=== PATIENT | male | born 1945 | race Caucasian/White ===

== ENCOUNTER 2016-10-05 23:26 | Inpatient (IN) | payer MEDICARE ==
[2016-10-05] MEDS ORDERED: Sodium Chloride 0.9% 1,000 ML IV STA (23:54)
[2016-10-06] MEDS ORDERED: Diatriz Meglumine/Diatriz Sod 30 ML BOTTLE PO ONE (00:03)
[2016-10-06 00:17] LABS: VENOUS BLOOD GAS BASE EXCESS -3.8 mmol/L (0.0-2.0); VENOUS BLOOD GAS PCO2 25 mmHg (40-60); VENOUS BLOOD PH 7.47 (7.32-7.43)
[2016-10-06] MEDS ORDERED: Vancomycin 1 g Inj ONE (00:22)
[2016-10-06 00:28] LABS: BASO % 0.2 % (0.0-2.0); EOS % 0.1 % (0.0-4.0); HEMATOCRIT 47.7 % (35.0-51.0); LYMPH # 0.4 K/uL (1.0-4.3); LYMPH % 3.5 % (20.0-40.0); MEAN CELL VOLUME 85.2 fl (80.0-94.0); MEAN CORPUSCULAR HEMOGLOBIN 27.7 pg (27.0-31.0); MEAN CORPUSCULAR HGB CONC 32.5 g/dL (33.0-37.0); MEAN PLATELET VOLUME 7.2 fl (7.2-11.7); MONO # 0.5 K/uL (0.0-0.8); MONO % 4.1 % (0.0-10.0); NEUT # 10.5 K/uL (1.8-7.0); NEUT % 92.1 % (50.0-75.0); PLATELET COUNT 488 K/uL (130-400); RED CELL DISTRIBUTION WIDTH 14.5 % (11.5-14.5); WHITE BLOOD COUNT 11.3 K/uL (4.8-10.8)
[2016-10-06 00:35] LABS: ALB/GLOB RATIO 1.1 (1.0-2.1); ALKALINE PHOSPHATASE 295 U/L (38-126); ALT/SGPT 88 U/L (21-72); AST/SGOT 60 U/L (17-59); BLOOD UREA NITROGEN 14 mg/dl (9-20); CALCIUM 8.9 mg/dL (8.4-10.2); CARBON DIOXIDE 18 mmol/L (22-30); CHLORIDE 95 mmol/L (98-107); GFR AFRICAN-AMERICAN > 60; GLUCOSE,RANDOM 213 mg/dL (75-110); POTASSIUM 4.1 MMOL/L (3.6-5.0); SODIUM 133 mmol/l (132-148)
--- NOTE | 2016-10-06 00:50 | ED PDOC ---
HPI: General Adult Time Seen by Provider: 10/05/16 23:51 Chief Complaint (Nursing): Abdominal Pain Chief Complaint (Provider): abdominal pain, nausea History Per: Patient History/Exam Limitations: no limitations Onset/Duration Of Symptoms: Sudden Onset Have you had recent travel within the past 21 days to any of the following countries: [place], [place], [place] or [place]?: No Current Symptoms Are (Timing): Still Present Additional Complaint(s): 71yo male with PMHx including HTN, b/l inguinal hernia repair presents to the ED with c/o acute onset right sided upper abdominal pain radiating to shoulder with associated nausea. Patient states pain awoke him from sleep and felt like belching. Patient reports he has had gastrointestinal issues for past 2 weeks with irregular bowel habits. Saw Dr. Calloway today who referred patient for outpatient CT. This evening, developed very acute pain prompting ED visit. No vomiting or diarrhea. Unaware of fever, but has fever here. Patient also appears tachypnic, however states he is nervous. PCP: Dr. Leggett Past Medical History Reviewed: Historical Data, Nursing Documentation, Vital Signs Vital Signs: Last Vital Signs Temp 98.6 F 10/06/16 01:08 Pulse 126 H 10/06/16 01:03 Resp 20 10/06/16 01:03 BP 116/64 10/06/16 01:03 Pulse Ox 98 10/06/16 02:00 - Medical History PMH: HTN - Surgical History Surgical History: Hernia Repair (b/l inguinal ) - Family History Family History: States: No Known Family Hx - Social History Current smoker - smoking cessation education provided: No Alcohol: None Drugs: Denies - Home Medications Home Medications: Ambulatory Orders Medication Instructions Recorded Enalapril Maleate [Vasotec] 5 mg PO DAILY 10/06/16 - Allergies Allergies/Adverse Reactions: Allergies Allergy/AdvReac Type Severity Reaction Status Date / Time No Known Allergies Allergy Verified 10/05/16 23:30 Review of Systems ROS Statement: Except As Marked, All Systems Reviewed And Found Negative Gastrointestinal: Positive for: Nausea, Abdominal Pain. Negative for: Vomiting , Diarrhea Physical Exam - Reviewed Nursing Documentation Reviewed: Yes Vital Signs Reviewed: Yes - Physical Exam Appears: Positive for: Well, No Acute Distress Head Exam: Positive for: ATRAUMATIC, NORMAL INSPECTION, NORMOCEPHALIC Skin: Positive for: Normal Color, Warm, Dry Eye Exam: Positive for: Normal appearance, EOMI, PERRL ENT: Positive for: Normal ENT Inspection Neck: Positive for: Normal, Painless ROM, Supple Cardiovascular/Chest: Positive for: Tachycardia. Negative for: Murmur Respiratory: Positive for: Normal Breath Sounds. Negative for: Wheezing, Respiratory Distress Gastrointestinal/Abdominal: Positive for: Bowel Sounds (hypoactive ), Soft, Tenderness (diffuse ), Distended Back: Positive for: Normal Inspection. Negative for: L CVA Tenderness, R CVA Tenderness Extremity: Positive for: Normal ROM. Negative for: Deformity, Swelling Neurologic/Psych: Positive for: Alert, Oriented. Negative for: Motor/Sensory Deficits - Laboratory Results Result Diagrams: 10/05/16 00:24 10/05/16 00:24 - ECG O2 Sat by Pulse Oximetry: 98 Pulse Ox Interpretation: Normal (RA) - Critical Care Total Time (In Min): 60 Medical Decision Making Medical Decision Makin: Impression: 71yo male w/ acute abdominal pain Plan: Based on patient's tachycardia, tachypnia, and venous lactate, code sepsis initiated. VBG, CT A/P, EKG, labs, CXR ordered. Portable CXR viewed by provider shows high suspicion for free air. Stat non- contrast CT ordered. CT did not show free air. 0106: CT A/P impression: Bilateral pulmonary nodules suggestive of metastatic disease. Recommend correlation with history of primary malignancy. Severe constipation of the right and transverse colon. Cluster of dilated distal ileal loops in the right lower quadrant with severe concentric wall thickening, appearance concerning for bowel ischemia possibly secondary to internal hernia. The lack of intravenous and oral contrast is limiting. Labs reviewed, significant for elevated troponin level indicative of NSTEMI. Low dose nitropaste and IV lopressor ordered. Sepsis bolus of IV ordered. 0109: CT findings discussed with Dr. Hoover and residential supervisor. As per surgical attending, (Dr. Hoover) only IVF resuscitation at this time with antibiotics. Dr. Hoover will further evaluate patient in the morning. Case also discussed with Dr. Chambers for hospitalist admission and ICU placement. Dx: ischemic bowel, sepsis, NSTEMI guarded Scribe Attestation: Documented by Madie Greene acting as a scribe for Lenny Ricks MD. Provider Scribe Attestation: All medical record entries made by the Scribe were at my direction and personally dictated by me. I have reviewed the chart and agree that the record accurately reflects my personal performance of the history, physical exam, medical decision making, and the department course for this patient. I have also personally directed, reviewed, and agree with the discharge instructions and disposition. Disposition - Clinical Impression Clinical Impression: Sepsis, NSTEMI (non-ST elevated myocardial infarction), Ischemic bowel disease - Patient ED Disposition Is Patient to be Admitted: Yes Discussed With DrManuel: Robbin Hoover - Disposition Disposition Time: 01:09 Condition: GUARDED
--- NOTE | 2016-10-06 01:06 | CT ---
EXAM: CT Abdomen and Pelvis Without Intravenous Contrast. CLINICAL HISTORY: 71 years old, male; Pain; Abdominal pain; Generalized; Prior surgery; Surgery date: 6+ months; Surgery type: Inguinal hernia; Additional info: R/O free air TECHNIQUE: Axial computed tomography images of the abdomen and pelvis without intravenous contrast. This CT exam was performed using one or more of the following dose reduction techniques: automated exposure control, adjustment of the mA and/or kV according to patient size, and/or use of iterative reconstruction technique. Coronal and sagittal reformatted images were created and reviewed. EXAM DATE/TIME: 10/06/2016 12:10 AM COMPARISON: No relevant prior studies available. FINDINGS: Numerous pulmonary nodules are present bilaterally likely representing metastatic disease. Recommend correlation with history of primary malignancy. Please note that no prior studies were provided. Bibasilar atelectasis greater on the right. Trace amount of right pleural fluid. There is a small amount of perihepatic fluid. The liver, spleen, and pancreas appear grossly normal on this non-contrast study. Bilateral perinephric stranding. No hydronephrosis. No obstructing calculi. The right and transverse colon are distended with large amount of stool consistent with constipation. Diverticulosis descending and sigmoid colon. There are dilated, markedly thickened loops of small bowel (distal ileum including the terminal ileum) in the right pelvis extending into the right inguinal region. There is haziness in the surrounding fat. The severe concentric wall thickening has appearance concerning for bowel ischemia. Lack of intravenous contrast is limiting and underlying lesion in the thickened ileal loops cannot be excluded. There does not appear to be a significant caliber change in the loop herniating into the right inguinal region to suggest obstruction. The dilation of the thickened loops is likely at least partially due to the large amount of stool within the right colon. The clustering of loops raises the possibility of internal hernia. Numerous mesenteric lymph nodes. Small amount of free fluid in the deep right pelvis. No free air. Degenerative changes in the osseous structures. IMPRESSION: Bilateral pulmonary nodules suggestive of metastatic disease. Recommend correlation with history of primary malignancy. Severe constipation of the right and transverse colon. Cluster of dilated distal ileal loops in the right lower quadrant with severe concentric wall thickening, appearance concerning for bowel ischemia possibly secondary to internal hernia. The lack of intravenous and oral contrast is limiting. Please note no prior studies were sent.
[2016-10-06 01:17] LABS: LARGE PLATELETS PRESENT; NEUTROPHIL 77 % (42-75); REACTIVE LYMPHOCYTES 2 % (0-0); TOTAL CELLS COUNTED 100
[2016-10-06] MEDS ORDERED: SODIUM CHLORIDE 0.9% IV STA (01:25)
[2016-10-06] MEDS ORDERED: Metoprolol 1 mg/ml Inj IVP ONE ×2 (01:27→01:30)
[2016-10-06] MEDS ORDERED: Nitroglycerin 2% 1GM UD TOP STA (01:27)
[2016-10-06] MEDS ORDERED: Nitroglycerin 2% 1GM UD ONE (01:30)
--- NOTE | 2016-10-06 01:38 | CP.PCM.HP ---
History of Present Illness - History of Present Illness History of Present Illness: PCP: Davi Leggett MD Chief Complaint: Abdominal discomfort/weakness HPI: 71 years old male with hx of HTN, Bilateral Inguinal hernia repair one in 1979 and other 7 years ago, comes with worsening abdominal discomfort which began 2 weeks ago with nausea, generalized abdominal discomfort with pain across the upper abdomen, intermittent. Sensation of the gas moving about in [place] abdomen, frequent loose stool and generalized weakness. He referred vomiting , relieved with Famotidine but he began having Eructus and Hiccups. He was having rigors , SOB and mouth dryness on the day of admission He was seen by Dr Leggett who sent him to a Gastroenteralogist whose appointment was on the day of admission.Because of the severity of the abdominal discomfort the patient came to the ED. In the ED he was found to have a temperature of 101.7F and HR of 155/min and RR of 32/min. PMH: HTN PSH: Bilateral Inguinal hernia 1979 and 2009 SH: Quit smoking 40years ; occasional Alcohol use; No illegal drug use; live with the family; Retired FH: No Hereditary diseases Allergies> NKDA Present on Admission - Present on Admission Any Indicators Present on Admission: No History of DVT/PE: No History of Uncontrolled Diabetes: No Urinary Catheter: No Decubitus Ulcer Present: No Review of Systems - Review of Systems Systems not reviewed;Unavailable: Respiratory Distress - Constitutional Constitutional: Chills, Fatigue, Weakness. absent: Headache - EENT Eyes: Requires Corrective Lenses. absent: Decreased Night Vision, Diplopia, Photophobia, Sees Flashes Ears: absent: Decreased Hearing, Ear Discharge, Ear Pain, Tinnitus Nose/Mouth/Throat: Dry Mouth. absent: Epistaxis, Nasal Congestion, Nasal Discharge, Sinus Pain, Sinus Pressure, Sore Throat - Cardiovascular Cardiovascular: absent: Chest Pain, Dyspnea, Edema, Orthopnea, Pedal Edema - Respiratory Respiratory: Dyspnea. absent: Cough, Stridor - Gastrointestinal Gastrointestinal: Abdominal Pain, Diarrhea, Loose Stools, Nausea. absent: Vomiting - Genitourinary Genitourinary: absent: Dysuria, Flank Pain, Hematuria, Urinary Frequency, Freq UTI - Musculoskeletal Musculoskeletal: Muscle Weakness. absent: Back Pain, Joint Swelling, Limited Range of Motion, Neck Pain, Stiffness - Integumentary Integumentary: Hirsutism. absent: Pruritus, Rash, Skin Ulcer, Sores, Striae, Swelling - Neurological Neurological: Frequent Falls, Weakness. absent: Focal Weakness, Headaches, Paresthesias - Psychiatric Psychiatric: Abnormal Sleep Pattern, Anxiety. absent: Confusion, Depression, Hallucinations, Hopelessness, Panic Attacks - Endocrine Endocrine: absent: Fatigue, Palpitations, Polydipsia, Polyphagia, Polyuria - Hematologic/Lymphatic Hematologic: absent: As Per HPI, Easy Bleeding Past Patient History - Past Medical History & Family History Past Medical History?: Yes - Past Social History Smoking Status: Former Smoker Chewing Tobacco Use: No Cigar Use: No Alcohol: Occasional Drugs: Denies Home Situation {Lives}: With Family - CARDIAC Hx Hypertension: Yes - PULMONARY Hx Respiratory Disorders: No - NEUROLOGICAL Hx Neurological Disorder: No - HEENT Hx HEENT Problems: No - RENAL Hx Chronic Kidney Disease: No - ENDOCRINE/METABOLIC Hx Endocrine Disorders: No - HEMATOLOGICAL/ONCOLOGICAL Hx Blood Disorders: No - MUSCULOSKELETAL/RHEUMATOLOGICAL Hx Musculoskeletal Disorders: No - GASTROINTESTINAL Hx Gastrointestinal Disorders: No - GENITOURINARY/GYNECOLOGICAL Hx Genitourinary Disorders: No - PSYCHIATRIC Hx Psychophysiologic Disorder: No - SURGICAL HISTORY Hx Herniorrhaphy: Yes (Bilateral inguinal) - ANESTHESIA Hx Anesthesia: Yes Hx Anesthesia Reactions: No Meds Allergies/Adverse Reactions: Allergies Allergy/AdvReac Type Severity Reaction Status Date / Time No Known Allergies Allergy Verified 10/05/16 23:30 Physical Exam - Constitutional Appears: No Acute Distress, Cachectic - Head Exam Head Exam: ATRAUMATIC, NORMAL INSPECTION, NORMOCEPHALIC - Eye Exam Eye Exam: EOMI, Normal appearance Pupil Exam: NORMAL ACCOMODATION, PERRL - ENT Exam ENT Exam: Mucous Membranes Dry, Normal Exam, Normal External Ear Exam, Normal Oropharynx - Neck Exam Neck exam: Positive for: Full Rom, Normal Inspection. Negative for: Lymphadenopathy, Tenderness - Respiratory Exam Respiratory Exam: Clear to Auscultation Bilateral. absent: Rales, Rhonchi, Wheezes - Cardiovascular Exam Cardiovascular Exam: REGULAR RHYTHM, RRR, +S1, +S2. absent: Gallop, JVD - GI/Abdominal Exam GI & Abdominal Exam: Normal Bowel Sounds Additional comments: distended abdomen, firm, tympanic on percussion, mild tenderness at the upper abdomen. No rebound nor guarding. - Rectal Exam Rectal Exam: Deferred - Extremities Exam Extremities exam: Positive for: calf tenderness, full ROM, normal inspection. Negative for: joint swelling, tenderness - Back Exam Back exam: NORMAL INSPECTION. absent: CVA tenderness (L), CVA tenderness (R) - Neurological Exam Neurological exam: Alert, CN II-XII Intact, Oriented x3, Reflexes Normal - Psychiatric Exam Psychiatric exam: Normal Affect, Normal Mood - Skin Skin Exam: Dry, Intact, Normal Color, Warm Results - Vital Signs Recent Vital Signs: Last Vital Signs Temp 98.6 F 10/06/16 01:08 Pulse 126 H 10/06/16 01:03 Resp 20 10/06/16 01:03 BP 116/64 10/06/16 01:03 Pulse Ox 96 10/06/16 01:03 - Labs Result Diagrams: 10/05/16 00:24 10/05/16 00:24 - Imaging and Cardiology CT scan - abdomen Status: Report reviewed by me Additional comment: FINDINGS: Numerous pulmonary nodules are present bilaterally likely representing metastatic disease. Recommend correlation with history of primary malignancy. Please note that no prior studies were provided. Bibasilar atelectasis greater on the right. Trace amount of right pleural fluid. There is a small amount of perihepatic fluid. The liver, spleen, and pancreas appear grossly normal on this non-contrast study. Bilateral perinephric stranding. No hydronephrosis. No obstructing calculi. The right and transverse colon are distended with large amount of stool consistent with constipation. Diverticulosis descending and sigmoid colon. There are dilated, markedly thickened loops of small bowel (distal ileum including the terminal ileum) in the right pelvis extending into the right inguinal region. There is haziness in the surrounding fat. The severe concentric wall thickening has appearance concerning for bowel ischemia. Lack of intravenous contrast is limiting and underlying lesion in the thickened ileal loops cannot be excluded. There does not appear to be a significant caliber change in the loop herniating into the right inguinal region to suggest obstruction. The dilation of the thickened loops is likely at least partially due to the large amount of stool within the right colon. The clustering of loops raises the possibility of internal hernia. Numerous mesenteric lymph nodes. Small amount of free fluid in the deep right pelvis. No free air. Degenerative changes in the osseous structures. IMPRESSION: Bilateral pulmonary nodules suggestive of metastatic disease. Recommend correlation with history of primary malignancy. Severe constipation of the right and transverse colon. Cluster of dilated distal ileal loops in the right lower quadrant with severe concentric wall thickening, appearance concerning for bowel ischemia possibly secondary to internal hernia. The lack of intravenous and oral contrast is limiting. Chest x-ray Status: Image reviewed by me Additional comment: No infiltrates Assessment & Plan - Assessment and Plan (Free Text) Assessment: #. Ischemic Bowel #. Sepsis #. NSTENI #. HTN Plan: 71 years old male with hx of HTN, Bilateral Inguinal hernia repair one in 1979 and other 7 years ago, comes with worsening abdominal discomfort which began 2 weeks ago with nausea, generalized abdominal discomfort with pain across the upper abdomen, intermittent. Sensation of the gas moving about in the. abdomen, frequent loose stool and generalized weakness. He referred vomiting. In the ED he was found to have a temperature of 101.7F and HR of 155/min and RR of 32/min. #. Ischemic Bowel possible due to Internal Hernia as per CT abdomen Pelvis - Consult Surgery Dr Hoover - consult Dr Yanes GI - NPO - NG tube at low intermittent suctioning - Pepcid IV BID #. Severe Sepsis with temperature of 101.7F; RR of 32/min; HR of 155/min and Lactate of 4.7 - patient received 3liters of NS in ED continue with Normal saline 150mls/hr - Consult Dr Jackson GI - Follow Blood Culture - follow Lactic Acid/CBC #. Elevated troponin probably secondary to the Sepsis r/o NSTEMI - consult Dr Leggett cardiology - follow serial troponin - Serial EKG #. HTN - Metropolol 2.5mg IV Q6hrs - follow Blood pressures #. Bilateral Pulmonary nodules suggestive of Metastatic disease - Consult Dr Mcgowan #. DVT prophylaxis with SCD #. Stress Ulcer prophylaxis with Pepcid IV BID #. Code Status: Full - Date & Time Date: 10/06/16 Time: 01:38
[2016-10-06] MEDS ORDERED: Sodium Chloride 0.9% 1,000 ML IV SCH ×2 (03:00→22:45)
[2016-10-06 03:46] VITALS: BMI 22.8
[2016-10-06] MEDS: Piperacillin/Tazobact 3.375 GM in Sodium Chloride 0.9% 100 ML IVPB STA (04:00)
[2016-10-06] MEDS: metroNIDAZOLE 500mg/100ml NS 100 ML IVPB SCH ×3 (05:00→16:50)
[2016-10-06 05:44] LABS: BASO % 0.1 % (0.0-2.0); HEMATOCRIT 38.7 % (35.0-51.0); LYMPH # 0.4 K/uL (1.0-4.3); LYMPH % 3.8 % (20.0-40.0); MEAN CELL VOLUME 84.4 fl (80.0-94.0); MEAN CORPUSCULAR HEMOGLOBIN 27.2 pg (27.0-31.0); MEAN CORPUSCULAR HGB CONC 32.2 g/dL (33.0-37.0); MEAN PLATELET VOLUME 7.3 fl (7.2-11.7); MONO # 0.6 K/uL (0.0-0.8); MONO % 5.3 % (0.0-10.0); NEUT # 10.6 K/uL (1.8-7.0); NEUT % 90.8 % (50.0-75.0); PLATELET COUNT 330 K/uL (130-400); RED CELL DISTRIBUTION WIDTH 14.4 % (11.5-14.5); WHITE BLOOD COUNT 11.6 K/uL (4.8-10.8)
[2016-10-06 05:54] LABS: ALB/GLOB RATIO 0.9 (1.0-2.1); ALKALINE PHOSPHATASE 163 U/L (38-126); ALT/SGPT 62 U/L (21-72); AST/SGOT 32 U/L (17-59); BILIRUBIN,TOTAL 0.7 mg/dl (0.2-1.3); BLOOD UREA NITROGEN 14 mg/dl (9-20); CALCIUM 7.1 mg/dL (8.4-10.2); CARBON DIOXIDE 17 mmol/L (22-30); CHLORIDE 106 mmol/L (98-107); GFR AFRICAN-AMERICAN > 60; GLUCOSE,RANDOM 119 mg/dL (75-110); POTASSIUM 3.3 MMOL/L (3.6-5.0); SODIUM 134 mmol/l (132-148); TOTAL PROTEIN 4.8 G/DL (6.3-8.2)
--- NOTE | 2016-10-06 06:07 | CP.PCM.CON ---
History of Present Illness - History of Present Illness History of Present Illness: Gen Surg: Dr Hoover CC: abdominal pain x 2 weeks Pt is a 71M with PMH of HTN and PSH of b/l inguinal hernia repair. Pt presents with abdominal pain which has been worsening over the past 2 weeks. Initially it started just as epigastric discomfort. Now he describes it as a diffuse pain throughout his entire upper abdomen that comes and goes. It has been associated with intermittent vomiting, nausea, and a generalized fatigue over the past 2 weeks. He also reports significant diarrhea during this time. Today he was supposed to be seen by GI but his pain got worse and he became SOB and felt extremily dehydrated so he came to ED. In ED pt found to be septic w/ positive Troponin, CT concerning for bowel ischemia. PMH: HTN PSH: b/l inguinal hernia Review of Systems - Review of Systems All systems: reviewed and no additional remarkable complaints except (as per hpi ) Past Patient History - Past Medical History & Family History Past Medical History?: Yes - Past Social History Smoking Status: Former Smoker Chewing Tobacco Use: No Cigar Use: No Alcohol: Occasional Drugs: Denies Home Situation {Lives}: With Family - CARDIAC Hx Hypertension: Yes - PULMONARY Hx Respiratory Disorders: No - NEUROLOGICAL Hx Neurological Disorder: No - HEENT Hx HEENT Problems: No - RENAL Hx Chronic Kidney Disease: No - ENDOCRINE/METABOLIC Hx Endocrine Disorders: No - HEMATOLOGICAL/ONCOLOGICAL Hx Blood Disorders: No - INTEGUMENTARY Hx Dermatological Problems: No - MUSCULOSKELETAL/RHEUMATOLOGICAL Hx Musculoskeletal Disorders: No - GASTROINTESTINAL Hx Gastrointestinal Disorders: No - GENITOURINARY/GYNECOLOGICAL Hx Genitourinary Disorders: No - PSYCHIATRIC Hx Psychophysiologic Disorder: No - SURGICAL HISTORY Hx Herniorrhaphy: Yes (Bilateral inguinal) - ANESTHESIA Hx Anesthesia: Yes Hx Anesthesia Reactions: No Meds Allergies/Adverse Reactions: Allergies Allergy/AdvReac Type Severity Reaction Status Date / Time No Known Allergies Allergy Verified 10/05/16 23:30 - Medications Medications: Current Medications Famotidine (Pepcid) 20 mg IVP Q12 LOREN Piperacillin Sod/Tazobactam (Sod 3.375 gm/ Sodium Chloride) 100 mls @ 100 mls/ hr IVPB Q6 LOREN Metronidazole (Flagyl 500mg/100ml Ns) 100 mls @ 100 mls/hr IVPB Q8 LOREN Last Admin: 10/06/16 05:00 Dose: 100 mls/hr Sodium Chloride (Sodium Chloride 0.9%) 1,000 mls @ 150 mls/hr IV .Q6H40M [facility] Stop: 10/07/16 03:01 Metoprolol Tartrate (Lopressor) 2.5 mg IVP Q6H LOREN Physical Exam - Constitutional Appears: Non-toxic, No Acute Distress - Head Exam Head Exam: NORMOCEPHALIC - Eye Exam Eye Exam: EOMI - ENT Exam ENT Exam: Mucous Membranes Dry - Respiratory Exam Respiratory Exam: absent: Accessory Muscle Use, Respiratory Distress - Cardiovascular Exam Cardiovascular Exam: REGULAR RHYTHM - GI/Abdominal Exam GI & Abdominal Exam: Diminished Bowel Sounds, Distended, Firm, Tenderness ( diffuse but worse in RUQ/LUQ). absent: Guarding, Hernia, Soft - Rectal Exam Rectal Exam: Deferred - Extremities Exam Extremities exam: Negative for: pedal edema - Neurological Exam Neurological exam: Alert, Oriented x3 - Psychiatric Exam Psychiatric exam: Normal Affect, Normal Mood Results - Vital Signs Recent Vital Signs: Last Vital Signs Temp 98.9 F 10/06/16 04:00 Pulse 105 H 10/06/16 04:00 Resp 22 10/06/16 04:00 BP 94/59 L 10/06/16 04:00 Pulse Ox 96 10/06/16 04:00 - Labs Result Diagrams: 10/06/16 04:50 10/06/16 04:50 Labs: Laboratory Results - last 24 hr 10/06/16 10/06/16 03:30 04:50 WBC 11.6 H RBC 4.58 Hgb 12.5 D Hct 38.7 MCV 84.4 MCH 27.2 MCHC 32.2 L RDW 14.4 Plt Count 330 D MPV 7.3 Neut % (Auto) 90.8 H Lymph % (Auto) 3.8 L [place] % (Auto) 5.3 Eos % (Auto) 0.0 Baso % (Auto) 0.1 Neut # 10.6 H Lymph # 0.4 L [place] # 0.6 Eos # 0.0 Baso # 0.0 Lactic Acid 2.3 H Assessment & Plan - Assessment and Plan (Free Text) Assessment: 71M admitted for 2 weeks of abdominal pain; also NSTEMI Plan: NPO IV Fluids NGT Serial lactate repeat troponins rec cardiology consult re: NSTEMI further rec per Dr Kiko torres d/w Dr Kiko Vizcarra, PGY2 - Date & Time Date: 10/06/16 Time: 06:15
[2016-10-06 07:20] LABS: PARTIAL THROMBOPLASTIN TIME 32.7 SECONDS (23.3-32.5)
--- NOTE | 2016-10-06 07:55 | CARD ---
APPROVED REPORT EKG Measurement Heart [id number] <Conclusion> Sinus tachycardia Low voltage QRS Right bundle branch block Inferior infarct, age undetermined Abnormal ECG
[2016-10-06] MEDS: Potassium CL 10mEq/100ml 100 ML IVPB SCH ×2 (09:02→10:07)
[2016-10-06] MEDS: Metoprolol 1 mg/ml Inj IVP SCH ×3 (09:08→20:45)
--- NOTE | 2016-10-06 09:45 | CARD ---
APPROVED REPORT EKG Measurement Heart [id number] <Conclusion> Normal sinus rhythm Right bundle branch block Inferior infarct, age undetermined Abnormal ECG
--- NOTE | 2016-10-06 09:55 | CP.PCM.CON ---
History of Present Illness - History of Present Illness History of Present Illness: THE PATIENT IS A 71 YEAR OLD MALE WITH AHISTORY OF HYPERTENSION FOR ABOUT 7 YEARS ON ENALAPRIL 5 MGS DAILY. HE IS ALSO AN EX SMOKER. HE HAD BILATERAL INGUINAL HERNIA SURGICAL REPAIRS SEVERAL YEARS AGO AND SURGERY FOR LEFT SCAPULA TRAUMA YEARS AGO. HE NOW COMPLAINS OF ABDOMINAL PROBLEMS SINCE JULY OF THIS YEAR WITH ABDOMINAL PAIN, VOMITING, DIARRHEA, BLOATING, AND PERIODS WITH LACK OF APPETITE WITH LITTLE TO EAT OR DRINK. THESE SYMPTOMS WERE WORSE OVER THE PAST 2 WEEKS AND HE SAW ME EARLIER THIS WEEK AND WAS REFERRED TO A GI PHYSICIAN WHO SAW HIM YESTERDAY AND BLOOD TESTS, STOOL TESTS AND A CAT SCAN WERE TO BE DONE AND A PROBABLE ENDOSCOPY NEXT WEEK. BUT, LAST NIGHT HE HAD SHARP ABDOMINAL PAIN, WEAKNESS AND DIZZYNESS AND CAME TO THE ER. HE WAS FOUND TO HAVE SEPSIS WITH A FEVER AND ELEVATED WBC SO HE WAS GIVEN IV ANTIBIOTICS AND IV FLUIDS. A CAT SCAN WAS ORDERED SHOWING DILATED LOOPS AND POSSIBLE ISCHEMIC BOWEL SO SURGERY WAS CALLED TO SEE HIM. THE PATIENT HAS A RBBB ON THE EKG AND THE EKG MACHINE READ THE EKG POSSIBLE OLD IWMI. BUT THE EKG IS UNCHANGED FROM A PREVIOUS EKG AND THE PATIENT DOES NOT HAVE A HISTORY OF CHEST PAIN OR IN. Past Patient History - Past Medical History & Family History Past Medical History?: Yes - Past Social History Smoking Status: Former Smoker Chewing Tobacco Use: No Cigar Use: No Alcohol: Occasional Drugs: Denies Home Situation {Lives}: With Family - CARDIAC Hx Hypertension: Yes - PULMONARY Hx Respiratory Disorders: No - NEUROLOGICAL Hx Neurological Disorder: No - HEENT Hx HEENT Problems: No - RENAL Hx Chronic Kidney Disease: No - ENDOCRINE/METABOLIC Hx Endocrine Disorders: No - HEMATOLOGICAL/ONCOLOGICAL Hx Blood Disorders: No - INTEGUMENTARY Hx Dermatological Problems: No - MUSCULOSKELETAL/RHEUMATOLOGICAL Hx Musculoskeletal Disorders: No - GASTROINTESTINAL Hx Gastrointestinal Disorders: No - GENITOURINARY/GYNECOLOGICAL Hx Genitourinary Disorders: No - PSYCHIATRIC Hx Psychophysiologic Disorder: No - SURGICAL HISTORY Hx Herniorrhaphy: Yes (Bilateral inguinal) - ANESTHESIA Hx Anesthesia: Yes Hx Anesthesia Reactions: No Meds Allergies/Adverse Reactions: Allergies Allergy/AdvReac Type Severity Reaction Status Date / Time No Known Allergies Allergy Verified 10/05/16 23:30 - Medications Medications: Current Medications Famotidine (Pepcid) 20 mg IVP Q12 [facility] Last Admin: 10/06/16 09:03 Dose: 20 mg Piperacillin Sod/Tazobactam (Sod 3.375 gm/ Sodium Chloride) 100 mls @ 100 mls/ hr IVPB Q6 [facility] Metronidazole (Flagyl 500mg/100ml Ns) 100 mls @ 100 mls/hr IVPB Q8 [facility] Last Admin: 10/06/16 05:00 Dose: 100 mls/hr Sodium Chloride (Sodium Chloride 0.9%) 1,000 mls @ 150 mls/hr IV .Q6H40M [facility] Stop: 10/07/16 03:01 Last Admin: 10/06/16 05:00 Dose: 150 mls/hr Potassium Chloride (Potassium Chloride 10 Meq/100 Ml) 100 mls @ 100 mls/hr IVPB Q1 [facility] Stop: 10/06/16 09:59 Last Admin: 10/06/16 09:02 Dose: 100 mls/hr Metoprolol Tartrate (Lopressor) 2.5 mg IVP Q6H [facility] Last Admin: 10/06/16 09:08 Dose: Not Given Physical Exam - Respiratory Exam Respiratory Exam: Clear to Auscultation Bilateral - Cardiovascular Exam Cardiovascular Exam: REGULAR RHYTHM, +S1, +S2 - GI/Abdominal Exam GI & Abdominal Exam: Diminished Bowel Sounds, Distended, Guarding - Extremities Exam Extremities exam: Positive for: normal inspection - Additional Findings Additional findings: EKG NSR, RBBB, POSSIBLE OLD IWMI(SAME PREVIOUS EKG) TROPONIM # 1 O.14((BEFORE HYDRATION) TROPONIN # 2 0.09(AFTER HYDRATION) CY REPORT NOTED. ALSO PULMONARY NODULES SEEN LA 2.3, DECREASED TO 1.0 Results - Vital Signs Recent Vital Signs: Last Vital Signs Temp 98.9 F 10/06/16 04:00 Pulse 98 H 10/06/16 09:08 Resp 22 10/06/16 06:00 BP 102/64 10/06/16 09:08 Pulse Ox 98 10/06/16 06:00 - Labs Result Diagrams: 10/06/16 04:50 10/06/16 04:50 Labs: Laboratory Results - last 24 hr 10/06/16 10/06/16 03:30 04:50 WBC 11.6 H RBC 4.58 Hgb 12.5 D Hct 38.7 MCV 84.4 MCH 27.2 MCHC 32.2 L RDW 14.4 Plt Count 330 D MPV 7.3 Neut % (Auto) 90.8 H Lymph % (Auto) 3.8 L [place] % (Auto) 5.3 Eos % (Auto) 0.0 Baso % (Auto) 0.1 Neut # 10.6 H Lymph # 0.4 L [place] # 0.6 Eos # 0.0 Baso # 0.0 PT 14.8 H INR 1.42 H APTT 32.7 H Sodium 134 Potassium 3.3 L Chloride 106 Carbon Dioxide 17 L Anion Gap 14 BUN 14 Creatinine 0.9 Est GFR ( Amer) > 60 Est GFR (Non-Af Amer) > 60 Random Glucose 119 H Lactic Acid 2.3 H 1.0 Calcium 7.1 L Total Bilirubin 0.7 AST 32 ALT 62 Alkaline Phosphatase 163 H D Troponin I 0.0990 Total Protein 4.8 L Albumin 2.2 L D Globulin 2.5 Albumin/Globulin Ratio 0.9 L Assessment & Plan - Assessment and Plan (Free Text) Assessment: ABDOMINAL SYMPTOMS WITH PAIN AND GUARDING ON EXAMINATION AND ABNORMAL CT SCAN SEPSIS AND DEHYDRATION HYPERTENSION Plan: THE PATIENT WAS TREATED WITH IV FLUIDS AND ANTIBIOTICS THE PATIENT WAS DISCUSSED WITH SURGERY WHO WANT TO PERFORM AN LAPAROSCOPY AND THE PATIENT IS AGREEABLE THE PATIENT IS CLEARED FOR SURGERY FROM THE CARDIAC VIEWPOINT THE PATIENT WAS DISCUSSED WITH SURGERY, HIS , HOSTLER HELPER AND NURSING STAFF
--- NOTE | 2016-10-06 09:56 | RAD ---
HISTORY: chest pain COMPARISON: . Comparison chest dated the 2008 FINDINGS: LUNGS: Mild left basilar atelectasis and or scarring. Questionable small left effusion. PLEURA: No apparent pneumothorax CARDIOVASCULAR: Normal. OSSEOUS STRUCTURES: No significant abnormalities. VISUALIZED UPPER ABDOMEN: Normal. OTHER FINDINGS: None. IMPRESSION: Mild left basilar atelectasis and or scarring. Questionable small left effusion.
[2016-10-06 10:15] LABS: NEUTROPHIL 80 % (42-75); TOTAL CELLS COUNTED 100
[2016-10-06 10:16] LABS: LARGE PLATELETS PRESENT
--- NOTE | 2016-10-06 11:52 | CP.PCM.PN ---
Subjective - Date & Time of Evaluation Date of Evaluation: 10/06/16 Time of Evaluation: 09:30 - Subjective Subjective: Patient was seen and evaluated in AM as well as after surgery today. He is a chronically ill looking male with PMH Ht admitted for abdominal pain and sepsis. Underwent right hemicolectomy today for perforated cecal mass and with pus formation. Patient at present on MV post op, not on pressors, tachycardic Tmax 101.7 tachycardic HR 150-130 sedated Objective - Vital Signs/Intake and Output Vital Signs (last 24 hours): Temp Pulse Resp BP Pulse Ox 97.7 F 98 H 24 102/64 99 10/06/16 08:00 10/06/16 09:08 10/06/16 08:00 10/06/16 09:08 10/06/16 08:00 Intake and Output: 10/06/16 10/06/16 06:59 18:59 Intake Total 350 Balance 350 - Medications Medications: Current Medications Famotidine (Pepcid) 20 mg IVP Q12 [facility] Last Admin: 10/06/16 09:03 Dose: 20 mg Piperacillin Sod/Tazobactam (Sod 3.375 gm/ Sodium Chloride) 100 mls @ 100 mls/ hr IVPB Q6 [facility] Metronidazole (Flagyl 500mg/100ml Ns) 100 mls @ 100 mls/hr IVPB Q8 [facility] Last Admin: 10/06/16 11:09 Dose: 100 mls/hr Sodium Chloride (Sodium Chloride 0.9%) 1,000 mls @ 150 mls/hr IV .Q6H40M [facility] Stop: 10/07/16 03:01 Last Admin: 10/06/16 05:00 Dose: 150 mls/hr Metoprolol Tartrate (Lopressor) 2.5 mg IVP Q6H [facility] Last Admin: 10/06/16 09:08 Dose: Not Given - Labs Labs: 10/06/16 04:50 10/06/16 04:50 PT 14.8 SECONDS (9.6-11.2) H 10/06/16 04:50 INR 1.42 (0.92-1.08) H 10/06/16 04:50 APTT 32.7 SECONDS (23.3-32.5) H 10/06/16 04:50 - Constitutional Appears: Other (intubated , on MV , sedated post op ) - Head Exam Head Exam: ATRAUMATIC, NORMAL INSPECTION, NORMOCEPHALIC - Eye Exam Eye Exam: Normal appearance, PERRL Pupil Exam: NORMAL ACCOMODATION - ENT Exam ENT Exam: Mucous Membranes Dry, Normal Exam - Neck Exam Neck Exam: Full ROM, Normal Inspection - Respiratory Exam Respiratory Exam: Clear to Ausculation Bilateral, NORMAL BREATHING PATTERN. absent: Rhonchi, Wheezes, Respiratory Distress - Cardiovascular Exam Cardiovascular Exam: Tachycardia, +S1, +S2. absent: JVD - GI/Abdominal Exam GI & Abdominal Exam: Distended, Tenderness Additional comments: midline surgical incision with dressing - Rectal Exam Rectal Exam: Deferred - Extremities Exam Extremities Exam: Full ROM, Normal Inspection. absent: Pedal Edema - Neurological Exam Additional comments: sedated - Skin Skin Exam: Dry, Pallor, Warm Assessment and Plan - Assessment and Plan (Free Text) Assessment: 71 years old male with hx of HTN, Bilateral Inguinal hernia repair one in 1979 and other 7 years ago, came with worsening abdominal discomfort which began 2 weeks ago with nausea, generalized abdominal discomfort with pain across the upper abdomen, intermittent. Sensation of the gas moving about in the. abdomen, frequent loose stool and generalized weakness. He referred vomiting. In the ED he was found to have a temperature of 101.7F and HR of 155/min and RR of 32/ min.Patient admitted to ICU with diagnosis of ischemic bowel and severe sepsis. He wsa taken to OR and underwent right hemicolectomy for perforated cecal mass and pus in abdomen. 1. Severe Sepsis Secondary to perforated viscus S/p right hemicolectomy for perforated cecal mass Patient still on MV post surgery. Continue weaning trials in AM On Flagyl, Zosyn and vanco Id on consult F/u cultures 2.Metastatic Disease Most likely colon CA ( cecal mass found during surgery as well as diffuse lymphadenopathy Ct abdomen showed pulmonary nodules F/u pathology report Oncology eval 3. Perforated Viscus - s/p hemicoloctomy Surgery following patient NPO for now Pain management\IVF and IV antibiotics 4.Elevated troponin probably secondary to the Sepsis cardiology cosnult appreciated patient cleared for surgery 5. HTN Metropolol 2.5mg IV Q6hrs 6. Bilateral Pulmonary nodules suggestive of Metastatic disease Consult Dr Mcgowan 7.DVT prophylaxis with SCD 8. Stress Ulcer prophylaxis with Pepcid IV BID
[2016-10-06] MEDS: Piperacillin/Tazobact 3.375 GM in Sodium Chloride 0.9% 100 ML IVPB SCH ×3 (12:08→21:41)
[2016-10-06] MEDS ORDERED: Rocuronium 10 mg/ml (5 ml) ONE ×2 (12:12→12:55)
[2016-10-06] MEDS ORDERED: Etomidate 20 mg/10ml Inj IV ONE (12:13)
[2016-10-06] MEDS ORDERED: Succinylcholine 200 mg/10 ml Inj IV ONE (12:13)
[2016-10-06] MEDS ORDERED: Lidocaine Hydrochloride 5 ML INJ ONE (12:14)
[2016-10-06] MEDS ORDERED: Sodium Chloride 0.9% 1,000 ML IV ONE (12:20)
[2016-10-06 12:38] LABS: BLOOD UREA NITROGEN 15 mg/dl (9-20); CALCIUM 7.6 mg/dL (8.4-10.2); CARBON DIOXIDE 19 mmol/L (22-30); CHLORIDE 106 mmol/L (98-107); GFR AFRICAN-AMERICAN > 60; GLUCOSE,RANDOM 109 mg/dL (75-110); POTASSIUM 3.8 MMOL/L (3.6-5.0); SODIUM 136 mmol/l (132-148)
[2016-10-06] MEDS ORDERED: Lactated Ringer's 1,000 ML IV ONE ×3 (12:55→15:15)
[2016-10-06] MEDS ORDERED: Sevoflurane - Inhalation Anesthetic Liq (250 ml) ONE (12:58)
[2016-10-06 13:11] LABS: CARCINOEMBRYONIC ANTIGEN 36.3 ng/mL (0-3.0)
[2016-10-06] MEDS ORDERED: Vecuronium 10 mg Inj ONE (14:49)
--- NOTE | 2016-10-06 16:05 | PCM.SURG1 ---
Surgeon's Initial Post Op Note - Surgeon's Notes Surgeon: Dr. Vazquez Statistics Manager: Dr. Hoover, Dr. Montana PGY-2, Dr. Amaya PGY-1 Type of Anesthesia: General Endo Pre-Operative Diagnosis: Possible ischemic bowel Operative Findings: Perforated cecal mass, copious amount of purulent fluid, 700cc urine output Post-Operative Diagnosis: Perforated Cecal mass Operation Performed: 1) Diagnostic laparoscopy 2) Exploratory laparotomy 3) Right hemicolectomy 4) Drainage of intraabdominal abscesses 5) Abdominal washout 6) Ileocolonic anastomosis Specimen/Specimens Removed: Right colon, purulent drainage Estimated Blood Loss: EBL {In ML}: 100 Blood Products Given: N/A Drains Used: No Drains Post-Op Condition: Poor Date of Surgery/Procedure: 10/06/16 Time of Surgery/Procedure: 12:09
--- NOTE | 2016-10-06 16:15 | CP.CCUPN ---
CCU Subjective - Physician Review Subjective (Free Text): CARVER HAND PROGRESS NOTE Patient examined, interim events reviewed, given report by covering Anesthesiologist: 71M returning back from Exlap and R hemicolectomy for perforated viscus and pus formation. approx. 4 hour procedure, to remain intubated overnight as per Anesthesiologist: was tachycardic throughout procedure and after 4 liters crystalloid input, output was 200 ml only. EBL approx. 200ml. No vasopressors required. No invasive or monitoring lines placed in OR. Vitals on return to ICU from OR: afebrile, BP 150/88, HR 117, RR 16 on AC 16, TV 450ml, 100% fiO2 and PEEP 5. ROS: as above, no other obtainable pertinent negs or positives on 10 system review. PMFSH: all nursing and historical notes reviewed, no new pertinent data relevant to current problems. No other distress noted: EXAM- HEENT: no icterus, pupils equal and reactive NECK: no visible JVD, supple, carotids equal upstroke bilat/no bruits CHEST: decreased BS bases, no wheezes audible HEART: regular, distant, tachy S1S2, no murmur audible, no rubs. ABD: soft, no increased distention, no HSM. BS not heard EXT: no leg edema, SCDs on bilat, no peripheral/ digital cyanosis, no calf tenderness or palpable cords, distal pulses intact and symmetrical NEURO: sedated on MV; no gross focal motor deficits to pain stimuli SKIN: no rashes LABS: AM pre-op results- PT/INR/PTT: 14.8/1.42/32.7 WBC= 11.6 with 8% bands HGB= 12.5 PLTs= 330K AM pre-op lytes , repeated at 12 Noon- Na= 134 to 136 K= 3.3 to 3.8 HCO3= 17 to 19 BUN/Cr= 14/0.9 to 15/0.8 BS= 119 to 109 Lactate 1.0 pre-op Trop #1 mild elevation, Trop #2 and #3 negative CEA= 36.3 CTAP film and results reviewed. ASSESSMENT: 1. S/p ExLap; R hemicolectomy; Perf Viscus 2 CA 2. Acute Resp insuff in post-operative state 3. Sepsis / Shock 2 peritonitis 4. Dehydration/ Hypovolemia 5. Colon Ca with Lung Mets 6. r/o Acute / Subacute MSTEMI PLAN: 1. MV support overnight, check CXR, assess for readiness for extubation in AM if no other adverse clinical events arise. Try decreasing fio2 to 50%, ABG pending. 2. IVF hydration. Watch for transabdominal fluid shifts. 3. Serial lactates. 4. Empiric abx coverage ongoing. 5. Post-op orders as per Surgical team. 6. Check repeat bloodwork now.
--- NOTE | 2016-10-06 16:48 | CON ---
DATE: 10/06/2016 The patient is status post exploratory laparotomy. PHYSICAL EXAMINATION: VITAL SIGNS: Stable. Blood pressure 151/88, saturation 100% and heart rate 108. GENERAL: The patient is intubated. ABDOMEN: Again, mildly distended. No bowel sounds. LUNGS: Breath sounds bilaterally. EXTREMITIES: Responding to pain, no edema, cyanosis or clubbing. FINDINGS: I discussed with litigation legal assistant suspected peritoneal carcinomatosis, metastatic to the lungs a nd sepsis. Continue present management, IV antibiotic and IV fluid. Will discuss with the family an d the PMD further management. Will follow with you as needed. Anthony Yanes MD cc: [id number] TT: 10/06/2016 16:47:56 Confirmation # [id number] Dictation # [id number]
[2016-10-06 18:06] LABS: ABG ALLEN TEST YES; ABG MECHANICAL RATE 16; ARTERIAL BLOOD GAS HCO3 15.2 mmol/L (21-28); ARTERIAL BLOOD GAS MODE A/C; ARTERIAL BLOOD GAS PO2 93 mm/Hg (80-100); ATERIAL BLOOD GAS PEEP 5
[2016-10-06 18:09] LABS: ARTERIAL BLOOD GAS PH 7.17 (7.35-7.45)
--- NOTE | 2016-10-06 18:26 | OP ---
PROCEDURE DATE: 10/06/2016 PREOPERATIVE DIAGNOSIS: Rule out ischemic bowel. POSTOPERATIVE DIAGNOSIS: Perforated right colon mass and purulent peritonitis. PROCEDURE: Diagnostic Laparoscopy, Exploratory Laparotomy, Right Hemicolectomy, Drainage of intra-abdominal abscesses, Abdominal washout, Creation of ileo- colonic anastomosis SURGEON: George PRINCIPAL SECRETARY: Rubén Hoover Gomez ANESTHESIA: General FLUIDS: Crystaloids EBL: 100 ml SPECIMEN: Right Colon BRIEF HISTORY: The patient is a very pleasant 71-year-old gentleman who presented to the hospital with what appears to be several months of nonspecific abdominal pain; however over the course of the past several weeks, his abdominal pain has increased and that is what eventually brought him to the hospital. All the risks and benefits of the procedure were explained to the patient and with the patient having a full understanding of all the risks and benefits involved, informed consent was obtained and the patient was taken to the operating room for above stated procedure. Prior to the procedure, patient underwent a CAT scan that showed thickened loops of bowel with some intra- abdominal free fluid. PROCEDURE: The patient was brought into the operating room and placed supine on the operating table. Bilateral Flowtron boots were applied to patient's lower extremities. After successful induction of anesthesia and successful endotracheal intubation by the anesthesia team, Tom catheter was inserted into the patient's bladder and the patient's abdomen was shaved, prepped with ChloraPrep stick and draped in the standard surgical fashion. Prior to the beginning of the procedure, timeout was called in the room and everyone in the room were in agreement. Using Veress needle, patient's abdomen was entered at the umbilicus and pneumoperitoneum was achieved with good opening pressures. Once this was accomplished, using an 11 blade scalpel knife, 5 mm incision was made in the umbilicus in a longitudinal fashion. Subsequent to that, a 5 mm trocar was introduced into the patient's abdomen. At that point in time, 5 mm 0 -degree scope was introduced into the patient's abdomen and abdomen was inspected. I immediately was able to visualize purulent peritonitis. There appeared to be pus in the pelvis on the right side of the patient's lower abdomen as well as on the left side. Then, attention was turned to the left lower abdomen. Using 11 blade scalpel knife, 5 mm incision was made in transverse fashion. Subsequent to that, another 5 mm trocar was introduced into the patient's abdomen. At that point in time, attention was turned to the mid lower abdomen. Using 11 blade scalpel knife, approximately 5 mm incision was made in the suprapubic area in a transverse fashion. Subsequent to that, another 5 mm trocar was introduced into the patient's abdomen. At that point in time, using atraumatic bowel graspers and the suction irrigation device, the pus was suctioned out and the abdomen was inspected. I examined the liver, that appeared to be normal. I examined the peritoneal surfaces; they did not appear to have any tumor deposits. At that point in time, I was able to peel off the small bowel from the anterior abdominal wall in the right lower quadrant. Subsequent to that I got to the right colon. Now at that point in time, it appeared that there was a rather large mass in right colon. So at that point in time, decision was made to convert procedure to open. Using 10 blade scalpel knife, approximately 20 cm incision was made in mid abdomen in a longitudinal fashion extending around the umbilicus on the right side and subsequent to that, dissection was carried down with electrical cautery until the fascial layer was visualized. Fascia was transected with electrical cautery and 2 Milagros clamps were placed on both ends of the fascia. At that point in time, the fascial layer was opened a little bit more and using 2 Milagros clamps placed on the peritoneum Metzenbaum scissors were used to transect the peritoneum. At that point in time, the patient's abdominal cavity was entered. We immediately were able to visualize purulent material draining from the incision. The incision was fully opened up with electrical cautery and at that point in time, using a Yankauer suction device the pus was drained from the right lower quadrant, left lower quadrant as well as pelvis. At this point in time, the omentum was mobilized from the anterior abdominal wall. It appeared to be stuck to the colon as well to the left colon, so omental adhesions were taken down with electrical cautery and Harmonic scalpel. Once this was accomplished, we ran the entire small bowel all the way from the ligament of Treitz and all the way up to the ileocecal valve. There appeared to be a mass in the cecum and upon further investigation, the mass appeared to have perforated through the cecum. I have examined the entire right colon, transverse colon, both hepatic and splenic flexures as well as descending colon , sigmoid colon and upper portion of rectum, that appeared to be normal. Then, attention was turned to the stomach. Stomach appeared to be normal and the first portion of the duodenum appeared to be normal. At this point in time, a decision was made to perform a right hemicolectomy. The Buchwald retractor was set up and proper traction was achieved. Using electrical cautery the peritoneal reflection was incised and right colon was mobilized along the right white line of Toldt. Hepatic flexure was taken with Harmonic scalpel taking down the colo-hepatic ligament. At this point in time, the gastrohepatic ligament was entered at the mid transverse colon and was taken down with Harmonic scalpel all the way up to the hepatic flexure. Once this was accomplished and the colon was completely mobilized, we used 75 mm blue load on terminal ileum. A small shayy was made in the mesentery and subsequent to that a Milagros clamp was placed through the mesentery to create mesenteric defect and subsequent to that 75 mm blue load stapler was fired across the terminal ileum. At that point in time, attention was turned to the transverse colon. A small shayy was made in the mesentery of the proximal transverse colon. Subsequent to that, the Milagros clamp was placed through the mesentery, created mesenteric defect and subsequent to that, a 75 mm green load KANDICE stapler was fired across the transverse colon. At that point in time, the mesentery of the right colon was taken with the Harmonic scalpel and once the colon was completely mobilized off, care was taken not to damage the duodenum or the ureter. It was passed off to the Morgan stand as specimen. At that point in time, hemostasis was achieved with a silk tie and electrical cautery. At that point in time, we made a decision to perform primary entero colic anastomosis but prior to that abdominal cavity was thoroughly washed out and fluid was suctioned out. The patient's abdomen was irrigated and the left lower quadrant and right lower quadrant and right upper quadrant and left upper quadrant and the pelvis. At that point in time, a transverse colon and terminal ileum were approximated together with several interrupted 3-0 silk sutures on an SH needle and once this was accomplished, 2 enterotomies were made; one in the transverse colon and one in the terminal ileum. Subsequent to that Allis clamps were placed inside of the lumen of the bowel and at that point in time, using a 75 mm green load KANDICE stapler, anastomosis was created. At that point in time anastomosis was checked for hemostasis and patency and it appeared to be satisfactory. The defect of the bowel was closed with green load 60 TA stapler and redundant piece of colon was transected off with curved Pierre scissor. Once this was accomplished, the staple line was reinforced with running 3-0 chromic suture. At that point in time, a anastomoses was inspected, appeared to be satisfactory and appeared to have no tension whatsoever. Once this was accomplished, the bowel was reduced back into the abdominal cavity, 2 Vannessa clamps were placed on the fascial layer and fascia was closed with #1 loop PDS; one from above, one from below and tied in the middle. At that point in time, the patient's wound was washed and dried and skin was closed with elaine as well as 5 mm incisions from laparoscopy. Once this was accomplished, the patient's abdomen was washed and dried. A clean dressing was applied to the incision site. The patient was kept intubated postoperatively, was transferred to the stretcher and taken back to the intensive care unit in critical condition. At the end of the procedure, all instrument counts, needles and sponges were correct. Armando Vazquez MD cc: [id number] TT: 10/06/2016 18:25:25 jn [id number]
--- NOTE | 2016-10-06 18:27 | RAD ---
HISTORY: post-op COMPARISON: Chest x-ray performed earlier the same day TECHNIQUE: Chest, one view. FINDINGS: Endotracheal tube terminates approximately 5.9 cm above the level the bruno. LUNGS: Small layering right greater than left pleural effusions and associated atelectasis or infiltrates. No definite pneumothorax. Please note that chest x-ray has limited sensitivity for the detection of pulmonary masses. CARDIOVASCULAR: Borderline cardiomegaly. OSSEOUS STRUCTURES: Degenerative changes. VISUALIZED UPPER ABDOMEN: Unremarkable. OTHER FINDINGS: None. IMPRESSION: Small layering right greater than left pleural effusions and associated atelectasis or infiltrates. Endotracheal tube tip terminates approximately 5.9 cm above the level of the bruno.
--- NOTE | 2016-10-06 19:27 | CON ---
DATE: 10/06/2016 The patient is a 71-year-old male with history of hypertension, bilateral inguinal hernia repair, and came in to the Emergency Room with worsening abdominal pain which apparently began 2 weeks ago when he had nausea and generalized abdominal pain and discomfort. He has had frequent loose bowel movemen ts and general weakness. He also gives a history of chills, sweats, shortness of breath, and dryness on the day of admission. In the ER he was found to have a temperature of 101.7, and heart rate of g reater than 160, and a respiratory rate of 30-32. The patient, when seen, was just of the operating room and is presently intubated. He was found to h ave what appeared to be a perforated malignancy with a purulent peritonitis. The surgery was done by Dr. Jesus and Dr. Hoover. Operative findings were as stated: Perforated cecal mass, copious amoun t of purulent fluid, with 700 mL of urine output. Postoperative Diagnosis: Perforated cecal mass. Right colon removed with purulent drainage. 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 There is no microbiology or cultures available yet. Creatinine is 0.8, GFR is greater than 60, lactic acid 2.3. WBC is 11.6, likely to be elevated on ne xt bout of testing. IMPRESSION: Rule carcinoma, a perforated cecal mass with probable metastases, sepsis secondary to th e perforation, bilateral pulmonary nodules that were suggestive of metastatic disease. At this point in time, I agree with treatment with Zosyn and Flagyl, and have added vancomycin, at th e moment, once a day, as I wish to monitor the renal function over the next 24 hours. Nino Jackson MD cc: 61 TT: 10/06/2016 19:26:26 Confirmation # [id number] Dictation # [id number]
[2016-10-06] MEDS: Lactated Ringer's 1,000 ML IV SCH (20:15)
[2016-10-06] MEDS ORDERED: Sodium Bicarbonate 7.5% (0.9 MEQ/ML) 50ML INJ IV ONE (21:36)
--- NOTE | 2016-10-06 21:40 | CP.PCM.PCO ---
Physician Communication Note - Physician Communication Note Physician Communication Note: Patient with much exertion on breathing on the mechanicl ventilator.
[2016-10-06 23:35] LABS: ABG ALLEN TEST YES; ABG MECHANICAL RATE 16; ARTERIAL BLOOD GAS HCO3 17.6 mmol/L (21-28); ARTERIAL BLOOD GAS MODE A/C; ARTERIAL BLOOD GAS O2 CAPACITY 19.2 mL/dL (16-24); ARTERIAL BLOOD GAS O2 CONTENT 19.2 ML/dL (15-23); ARTERIAL BLOOD GAS PH 7.31 (7.35-7.45); ARTERIAL BLOOD GAS PO2 155 mm/Hg (80-100); ARTERIAL BLOOD HGB O2 SAT 96.9 % (95.0-98.0); ATERIAL BLOOD GAS PEEP 5; CARBOXYHEMOGLOBIN 1.6 % (0.5-1.5); HHB 0.1 % (0.0-5.0); METHEMOGLOBIN 1.3 % (0.0-3.0)
[2016-10-07] MEDS: metroNIDAZOLE 500mg/100ml NS 100 ML IVPB SCH ×3 (01:00→17:08)
[2016-10-07] MEDS: Lactated Ringer's 1,000 ML IV SCH ×2 (02:00→21:25)
[2016-10-07] MEDS: Metoprolol 1 mg/ml Inj IVP SCH ×4 (02:45→21:26)
[2016-10-07] MEDS: Piperacillin/Tazobact 3.375 GM in Sodium Chloride 0.9% 100 ML IVPB SCH ×4 (04:00→22:00)
[2016-10-07] MEDS ORDERED: Sodium Chloride 0.9% 500 ML IV ONE ×2 (04:23→07:36)
--- NOTE | 2016-10-07 06:29 | CP.PCM.PCO ---
Physician Communication Note - Physician Communication Note Physician Communication Note: Patient pulled out ET Tube. Now placed on NRBM
[2016-10-07 06:42] LABS: BASO % 0.1 % (0.0-2.0); EOS # 0.1 K/uL (0.0-0.7); EOS % 0.8 % (0.0-4.0); HEMATOCRIT 38.6 % (35.0-51.0); LYMPH # 0.4 K/uL (1.0-4.3); LYMPH % 3.2 % (20.0-40.0); MEAN CORPUSCULAR HEMOGLOBIN 27.8 pg (27.0-31.0); MEAN CORPUSCULAR HGB CONC 33.1 g/dL (33.0-37.0); MEAN PLATELET VOLUME 7.7 fl (7.2-11.7); MONO # 0.7 K/uL (0.0-0.8); MONO % 5.4 % (0.0-10.0); NEUT # 11.6 K/uL (1.8-7.0); NEUT % 90.5 % (50.0-75.0); PLATELET COUNT 372 K/uL (130-400); RED CELL DISTRIBUTION WIDTH 14.9 % (11.5-14.5); WHITE BLOOD COUNT 12.8 K/uL (4.8-10.8)
[2016-10-07 06:51] LABS: ALB/GLOB RATIO 0.8 (1.0-2.1); ALKALINE PHOSPHATASE 106 U/L (38-126); ALT/SGPT 49 U/L (21-72); AST/SGOT 32 U/L (17-59); BILIRUBIN,TOTAL 0.3 mg/dl (0.2-1.3); BLOOD UREA NITROGEN 22 mg/dl (9-20); CALCIUM 7.3 mg/dL (8.4-10.2); CARBON DIOXIDE 16 mmol/L (22-30); CHLORIDE 110 mmol/L (98-107); GFR AFRICAN-AMERICAN > 60; GLUCOSE,RANDOM 183 mg/dL (75-110); POTASSIUM 3.8 MMOL/L (3.6-5.0); SODIUM 142 mmol/l (132-148); TOTAL PROTEIN 4.3 G/DL (6.3-8.2)
[2016-10-07 06:58] LABS: VANCOMYCIN RANDOM < 5.0 ug/mL
[2016-10-07 07:01] LABS: PARTIAL THROMBOPLASTIN TIME 40.2 SECONDS (23.3-32.5)
--- NOTE | 2016-10-07 07:36 | CP.PCM.PN ---
<Jhoan Amaya - Last Filed: 10/07/16 07:41> Subjective - Date & Time of Evaluation Date of Evaluation: 10/07/16 Time of Evaluation: 07:00 - Subjective Subjective: Gen Surg: Dr. Vazquez Patient seen and examined. As per nursing, patient self-extubated at night, currently on non-rebreather mask satting at 98%. Patient is AAOx3. Reports mild pain along surgical incision wound. Denies chest pain/SOB, n/v/d, no flatus. As per nursing urine output was 450ccs/12 hours. Objective - Vital Signs/Intake and Output Vital Signs (last 24 hours): Temp Pulse Resp BP Pulse Ox 97.7 F 119 H 14 100/65 100 10/07/16 00:00 10/07/16 06:00 10/07/16 06:00 10/07/16 06:00 10/07/16 06:00 Intake and Output: 10/07/16 10/07/16 06:59 18:59 Intake Total 1700 Output Total 350 Balance 1350 - Medications Medications: Current Medications Famotidine (Pepcid) 20 mg IVP Q12 [facility] Last Admin: 10/06/16 21:40 Dose: 20 mg Hydromorphone HCl (Dilaudid) 1 mg IVP Q3 PRN PRN Reason: Pain, moderate (4-7) Last Admin: 10/06/16 20:05 Dose: 1 mg Piperacillin Sod/Tazobactam (Sod 3.375 gm/ Sodium Chloride) 100 mls @ 100 mls/ hr IVPB Q6 [facility] Last Admin: 10/07/16 04:00 Dose: 100 mls/hr Metronidazole (Flagyl 500mg/100ml Ns) 100 mls @ 100 mls/hr IVPB Q8 [facility] Last Admin: 10/07/16 01:00 Dose: 100 mls/hr Propofol (Diprivan) 100 mls @ 2.041 mls/hr IV .Q24H [facility]; 5 MCG/KG/MIN PRN Reason: Protocol Stop: 10/07/16 17:16 Last Admin: 10/06/16 20:16 Dose: 2.041 mls/hr Lactated Ringer's (Lactated Ringer's) 1,000 mls @ 175 mls/hr IV .Q5H43M [facility] Last Admin: 10/07/16 02:00 Dose: 175 mls/hr Vancomycin HCl 1 gm/ Sodium (Chloride) 250 mls @ 166.667 mls/hr IVPB DAILY [facility] Sodium Chloride (Sodium Chloride 0.9%) 1,000 mls @ 1,000 mls/hr IV .Q1H [facility] Stop: 10/07/16 22:46 Last Admin: 10/06/16 22:53 Dose: 1,000 mls/hr Metoprolol Tartrate (Lopressor) 2.5 mg IVP Q6H [facility] Last Admin: 10/07/16 02:45 Dose: Not Given Ondansetron HCl (Zofran Inj) 4 mg IVP Q4 PRN PRN Reason: Nausea/Vomiting - Labs Labs: 10/07/16 05:30 10/07/16 05:30 PT 15.8 SECONDS (9.6-11.2) H 10/07/16 05:30 INR 1.52 (0.92-1.08) H 10/07/16 05:30 APTT 40.2 SECONDS (23.3-32.5) H 10/07/16 05:30 - Constitutional Appears: No Acute Distress - Head Exam Head Exam: NORMOCEPHALIC - Eye Exam Eye Exam: Normal appearance - ENT Exam ENT Exam: Mucous Membranes Moist - Respiratory Exam Respiratory Exam: NORMAL BREATHING PATTERN - Cardiovascular Exam Cardiovascular Exam: +S1, +S2 - GI/Abdominal Exam GI & Abdominal Exam: Soft, Tenderness. absent: Distended, Guarding, Rigid - Neurological Exam Neurological Exam: Alert, Awake, Oriented x3 - Psychiatric Exam Psychiatric exam: Normal Mood - Skin Skin Exam: Dry, Normal Color, Warm Assessment and Plan - Assessment and Plan (Free Text) Assessment: 71M w/ perforated cecal mass, s/p R hemicolectomy POD#1 -NPO -IVF -Abx per ID -C/w Analgesics/Anti-emetics -Monitor I&O -DVT/GI ppx -F/u pathology report -Will d/w attending -Further recs per Dr. Vazquez <Armando Vazquez - Last Filed: 10/07/16 15:19> Subjective - Date & Time of Evaluation Date of Evaluation: 10/07/16 Time of Evaluation: 13:30 - Subjective Subjective: Patient was seen and examined at the bedside. Agree with resident's note above Objective - Vital Signs/Intake and Output Vital Signs (last 24 hours): Temp Pulse Resp BP Pulse Ox 98 F 115 H 24 106/63 100 10/07/16 12:00 10/07/16 13:00 10/07/16 13:00 10/07/16 13:00 10/07/16 13:00 Intake and Output: 10/07/16 10/07/16 06:59 18:59 Intake Total 1700 1950 Output Total 350 Balance 1350 1950 - Medications Medications: Current Medications Famotidine (Pepcid) 20 mg IVP Q12 [facility] Last Admin: 10/07/16 08:37 Dose: 20 mg Hydromorphone HCl (Dilaudid) 1 mg IVP Q3 PRN PRN Reason: Pain, moderate (4-7) Last Admin: 10/06/16 20:05 Dose: 1 mg Piperacillin Sod/Tazobactam (Sod 3.375 gm/ Sodium Chloride) 100 mls @ 100 mls/ hr IVPB Q6 [facility] Last Admin: 10/07/16 09:47 Dose: 100 mls/hr Metronidazole (Flagyl 500mg/100ml Ns) 100 mls @ 100 mls/hr IVPB Q8 [facility] Last Admin: 10/07/16 08:34 Dose: 100 mls/hr Propofol (Diprivan) 100 mls @ 2.041 mls/hr IV .Q24H [facility]; 5 MCG/KG/MIN PRN Reason: Protocol Stop: 10/07/16 17:16 Last Admin: 10/06/16 20:16 Dose: 2.041 mls/hr Lactated Ringer's (Lactated Ringer's) 1,000 mls @ 175 mls/hr IV .Q5H43M [facility] Last Admin: 10/07/16 02:00 Dose: 175 mls/hr Vancomycin HCl 1 gm/ Sodium (Chloride) 250 mls @ 166.667 mls/hr IVPB DAILY [facility] Last Admin: 10/07/16 08:39 Dose: 166.667 mls/hr Sodium Chloride (Sodium Chloride 0.9%) 1,000 mls @ 1,000 mls/hr IV .Q1H [facility] Stop: 10/07/16 22:46 Last Admin: 10/06/16 22:53 Dose: 1,000 mls/hr Metoprolol Tartrate (Lopressor) 2.5 mg IVP Q6H [facility] Last Admin: 10/07/16 08:35 Dose: Not Given Ondansetron HCl (Zofran Inj) 4 mg IVP Q4 PRN PRN Reason: Nausea/Vomiting - Labs Labs: 10/07/16 05:30 10/07/16 05:30 PT 15.8 SECONDS (9.6-11.2) H 10/07/16 05:30 INR 1.52 (0.92-1.08) H 10/07/16 05:30 APTT 40.2 SECONDS (23.3-32.5) H 10/07/16 05:30
--- NOTE | 2016-10-07 09:05 | RAD ---
HISTORY: intubated COMPARISON: No prior. FINDINGS: LUNGS: No active pulmonary disease. PLEURA: No significant pleural effusion identified, no pneumothorax apparent. CARDIOVASCULAR: Normal. OSSEOUS STRUCTURES: No significant abnormalities. VISUALIZED UPPER ABDOMEN: Normal. OTHER FINDINGS: None. IMPRESSION: No active disease.
--- NOTE | 2016-10-07 09:14 | CP.PCM.PN ---
Subjective - Date & Time of Evaluation Date of Evaluation: 10/07/16 Time of Evaluation: 09:00 - Subjective Subjective: Patient seen and examined bedside. Self extubated this morning and doing well. Pain is very well controlled .Bp 101/65 HR 114 Saturating 100 % on Non re breather mask FIo2 50 %, afebrile Denies any CP or SOB. Thirsty , not passing any flatus but feels the urge to pass flatus or have a bowel movement Dressing to mid abdomen is clean and intact WBC 12.8 K Hgb 12 Plt 372 K BUN/Cr 22/1.2 Albumin 1.9 lactic acid 1.6 Trop 0.9 CEA [address] with concentrated urine output ,I/O 4900/550 Objective - Vital Signs/Intake and Output Vital Signs (last 24 hours): Temp Pulse Resp BP Pulse Ox 98.4 F 114 H 38 H 101/65 97 10/07/16 08:00 10/07/16 08:35 10/07/16 08:00 10/07/16 08:35 10/07/16 08:00 Intake and Output: 10/07/16 10/07/16 06:59 18:59 Intake Total 1700 Output Total 350 Balance 1350 - Medications Medications: Current Medications Famotidine (Pepcid) 20 mg IVP Q12 [facility] Last Admin: 10/07/16 08:37 Dose: 20 mg Hydromorphone HCl (Dilaudid) 1 mg IVP Q3 PRN PRN Reason: Pain, moderate (4-7) Last Admin: 10/06/16 20:05 Dose: 1 mg Piperacillin Sod/Tazobactam (Sod 3.375 gm/ Sodium Chloride) 100 mls @ 100 mls/ hr IVPB Q6 [facility] Last Admin: 10/07/16 04:00 Dose: 100 mls/hr Metronidazole (Flagyl 500mg/100ml Ns) 100 mls @ 100 mls/hr IVPB Q8 [facility] Last Admin: 10/07/16 08:34 Dose: 100 mls/hr Propofol (Diprivan) 100 mls @ 2.041 mls/hr IV .Q24H [facility]; 5 MCG/KG/MIN PRN Reason: Protocol Stop: 10/07/16 17:16 Last Admin: 10/06/16 20:16 Dose: 2.041 mls/hr Lactated Ringer's (Lactated Ringer's) 1,000 mls @ 175 mls/hr IV .Q5H43M [facility] Last Admin: 10/07/16 02:00 Dose: 175 mls/hr Vancomycin HCl 1 gm/ Sodium (Chloride) 250 mls @ 166.667 mls/hr IVPB DAILY [facility] Last Admin: 10/07/16 08:39 Dose: 166.667 mls/hr Sodium Chloride (Sodium Chloride 0.9%) 1,000 mls @ 1,000 mls/hr IV .Q1H [facility] Stop: 10/07/16 22:46 Last Admin: 10/06/16 22:53 Dose: 1,000 mls/hr Metoprolol Tartrate (Lopressor) 2.5 mg IVP Q6H [facility] Last Admin: 10/07/16 08:35 Dose: Not Given Ondansetron HCl (Zofran Inj) 4 mg IVP Q4 PRN PRN Reason: Nausea/Vomiting - Labs Labs: 10/07/16 05:30 10/07/16 05:30 PT 15.8 SECONDS (9.6-11.2) H 10/07/16 05:30 INR 1.52 (0.92-1.08) H 10/07/16 05:30 APTT 40.2 SECONDS (23.3-32.5) H 10/07/16 05:30 - Constitutional Appears: Non-toxic, No Acute Distress - Head Exam Head Exam: ATRAUMATIC, NORMAL INSPECTION, NORMOCEPHALIC - Eye Exam Eye Exam: EOMI, Normal appearance, PERRL Pupil Exam: NORMAL ACCOMODATION - ENT Exam ENT Exam: Mucous Membranes Dry, Normal Exam - Neck Exam Neck Exam: Full ROM, Normal Inspection - Respiratory Exam Respiratory Exam: Clear to Ausculation Bilateral, NORMAL BREATHING PATTERN. absent: Rhonchi, Wheezes - Cardiovascular Exam Cardiovascular Exam: Tachycardia, +S1, +S2. absent: JVD - GI/Abdominal Exam GI & Abdominal Exam: Soft, Hypoactive Bowel Sounds. absent: Guarding, Rebound Additional comments: midline surgical incision with dressing in place , clean and intact - Rectal Exam Rectal Exam: Deferred - Extremities Exam Extremities Exam: Full ROM, Normal Capillary Refill, Normal Inspection. absent : Calf Tenderness, Pedal Edema - Back Exam Back Exam: NORMAL INSPECTION - Neurological Exam Neurological Exam: Alert, Awake, Oriented x3 - Psychiatric Exam Psychiatric exam: Normal Affect, Normal Mood - Skin Skin Exam: Dry, Pallor, Warm Assessment and Plan - Assessment and Plan (Free Text) Assessment: 71 years old male with hx of HTN, Bilateral Inguinal hernia repair one in 1979 and other 7 years ago, came with worsening abdominal discomfort which began 2 weeks ago with nausea, generalized abdominal discomfort with pain across the upper abdomen, intermittent. Sensation of the gas moving about in the. abdomen, frequent loose stool and generalized weakness. He referred to vomiting. In the ED he was found to have a temperature of 101.7F and HR of 155/min and RR of 32/ min.Patient admitted to ICU with diagnosis of ischemic bowel and severe sepsis. He was taken to OR and underwent right hemicolectomy for perforated cecal mass and pus in abdomen. 1. Severe Sepsis --improving Secondary to perforated viscus S/p right hemicolectomy for perforated cecal mass Self extubated this AM and doing well place on 3 L O2 via NC On Flagyl, Zosyn and vanco ID on consult F/u cultures 2.Metastatic Disease Most likely colon CA ( cecal mass found during surgery as well as diffuse lymphadenopathy) Ct abdomen showed pulmonary nodules F/u pathology report Oncology eval once pathology report available 3. Perforated Viscus - s/p hemicoloctomy Post op day #1, doing well Pain is well controlled Not passing flatus Keep NPO and continue IVF D/c lamb and start ambultaion PT/Ot consult Surgery following patient continue pain management PRN and IV antibiotics 4.Elevated troponin probably secondary to the Sepsis cardiology consult appreciated Trop 0.9 today but patient is chest mims free 5. HTN controlled Metropolol 2.5mg IV Q6hrs 6. Bilateral Pulmonary nodules suggestive of Metastatic disease Consult Dr Mcgowan 7.DVT prophylaxis SCD and Lovenox 8. Stress Ulcer prophylaxis with Pepcid IV BID
[2016-10-07 10:20] LABS: NEUTROPHIL 88 % (42-75); TOTAL CELLS COUNTED 100
[2016-10-07 10:25] LABS: LARGE PLATELETS PRESENT
--- NOTE | 2016-10-07 10:32 | CON ---
DATE: 10/07/2016 HISTORY OF PRESENT ILLNESS: The patient is a 71-year-old male who was referred for pulmonary consultation because of multiple pulmonary nodules noted on scan of the lungs. He underwent surgical intervention 24 hours ago for a ruptured disk and has what appeared to be a sacral mass with perforation. CAT scan of the abdomen and pelvis was compatible with what appeared to be multiple pulmonary nodules that could be compatible with metastasis. He also had adenopathy. He was intubated and self-extubated this morning. He is awake, alert, oriented, appears to be in no apparent respiratory distress. He is unable to give much history. Medical records indicate hypertension. PHYSICAL EXAMINATION: GENERAL: The patient is awake and alert, appears comfortable on facemask oxygen. VITAL SIGNS: Blood pressure 101/65, pulse 114, respiratory rate 20 per minute. He is afebrile, O2 sat 97% on facemask oxygen. SKIN: Shows fair turgor. HEENT: Pupils equal, react to light and accommodation. Mouth shows fair hygiene. NECK: JVP flat. LUNGS: Fair aeration bilaterally, no rales or wheezing. HEART: S1, S2. ABDOMEN: Scar of surgery noted. EXTREMITIES: No edema or cyanosis. CENTRAL NERVOUS SYSTEM: Grossly intact. LABORATORY DATA: Remarkable for a CT scan of abdomen and pelvis compatible with multiple pulmonary nodules which could be due to metastasis. IMPRESSION: Cecal mass which probably represents malignancy with metastasis to the lungs. PLAN: To await the pathology report. Continue therapy as ordered. Change patient to nasal cannula oxygen as tolerated, maintaining a saturation above 90% . We will continue to follow with you. Baudilio Mcgowan MD cc: 62 TT: 10/07/2016 10:32:15 Confirmation # [id number] Dictation # [id number] ARNETT
--- NOTE | 2016-10-07 10:44 | CARD ---
APPROVED REPORT EKG Measurement Heart [id number] ME [id number] <Conclusion> Sinus tachycardia Low voltage QRS Cannot rule out Inferior infarct, age undetermined Abnormal ECG
--- NOTE | 2016-10-07 10:51 | CARD ---
APPROVED REPORT EKG Measurement Heart [id number] DC [id number] <Conclusion> Sinus tachycardia Left axis deviation Right bundle branch block Inferior infarct, age undetermined Abnormal ECG
--- NOTE | 2016-10-07 12:29 | CP.CCUPN ---
CCU Subjective - Physician Review Subjective (Free Text): [employer] PROGRESS NOTE Patient examined, interim events reviewed: Self extubated this AM, satisfactory SPO2 on nasal cannula, non-distressed, feels urge to have a BM and urge to pass flatus. Afebrile, no fever spikes, BP borderline at 100/65, HR 110 sinus, RR 20, 98% on NC. 24H I/O's= +4.3 L. ROS: as above, no other pertinent negs or positives on 10 system review. PMFSH: all nursing and historical notes reviewed, no new pertinent data relevant to current problems. No other distress noted: EXAM- HEENT: no icterus, pupils equal and reactive NECK: no visible JVD, supple, carotids equal upstroke bilat/no bruits CHEST: decreased BS bases, no wheezes audible HEART: regular, distant, tachy S1 S2, no murmur audible, no rubs. ABD: soft, no increased distention, no HSM. BS not heard EXT: no leg edema, SCDs on bilat, no peripheral/ digital cyanosis, no calf tenderness or palpable cords, distal pulses intact and symmetrical NEURO: sedated on MV; no gross focal motor deficits to pain stimuli SKIN: no rashes LABS: PT/INR/PTT: 15.8/1.52/40.2 WBC= 12.8 HGB= 12.8 PLTs= 372K Na= 142 K= 3.8 HCO3= 20 BUN/Cr= 22/1.2 BS= 183 Lactate 1.6 Trop #1 mild elevation, Trop #2 and #3 negative, Trop #4= 0.9110 CXR: improved RLL haziness. ASSESSMENT: 1. S/p ExLap; R hemicolectomy; Perf Viscus 2 CA 2. Acute Resp insuff in post-operative state- resolved 3. Sepsis / Shock 2 peritonitis- improved 4. Dehydration/ Hypovolemia 5. Colon Ca with Lung Mets 6. r/o Acute / Subacute MSTEMI PLAN: 1. Continue Lopressor. 2. Zosyn / Vanco as per ID, follow Vanco levels. Procalcitonin levels pending. 3. Check EKG, follow serial Trops x 2 more sets. 4. Follow intravascular volume status closely, Lactate normal, in positive fluid balance. As hemodynamics are not worse, would keep IV fluids at maintenance hydration rate. 5. Mobilize OOB, Incentive spirometry as tolerated.
[2016-10-08] MEDS: metroNIDAZOLE 500mg/100ml NS 100 ML IVPB SCH ×3 (00:04→16:14)
[2016-10-08] MEDS: Metoprolol 1 mg/ml Inj IVP SCH ×4 (03:00→21:23)
[2016-10-08] MEDS: Piperacillin/Tazobact 3.375 GM in Sodium Chloride 0.9% 100 ML IVPB SCH ×4 (04:34→21:23)
[2016-10-08] MEDS: Lactated Ringer's 1,000 ML IV SCH (07:00)
[2016-10-08 07:15] LABS: HEMATOCRIT 38.7 % (35.0-51.0); MEAN CELL VOLUME 83.7 fl (80.0-94.0); MEAN CORPUSCULAR HEMOGLOBIN 27.4 pg (27.0-31.0); MEAN CORPUSCULAR HGB CONC 32.7 g/dL (33.0-37.0); RED CELL DISTRIBUTION WIDTH 14.9 % (11.5-14.5)
[2016-10-08 07:16] LABS: RBC URINE 1 /hpf (0-3); URINE BILIRUBIN NEGATIVE (NEGATIVE); URINE BLOOD SMALL (NEGATIVE); URINE COLOR YELLOW (YELLOW); URINE GLUCOSE (UA) NEG (Normal); URINE KETONE TRACE mg/dL (NEGATIVE); URINE LEUKOCYTE ESTERASE TRACE Leu/uL (Negative); URINE PROTEIN 30 mg/dL (NEGATIVE); URINE URIC ACID CRYSTALS RARE /hpf (<OCC); URINE UROBILINOGEN 0.2-1.0 mg/dL (0.2-1.0); WBC URINE 3 /hpf (0-5)
[2016-10-08 07:18] LABS: BLOOD UREA NITROGEN 20 mg/dl (9-20); CALCIUM 7.7 mg/dL (8.4-10.2); CARBON DIOXIDE 19 mmol/L (22-30); CHLORIDE 112 mmol/L (98-107); GFR AFRICAN-AMERICAN > 60; GLUCOSE,RANDOM 101 mg/dL (75-110); POTASSIUM 3.2 MMOL/L (3.6-5.0); SODIUM 143 mmol/l (132-148)
--- NOTE | 2016-10-08 07:43 | CP.PCM.PN ---
Subjective - Date & Time of Evaluation Date of Evaluation: 10/08/16 Time of Evaluation: 10:30 - Subjective Subjective: Patient seen and examined.With minimal pain to upper portion of surgical incision. No acute issues overnight. Tachycardic HR 114 afebrile BP 126/63 Abdomen appears a little more distended ,with present bowel sounds .Surgical incision intact with elaine in place , healing well. States that is passing flatus Denies any CP, SOB, cough Thirsty and asking to eat WBC trending up to 16 K Hgb 12.7 Plt 359 K 3.2 Procalcitonin 86.17 Objective - Vital Signs/Intake and Output Vital Signs (last 24 hours): Temp Pulse Resp BP Pulse Ox 97.7 F 112 H 17 131/83 100 10/08/16 04:00 10/08/16 07:41 10/08/16 04:00 10/08/16 04:00 10/08/16 04:00 Intake and Output: 10/08/16 10/08/16 06:59 18:59 Intake Total 1700 350 Output Total 400 0 Balance 1300 350 - Medications Medications: Current Medications Enoxaparin Sodium (Lovenox) 40 mg SC DAILY [facility] PRN Reason: Protocol Famotidine (Pepcid) 20 mg IVP Q12 [facility] Last Admin: 10/07/16 21:00 Dose: 20 mg Hydromorphone HCl (Dilaudid) 1 mg IVP Q3 PRN PRN Reason: Pain, moderate (4-7) Last Admin: 10/07/16 23:26 Dose: 1 mg Piperacillin Sod/Tazobactam (Sod 3.375 gm/ Sodium Chloride) 100 mls @ 100 mls/ hr IVPB Q6 [facility] Last Admin: 10/08/16 04:34 Dose: 100 mls/hr Metronidazole (Flagyl 500mg/100ml Ns) 100 mls @ 100 mls/hr IVPB Q8 [facility] Last Admin: 10/08/16 00:04 Dose: 100 mls/hr Lactated Ringer's (Lactated Ringer's) 1,000 mls @ 175 mls/hr IV .Q5H43M [facility] Last Admin: 10/08/16 07:00 Dose: 175 mls/hr Vancomycin HCl 1 gm/ Sodium (Chloride) 250 mls @ 166.667 mls/hr IVPB DAILY [facility] Last Admin: 10/07/16 08:39 Dose: 166.667 mls/hr Potassium Chloride (Potassium Cl 10meq/50ml Sterile Water) 50 mls @ 50 mls/hr IVPB Q1 [facility] Stop: 10/08/16 09:59 Metoprolol Tartrate (Lopressor) 2.5 mg IVP Q6H [facility] Last Admin: 10/08/16 03:00 Dose: 2.5 mg Ondansetron HCl (Zofran Inj) 4 mg IVP Q4 PRN PRN Reason: Nausea/Vomiting - Labs Labs: 10/08/16 06:00 10/08/16 06:00 PT 15.8 SECONDS (9.6-11.2) H 10/07/16 05:30 INR 1.52 (0.92-1.08) H 10/07/16 05:30 APTT 40.2 SECONDS (23.3-32.5) H 10/07/16 05:30 - Constitutional Appears: Non-toxic, No Acute Distress - Head Exam Head Exam: ATRAUMATIC, NORMAL INSPECTION, NORMOCEPHALIC - Eye Exam Eye Exam: EOMI, Normal appearance, PERRL Pupil Exam: NORMAL ACCOMODATION - ENT Exam ENT Exam: Mucous Membranes Dry, Normal Exam - Neck Exam Neck Exam: Full ROM, Normal Inspection - Respiratory Exam Respiratory Exam: Clear to Ausculation Bilateral, NORMAL BREATHING PATTERN. absent: Rales, Rhonchi, Wheezes - Cardiovascular Exam Cardiovascular Exam: Tachycardia, +S1, +S2. absent: JVD - GI/Abdominal Exam GI & Abdominal Exam: Distended, Tenderness (upper portion of surgical incision) , Hyperactive Bowel Sounds. absent: Guarding, Rebound Additional comments: midline surgical incision intact with elaine in place - Rectal Exam Rectal Exam: Deferred - Extremities Exam Extremities Exam: Full ROM, Normal Capillary Refill, Normal Inspection. absent : Calf Tenderness, Pedal Edema - Back Exam Back Exam: NORMAL INSPECTION - Neurological Exam Neurological Exam: Alert, Awake, CN II-XII Intact, Oriented x3 - Psychiatric Exam Psychiatric exam: Normal Affect, Normal Mood - Skin Skin Exam: Dry, Pallor, Warm Assessment and Plan - Assessment and Plan (Free Text) Assessment: 71 years old male with PMH of HTN, Bilateral Inguinal hernia repair one in 1979 and the other 7 years ago, came with worsening abdominal discomfort which began 2 weeks ago with nausea, generalized abdominal discomfort with pain across the upper abdomen, intermittent. Sensation of the gas moving about in the. abdomen, frequent loose stool and generalized weakness. He referred to vomiting. In the ED he was found to have a temperature of 101.7F and HR of 155/ min and RR of 32/min.Patient admitted to ICU with diagnosis of ischemic bowel and severe sepsis. He was taken to OR and underwent right hemicolectomy for perforated cecal mass and pus in abdomen 3. At present being monitored in ICU, stable, hemodynamically stable, pain controlled, passing flatus but abdomen more distended than yesterday. 1. Severe Sepsis --improving Secondary to perforated viscus S/p right hemicolectomy for perforated cecal mass 10/06/16 Self extubated ost op #1 ( 10/07/16 ) and doing well Continue 3 L O2 via NC Midline surgical incision intact , healing well Procalcitonin elevated 86 Continue Flagyl, Zosyn and vanco ID on consult cultures with no growth so far 2.Metastatic Disease Most likely colon CA ( cecal mass found during surgery as well as diffuse lymphadenopathy) Ct abdomen showed pulmonary nodules F/u pathology report Oncology eval once pathology report available Family aware of diagnosis. Waiting on pathology report before informing patient 3. Perforated Viscus - s/p hemicoloctomy Post op day #2, doing well Pain is well controlled Abdomen more distended today with pain over upper portion of surgical incision Passing flatus and with hyperactive bowel sounds on exam Strat liquid diet and continue IVF Start ambulation and OOB to cahir PT/OT consulted Surgery following patient continue pain management PRN and IV antibiotics 4.Elevated troponin probably secondary to the Sepsis cardiology consult appreciated Patient is chest pain free 5. HTN controlled Metropolol 2.5mg IV Q6hrs 6. Bilateral Pulmonary nodules suggestive of Metastatic disease Consult Dr Mcgowan 7.DVT prophylaxis SCD and Lovenox 8. Stress Ulcer prophylaxis with Pepcid IV BID
[2016-10-08] MEDS: Enoxaparin 40 mg Syringe SC SCH (08:32)
[2016-10-08] MEDS: Potassium CL 10 MEQ/50 ML 50 ML IVPB SCH ×2 (08:36→10:17)
--- NOTE | 2016-10-08 10:01 | CP.PCM.PN ---
Subjective - Date & Time of Evaluation Date of Evaluation: 10/08/16 Time of Evaluation: 10:01 - Subjective Subjective: AWAKE,ALERT AND ORIENTED X 3 NO SOB OR CHEST PAINS NO COUGH Objective - Vital Signs/Intake and Output Vital Signs (last 24 hours): Temp Pulse Resp BP Pulse Ox 98.4 F 114 H 12 126/63 95 10/08/16 08:00 10/08/16 09:00 10/08/16 08:00 10/08/16 09:00 10/08/16 08:00 Intake and Output: 10/08/16 10/08/16 06:59 18:59 Intake Total 1700 350 Output Total 400 0 Balance 1300 350 - Medications Medications: Current Medications Enoxaparin Sodium (Lovenox) 40 mg SC DAILY [facility] PRN Reason: Protocol Last Admin: 10/08/16 08:32 Dose: 40 mg Famotidine (Pepcid) 20 mg IVP Q12 [facility] Last Admin: 10/08/16 08:35 Dose: 20 mg Hydromorphone HCl (Dilaudid) 1 mg IVP Q3 PRN PRN Reason: Pain, moderate (4-7) Last Admin: 10/07/16 23:26 Dose: 1 mg Piperacillin Sod/Tazobactam (Sod 3.375 gm/ Sodium Chloride) 100 mls @ 100 mls/ hr IVPB Q6 [facility] Last Admin: 10/08/16 04:34 Dose: 100 mls/hr Metronidazole (Flagyl 500mg/100ml Ns) 100 mls @ 100 mls/hr IVPB Q8 [facility] Last Admin: 10/08/16 08:31 Dose: 100 mls/hr Lactated Ringer's (Lactated Ringer's) 1,000 mls @ 175 mls/hr IV .Q5H43M [facility] Last Admin: 10/08/16 07:00 Dose: 175 mls/hr Vancomycin HCl 1 gm/ Sodium (Chloride) 250 mls @ 166.667 mls/hr IVPB DAILY [facility] Last Admin: 10/08/16 08:36 Dose: 166.667 mls/hr Metoprolol Tartrate (Lopressor) 2.5 mg IVP Q6H [facility] Last Admin: 10/08/16 08:32 Dose: Not Given Ondansetron HCl (Zofran Inj) 4 mg IVP Q4 PRN PRN Reason: Nausea/Vomiting - Labs Labs: 10/08/16 06:00 10/08/16 06:00 PT 15.8 SECONDS (9.6-11.2) H 10/07/16 05:30 INR 1.52 (0.92-1.08) H 10/07/16 05:30 APTT 40.2 SECONDS (23.3-32.5) H 10/07/16 05:30 - Constitutional Appears: No Acute Distress - Head Exam Head Exam: ATRAUMATIC, NORMAL INSPECTION, NORMOCEPHALIC - Eye Exam Eye Exam: EOMI, Normal appearance, PERRL Pupil Exam: NORMAL ACCOMODATION, PERRL - ENT Exam ENT Exam: Mucous Membranes Moist, Normal Exam - Neck Exam Neck Exam: Full ROM, Normal Inspection. absent: Lymphadenopathy - Respiratory Exam Respiratory Exam: Clear to Ausculation Bilateral, NORMAL BREATHING PATTERN - Cardiovascular Exam Cardiovascular Exam: REGULAR RHYTHM, +S1, +S2. absent: Murmur - GI/Abdominal Exam GI & Abdominal Exam: Tenderness - Rectal Exam Rectal Exam: NORMAL INSPECTION - Extremities Exam Extremities Exam: Full ROM, Normal Capillary Refill, Normal Inspection. absent : Joint Swelling, Pedal Edema - Back Exam Back Exam: NORMAL INSPECTION - Neurological Exam Neurological Exam: Alert, Awake, CN II-XII Intact, Normal Gait, Oriented x3 - Psychiatric Exam Psychiatric exam: Normal Affect, Normal Mood - Skin Skin Exam: Dry, Intact, Normal Color, Warm Assessment and Plan - Assessment and Plan (Free Text) Assessment: PULMONARY NODULES--PROBABLY DUE VTO INTRABDOMINAL PATHOLOGY Plan: WILL CONTINUE TO FOLLOW WITH YOU AWAIT PATH REPORT FROM SURGERY
--- NOTE | 2016-10-08 10:04 | CP.PCM.PN ---
<Emely Grant - Last Filed: 10/08/16 10:02> Subjective - Date & Time of Evaluation Date of Evaluation: 10/08/16 Time of Evaluation: 10:02 - Subjective Subjective: General Surgery - Dr. Vazquez Pt S&E. Pt had large episode of flatus last night per nursing. Pt states he wishes to drink liquids. He has not been OOB yet but is working with incentive spirometer. No N/V, F/C, SOB/CP. Objective - Vital Signs/Intake and Output Vital Signs (last 24 hours): Temp Pulse Resp BP Pulse Ox 98.4 F 114 H 12 126/63 95 10/08/16 08:00 10/08/16 09:00 10/08/16 08:00 10/08/16 09:00 10/08/16 08:00 Intake and Output: 10/08/16 10/08/16 06:59 18:59 Intake Total 1700 350 Output Total 400 0 Balance 1300 350 - Medications Medications: Current Medications Enoxaparin Sodium (Lovenox) 40 mg SC DAILY [facility] PRN Reason: Protocol Last Admin: 10/08/16 08:32 Dose: 40 mg Famotidine (Pepcid) 20 mg IVP Q12 [facility] Last Admin: 10/08/16 08:35 Dose: 20 mg Hydromorphone HCl (Dilaudid) 1 mg IVP Q3 PRN PRN Reason: Pain, moderate (4-7) Last Admin: 10/07/16 23:26 Dose: 1 mg Piperacillin Sod/Tazobactam (Sod 3.375 gm/ Sodium Chloride) 100 mls @ 100 mls/ hr IVPB Q6 [facility] Last Admin: 10/08/16 04:34 Dose: 100 mls/hr Metronidazole (Flagyl 500mg/100ml Ns) 100 mls @ 100 mls/hr IVPB Q8 [facility] Last Admin: 10/08/16 08:31 Dose: 100 mls/hr Lactated Ringer's (Lactated Ringer's) 1,000 mls @ 175 mls/hr IV .Q5H43M [facility] Last Admin: 10/08/16 07:00 Dose: 175 mls/hr Vancomycin HCl 1 gm/ Sodium (Chloride) 250 mls @ 166.667 mls/hr IVPB DAILY [facility] Last Admin: 10/08/16 08:36 Dose: 166.667 mls/hr Metoprolol Tartrate (Lopressor) 2.5 mg IVP Q6H [facility] Last Admin: 10/08/16 08:32 Dose: Not Given Ondansetron HCl (Zofran Inj) 4 mg IVP Q4 PRN PRN Reason: Nausea/Vomiting - Labs Labs: 10/08/16 06:00 10/08/16 06:00 PT 15.8 SECONDS (9.6-11.2) H 10/07/16 05:30 INR 1.52 (0.92-1.08) H 10/07/16 05:30 APTT 40.2 SECONDS (23.3-32.5) H 10/07/16 05:30 - Constitutional Appears: No Acute Distress - Head Exam Head Exam: ATRAUMATIC, NORMOCEPHALIC - Respiratory Exam Respiratory Exam: NORMAL BREATHING PATTERN. absent: Respiratory Distress - GI/Abdominal Exam GI & Abdominal Exam: Soft. absent: Distended, Guarding, Tenderness, Rebound Additional comments: midline incision c/d/i with elaine, dressing in place - Neurological Exam Neurological Exam: Alert, Awake - Psychiatric Exam Psychiatric exam: Normal Affect, Normal Mood - Skin Skin Exam: Dry, Intact Assessment and Plan - Assessment and Plan (Free Text) Assessment: 71M w/ perforated cecal mass, s/p R hemicolectomy POD#2 -Start Clear liquid diet, monitor -Continue IVF, IV Abx -Monitor for further bowel fxn -OOB to chair and Incentive Spirometer -F/U Trops. -F/U path -DVT px Dw Dr George Grant PGY2 <Armando Vazquez - Last Filed: 10/08/16 15:39> Subjective - Date & Time of Evaluation Date of Evaluation: 10/08/16 Time of Evaluation: 15:10 - Subjective Subjective: Patient was seen and examined at the bedside. Agree with resident's note above. Objective - Vital Signs/Intake and Output Vital Signs (last 24 hours): Temp Pulse Resp BP Pulse Ox 98.4 F 118 H 16 134/74 99 10/08/16 08:00 10/08/16 14:19 10/08/16 13:00 10/08/16 14:19 10/08/16 13:00 Intake and Output: 10/08/16 10/08/16 06:59 18:59 Intake Total 1700 1375 Output Total 400 500 Balance 1300 875 - Medications Medications: Current Medications Enoxaparin Sodium (Lovenox) 40 mg SC DAILY [facility] PRN Reason: Protocol Last Admin: 10/08/16 08:32 Dose: 40 mg Famotidine (Pepcid) 20 mg IVP Q12 [facility] Last Admin: 10/08/16 08:35 Dose: 20 mg Hydromorphone HCl (Dilaudid) 1 mg IVP Q3 PRN PRN Reason: Pain, moderate (4-7) Last Admin: 10/08/16 10:20 Dose: 1 mg Piperacillin Sod/Tazobactam (Sod 3.375 gm/ Sodium Chloride) 100 mls @ 100 mls/ hr IVPB Q6 [facility] Last Admin: 10/08/16 10:16 Dose: 100 mls/hr Metronidazole (Flagyl 500mg/100ml Ns) 100 mls @ 100 mls/hr IVPB Q8 [facility] Last Admin: 10/08/16 08:31 Dose: 100 mls/hr Vancomycin HCl 1 gm/ Sodium (Chloride) 250 mls @ 166.667 mls/hr IVPB DAILY [facility] Last Admin: 10/08/16 08:36 Dose: 166.667 mls/hr Potassium Chloride/Dextrose/Sod Cl (Potassium Chl 20 Meq In D5-1/2ns) 1,000 mls @ 100 mls/hr IV .Q10H [facility] Stop: 10/09/16 12:01 Last Admin: 10/08/16 14:19 Dose: 100 mls/hr Metoprolol Tartrate (Lopressor) 2.5 mg IVP Q6H [facility] Last Admin: 10/08/16 14:19 Dose: 2.5 mg Ondansetron HCl (Zofran Inj) 4 mg IVP Q4 PRN PRN Reason: Nausea/Vomiting - Labs Labs: 10/08/16 06:00 10/08/16 06:00 PT 15.8 SECONDS (9.6-11.2) H 10/07/16 05:30 INR 1.52 (0.92-1.08) H 10/07/16 05:30 APTT 40.2 SECONDS (23.3-32.5) H 10/07/16 05:30 Assessment and Plan - Assessment and Plan (Free Text) Plan: - Patient may have ice chips - IV fluids - pain control - Continue antibiotics - DVT ppx - Repeat labs in am - Out of bed to a chair - Will follow
--- NOTE | 2016-10-08 11:36 | CP.CCUPN ---
CCU Subjective - Physician Review Subjective (Free Text): SLASHER TENDER PROGRESS NOTE Patient examined, interim events reviewed: Awake and alert, no new discomfort, appears non-distressed, Afebrile, no fever spikes, BP improved at 126/65, HR 110 sinus, RR 16, 98% on NC. 24H I/O's= +2.8 L. ROS: as above, no other pertinent negs or positives on 10 system review. PMFSH: all nursing and historical notes reviewed, no new pertinent data relevant to current problems. No other distress noted: EXAM- HEENT: no icterus, pupils equal and reactive NECK: no visible JVD, supple, carotids equal upstroke bilat/no bruits CHEST: decreased BS bases, no wheezes audible HEART: regular, distant, tachy S1 S2, no murmur audible, no rubs. ABD: soft, +increased distention, no HSM. BS not heard EXT: no leg edema, SCDs on bilat, no peripheral/ digital cyanosis, no calf tenderness or palpable cords, distal pulses intact and symmetrical NEURO: no gross focal motor deficits to pain stimuli SKIN: no rashes LABS: WBC= 16.0 HGB= 12.7 PLTs= 359K Na= 143 K= 3.2 HCO3= 19 BUN/Cr= 20/1.0 BS= 101 ASSESSMENT: 1. S/p ExLap; R hemicolectomy; Perf Viscus 2 CA 2. Acute Resp insuff in post-operative state- resolved 3. Sepsis / Shock 2 peritonitis- improved 4. Dehydration/ Hypovolemia 5. Colon Ca with Lung Mets 6. r/o Acute / Subacute MSTEMI PLAN: 1. Could decrease IVFs to maintenance hydration. 2. Zosyn / Vanco as per ID, Procalcitonin level 86.1. 3. Continue Beta blockers. 4. Needs to get OOB. Otherwise, stable for step down bed for further observation and mgmt.
--- NOTE | 2016-10-08 13:58 | CP.PCM.PN ---
Subjective - Date & Time of Evaluation Date of Evaluation: 10/08/16 Time of Evaluation: 12:00 - Subjective Subjective: OR FINDINGS REVIEWED HAS SOME ABDOMINAL PAIN AT SURGICAL SITE NO CHEST PAIN OR SOB Objective - Vital Signs/Intake and Output Vital Signs (last 24 hours): Temp Pulse Resp BP Pulse Ox 98.4 F 114 H 12 126/63 95 10/08/16 08:00 10/08/16 09:00 10/08/16 08:00 10/08/16 09:00 10/08/16 08:00 Intake and Output: 10/08/16 10/08/16 06:59 18:59 Intake Total 1700 1175 Output Total 400 0 Balance 1300 1175 - Medications Medications: Current Medications Enoxaparin Sodium (Lovenox) 40 mg SC DAILY [facility] PRN Reason: Protocol Last Admin: 10/08/16 08:32 Dose: 40 mg Famotidine (Pepcid) 20 mg IVP Q12 [facility] Last Admin: 10/08/16 08:35 Dose: 20 mg Hydromorphone HCl (Dilaudid) 1 mg IVP Q3 PRN PRN Reason: Pain, moderate (4-7) Last Admin: 10/08/16 10:20 Dose: 1 mg Piperacillin Sod/Tazobactam (Sod 3.375 gm/ Sodium Chloride) 100 mls @ 100 mls/ hr IVPB Q6 [facility] Last Admin: 10/08/16 10:16 Dose: 100 mls/hr Metronidazole (Flagyl 500mg/100ml Ns) 100 mls @ 100 mls/hr IVPB Q8 [facility] Last Admin: 10/08/16 08:31 Dose: 100 mls/hr Vancomycin HCl 1 gm/ Sodium (Chloride) 250 mls @ 166.667 mls/hr IVPB DAILY [facility] Last Admin: 10/08/16 08:36 Dose: 166.667 mls/hr Potassium Chloride/Dextrose/Sod Cl (Potassium Chl 20 Meq In D5-1/2ns) 1,000 mls @ 100 mls/hr IV .Q10H [facility] Stop: 10/09/16 12:01 Metoprolol Tartrate (Lopressor) 2.5 mg IVP Q6H [facility] Last Admin: 10/08/16 08:32 Dose: Not Given Ondansetron HCl (Zofran Inj) 4 mg IVP Q4 PRN PRN Reason: Nausea/Vomiting - Labs Labs: 10/08/16 06:00 10/08/16 06:00 PT 15.8 SECONDS (9.6-11.2) H 10/07/16 05:30 INR 1.52 (0.92-1.08) H 10/07/16 05:30 APTT 40.2 SECONDS (23.3-32.5) H 10/07/16 05:30 - Respiratory Exam Respiratory Exam: Clear to Ausculation Bilateral - Cardiovascular Exam Cardiovascular Exam: Tachycardia, REGULAR RHYTHM, +S1, +S2 - Extremities Exam Extremities Exam: Normal Inspection - Additional Findings Additional findings: EKG SINUS TACHYCARDIA, R 110 OR FINDINGS REVIEWED WITH CECAL MASS WITH PERFORATION AND PURULENT FLUID AND PERITONITIS RIGHT HEMICOLECTOMY WITH ILIOCOLONIC ANASTAMOSIS PERFORMED WITH ABDOMINAL DRAINAGE AND WASHOUT AND SPECIMENS SENT TO PATHOLOGY EKG UNCHANGED FROM BASELINE LABS NOTED CONSULTS REVIEWED Assessment and Plan - Assessment and Plan (Free Text) Assessment: PERFORATED CECAL MASS WITH PERITONITIS PULMONARY NODULES NO ACUTE CA IN MY OPINION PATIENT IS CHEST PAIN FREE, EKG IS UNCHANGED AND TROPONON WAS MILDLY ELEVATED FROM DEHYDRATION AND SEPSIS CAN CAUSE ELEVATED TROPONINS Plan: CONTINUE IV ANTIBIOTICS, METOPROLOL AND LOVENOX AWAITING PATHOLOGY REPORT
[2016-10-08] MEDS: Potassium Ch 20mEq in D5-1/2NS 1,000 ML IV SCH ×2 (14:19→23:00)
--- NOTE | 2016-10-08 18:26 | CP.PCM.PN ---
Subjective - Date & Time of Evaluation Date of Evaluation: 10/08/16 Time of Evaluation: 18:25 - Subjective Subjective: I D NOTE POST 1 DAY SELF EXTUBATION AFEBRILE CULTURES PENDING CONTINUE ZOSYN/FLAGYL /VANCOMYCIN Objective - Vital Signs/Intake and Output Vital Signs (last 24 hours): Temp Pulse Resp BP Pulse Ox 98.5 F 98 H 17 134/94 H 94 L 10/08/16 16:00 10/08/16 16:13 10/08/16 16:00 10/08/16 16:13 10/08/16 16:00 Intake and Output: 10/08/16 10/08/16 06:59 18:59 Intake Total 1700 1975 Output Total 400 700 Balance 1300 1275 - Medications Medications: Current Medications Enoxaparin Sodium (Lovenox) 40 mg SC DAILY [facility] PRN Reason: Protocol Last Admin: 10/08/16 08:32 Dose: 40 mg Famotidine (Pepcid) 20 mg IVP Q12 [facility] Last Admin: 10/08/16 08:35 Dose: 20 mg Hydromorphone HCl (Dilaudid) 1 mg IVP Q3 PRN PRN Reason: Pain, moderate (4-7) Last Admin: 10/08/16 10:20 Dose: 1 mg Piperacillin Sod/Tazobactam (Sod 3.375 gm/ Sodium Chloride) 100 mls @ 100 mls/ hr IVPB Q6 [facility] Last Admin: 10/08/16 16:15 Dose: 100 mls/hr Metronidazole (Flagyl 500mg/100ml Ns) 100 mls @ 100 mls/hr IVPB Q8 [facility] Last Admin: 10/08/16 16:14 Dose: 100 mls/hr Vancomycin HCl 1 gm/ Sodium (Chloride) 250 mls @ 166.667 mls/hr IVPB DAILY [facility] Last Admin: 10/08/16 08:36 Dose: 166.667 mls/hr Potassium Chloride/Dextrose/Sod Cl (Potassium Chl 20 Meq In D5-1/2ns) 1,000 mls @ 100 mls/hr IV .Q10H [facility] Stop: 10/09/16 12:01 Last Admin: 10/08/16 14:19 Dose: 100 mls/hr Metoprolol Tartrate (Lopressor) 2.5 mg IVP Q6H [facility] Last Admin: 10/08/16 14:19 Dose: 2.5 mg Ondansetron HCl (Zofran Inj) 4 mg IVP Q4 PRN PRN Reason: Nausea/Vomiting - Labs Labs: 10/08/16 06:00 10/08/16 06:00 PT 15.8 SECONDS (9.6-11.2) H 10/07/16 05:30 INR 1.52 (0.92-1.08) H 10/07/16 05:30 APTT 40.2 SECONDS (23.3-32.5) H 10/07/16 05:30
[2016-10-09] MEDS: metroNIDAZOLE 500mg/100ml NS 100 ML IVPB SCH ×3 (00:03→16:38)
[2016-10-09] MEDS: Metoprolol 1 mg/ml Inj IVP SCH ×4 (03:36→20:55)
[2016-10-09] MEDS: Piperacillin/Tazobact 3.375 GM in Sodium Chloride 0.9% 100 ML IVPB SCH ×4 (03:38→21:00)
[2016-10-09 05:48] LABS: HEMATOCRIT 38.2 % (35.0-51.0); MEAN CELL VOLUME 84.2 fl (80.0-94.0); MEAN CORPUSCULAR HEMOGLOBIN 27.3 pg (27.0-31.0); MEAN CORPUSCULAR HGB CONC 32.4 g/dL (33.0-37.0); WHITE BLOOD COUNT 12.9 K/uL (4.8-10.8)
[2016-10-09 06:00] LABS: BLOOD UREA NITROGEN 17 mg/dl (9-20); CALCIUM 7.4 mg/dL (8.4-10.2); CARBON DIOXIDE 19 mmol/L (22-30); CHLORIDE 112 mmol/L (98-107); GFR AFRICAN-AMERICAN > 60; GLUCOSE,RANDOM 149 mg/dL (75-110); POTASSIUM 3.4 MMOL/L (3.6-5.0); SODIUM 139 mmol/l (132-148)
--- NOTE | 2016-10-09 07:56 | CON ---
DATE: 10/06/2016 HISTORY OF PRESENT ILLNESS: The patient is a 71-year-old male who was admitted with a 2-week history of vague abdominal pain, referred in the epigastric area region associated with nausea. The patient also reported 1 or 2 episodes of bilious vomiting. Symptoms have become more severe on the day of a dmission where the patient decided to seek Emergency Room evaluation. The patient became diaphoretic at home with a fever and chills and worsening abdominal distention and abdominal pain. The patient admitted to loose stool over the last few weeks. A CAT scan of the abdomen done in the [facility] showed metastatic lesions to the lung with possible obstruction of the distal small bowel with agai n thickened bowel loops, also some suggestion of possible ischemic changes was noted and the patient was admitted to the ICU. PAST MEDICAL HISTORY: Is unremarkable. SOCIAL HISTORY: Does not smoke and does not drink. FAMILY HISTORY: Noncontributory. LABORATORY DATA: Labs are reviewed. White count was elevated on admission to 11,000. PHYSICAL EXAMINATION: On admission, the patient with tachycardia, fever with temperature of 101.2. Heart rate elevated in the 140-150 range. HEENT: Normocephalic and atraumatic. Extraocular muscles are intact. Pupils equal and react to lig ht and accommodation. NECK: No JVD. No neck masses. HEART: S1 and S2. No murmur or gallop. LUNGS: Clear. ABDOMEN: Distended and tympanitic. EXTREMITIES: No edema, cyanosis or clubbing. NEUROLOGIC: There were no focal or sensory deficit. IMPRESSION: Rule out metastatic disease with acute abdomen. Rule out peritoneal carcinomatosis and rule out intraperitoneal abscess. The patient on intravenous fluid, intravenous antibiotic and refer red to operating room for emergency exploratory laparotomy. Thanks for allowing me to participate in the care of your patient. Will follow with you as needed. Anthony Yanes MD cc:eFr Chambers M.D. 97 TT: 10/06/2016 16:44:41 Confirmation # [id number] Dictation # [id number]
--- NOTE | 2016-10-09 08:57 | CP.PCM.PN ---
<Khushi Montana - Last Filed: 10/09/16 11:00> Subjective - Date & Time of Evaluation Date of Evaluation: 10/09/16 Time of Evaluation: 06:30 - Subjective Subjective: GENERAL SURGERY PROGRESS NOTE FOR DR. VAZQUEZ Patient seen and examined at bedside in the ICU. He states that he passed flatus yesterday and is passing a lot of flatus this morning. He is urinating in the urinal and has not ambulated yet. He is on ice chips and denies nausea or vomiting. He states that he is still having a lot of abdominal pain requiring Dilaudid. He states that he is unable to sleep laying flat and is having difficulty sleeping in general. Objective - Vital Signs/Intake and Output Vital Signs (last 24 hours): Temp Pulse Resp BP Pulse Ox 96.7 F L 110 H 20 152/104 H 97 10/09/16 08:00 10/09/16 08:00 10/09/16 08:00 10/09/16 08:00 10/09/16 06:00 Intake and Output: 10/09/16 10/09/16 06:59 18:59 Intake Total 1100 Output Total 900 Balance 200 - Medications Medications: Current Medications Enoxaparin Sodium (Lovenox) 40 mg SC DAILY [facility] PRN Reason: Protocol Last Admin: 10/08/16 08:32 Dose: 40 mg Famotidine (Pepcid) 20 mg IVP Q12 [facility] Last Admin: 10/08/16 21:23 Dose: 20 mg Hydromorphone HCl (Dilaudid) 1 mg IVP Q3 PRN PRN Reason: Pain, moderate (4-7) Last Admin: 10/09/16 03:35 Dose: 1 mg Piperacillin Sod/Tazobactam (Sod 3.375 gm/ Sodium Chloride) 100 mls @ 100 mls/ hr IVPB Q6 [facility] Last Admin: 10/09/16 03:38 Dose: 100 mls/hr Metronidazole (Flagyl 500mg/100ml Ns) 100 mls @ 100 mls/hr IVPB Q8 [facility] Last Admin: 10/09/16 00:03 Dose: 100 mls/hr Vancomycin HCl 1 gm/ Sodium (Chloride) 250 mls @ 166.667 mls/hr IVPB DAILY [facility] Last Admin: 10/08/16 08:36 Dose: 166.667 mls/hr Potassium Chloride/Dextrose/Sod Cl (Potassium Chl 20 Meq In D5-1/2ns) 1,000 mls @ 100 mls/hr IV .Q10H [facility] Stop: 10/09/16 12:01 Last Admin: 10/08/16 23:00 Dose: 100 mls/hr Metoprolol Tartrate (Lopressor) 2.5 mg IVP Q6H [facility] Last Admin: 10/09/16 03:36 Dose: 2.5 mg Ondansetron HCl (Zofran Inj) 4 mg IVP Q4 PRN PRN Reason: Nausea/Vomiting - Labs Labs: 10/09/16 04:45 10/09/16 04:45 PT 15.8 SECONDS (9.6-11.2) H 10/07/16 05:30 INR 1.52 (0.92-1.08) H 10/07/16 05:30 APTT 40.2 SECONDS (23.3-32.5) H 10/07/16 05:30 - Constitutional Appears: Non-toxic, No Acute Distress - Head Exam Head Exam: ATRAUMATIC, NORMAL INSPECTION - Eye Exam Eye Exam: EOMI, Normal appearance - Respiratory Exam Respiratory Exam: NORMAL BREATHING PATTERN. absent: Respiratory Distress - Cardiovascular Exam Cardiovascular Exam: Tachycardia - GI/Abdominal Exam GI & Abdominal Exam: Distended, Firm, Soft, Tenderness (mild tenderness near incision). absent: Guarding, Rigid, Rebound Additional comments: elaine in place - Extremities Exam Extremities Exam: absent: Calf Tenderness, Joint Swelling - Neurological Exam Neurological Exam: Alert, Awake, Oriented x3 - Psychiatric Exam Psychiatric exam: Normal Affect, Normal Mood - Skin Skin Exam: Intact, Normal Color, Warm Assessment and Plan - Assessment and Plan (Free Text) Assessment: 71yo M with PMHx of HTN with perforated cecal mass and peritonitis s/p Exploratory laparotomy with Right hemicolectomy, Drainage of intra-abdominal abscesses, Abdominal washout POD #2 - Afebrile, continues to be tachycardic and hypertensive - Leukocytosis WBC 12.9 - H&H stable - Procal elevated - Intra op abdomen cx with negative gram stain, wound cx to follow - Blood cx neg @ 3 days - Clear for transfer out of ICU from surgical standpoint - Will Follow up with pathology results - Strongly encouraged OOB, ambulation and IS use - Ordered PT to encourage ambulation - Advanced to clear liquid diet - Discussed plan with Dr. George [place] PGY-2 <Armando Vazquez - Last Filed: 10/09/16 11:08> Subjective - Date & Time of Evaluation Date of Evaluation: 10/09/16 Time of Evaluation: 10:30 - Subjective Subjective: Patient was seen and examined at the bedside. Agree with resident's note above. Objective - Vital Signs/Intake and Output Vital Signs (last 24 hours): Temp Pulse Resp BP Pulse Ox 96.7 F L 110 H 20 152/104 H 97 10/09/16 08:00 10/09/16 09:06 10/09/16 08:00 10/09/16 09:06 10/09/16 06:00 Intake and Output: 10/09/16 10/09/16 06:59 18:59 Intake Total 1100 Output Total 900 Balance 200 - Medications Medications: Current Medications Enoxaparin Sodium (Lovenox) 40 mg SC DAILY [facility] PRN Reason: Protocol Last Admin: 10/09/16 09:06 Dose: 40 mg Famotidine (Pepcid) 20 mg IVP Q12 [facility] Last Admin: 10/08/16 21:23 Dose: 20 mg Hydromorphone HCl (Dilaudid) 1 mg IVP Q3 PRN PRN Reason: Pain, moderate (4-7) Last Admin: 10/09/16 03:35 Dose: 1 mg Piperacillin Sod/Tazobactam (Sod 3.375 gm/ Sodium Chloride) 100 mls @ 100 mls/ hr IVPB Q6 [facility] Last Admin: 10/09/16 09:04 Dose: 100 mls/hr Metronidazole (Flagyl 500mg/100ml Ns) 100 mls @ 100 mls/hr IVPB Q8 [facility] Last Admin: 10/09/16 09:05 Dose: 100 mls/hr Vancomycin HCl 1 gm/ Sodium (Chloride) 250 mls @ 166.667 mls/hr IVPB DAILY [facility] Last Admin: 10/09/16 09:04 Dose: 166.667 mls/hr Potassium Chloride/Dextrose/Sod Cl (Potassium Chl 20 Meq In D5-1/2ns) 1,000 mls @ 100 mls/hr IV .Q10H [facility] Stop: 10/09/16 12:01 Last Admin: 10/09/16 09:07 Dose: 100 mls/hr Metoprolol Tartrate (Lopressor) 2.5 mg IVP Q6H [facility] Last Admin: 10/09/16 09:06 Dose: 2.5 mg Ondansetron HCl (Zofran Inj) 4 mg IVP Q4 PRN PRN Reason: Nausea/Vomiting - Labs Labs: 10/09/16 04:45 10/09/16 04:45 PT 15.8 SECONDS (9.6-11.2) H 10/07/16 05:30 INR 1.52 (0.92-1.08) H 10/07/16 05:30 APTT 40.2 SECONDS (23.3-32.5) H 10/07/16 05:30 Assessment and Plan - Assessment and Plan (Free Text) Plan: - Start clear liquid diet - pain control - Continue antibiotics - Insentive spirometry - DVT ppx - Out of bed - Repeat labs in am - Will follow
[2016-10-09] MEDS: Enoxaparin 40 mg Syringe SC SCH (09:06)
[2016-10-09] MEDS: Potassium Ch 20mEq in D5-1/2NS 1,000 ML IV SCH ×2 (09:07→18:28)
--- NOTE | 2016-10-09 13:26 | CP.PCM.PN ---
Subjective - Date & Time of Evaluation Date of Evaluation: 10/09/16 Time of Evaluation: 13:10 - Subjective Subjective: Hospitalist Progress Note (Patient seen and examined at 1:10 PM 10/09/16 426-1 with and Daughter present and this was ok with patient) 71 years old male with PMH of HTN, Bilateral Inguinal hernia repair (one in 1979 and the other 7 years ago), came in on 10/06/16 with worsening intermittent abdominal discomfort involving the upper abdomen which began 2 weeks prior to his presentation associated with nausea/vomiting. Sensation of the gas moving about in the abdomen, frequent loose stools, and generalized weakness. In the ED he was found to have a temperature of 101.7F and HR of 155/min and RR of 32/ min. Patient was admitted to ICU with diagnosis of ischemic bowel and severe sepsis. He was taken to OR 10/06/16 and underwent right hemicolectomy for perforated cecal mass and pus in abdomen. Curretly upon FULL ROS: NOT moved bowels Continues to have flatus Minimal abdominal discomfort Dry cough with some blood tinged sputum earlier today (Hx self extubation) Tolerated clear liquids NO chest pain, NO palpitations, NO SOB/Wheezing, NO burning/pain with urination , NO lightheadedness/dizziness, NO new changes in vision/eye pain, NO new changes in hearing/ear pain, NO edema, NO paresthesias HEENT: NCA, EOMI, PERRLA, NO cervical lymphadenopathy, NO thyromegaly, NO Pharyngeal erythema/exudate, Oral Mucosa and Nasal Turbinates are moist Cardio: NS1 and NS2, NO M/R/G Respiratory: CTA B/L, NO R/R/W GI: BSx4 reduced but present, (+)Distended but Soft, NT, NO guarding/rebound tenderness, Abdominal Surgical [place] along midline without evidence of surrounding cellulitis/no exudate Ext: NO edema, Pulses are strong and equal, Capillary Refill is 2 seconds Neuro: CN II through XII are grossly intact Assessment and Plan: 1). Severe Sepsis --improving Secondary to Perforated Viscus S/p right hemicolectomy for perforated cecal mass 10/06/16 Self extubated post op on 10/07/16 but doing well Continue 3 L O2 via NC Midline surgical incision intact without evidence of surrounding cellulitis and appears to be healing well Zosyn 3.375 gm IV Q6H Vancomycin 1 gm IV Q12H Flagyl 500 mg IV Q8H Blood Culture 10/06/16 Negative To Date Abdominal Wound 10/07/16 Negative To Date Urine Culture 10/08/[address] Jackson 2). Likely Metastatic Disease Most likely colon CA (cecal mass found during surgery as well as diffuse lymphadenopathy) CT Abdomen/Pelvis 10/06/16 showed evidence of Bilateral Pulmonary Nodules suggestive of metastatic disease F/U Pathology Report of Cecal Mass Oncology evaluation once pathology report available Patient and Family aware of likely diagnosis: patient stated to Dr. Leggett that he knows that this is likely cancer 3). Perforated Viscus - s/p hemicoloctomy Post op day #3 Pain is well controlled Passing flatus and with hyperactive bowel sounds on exam On liquid diet and continue IVF Start ambulation and OOB to cahir PT/OT consulted Surgery Dr. Hoover following patient Continue pain management PRN and IV antibiotics (Zosyn, Flagyl, and Vancomycin as above) 4).Elevated troponin probably secondary to the Sepsis Cardiology Dr. Leggett consult appreciated Patient is currently chest pain free 5). HTN Controlled Metropolol 2.5mg IV Q6hrs 6). Bilateral Pulmonary nodules suggestive of Metastatic disease Consult Pulmonology Dr Mcgowan 7).Prophylactic Measures SCDs Lovenox 40 mg SQ 1x/day Pepcid 20 mg IV Q12H Dilaudid 1 mg IV Q4H PRN Pain Zofran 4 mg IV Q6H PRN N/V D5 1/2 NS with 20 mEQ KCl at 100 ml/hour (Potassium was still low today) Objective - Vital Signs/Intake and Output Vital Signs (last 24 hours): Temp Pulse Resp BP Pulse Ox 96.7 F L 95 H 20 136/97 H 95 10/09/16 08:00 10/09/16 11:00 10/09/16 11:00 10/09/16 11:00 10/09/16 11:00 Intake and Output: 10/09/16 10/09/16 06:59 18:59 Intake Total 1100 Output Total 900 Balance 200 - Medications Medications: Current Medications Enoxaparin Sodium (Lovenox) 40 mg SC DAILY [facility] PRN Reason: Protocol Last Admin: 10/09/16 09:06 Dose: 40 mg Famotidine (Pepcid) 20 mg IVP Q12 [facility] Last Admin: 10/09/16 12:18 Dose: 20 mg Hydromorphone HCl (Dilaudid) 1 mg IVP Q3 PRN PRN Reason: Pain, moderate (4-7) Last Admin: 10/09/16 03:35 Dose: 1 mg Piperacillin Sod/Tazobactam (Sod 3.375 gm/ Sodium Chloride) 100 mls @ 100 mls/ hr IVPB Q6 [facility] Last Admin: 10/09/16 09:04 Dose: 100 mls/hr Metronidazole (Flagyl 500mg/100ml Ns) 100 mls @ 100 mls/hr IVPB Q8 [facility] Last Admin: 10/09/16 09:05 Dose: 100 mls/hr Vancomycin HCl 1 gm/ Sodium (Chloride) 250 mls @ 166.667 mls/hr IVPB DAILY [facility] Last Admin: 10/09/16 09:04 Dose: 166.667 mls/hr Potassium Chloride/Dextrose/Sod Cl (Potassium Chl 20 Meq In D5-1/2ns) 1,000 mls @ 99.01 mls/hr IV .Q10H6M [facility] Metoprolol Tartrate (Lopressor) 2.5 mg IVP Q6H [facility] Last Admin: 10/09/16 09:06 Dose: 2.5 mg Ondansetron HCl (Zofran Inj) 4 mg IVP Q4 PRN PRN Reason: Nausea/Vomiting - Labs Labs: 10/09/16 04:45 10/09/16 04:45 PT 15.8 SECONDS (9.6-11.2) H 10/07/16 05:30 INR 1.52 (0.92-1.08) H 10/07/16 05:30 APTT 40.2 SECONDS (23.3-32.5) H 10/07/16 05:30
--- NOTE | 2016-10-09 13:42 | CP.PCM.PN ---
Subjective - Date & Time of Evaluation Date of Evaluation: 10/09/16 Time of Evaluation: 12:30 - Subjective Subjective: NO CHEST PAIN OR SOB NO SIGNIFICANT ABDOMINAL PAIN Objective - Vital Signs/Intake and Output Vital Signs (last 24 hours): Temp Pulse Resp BP Pulse Ox 96.7 F L 95 H 20 136/97 H 95 10/09/16 08:00 10/09/16 11:00 10/09/16 11:00 10/09/16 11:00 10/09/16 11:00 Intake and Output: 10/09/16 10/09/16 06:59 18:59 Intake Total 1100 Output Total 900 Balance 200 - Medications Medications: Current Medications Enoxaparin Sodium (Lovenox) 40 mg SC DAILY [facility] PRN Reason: Protocol Last Admin: 10/09/16 09:06 Dose: 40 mg Famotidine (Pepcid) 20 mg IVP Q12 [facility] Last Admin: 10/09/16 12:18 Dose: 20 mg Hydromorphone HCl (Dilaudid) 1 mg IVP Q3 PRN PRN Reason: Pain, moderate (4-7) Last Admin: 10/09/16 03:35 Dose: 1 mg Piperacillin Sod/Tazobactam (Sod 3.375 gm/ Sodium Chloride) 100 mls @ 100 mls/ hr IVPB Q6 [facility] Last Admin: 10/09/16 09:04 Dose: 100 mls/hr Metronidazole (Flagyl 500mg/100ml Ns) 100 mls @ 100 mls/hr IVPB Q8 [facility] Last Admin: 10/09/16 09:05 Dose: 100 mls/hr Vancomycin HCl 1 gm/ Sodium (Chloride) 250 mls @ 166.667 mls/hr IVPB DAILY [facility] Last Admin: 10/09/16 09:04 Dose: 166.667 mls/hr Potassium Chloride/Dextrose/Sod Cl (Potassium Chl 20 Meq In D5-1/2ns) 1,000 mls @ 99.01 mls/hr IV .Q10H6M [facility] Metoprolol Tartrate (Lopressor) 2.5 mg IVP Q6H [facility] Last Admin: 10/09/16 09:06 Dose: 2.5 mg Ondansetron HCl (Zofran Inj) 4 mg IVP Q4 PRN PRN Reason: Nausea/Vomiting - Labs Labs: 10/09/16 04:45 10/09/16 04:45 PT 15.8 SECONDS (9.6-11.2) H 10/07/16 05:30 INR 1.52 (0.92-1.08) H 10/07/16 05:30 APTT 40.2 SECONDS (23.3-32.5) H 10/07/16 05:30 - Respiratory Exam Respiratory Exam: Clear to Ausculation Bilateral - Cardiovascular Exam Cardiovascular Exam: REGULAR RHYTHM, +S1, +S2 - Extremities Exam Additional comments: NO LE EDEMA - Additional Findings Additional findings: PATHOLOGY REPORT PENDING Assessment and Plan - Assessment and Plan (Free Text) Assessment: COLON MASS AND CECAL PERFORATION PERITONITIS HYPERTENSION Plan: CONTINUE ANTIBIOTICS, METOPROLOL AND LOVENOX ECHOCARDIOGRAM TO ASSESS LV FUNCTION
--- NOTE | 2016-10-09 16:28 | PN ---
DATE: 10/09/2016 LOCATION: The patient in ICU, bed 426. TIME SPENT: 35 minutes. The patient is seen and evaluated at the bedside. Past medical, surgical history and events since admission are reviewed. Postop day 3 status post surgery for perforated cecal mass. Uneventful overnight, noted to have flatus. No bowel movement, complaining of minimal abdominal discomforts. No chest pain, palpitation. PHYSICAL EXAMINATION: VITAL SIGNS: Temperature 98, heart rate 95, respiratory rate 20 thoracoabdominal, blood pressure 130/91, pulse oximetry 100%. Intake 3075, output 1600, positive 1475. Weight 164 pounds. HEAD, EYES, EARS, NOSE AND THROAT: Pupils are reactive. Conjunctivae are pale. Sclerae anicteric. NECK: Supple. CHEST: Bilateral breath sounds diminished in intensity. HEART: Rhythm regular. S1, S2 normal. ABDOMEN: Soft, mild distention. EXTREMITIES: No edema. SCD in place. Peripheral pulses intact. NEUROLOGIC: Nonfocal. SKIN: Without rash. LABORATORY DATA: WBC 12.9, hemoglobin 12.4, hematocrit 38.2, platelet count 360. PT 15.8, INR 1.52, PTT 40.2. SMA-7: Sodium 139, potassium 3.4, chloride 112, CO2 19, blood urea nitrogen 17, creatinine 1, glucose 149, calcium 7.4, procalcitonin 86.17. Urinalysis negative. Toxicology: Vancomycin trough level less than 5. Serology: Influenza A and B are negative. CURRENT MEDICATIONS: Include vancomycin 1 gram IV daily, Zosyn 3.375 grams IV q. 6, metronidazole 400 mg IV q. 8, Lopressor 2.5 mg IV q. 6, Dilaudid 1 mg IV q. 3 p.r.n., Pepcid 20 mg IV q. 12, Lovenox 40 subQ daily. IMPRESSION: Status post exploratory laparotomy, right hemicolectomy perforated viscus secondary to possible cancer, histopathology pending; acute respiratory insufficiency, postoperative state resolved; sepsis secondary to peritonitis, hypotension resolved; possible colon cancer with metastasis to the lung; acute subacute and non-ST myocardial infarction. The patient is seen by general surgery. Started on clear liquid diet. Pain is much resolved. Continue Zosyn and flagyl as per ID consult. Continue beta blockers, out of bed to chair and transferred to telemetry floor. Melchor Montgomery MD cc: 170 TT: 10/09/2016 16:27:10 Confirmation # [id number] Dictation # [id number] an MTDD
[2016-10-09] MEDS: Saccharomyces Boulardi 250 mg Cap PO SCH (18:26)
[2016-10-10] MEDS: metroNIDAZOLE 500mg/100ml NS 100 ML IVPB SCH ×3 (01:50→16:22)
[2016-10-10] MEDS: Metoprolol 1 mg/ml Inj IVP SCH ×2 (02:05→09:04)
[2016-10-10] MEDS: Potassium Ch 20mEq in D5-1/2NS 1,000 ML IV SCH (02:10)
[2016-10-10] MEDS: Piperacillin/Tazobact 3.375 GM in Sodium Chloride 0.9% 100 ML IVPB SCH ×4 (03:40→22:43)
[2016-10-10] MEDS ORDERED: Oxycodone/Acetaminophen 5/325 mg Tab PO PRN (06:56)
--- NOTE | 2016-10-10 07:02 | CP.PCM.PN ---
<Jhoan Amaya - Last Filed: 10/10/16 07:11> Subjective - Date & Time of Evaluation Date of Evaluation: 10/10/16 Time of Evaluation: 06:50 - Subjective Subjective: Gen Surg: Dr. Vazquez Pt S&E. Reports having BM, passing flatus. Pt states he is ambulating. Reports mild abdominal pain associated with coughing. NAEO. Tolerating clear liquid diet. Surgical incision site non-erythematous, c/d/i. Objective - Vital Signs/Intake and Output Vital Signs (last 24 hours): Temp Pulse Resp BP Pulse Ox 98.6 F 82 20 131/78 94 L 10/10/16 05:00 10/10/16 05:00 10/10/16 05:00 10/10/16 05:00 10/10/16 05:00 - Medications Medications: Current Medications Enoxaparin Sodium (Lovenox) 40 mg SC DAILY [facility] PRN Reason: Protocol Last Admin: 10/09/16 09:06 Dose: 40 mg Famotidine (Pepcid) 20 mg IVP Q12 [facility] Last Admin: 10/09/16 22:00 Dose: 20 mg Piperacillin Sod/Tazobactam (Sod 3.375 gm/ Sodium Chloride) 100 mls @ 100 mls/ hr IVPB Q6 [facility] Last Admin: 10/10/16 03:40 Dose: 100 mls/hr Metronidazole (Flagyl 500mg/100ml Ns) 100 mls @ 100 mls/hr IVPB Q8 [facility] Last Admin: 10/10/16 01:50 Dose: 100 mls/hr Vancomycin HCl 1 gm/ Sodium (Chloride) 250 mls @ 166.667 mls/hr IVPB DAILY [facility] Last Admin: 10/09/16 09:04 Dose: 166.667 mls/hr Potassium Chloride/Dextrose/Sod Cl (Potassium Chl 20 Meq In D5-1/2ns) 1,000 mls @ 99.01 mls/hr IV .Q10H6M [facility] Last Admin: 10/10/16 02:10 Dose: 99.01 mls/hr Metoprolol Tartrate (Lopressor) 2.5 mg IVP Q6H [facility] Last Admin: 10/10/16 02:05 Dose: 2.5 mg Ondansetron HCl (Zofran Inj) 4 mg IVP Q4 PRN PRN Reason: Nausea/Vomiting Last Admin: 10/09/16 20:56 Dose: 4 mg Oxycodone/Acetaminophen (Percocet 5/325 Mg Tab) 1 tab PO Q6 PRN PRN Reason: Pain, moderate (4-7) Stop: 10/13/16 06:57 Saccharomyces Boulardii (Florastor) 250 mg PO BID [facility] Last Admin: 10/09/16 18:26 Dose: 250 mg - Labs Labs: 10/09/16 04:45 10/09/16 04:45 PT 15.8 SECONDS (9.6-11.2) H 10/07/16 05:30 INR 1.52 (0.92-1.08) H 10/07/16 05:30 APTT 40.2 SECONDS (23.3-32.5) H 10/07/16 05:30 - Constitutional Appears: No Acute Distress - Head Exam Head Exam: NORMOCEPHALIC - Eye Exam Eye Exam: Normal appearance - Respiratory Exam Respiratory Exam: NORMAL BREATHING PATTERN - Cardiovascular Exam Cardiovascular Exam: +S1, +S2 - GI/Abdominal Exam GI & Abdominal Exam: Soft. absent: Distended, Firm, Guarding, Rigid - Neurological Exam Neurological Exam: Alert, Awake, Oriented x3 - Psychiatric Exam Psychiatric exam: Normal Mood - Skin Skin Exam: Dry, Intact, Warm Assessment and Plan - Assessment and Plan (Free Text) Assessment: 71M with perforated cecal mass and peritonitis s/p Exploratory laparotomy with Right hemicolectomy, Drainage of intra-abdominal abscesses, & Abdominal washout POD #4 Plan: - Will start Full liquid diet - pain control - Continue antibiotics - Incentive spirometry - DVT ppx - Out of bed -PT - F/u AM labs - D/w Dr. Vazquez <Armando Vazquez - Last Filed: 10/10/16 10:10> Subjective - Date & Time of Evaluation Date of Evaluation: 10/10/16 Time of Evaluation: 10:05 - Subjective Subjective: Patient was seen and examined at the bedside. Agree with resident's note above Objective - Vital Signs/Intake and Output Vital Signs (last 24 hours): Temp Pulse Resp BP Pulse Ox 98.1 F 88 20 129/77 99 10/10/16 08:16 10/10/16 09:04 10/10/16 08:16 10/10/16 09:04 10/10/16 08:16 - Medications Medications: Current Medications Enoxaparin Sodium (Lovenox) 40 mg SC DAILY [facility] PRN Reason: Protocol Last Admin: 10/10/16 09:03 Dose: 40 mg Famotidine (Pepcid) 20 mg IVP Q12 [facility] Last Admin: 10/10/16 09:07 Dose: 20 mg Piperacillin Sod/Tazobactam (Sod 3.375 gm/ Sodium Chloride) 100 mls @ 100 mls/ hr IVPB Q6 [facility] Last Admin: 10/10/16 09:05 Dose: 100 mls/hr Metronidazole (Flagyl 500mg/100ml Ns) 100 mls @ 100 mls/hr IVPB Q8 [facility] Last Admin: 10/10/16 09:03 Dose: 100 mls/hr Vancomycin HCl 1 gm/ Sodium (Chloride) 250 mls @ 166.667 mls/hr IVPB DAILY [facility] Last Admin: 10/10/16 09:05 Dose: 166.667 mls/hr Potassium Chloride 40 meq/Potassium Chloride/Dextrose/Sod Cl 1,020 mls @ 99.01 mls/hr IV .[id number] [facility] Ondansetron HCl (Zofran Inj) 4 mg IVP Q4 PRN PRN Reason: Nausea/Vomiting Last Admin: 10/09/16 20:56 Dose: 4 mg Oxycodone/Acetaminophen (Percocet 5/325 Mg Tab) 1 tab PO Q6 PRN PRN Reason: Pain, moderate (4-7) Stop: 10/13/16 06:57 Saccharomyces Boulardii (Florastor) 250 mg PO BID [facility] Last Admin: 10/10/16 09:03 Dose: 250 mg - Labs Labs: 10/10/16 06:15 10/10/16 06:15 PT 15.8 SECONDS (9.6-11.2) H 10/07/16 05:30 INR 1.52 (0.92-1.08) H 10/07/16 05:30 APTT 40.2 SECONDS (23.3-32.5) H 10/07/16 05:30
[2016-10-10 07:14] LABS: BASO % 0.3 % (0.0-2.0); EOS % 0.4 % (0.0-4.0); HEMATOCRIT 34.1 % (35.0-51.0); LYMPH # 0.7 K/uL (1.0-4.3); MEAN CELL VOLUME 83.1 fl (80.0-94.0); MEAN CORPUSCULAR HGB CONC 33.7 g/dL (33.0-37.0); MEAN PLATELET VOLUME 7.6 fl (7.2-11.7); MONO # 0.7 K/uL (0.0-0.8); MONO % 6.6 % (0.0-10.0); NEUT % 85.7 % (50.0-75.0); PLATELET COUNT 316 K/uL (130-400); WHITE BLOOD COUNT 10.5 K/uL (4.8-10.8)
[2016-10-10 07:36] LABS: ALB/GLOB RATIO 0.8 (1.0-2.1); ALKALINE PHOSPHATASE 92 U/L (38-126); ALT/SGPT 35 U/L (21-72); AST/SGOT 20 U/L (17-59); BILIRUBIN,TOTAL 0.6 mg/dl (0.2-1.3); BLOOD UREA NITROGEN 13 mg/dl (9-20); CALCIUM 7.3 mg/dL (8.4-10.2); CARBON DIOXIDE 20 mmol/L (22-30); CHLORIDE 112 mmol/L (98-107); GFR AFRICAN-AMERICAN > 60; GLUCOSE,RANDOM 137 mg/dL (75-110); MAGNESIUM 1.9 MG/DL (1.6-2.3); PHOSPHOROUS 1.7 mg/dl (2.5-4.5); POTASSIUM 3.2 MMOL/L (3.6-5.0); SODIUM 141 mmol/l (132-148); TOTAL PROTEIN 4.5 G/DL (6.3-8.2)
[2016-10-10] MEDS ORDERED: Potassium Chloride 40 MEQ in Dextrose 5%/0.45% NS 1,000 ML IV SCH (08:29)
[2016-10-10] MEDS: Enoxaparin 40 mg Syringe SC SCH (09:03)
[2016-10-10] MEDS: Saccharomyces Boulardi 250 mg Cap PO SCH ×2 (09:03→16:22)
--- NOTE | 2016-10-10 09:51 | CP.PCM.PN ---
Subjective - Date & Time of Evaluation Date of Evaluation: 10/10/16 Time of Evaluation: 09:00 - Subjective Subjective: FEELS BETTER WITH ONLY MINIMAL ABDOMINAL PAIN HAD BM Objective - Vital Signs/Intake and Output Vital Signs (last 24 hours): Temp Pulse Resp BP Pulse Ox 98.1 F 88 20 129/77 99 10/10/16 08:16 10/10/16 09:04 10/10/16 08:16 10/10/16 09:04 10/10/16 08:16 - Medications Medications: Current Medications Enoxaparin Sodium (Lovenox) 40 mg SC DAILY [facility] PRN Reason: Protocol Last Admin: 10/10/16 09:03 Dose: 40 mg Famotidine (Pepcid) 20 mg IVP Q12 [facility] Last Admin: 10/10/16 09:07 Dose: 20 mg Piperacillin Sod/Tazobactam (Sod 3.375 gm/ Sodium Chloride) 100 mls @ 100 mls/ hr IVPB Q6 [facility] Last Admin: 10/10/16 09:05 Dose: 100 mls/hr Metronidazole (Flagyl 500mg/100ml Ns) 100 mls @ 100 mls/hr IVPB Q8 [facility] Last Admin: 10/10/16 09:03 Dose: 100 mls/hr Vancomycin HCl 1 gm/ Sodium (Chloride) 250 mls @ 166.667 mls/hr IVPB DAILY [facility] Last Admin: 10/10/16 09:05 Dose: 166.667 mls/hr Potassium Chloride 40 meq/Potassium Chloride/Dextrose/Sod Cl 1,020 mls @ 99.01 mls/hr IV .[id number] [facility] Metoprolol Tartrate (Lopressor) 2.5 mg IVP Q6H [facility] Last Admin: 10/10/16 09:04 Dose: 2.5 mg Ondansetron HCl (Zofran Inj) 4 mg IVP Q4 PRN PRN Reason: Nausea/Vomiting Last Admin: 10/09/16 20:56 Dose: 4 mg Oxycodone/Acetaminophen (Percocet 5/325 Mg Tab) 1 tab PO Q6 PRN PRN Reason: Pain, moderate (4-7) Stop: 10/13/16 06:57 Saccharomyces Boulardii (Florastor) 250 mg PO BID [facility] Last Admin: 10/10/16 09:03 Dose: 250 mg - Labs Labs: 10/10/16 06:15 10/10/16 06:15 PT 15.8 SECONDS (9.6-11.2) H 10/07/16 05:30 INR 1.52 (0.92-1.08) H 10/07/16 05:30 APTT 40.2 SECONDS (23.3-32.5) H 10/07/16 05:30 - Respiratory Exam Respiratory Exam: Clear to Ausculation Bilateral - Cardiovascular Exam Cardiovascular Exam: REGULAR RHYTHM, +S1, +S2 - Extremities Exam Extremities Exam: Normal Inspection - Additional Findings Additional findings: HELP DESK REPRESENTATIVE NSR PATH REPORTS PENDING Assessment and Plan - Assessment and Plan (Free Text) Assessment: CECAL MASS WITH PERFORATION AND PERITONITIS HYPERTENSION Plan: PATIENT WAS TRANSFERRED TO CONTINUE ANTIBIOTICS AND LOVENOX WILL DISCONTINUE IV METOPROLOL AND RESTART ENALAPRIL IF BLOOD PRESSURE BEGINS TO RISE
[2016-10-10 10:52] LABS: EOSINOPHIL 1 % (0-7); NEUTROPHIL 87 % (42-75); TOTAL CELLS COUNTED 100
[2016-10-10 10:53] LABS: LARGE PLATELETS PRESENT
--- NOTE | 2016-10-10 11:26 | CP.PCM.PN ---
Subjective - Date & Time of Evaluation Date of Evaluation: 10/10/16 Time of Evaluation: 11:00 - Subjective Subjective: Hospitalist Progress Note (Patient was seen and examined at 11:00 AM 10/10/16 410 -1 with and Daughter present) 71 years old male with PMH of HTN, Bilateral Inguinal hernia repair (one in 1979 and the other 7 years ago), came in on 10/06/16 with worsening intermittent abdominal discomfort involving the upper abdomen which began 2 weeks prior to his presentation associated with nausea/vomiting. Sensation of the gas moving about in the abdomen, frequent loose stools, and generalized weakness. In the ED he was found to have a temperature of 101.7F and HR of 155/min and RR of 32/ min. Patient was admitted to ICU with diagnosis of ischemic bowel and severe sepsis. He was taken to OR 10/06/16 and underwent right hemicolectomy for perforated cecal mass and pus in abdomen. Curretly upon FULL ROS: Had 3 soft bowel movements today: nonbloody/nonblack Continues to have flatus No abdominal discomfort Dry cough with occasional white phlegm Tolerated clear liquids and therefore has been advanced to Full Liquids today NO chest pain, NO palpitations, NO SOB/Wheezing, NO burning/pain with urination , NO lightheadedness/dizziness, NO new changes in vision/eye pain, NO new changes in hearing/ear pain, NO edema, NO paresthesias HEENT: NCA, EOMI, PERRLA, NO cervical lymphadenopathy, NO thyromegaly, NO Pharyngeal erythema/exudate, Oral Mucosa and Nasal Turbinates are moist Cardio: NS1 and NS2, NO M/R/G Respiratory: CTA B/L, NO R/R/W GI: BSx4 reduced but present, (+)Distended but Soft, NT, NO guarding/rebound tenderness, Abdominal Surgical [place] along midline without evidence of surrounding cellulitis/no exudate Ext: NO edema, Pulses are strong and equal, Capillary Refill is 2 seconds Neuro: CN II through XII are grossly intact Assessment and Plan: 1). Severe Sepsis --improving Secondary to Perforated Viscus S/p right hemicolectomy for perforated cecal mass 10/06/16 Self extubated post op on 10/07/16 but doing well Continue 3 L O2 via NC Midline surgical incision intact without evidence of surrounding cellulitis and appears to be healing well Zosyn 3.375 gm IV Q6H (10/06/16) Vancomycin 1 gm IV Q12H (10/07/16) Flagyl 500 mg IV Q8H (10/06/16) Blood Culture 10/06/16 Negative To Date Abdominal Wound 10/07/16 Negative To Date Urine Culture 10/08/[address] Jackson 2). Likely Metastatic Disease Most likely colon CA (cecal mass found during surgery as well as diffuse lymphadenopathy) CT Abdomen/Pelvis 10/06/16 showed evidence of Bilateral Pulmonary Nodules suggestive of metastatic disease Spoke with Pathologist Dr. Nayak" today 10/10/16 and she just recieved the patient's colectomy sample yesterday and it will be sectioned today. She was given my cell phone number and will call me after she is able to read the pathology slides 10/11/16. Oncology evaluation once pathology report available 3). Perforated Viscus - s/p hemicoloctomy Post op day #4 Pain is well controlled Passing flatus and with hyperactive bowel sounds on exam Now on Full Liquid diet and continue IVF Start ambulation and OOB to [facility] PT/OT consulted Surgery Team following patient Continue pain management PRN and IV antibiotics (Zosyn, Flagyl, and Vancomycin as above) 4).Elevated troponin probably secondary to the Sepsis Cardiology Dr. Leggett consult appreciated Patient is currently chest pain free 5). HTN Controlled Metropolol 2.5mg IV Q6hrs was discontinued 10/10/16 after morning dose. Monitor Blood Pressure and if it starts to rise then will restart Enalapril 5 mg PO 1x/ day. 6). Bilateral Pulmonary nodules suggestive of Metastatic disease Consult Pulmonology Dr Mcgowan 7).Prophylactic Measures SCDs Lovenox 40 mg SQ 1x/day Pepcid 20 mg IV Q12H Dilaudid 1 mg IV Q4H PRN Pain Zofran 4 mg IV Q6H PRN N/V D5 1/2 NS with 40 mEQ KCl at 100 ml/hour (Potassium was still low today therefore 20 mEQ KCl was increased to 40 mEQ KCl per liter) Spoke with Buzzsaw Operator Helper Justine and will plan for transfer to Acute Rehab once patient is tolerating Full Diet. Objective - Vital Signs/Intake and Output Vital Signs (last 24 hours): Temp Pulse Resp BP Pulse Ox 98.1 F 88 20 129/77 99 10/10/16 08:16 10/10/16 09:04 10/10/16 08:16 10/10/16 09:04 10/10/16 08:16 - Medications Medications: Current Medications Enoxaparin Sodium (Lovenox) 40 mg SC DAILY [facility] PRN Reason: Protocol Last Admin: 10/10/16 09:03 Dose: 40 mg Famotidine (Pepcid) 20 mg IVP Q12 [facility] Last Admin: 10/10/16 09:07 Dose: 20 mg Piperacillin Sod/Tazobactam (Sod 3.375 gm/ Sodium Chloride) 100 mls @ 100 mls/ hr IVPB Q6 [facility] Last Admin: 10/10/16 09:05 Dose: 100 mls/hr Metronidazole (Flagyl 500mg/100ml Ns) 100 mls @ 100 mls/hr IVPB Q8 [facility] Last Admin: 10/10/16 09:03 Dose: 100 mls/hr Vancomycin HCl 1 gm/ Sodium (Chloride) 250 mls @ 166.667 mls/hr IVPB DAILY [facility] Last Admin: 10/10/16 09:05 Dose: 166.667 mls/hr Potassium Chloride/Dextrose/Sod Cl (Potassium Chl 40 Meq In D5-1/2ns) 1,000 mls @ 97.069 mls/hr IV .[id number] [facility] Ondansetron HCl (Zofran Inj) 4 mg IVP Q4 PRN PRN Reason: Nausea/Vomiting Last Admin: 10/09/16 20:56 Dose: 4 mg Oxycodone/Acetaminophen (Percocet 5/325 Mg Tab) 1 tab PO Q6 PRN PRN Reason: Pain, moderate (4-7) Stop: 10/13/16 06:57 Saccharomyces Boulardii (Florastor) 250 mg PO BID [facility] Last Admin: 10/10/16 09:03 Dose: 250 mg - Labs Labs: 10/10/16 06:15 10/10/16 06:15 PT 15.8 SECONDS (9.6-11.2) H 10/07/16 05:30 INR 1.52 (0.92-1.08) H 10/07/16 05:30 APTT 40.2 SECONDS (23.3-32.5) H 10/07/16 05:30
--- NOTE | 2016-10-10 15:51 | CARD ---
APPROVED REPORT EXAM: Two-dimensional and M-mode echocardiogram with Doppler and color Doppler. Other Information Quality : GoodRhythm : NSR INDICATION Non STEMI 2D DIMENSIONS IVSd0.99 (0.7-1.1cm)LVDd4.75 (3.9-5.9cm) LVOT Diameter2.57 (1.8-2.4cm)PWd0.66 (0.7-1.1cm) IVSs0.94 (0.8-1.2cm)LVDs3.68 (2.5-4.0cm) FS (%) 22.6 %PWs0.99 (0.8-1.2cm) M-Mode DIMENSIONS Left Atrium (MM)2.10 (2.5-4.0cm)IVSd0.58 (0.7-1.1cm) Aortic Root4.22 (2.2-3.7cm)LVDd6.51 (4.0-5.6cm) Aortic Cusp Exc.2.12 (1.5-2.0cm)PWd0.72 (0.7-1.1cm) IVSs0.74 cmFS (%) 25 % LVDs4.91 (2.0-3.8cm)PWs1.16 cm Mitral Valve E/A ratio0.0 TDI E/Lateral E'0.0E/Medial E'0.0 LEFT VENTRICLE The left ventricle is normal size. There is normal left ventricular wall thickness. The systolic function is mildly to moderately impaired. The Ejection Fraction is 35-40%. There is moderate to severe hypokinesis in the basal anteroseptal and apeical wall. The left ventricular diastolic function is normal. No left ventricle thrombus noted on this study. There is no mass noted in the left ventricle. RIGHT VENTRICLE The right ventricle is normal size. There is normal right ventricular wall thickness. The right ventricular systolic function is normal. ATRIA The left atrium size is normal. The right atrium size is normal. The interatrial septum is intact with no evidence for an atrial septal defect. AORTIC VALVE The aortic valve is normal in structure and function. No aortic regurgitation is present. There is no aortic valvular stenosis. There is no aortic valvular vegetation. MITRAL VALVE The mitral valve is normal in structure and function. There is no evidence of mitral valve prolapse. There is no mitral valve stenosis. There is no mitral valve regurgitation noted. TRICUSPID VALVE The tricuspid valve is normal in structure and function. There is no tricuspid valve regurgitation noted. There is no tricuspid valve prolapse or vegetation. There is no tricuspid valve stenosis. PULMONIC VALVE The pulmonary valve is normal in structure and function. There is no pulmonic valvular regurgitation. There is no pulmonic valvular stenosis. GREAT VESSELS The aortic root is normal in size. The IVC is normal in size and collapses >50% with inspiration. PERICARDIAL EFFUSION The pericardium appears normal. There is no pleural effusion. <Conclusion> The left ventricle is normal size. The systolic function is mildly to moderately impaired. The Ejection Fraction is 35-40%. There is moderate to severe hypokinesis in the basal anteroseptal and apeical wall.
[2016-10-10] MEDS: Potassium Chl 40 mEq in D5-1/2 1,000 ML IV SCH ×2 (16:22→22:42)
--- NOTE | 2016-10-10 17:44 | CP.PCM.PN ---
Subjective - Date & Time of Evaluation Date of Evaluation: 10/10/16 Time of Evaluation: 17:44 - Subjective Subjective: NO NEW PULMONARY FINDINGS AWAIT SURGICAL PATHOLOGY REPORT WILL CONTINUE TO FOLLOW RE-FURTHER WORKUP OF PULMONARY NODULES Objective - Vital Signs/Intake and Output Vital Signs (last 24 hours): Temp Pulse Resp BP Pulse Ox 97.9 F 99 H 20 129/77 96 10/10/16 15:48 10/10/16 15:48 10/10/16 15:48 10/10/16 15:48 10/10/16 15:48 - Medications Medications: Current Medications Enoxaparin Sodium (Lovenox) 40 mg SC DAILY [facility] PRN Reason: Protocol Last Admin: 10/10/16 09:03 Dose: 40 mg Famotidine (Pepcid) 20 mg IVP Q12 [facility] Last Admin: 10/10/16 09:07 Dose: 20 mg Piperacillin Sod/Tazobactam (Sod 3.375 gm/ Sodium Chloride) 100 mls @ 100 mls/ hr IVPB Q6 [facility] Last Admin: 10/10/16 16:21 Dose: 100 mls/hr Metronidazole (Flagyl 500mg/100ml Ns) 100 mls @ 100 mls/hr IVPB Q8 [facility] Last Admin: 10/10/16 16:22 Dose: 100 mls/hr Vancomycin HCl 1 gm/ Sodium (Chloride) 250 mls @ 166.667 mls/hr IVPB DAILY [facility] Last Admin: 10/10/16 09:05 Dose: 166.667 mls/hr Potassium Chloride/Dextrose/Sod Cl (Potassium Chl 40 Meq In D5-1/2ns) 1,000 mls @ 97.069 mls/hr IV .[id number] [facility] Last Admin: 10/10/16 16:22 Dose: 97.069 mls/hr Ondansetron HCl (Zofran Inj) 4 mg IVP Q4 PRN PRN Reason: Nausea/Vomiting Last Admin: 10/09/16 20:56 Dose: 4 mg Oxycodone/Acetaminophen (Percocet 5/325 Mg Tab) 1 tab PO Q6 PRN PRN Reason: Pain, moderate (4-7) Stop: 10/13/16 06:57 Saccharomyces Boulardii (Florastor) 250 mg PO BID [facility] Last Admin: 10/10/16 16:22 Dose: 250 mg - Labs Labs: 10/10/16 06:15 10/10/16 06:15 PT 15.8 SECONDS (9.6-11.2) H 10/07/16 05:30 INR 1.52 (0.92-1.08) H 10/07/16 05:30 APTT 40.2 SECONDS (23.3-32.5) H 10/07/16 05:30
[2016-10-11] MEDS: metroNIDAZOLE 500mg/100ml NS 100 ML IVPB SCH ×3 (00:04→17:06)
[2016-10-11] MEDS: Piperacillin/Tazobact 3.375 GM in Sodium Chloride 0.9% 100 ML IVPB SCH ×2 (04:15→10:26)
[2016-10-11 07:46] LABS: BASO % 0.2 % (0.0-2.0); EOS # 0.2 K/uL (0.0-0.7); EOS % 1.3 % (0.0-4.0); HEMATOCRIT 36.3 % (35.0-51.0); LYMPH # 0.7 K/uL (1.0-4.3); LYMPH % 5.9 % (20.0-40.0); MEAN CELL VOLUME 83.8 fl (80.0-94.0); MEAN CORPUSCULAR HEMOGLOBIN 27.7 pg (27.0-31.0); MEAN CORPUSCULAR HGB CONC 33.1 g/dL (33.0-37.0); MEAN PLATELET VOLUME 7.8 fl (7.2-11.7); MONO # 0.9 K/uL (0.0-0.8); MONO % 7.6 % (0.0-10.0); NEUT # 9.9 K/uL (1.8-7.0); WHITE BLOOD COUNT 11.7 K/uL (4.8-10.8)
[2016-10-11 08:00] LABS: BLOOD UREA NITROGEN 11 mg/dl (9-20); CALCIUM 7.5 mg/dL (8.4-10.2); CARBON DIOXIDE 23 mmol/L (22-30); CHLORIDE 108 mmol/L (98-107); GFR AFRICAN-AMERICAN > 60; GLUCOSE,RANDOM 130 mg/dL (75-110); POTASSIUM 3.2 MMOL/L (3.6-5.0); SODIUM 140 mmol/l (132-148)
[2016-10-11] MEDS: Saccharomyces Boulardi 250 mg Cap PO SCH ×2 (08:50→17:06)
[2016-10-11] MEDS: Enoxaparin 40 mg Syringe SC SCH (08:50)
--- NOTE | 2016-10-11 10:27 | CP.PCM.PN ---
Subjective - Date & Time of Evaluation Date of Evaluation: 10/11/16 Time of Evaluation: 09:45 - Subjective Subjective: Gen Surg: Dr. Vazquez Patient S&E this AM. Reports he is feeling better. Denies any n/v. Some tenderness along surgical incision wound. Tolerating liquid diet, will advance diet. Review of vitals is normal. +BM, flatus. Objective - Vital Signs/Intake and Output Vital Signs (last 24 hours): Temp Pulse Resp BP Pulse Ox 97.5 F L 84 20 149/81 98 10/11/16 08:04 10/11/16 08:04 10/11/16 08:04 10/11/16 08:04 10/11/16 08:04 Intake and Output: 10/11/16 10/11/16 06:59 18:59 Intake Total 1500 Output Total 900 Balance 600 - Medications Medications: Current Medications Famotidine (Pepcid) 20 mg IVP Q12 [facility] Last Admin: 10/11/16 08:52 Dose: 20 mg Metronidazole (Flagyl 500mg/100ml Ns) 100 mls @ 100 mls/hr IVPB Q8 [facility] Last Admin: 10/11/16 08:49 Dose: 100 mls/hr Vancomycin HCl 1 gm/ Sodium (Chloride) 250 mls @ 166.667 mls/hr IVPB DAILY [facility] Last Admin: 10/10/16 09:05 Dose: 166.667 mls/hr Potassium Chloride/Dextrose/Sod Cl (Potassium Chl 40 Meq In D5-1/2ns) 1,000 mls @ 97.069 mls/hr IV .[id number] [facility] Last Admin: 10/10/16 22:42 Dose: 97.069 mls/hr Ondansetron HCl (Zofran Inj) 4 mg IVP Q4 PRN PRN Reason: Nausea/Vomiting Last Admin: 10/09/16 20:56 Dose: 4 mg Oxycodone/Acetaminophen (Percocet 5/325 Mg Tab) 1 tab PO Q6 PRN PRN Reason: Pain, moderate (4-7) Stop: 10/13/16 06:57 Saccharomyces Boulardii (Florastor) 250 mg PO BID [facility] Last Admin: 10/11/16 08:50 Dose: 250 mg - Labs Labs: 10/11/16 06:30 10/11/16 06:30 PT 15.8 SECONDS (9.6-11.2) H 10/07/16 05:30 INR 1.52 (0.92-1.08) H 10/07/16 05:30 APTT 40.2 SECONDS (23.3-32.5) H 10/07/16 05:30 - Constitutional Appears: No Acute Distress - Head Exam Head Exam: NORMOCEPHALIC - Eye Exam Eye Exam: Normal appearance - ENT Exam ENT Exam: Mucous Membranes Moist - Respiratory Exam Respiratory Exam: NORMAL BREATHING PATTERN - Cardiovascular Exam Cardiovascular Exam: +S1, +S2 - GI/Abdominal Exam GI & Abdominal Exam: Soft, Tenderness. absent: Distended, Firm, Guarding, Rigid - Neurological Exam Neurological Exam: Alert, Awake, Oriented x3 - Psychiatric Exam Psychiatric exam: Normal Mood - Skin Skin Exam: Dry, Intact, Warm Assessment and Plan - Assessment and Plan (Free Text) Assessment: 71M with perforated cecal mass and peritonitis s/p Exploratory laparotomy with Right hemicolectomy, Drainage of intra-abdominal abscesses, & Abdominal washout POD #5 - Regular diet - pain control - Continue antibiotics - Incentive spirometry - DVT ppx - Out of bed -PT - F/u AM labs - D/w Dr. Vazquez
--- NOTE | 2016-10-11 13:09 | CP.PCM.PN ---
Subjective - Date & Time of Evaluation Date of Evaluation: 10/11/16 Time of Evaluation: 12:45 - Subjective Subjective: Hospitalist Progress Note (Patient was seen and examined at 12:45 PM 10/11/16 410 -1) ROS Had normal bowel movement this morning Hiccups after eats or drinks anything (he is immediately laying down after eating and drinking and I have instructed him to remain upright in the bedside chair for at least 1 hour after his meals) Some drainage from surgical site (sarosanginous from one staple but there is no dehiscense and no abdominal pain) Tolerating Full Liquids and has been transitioned into full diet Exam is unchanged Plan is to see if he tolerates Regular Diet and if so then he will be transferred to TCU. Spoke with Surgery Cali Sims and [employer] Justine Full Note to follow Objective - Vital Signs/Intake and Output Vital Signs (last 24 hours): Temp Pulse Resp BP Pulse Ox 97.4 F L 96 H 20 146/96 H 98 10/11/16 12:25 10/11/16 12:25 10/11/16 12:25 10/11/16 12:25 10/11/16 12:25 Intake and Output: 10/11/16 10/11/16 06:59 18:59 Intake Total 1500 Output Total 900 Balance 600 - Medications Medications: Current Medications Famotidine (Pepcid) 20 mg IVP Q12 [facility] Last Admin: 10/11/16 08:52 Dose: 20 mg Metronidazole (Flagyl 500mg/100ml Ns) 100 mls @ 100 mls/hr IVPB Q8 [facility] Last Admin: 10/11/16 08:49 Dose: 100 mls/hr Vancomycin HCl 1 gm/ Sodium (Chloride) 250 mls @ 166.667 mls/hr IVPB DAILY [facility] Last Admin: 10/11/16 10:29 Dose: 166.667 mls/hr Potassium Chloride/Dextrose/Sod Cl (Potassium Chl 40 Meq In D5-1/2ns) 1,000 mls @ 97.069 mls/hr IV .[id number] [facility] Last Admin: 10/10/16 22:42 Dose: 97.069 mls/hr Ondansetron HCl (Zofran Inj) 4 mg IVP Q4 PRN PRN Reason: Nausea/Vomiting Last Admin: 10/09/16 20:56 Dose: 4 mg Oxycodone/Acetaminophen (Percocet 5/325 Mg Tab) 1 tab PO Q6 PRN PRN Reason: Pain, moderate (4-7) Stop: 10/13/16 06:57 Saccharomyces Boulardii (Florastor) 250 mg PO BID [facility] Last Admin: 10/11/16 08:50 Dose: 250 mg - Labs Labs: 10/11/16 06:30 10/11/16 06:30 PT 15.8 SECONDS (9.6-11.2) H 10/07/16 05:30 INR 1.52 (0.92-1.08) H 10/07/16 05:30 APTT 40.2 SECONDS (23.3-32.5) H 10/07/16 05:30
--- NOTE | 2016-10-11 13:15 | CP.PCM.PN ---
Subjective - Date & Time of Evaluation Date of Evaluation: 10/11/16 Time of Evaluation: 08:30 - Subjective Subjective: NO CHEST PAIN OR SOB Objective - Vital Signs/Intake and Output Vital Signs (last 24 hours): Temp Pulse Resp BP Pulse Ox 97.4 F L 96 H 20 146/96 H 98 10/11/16 12:25 10/11/16 12:25 10/11/16 12:25 10/11/16 12:25 10/11/16 12:25 Intake and Output: 10/11/16 10/11/16 06:59 18:59 Intake Total 1500 Output Total 900 Balance 600 - Medications Medications: Current Medications Famotidine (Pepcid) 20 mg IVP Q12 [facility] Last Admin: 10/11/16 08:52 Dose: 20 mg Metronidazole (Flagyl 500mg/100ml Ns) 100 mls @ 100 mls/hr IVPB Q8 [facility] Last Admin: 10/11/16 08:49 Dose: 100 mls/hr Vancomycin HCl 1 gm/ Sodium (Chloride) 250 mls @ 166.667 mls/hr IVPB DAILY [facility] Last Admin: 10/11/16 10:29 Dose: 166.667 mls/hr Potassium Chloride/Dextrose/Sod Cl (Potassium Chl 40 Meq In D5-1/2ns) 1,000 mls @ 97.069 mls/hr IV .[id number] [facility] Last Admin: 10/10/16 22:42 Dose: 97.069 mls/hr Ondansetron HCl (Zofran Inj) 4 mg IVP Q4 PRN PRN Reason: Nausea/Vomiting Last Admin: 10/09/16 20:56 Dose: 4 mg Oxycodone/Acetaminophen (Percocet 5/325 Mg Tab) 1 tab PO Q6 PRN PRN Reason: Pain, moderate (4-7) Stop: 10/13/16 06:57 Saccharomyces Boulardii (Florastor) 250 mg PO BID [facility] Last Admin: 10/11/16 08:50 Dose: 250 mg - Labs Labs: 10/11/16 06:30 10/11/16 06:30 PT 15.8 SECONDS (9.6-11.2) H 10/07/16 05:30 INR 1.52 (0.92-1.08) H 10/07/16 05:30 APTT 40.2 SECONDS (23.3-32.5) H 10/07/16 05:30 - Respiratory Exam Respiratory Exam: Clear to Ausculation Bilateral - Cardiovascular Exam Cardiovascular Exam: REGULAR RHYTHM, +S1, +S2 - Extremities Exam Extremities Exam: Normal Inspection - Additional Findings 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
--- NOTE | 2016-10-11 15:40 | CP.PCM.DIS ---
Provider - Provider Date of Admission: 10/06/16 01:05 Attending physician: Fer Chambers Consults: Cardiology Dr. Leggett Pulmonology Dr. Mcgowan Surgery Dr. Opal Jackson Time Spent in preparation of Discharge (in minutes): 40 Hospital Course - Lab Results Lab Results: Micro Results 10/07/16 09:00 Abdomen Gram Stain - Final 10/07/16 09:00 Abdomen Wound Culture - Preliminary No growth. 10/08/16 06:57 Urine,Clean Catch Urine Culture - Final No Growth (<1,000 CFU/ML) 10/06/16 07:13 Naris MRSA Culture (Admit) - Final MRSA NOT DETECTED Most Recent Lab Values WBC 11.7 K/uL (4.8-10.8) H 10/11/16 06:30 RBC 4.33 Mil/uL (4.40-5.90) L 10/11/16 06:30 Hgb 12.0 g/dL (12.0-18.0) 10/11/16 06:30 Hct 36.3 % (35.0-51.0) 10/11/16 06:30 MCV 83.8 fl (80.0-94.0) 10/11/16 06:30 MCH 27.7 pg (27.0-31.0) 10/11/16 06:30 MCHC 33.1 g/dL (33.0-37.0) 10/11/16 06:30 RDW 15.0 % (11.5-14.5) H 10/11/16 06:30 Plt Count 323 K/uL (130-400) 10/11/16 06:30 MPV 7.8 fl (7.2-11.7) 10/11/16 06:30 Neut % (Auto) 85.0 % (50.0-75.0) H 10/11/16 06:30 Lymph % (Auto) 5.9 % (20.0-40.0) L 10/11/16 06:30 [place] % (Auto) 7.6 % (0.0-10.0) 10/11/16 06:30 Eos % (Auto) 1.3 % (0.0-4.0) 10/11/16 06:30 Baso % (Auto) 0.2 % (0.0-2.0) 10/11/16 06:30 Neut # 9.9 K/uL (1.8-7.0) H 10/11/16 06:30 Lymph # 0.7 K/uL (1.0-4.3) L 10/11/16 06:30 Dickey # 0.9 K/uL (0.0-0.8) H 10/11/16 06:30 Eos # 0.2 K/uL (0.0-0.7) 10/11/16 06:30 Baso # 0.0 K/uL (0.0-0.2) 10/11/16 06:30 Neutrophils % (Manual) 87 % (42-75) H 10/10/16 06:15 Band Neutrophils % 8 % (0-2) H 10/06/16 04:50 Lymphocytes % (Manual) 4 % (20-50) L 10/10/16 06:15 Reactive Lymphs % 2 % (0-0) H 10/05/16 00:24 Monocytes % (Manual) 8 % (0-10) 10/10/16 06:15 Eosinophils % (Manual) 1 % (0-7) 10/10/16 06:15 Toxic Granulation Present 10/10/16 06:15 Platelet Estimate Normal (NORMAL) 10/10/16 06:15 Large Platelets Present 10/10/16 06:15 RBC Morphology Normal (NORMAL) 10/06/16 04:50 Hypochromasia (manual) Slight 10/10/16 06:15 Anisocytosis (manual) Slight 10/10/16 06:15 [place] Cells Slight 10/07/16 05:30 PT 15.8 SECONDS (9.6-11.2) H 10/07/16 05:30 INR 1.52 (0.92-1.08) H 10/07/16 05:30 APTT 40.2 SECONDS (23.3-32.5) H 10/07/16 05:30 pCO2 31 mm/Hg (35-45) L 10/06/16 23:25 pO2 155 mm/Hg (80-100) H 10/06/16 23:25 HCO3 17.6 mmol/L (21-28) L 10/06/16 23:25 ABG pH 7.31 (7.35-7.45) L 10/06/16 23:25 ABG Total CO2 16.6 mmol/L (22-28) L 10/06/16 23:25 ABG O2 Saturation 99.9 % (95-98) H 10/06/16 23:25 ABG O2 Content 19.2 ML/dL (15-23) 10/06/16 23:25 ABG Base Excess -9.4 mmol/L (-2.0-3.0) L 10/06/16 23:25 ABG Hemoglobin 13.9 g/dL (11.7-17.4) 10/06/16 23:25 ABG Carboxyhemoglobin 1.6 % (0.5-1.5) H 10/06/16 23:25 POC ABG HHb (Measured) 0.1 % (0.0-5.0) 10/06/16 23:25 ABG Methemoglobin 1.3 % (0.0-3.0) 10/06/16 23:25 ABG O2 Capacity 19.2 mL/dL (16-24) 10/06/16 23:25 Alberto Test Yes 10/06/16 23:25 ABG Potassium 5.0 mmol/L (3.6-5.2) 10/06/16 18:00 VBG pH 7.47 (7.32-7.43) H 10/05/16 01:11 VBG pCO2 25 mmHg (40-60) L 10/05/16 01:11 VBG HCO3 21.0 mmol/L 10/05/16 01:11 VBG Total CO2 19.0 mmol/L (22-28) L 10/05/16 01:11 VBG O2 Sat (Calc) 62.6 % (40-65) 10/05/16 01:11 VBG Base Excess -3.8 mmol/L (0.0-2.0) L 10/05/16 01:11 VBG Potassium 4.0 mmol/L (3.6-5.2) 10/05/16 01:11 A-a O2 Difference 163.0 mm/Hg 10/06/16 23:25 Hgb O2 Saturation 96.9 % (95.0-98.0) 10/06/16 23:25 Sodium 130.0 mmol/L (132-148) L 10/06/16 18:00 Chloride 105.0 mmol/L (98-107) 10/06/16 18:00 Glucose 169 mg/dL (75-110) H 10/06/16 18:00 Lactate 1.7 mmol/L (0.7-2.1) 10/06/16 18:00 Vent Mode A/c 10/06/16 23:25 Mechanical Rate 16 10/06/16 23:25 FiO2 50.0 % 10/06/16 23:25 Tidal Volume 450 10/06/16 23:25 PEEP 5 10/06/16 23:25 Crit Value Called To arron Kelly md 10/06/16 18:00 Crit Value Called By 302 10/06/16 18:00 Crit Value Read Back Y 10/06/16 18:00 Blood Gas Notified Time 9438 10/06/16 23:25 Sodium 140 mmol/l (132-148) 10/11/16 06:30 Potassium 3.2 MMOL/L (3.6-5.0) L 10/11/16 06:30 Chloride 108 mmol/L (98-107) H 10/11/16 06:30 Carbon Dioxide 23 mmol/L (22-30) 10/11/16 06:30 Anion Gap 12 (10-20) 10/11/16 06:30 BUN 11 mg/dl (9-20) 10/11/16 06:30 Creatinine 0.9 mg/dL (0.8-1.5) 10/11/16 06:30 Est GFR ( Amer) > 60 10/11/16 06:30 Est GFR (Non-Af Amer) > 60 10/11/16 06:30 POC Glucose (mg/dL) 175 mg/dL (65-110) H 10/06/16 21:30 Random Glucose 130 mg/dL (75-110) H 10/11/16 06:30 Lactic Acid 1.6 MMOL/L (0.7-2.1) 10/07/16 05:30 Calcium 7.5 mg/dL (8.4-10.2) L 10/11/16 06:30 Phosphorus 1.7 mg/dl (2.5-4.5) L 10/10/16 06:15 Magnesium 1.9 MG/DL (1.6-2.3) 10/10/16 06:15 Total Bilirubin 0.6 mg/dl (0.2-1.3) 10/10/16 06:15 AST 20 U/L (17-59) 10/10/16 06:15 ALT 35 U/L (21-72) 10/10/16 06:15 Alkaline Phosphatase 92 U/L (38-126) 10/10/16 06:15 Troponin I 0.9110 ng/mL (0.00-0.120) H* 10/07/16 05:30 NT-Pro-B Natriuret Pep 1950 pg/ml (0-900) H 10/05/16 00:24 Total Protein 4.5 G/DL (6.3-8.2) L 10/10/16 06:15 Albumin 2.0 g/dL (3.5-5.0) L 10/10/16 06:15 Globulin 2.5 gm/dL (2.2-3.9) 10/10/16 06:15 Albumin/Globulin Ratio 0.8 (1.0-2.1) L 10/10/16 06:15 Carcinoembryonic Ag 36.3 ng/mL (0-3.0) H 10/06/16 12:11 Procalcitonin 86.17 NG/ML (0.19-0.49) H 10/07/16 05:30 Arterial Blood Potassium 5.0 mmol/L (3.6-5.2) 10/06/16 18:00 Venous Blood Potassium 4.0 mmol/L (3.6-5.2) 10/05/16 01:11 Urine Color Yellow (YELLOW) 10/08/16 06:57 Urine Clarity Clear (Clear) 10/08/16 06:57 Urine pH 5.0 (5.0-8.0) 10/08/16 06:57 Ur Specific [place] 1.024 (1.003-1.030) 10/08/16 06:57 Urine Protein 30 mg/dL (NEGATIVE) 10/08/16 06:57 Urine Glucose (UA) Neg mg/dL (Normal) 10/08/16 06:57 Urine Ketones Trace mg/dL (NEGATIVE) 10/08/16 06:57 Urine Blood Small (NEGATIVE) 10/08/16 06:57 Urine Nitrate Negative (NEGATIVE) 10/08/16 06:57 Urine Bilirubin Negative (NEGATIVE) 10/08/16 06:57 Urine Urobilinogen 0.2-1.0 mg/dL (0.2-1.0) 10/08/16 06:57 Ur Leukocyte Esterase Trace Rayna/uL (Negative) 10/08/16 06:57 Urine RBC (Auto) 1 /hpf (0-3) 10/08/16 06:57 Urine Microscopic WBC 3 /hpf (0-5) 10/08/16 06:57 Uric Acid Crystals Rare /hpf (<OCC) 10/08/16 06:57 Vancomycin Trough < 5.0 ug/mL (5.0-10.0) L 10/07/16 05:30 Random Vancomycin < 5.0 ug/mL 10/07/16 05:30 Influenza Typ A,B (EIA) Negative for flu a/b (NEGATIVE) 10/05/16 00:24 - Hospital Course Hospital Course: 71 years old male (PMH of HTN, Bilateral Inguinal hernia repair (one in 1979 and the other 7 years ago), came in on 10/06/16 with worsening intermittent abdominal discomfort involving the upper abdomen which began 2 weeks prior to his presentation associated with nausea/vomiting. Sensation of the gas moving about in the abdomen, frequent loose stools, and generalized weakness. In the ED he was found to have a temperature of 101.7F and HR of 155/min and RR of 32/ min. Patient was admitted to ICU with diagnosis of ischemic bowel and severe sepsis. He was taken to OR 10/06/16 and underwent right hemicolectomy for perforated cecal mass and pus in abdomen. 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 As patient is tolerating regular diet, he will be discharged and transferred to TCU at [facility]. Please see below Assesssment and Plan for summary of care and care that should be continued in TCU. Curretly upon FULL ROS: Had soft bowel movements today: nonbloody/nonblack Continues to have flatus No abdominal discomfort Dry cough with occasional white phlegm Tolerated regular diet during lunch today without abdominal pain and without n/v NO chest pain, NO palpitations, NO SOB/Wheezing, NO burning/pain with urination , NO lightheadedness/dizziness, NO new changes in vision/eye pain, NO new changes in hearing/ear pain, NO edema, NO paresthesias HEENT: NCA, EOMI, PERRLA, NO cervical lymphadenopathy, NO thyromegaly, NO Pharyngeal erythema/exudate, Oral Mucosa and Nasal Turbinates are moist Cardio: NS1 and NS2, NO M/R/G Respiratory: CTA B/L, NO R/R/W GI: BSx4 reduced but present, (+)Distended but Soft, NT, NO guarding/rebound tenderness, Abdominal Surgical [place] along midline without evidence of surrounding cellulitis (there was a drop of serosanguinous fluid at one of the surgical elaine but there is NO dehiscence of surgical incision) Ext: NO edema, Pulses are strong and equal, Capillary Refill is 2 seconds Neuro: CN II through XII are grossly intact Assessment and Plan: 1). Severe Sepsis --improving Secondary to Perforated Viscus S/p right hemicolectomy for perforated cecal mass 10/06/16 Self extubated post op on 10/07/16 but no issues afterwards Midline surgical incision intact without evidence of surrounding cellulitis and appears to be healing well Zosyn 3.375 gm IV Q6H (10/06/16) Vancomycin 1 gm IV Q12H (10/07/16) Flagyl 500 mg IV Q8H (10/06/16) Blood Culture 10/06/16 Negative To Date Abdominal Wound 10/07/16 Negative To Date Urine Culture 10/08/[address] Jackson has been following and medicine team will have to follow up with him to see how many more days of IV antibiotics are needed 2). Likely Metastatic Disease Most likely colon CA (cecal mass found during surgery as well as diffuse lymphadenopathy) CT Abdomen/Pelvis 10/06/16 showed evidence of Bilateral Pulmonary Nodules suggestive of metastatic disease Spoke with Pathologist Dr. Nayak" today 10/11/16 and preliminary review of slides indicated Moderately Differentiated Colonic Adenocarcinoma and official report is pending. Patient was made aware Oncology Consult with Dr. Dianna Sanchez has been ordered prior to discharge to TCU 3). Perforated Viscus - s/p hemicoloctomy Post op day #5 Pain is well controlled Passing flatus and with hyperactive bowel sounds on exam Now on Full Liquid diet and continue IVF Start ambulation and OOB to [facility] PT/OT consulted Surgery Team following patient Continue pain management PRN and IV antibiotics (Zosyn, Flagyl, and Vancomycin as above) 4).Elevated troponin probably secondary to the Sepsis Cardiology Dr. Leggett consult appreciated Patient is currently chest pain free 5). HTN Controlled Metropolol 2.5mg IV Q6hrs was discontinued 10/10/16 after morning dose. Monitor Blood Pressure and if it starts to rise then restart Enalapril 5 mg PO 1x/day. 6). Bilateral Pulmonary nodules suggestive of Metastatic disease Consult Pulmonology Dr Mcgowan 7).Prophylactic Measures SCDs Lovenox 40 mg SQ 1x/day Pepcid 20 mg IV Q12H Dilaudid 1 mg IV Q4H PRN Pain Zofran 4 mg IV Q6H PRN N/V Patient was D5 1/2 with 40 KCl and this has been discontinued. KCl PO 40 mEQ has been ordered x 1 dose 10/11/16 prior to discharge to TCU. Continue current medications in TCU Discharge Exam - Head Exam Head Exam: NORMOCEPHALIC Discharge Plan - Follow Up Plan Condition: GUARDED Disposition: HOME/ ROUTINE Instructions: Sepsis (DC), Sepsis (GEN)
[2016-10-11] MEDS ORDERED: Potassium Chloride 20 mEq ER Tab PO ONE (15:42)
[2016-10-11 17:21] VITALS: O2SAT 98
[2016-10-11 19:58] VITALS: BP 149/91; PULSE 102; RESP 20; TEMP 97.6
--- NOTE | 2016-10-11 22:13 | CP.PCM.CON ---
History of Present Illness - History of Present Illness History of Present Illness: 71 year old male with a history of HTN, admitted with abdominal pain, taken to the OR and found to have a perforated cecal mass with peritonitis s/p hemicolectomy, with prelim results suggestive of colon adenocarcinoma. The patient reports to feeling better post surgery. He has mild post surgical pain but reports this is well controlled. He has lost about 10-15 pounds since coming to the hospital. Imaging revealed pulmonary nodules concerning for metastatic disease. Past medical history: HTN Past surgical history: Inguinal hernia repair Past family history: Denies hematologic and oncologic problems Social history: Denies tobacco, alcohol, and illicit drug use. Allergies: NKA Review of systems: All remaining review of systems including HEENT, cardiovascular, respiratory, gastrointestinal, genitourinary, musculoskeletal, dermatologic, neurologic, and psychiatric are negative unless mentioned in the HPI. Past Patient History - Past Medical History & Family History Past Medical History?: Yes - Past Social History Smoking Status: Former Smoker Chewing Tobacco Use: No Cigar Use: No Alcohol: Occasional Drugs: Denies Home Situation {Lives}: With Family - CARDIAC Hx Hypertension: Yes - PULMONARY Hx Respiratory Disorders: No - NEUROLOGICAL Hx Neurological Disorder: No - HEENT Hx HEENT Problems: No - RENAL Hx Chronic Kidney Disease: No - ENDOCRINE/METABOLIC Hx Endocrine Disorders: No - HEMATOLOGICAL/ONCOLOGICAL Hx Blood Disorders: No - INTEGUMENTARY Hx Dermatological Problems: No - MUSCULOSKELETAL/RHEUMATOLOGICAL Hx Musculoskeletal Disorders: No - GASTROINTESTINAL Hx Gastrointestinal Disorders: No - GENITOURINARY/GYNECOLOGICAL Hx Genitourinary Disorders: No - PSYCHIATRIC Hx Psychophysiologic Disorder: No - SURGICAL HISTORY Hx Herniorrhaphy: Yes (Bilateral inguinal) - ANESTHESIA Hx Anesthesia: Yes Hx Anesthesia Reactions: No Meds Home Medications: Home Medication List Medication Instructions Recorded Confirmed Type Famotidine [Pepcid] 20 mg IVP Q12 vial 10/11/16 Rx Ondansetron [Zofran Inj] 4 mg IVP Q4 PRN #0 vial 10/11/16 Rx Saccharomyces Boulardi [Florastor] 250 mg PO BID cap 10/11/16 Rx oxyCODONE/Acetaminophen [Percocet 1 tab PO Q6 PRN #0 tab 10/11/16 Rx 5/325 mg Tab] Allergies/Adverse Reactions: Allergies Allergy/AdvReac Type Severity Reaction Status Date / Time No Known Allergies Allergy Verified 10/05/16 23:30 Physical Exam - Head Exam Head Exam: ATRAUMATIC - Eye Exam Eye Exam: Normal appearance - ENT Exam ENT Exam: Mucous Membranes Dry - Respiratory Exam Respiratory Exam: NORMAL BREATHING PATTERN - Cardiovascular Exam Cardiovascular Exam: +S1, +S2 - GI/Abdominal Exam GI & Abdominal Exam: Normal Bowel Sounds - Extremities Exam Extremities exam: Positive for: normal inspection - Neurological Exam Neurological exam: Oriented x3 - Psychiatric Exam Psychiatric exam: Normal Affect, Normal Mood - Skin Skin Exam: Warm Results - Vital Signs Recent Vital Signs: Last Vital Signs Temp 97.6 F 10/11/16 19:58 Pulse 102 H 10/11/16 19:58 Resp 20 10/11/16 19:58 BP 149/91 H 10/11/16 19:58 Pulse Ox 98 10/11/16 19:58 - Labs Result Diagrams: 10/11/16 06:30 10/11/16 06:30 Labs: Laboratory Results - last 24 hr 10/11/16 06:30 WBC 11.7 H RBC 4.33 L Hgb 12.0 Hct 36.3 MCV 83.8 MCH 27.7 MCHC 33.1 RDW 15.0 H Plt Count 323 MPV 7.8 Neut % (Auto) 85.0 H Lymph % (Auto) 5.9 L Alexander % (Auto) 7.6 Eos % (Auto) 1.3 Baso % (Auto) 0.2 Neut # 9.9 H Lymph # 0.7 L Alexander # 0.9 H Eos # 0.2 Baso # 0.0 Sodium 140 Potassium 3.2 L Chloride 108 H Carbon Dioxide 23 Anion Gap 12 BUN 11 Creatinine 0.9 Est GFR ( Amer) > 60 Est GFR (Non-Af Amer) > 60 Random Glucose 130 H Calcium 7.5 L Assessment & Plan (1) Colonic mass Assessment and Plan: awaiting final pathology imaging shows lung nodules if confirmed malignancy, the patient likely has metastasis to the lungs with peritoneal involvement due to tumor rupture will need portacath if confirmed malignancy and outpatient chemotherapy Status: Acute (2) Anemia Assessment and Plan: will check ferritin, retic count, b12, folate to further characterize anemia of surgical blood loss Thank you for this interesting consult. Status: Acute
[2016-10-12 08:55] LABS: CARCINOEMBRYONIC ANTIGEN 21.7 ng/mL (0-3.0)
[2016-10-12 17:40] LABS: FOLATE 14.2 ng/mL
== END 2016-10-11 21:14 | DRG 853 ==
LOC: H.ER 23:26 → H.ERHOLD 10-06 01:05 → H.ICU/CCU 10-06 02:28 → H.TEL 10-09 19:18
PROVIDERS: ADMIT Internal Medicine; ATTEND Internal Medicine
PROC: 3E1M38Z Irrigation of Peritoneal Cavity using Irrigating Substance, Percutaneous Approach (ICD-10-PCS; 2016-10-06)
PROC: 0W9G4ZZ Drainage of Peritoneal Cavity, Percutaneous Endoscopic Approach (ICD-10-PCS; 2016-10-06)
PROC: 0DTF0ZZ Resection of Right Large Intestine, Open Approach (ICD-10-PCS; principal; 2016-10-06 10:45)
DX: A41.9 Sepsis, unspecified organism (principal); R65.21 Severe sepsis with septic shock; K65.1 Peritoneal abscess; C78.00 Secondary malignant neoplasm of unspecified lung; R06.89 Other abnormalities of breathing; E86.0 Dehydration; C18.0 Malignant neoplasm of cecum; I10 Essential (primary) hypertension; E86.1 Hypovolemia; D50.0 Iron deficiency anemia secondary to blood loss (chronic); Z87.891 Personal history of nicotine dependence; K40.20 Bilateral inguinal hernia, without obstruction or gangrene, not specified as recurrent; R59.1 Generalized enlarged lymph nodes

== ENCOUNTER 2016-10-11 23:22 | Inpatient (IN) | payer OTHER, MEDICARE ==
[2016-10-11 23:48] VITALS: BMI 25.7
[2016-10-12 01:05] VITALS: RESP 20
[2016-10-12] MEDS ORDERED: Oxycodone/Acetaminophen 5/325 mg Tab PO PRN (04:17)
[2016-10-12] MEDS: metroNIDAZOLE 500mg/100ml NS 100 ML IVPB SCH ×3 (05:24→20:39)
[2016-10-12 08:11] LABS: HEMATOCRIT 38.8 % (35.0-51.0); MEAN CELL VOLUME 83.3 fl (80.0-94.0); MEAN CORPUSCULAR HEMOGLOBIN 28.3 pg (27.0-31.0); MEAN CORPUSCULAR HGB CONC 33.9 g/dL (33.0-37.0); RED CELL DISTRIBUTION WIDTH 15.2 % (11.5-14.5); WHITE BLOOD COUNT 12.2 K/uL (4.8-10.8)
[2016-10-12 08:29] LABS: BLOOD UREA NITROGEN 10 mg/dl (9-20); CALCIUM 8.1 mg/dL (8.4-10.2); CARBON DIOXIDE 25 mmol/L (22-30); CHLORIDE 106 mmol/L (98-107); GFR AFRICAN-AMERICAN > 60; GLUCOSE,RANDOM 118 mg/dL (75-110); POTASSIUM 3.8 MMOL/L (3.6-5.0); SODIUM 141 mmol/l (132-148)
--- NOTE | 2016-10-12 09:16 | CP.PCM.PN ---
<Khushi Montana - Last Filed: 10/12/16 10:18> Subjective - Date & Time of Evaluation Date of Evaluation: 10/12/16 Time of Evaluation: 07:00 - Subjective Subjective: GENERAL SURGERY PROGRESS NOTE FOR DR. VAZQUEZ Patient seen and examined at bedside with Dr. Vazquez in the TCU. He was transferred yesterday up to the TCU. He states that he had about 3 bowel movements yesterday and already had 1 BM this morning which was "mushy". He is tolerating his regular diet and denies nausea or vomiting. He has been OOB to chair and ambulated to the bathroom. Objective - Vital Signs/Intake and Output Vital Signs (last 24 hours): Temp Pulse Resp BP Pulse Ox 97.7 F 89 20 148/99 H 97 10/12/16 08:11 10/12/16 08:11 10/12/16 08:11 10/12/16 08:11 10/12/16 08:11 - Medications Medications: Current Medications Famotidine (Pepcid) 20 mg IVP Q12 [facility] Vancomycin HCl 1 gm/ Sodium (Chloride) 250 mls @ 166.667 mls/hr IVPB DAILY@ 1700 [facility] Metronidazole (Flagyl 500mg/100ml Ns) 100 mls @ 100 mls/hr IVPB Q8@0500,1300, 2100 [facility] Last Admin: 10/12/16 05:24 Dose: 100 mls/hr Ondansetron HCl (Zofran Inj) 4 mg IVP Q4 PRN PRN Reason: Nausea/Vomiting Oxycodone/Acetaminophen (Percocet 5/325 Mg Tab) 1 tab PO Q6 PRN PRN Reason: Pain, moderate (4-7) Stop: 10/15/16 04:18 Saccharomyces Boulardii (Florastor) 250 mg PO BID [facility] - Labs Labs: 10/12/16 07:50 10/12/16 07:50 - Constitutional Appears: Non-toxic, No Acute Distress - Head Exam Head Exam: ATRAUMATIC, NORMAL INSPECTION - Eye Exam Eye Exam: EOMI, Normal appearance - Respiratory Exam Respiratory Exam: NORMAL BREATHING PATTERN. absent: Respiratory Distress - Cardiovascular Exam Cardiovascular Exam: +S1, +S2 - GI/Abdominal Exam GI & Abdominal Exam: Distended, Soft. absent: Firm, Tenderness, Rebound Additional comments: [place] in place - Neurological Exam Neurological Exam: Alert, Awake, Oriented x3 - Psychiatric Exam Psychiatric exam: Normal Affect, Normal Mood - Skin Skin Exam: Dry, Normal Color, Warm Assessment and Plan - Assessment and Plan (Free Text) Assessment: 71yo M with PMHx of HTN with perforated cecal mass and peritonitis s/p Exploratory laparotomy with Right hemicolectomy POD #6 - Afebrile, VSS - Leukocytosis WBC 12.2 (11.7 yesterday) - CEA elevated - Intra op abdomen cx: negative @ prelim report - Blood cx & urine cx neg - Will Follow up with pathology results - Strongly encouraged OOB, ambulation and IS use - Tolerating regular diet - Examined in person with and discussed plan with Dr. George [place] PGY-2 <Armando Vazquez - Last Filed: 10/12/16 10:23> Subjective - Date & Time of Evaluation Date of Evaluation: 10/12/16 Time of Evaluation: 09:40 - Subjective Subjective: Patient was seen and examined at the bedside. Agree with resident's note above Objective - Vital Signs/Intake and Output Vital Signs (last 24 hours): Temp Pulse Resp BP Pulse Ox 97.7 F 89 20 148/99 H 97 10/12/16 08:11 10/12/16 08:11 10/12/16 08:11 10/12/16 08:11 10/12/16 08:11 - Medications Medications: Current Medications Famotidine (Pepcid) 20 mg PO BID [facility] Vancomycin HCl 1 gm/ Sodium (Chloride) 250 mls @ 166.667 mls/hr IVPB DAILY@ 1700 [facility] Metronidazole (Flagyl 500mg/100ml Ns) 100 mls @ 100 mls/hr IVPB Q8@0500,1300, 2100 [facility] Last Admin: 10/12/16 05:24 Dose: 100 mls/hr Ondansetron HCl (Zofran Inj) 4 mg IVP Q4 PRN PRN Reason: Nausea/Vomiting Oxycodone/Acetaminophen (Percocet 5/325 Mg Tab) 1 tab PO Q6 PRN PRN Reason: Pain, moderate (4-7) Stop: 10/15/16 04:18 Saccharomyces Boulardii (Florastor) 250 mg PO BID [facility] Last Admin: 10/12/16 09:41 Dose: 250 mg - Labs Labs: 10/12/16 07:50 10/12/16 07:50 Assessment and Plan - Assessment and Plan (Free Text) Plan: - Regular diet - Awaiting for the final pathology report
[2016-10-12] MEDS: Saccharomyces Boulardi 250 mg Cap PO SCH ×2 (09:41→16:57)
--- NOTE | 2016-10-12 11:16 | CP.PCM.HP ---
History of Present Illness - History of Present Illness History of Present Illness: 71 yo male with history of HTN came in with worsening generalized abdominal discomfort accompanied with nausea and generalized weakness. Patient was found to be septic with fever, tachycardia and tachypnia. He was admitted to ICU and was diagnosed with ischemic bowel disease. A perforated cecal mass with pus was found in the abdomen. A right hemicolectomy was done. 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 Patient did well and later was admitted to TCU for therapy. Present on Admission - Present on Admission Any Indicators Present on Admission: No History of DVT/PE: No History of Uncontrolled Diabetes: No Urinary Catheter: No Decubitus Ulcer Present: No Review of Systems - Review of Systems All systems: reviewed and no additional remarkable complaints except (aside from those mentioned above, 12 point system review were negative by me) Past Patient History - Past Medical History & Family History Past Medical History?: Yes - Past Social History Smoking Status: Never Smoked - CARDIAC Hx Hypertension: Yes - PULMONARY Hx Respiratory Disorders: No - NEUROLOGICAL Hx Neurological Disorder: No - HEENT Hx HEENT Problems: No - RENAL Hx Chronic Kidney Disease: No - ENDOCRINE/METABOLIC Hx Endocrine Disorders: No - HEMATOLOGICAL/ONCOLOGICAL Hx Blood Disorders: No - INTEGUMENTARY Hx Dermatological Problems: No - MUSCULOSKELETAL/RHEUMATOLOGICAL Hx Falls: Yes - GASTROINTESTINAL Hx Gastrointestinal Disorders: No Hx Bowel Surgery: Yes - GENITOURINARY/GYNECOLOGICAL Hx Genitourinary Disorders: No - PSYCHIATRIC Hx Substance Use: No - SURGICAL HISTORY Hx Herniorrhaphy: Yes (Bilateral inguinal) - ANESTHESIA Hx Anesthesia: Yes Hx Anesthesia Reactions: No Meds Allergies/Adverse Reactions: Allergies Allergy/AdvReac Type Severity Reaction Status Date / Time No Known Allergies Allergy Verified 10/05/16 23:30 Physical Exam - Constitutional Appears: No Acute Distress - Head Exam Head Exam: ATRAUMATIC - Eye Exam Eye Exam: absent: Scleral icterus - ENT Exam ENT Exam: Mucous Membranes Moist - Neck Exam Neck exam: Negative for: Meningismus - Respiratory Exam Respiratory Exam: absent: Rhonchi, Wheezes, Respiratory Distress - Cardiovascular Exam Cardiovascular Exam: REGULAR RHYTHM, +S1, +S2 - GI/Abdominal Exam GI & Abdominal Exam: Soft. absent: Tenderness - Rectal Exam Rectal Exam: Deferred - Neurological Exam Neurological exam: Alert, Oriented x3 - Psychiatric Exam Psychiatric exam: Normal Affect - Skin Skin Exam: Dry, Intact Results - Vital Signs Recent Vital Signs: Last Vital Signs Temp 97.7 F 10/12/16 08:11 Pulse 89 10/12/16 08:11 Resp 20 10/12/16 08:11 BP 148/99 H 10/12/16 08:11 Pulse Ox 97 10/12/16 08:11 - Labs Result Diagrams: 10/12/16 07:50 10/12/16 07:50 Labs: Laboratory Results - last 24 hr 10/12/16 07:50 WBC 12.2 H RBC 4.66 Hgb 13.2 Hct 38.8 MCV 83.3 MCH 28.3 MCHC 33.9 RDW 15.2 H Plt Count 447 H D Sodium 141 Potassium 3.8 Chloride 106 Carbon Dioxide 25 Anion Gap 14 BUN 10 Creatinine 0.8 Est GFR ( Amer) > 60 Est GFR (Non-Af Amer) > 60 Random Glucose 118 H Calcium 8.1 L Assessment & Plan (1) Sepsis Status: Acute Comment: S/P right hemicolectomy for perforated cecal mass 10/06/16. Sepsis secondary to Perforated Viscus. Vancomycin 1 gm IV Q12H (10/07/16). Flagyl 500 mg IV Q8H (10/06/16) (2) Colonic mass Status: Acute Comment: slides of cecal mass read as moderately differentiated colonic adenocarcinoma. patient is aware. Oncology Consult with Dr. Dianna Sanchez (3) HTN (hypertension) Status: Acute Comment: BP controlled. Lopressor 25mg PO q 12hrs (4) Elevated troponin Status: Acute Comment: cardiology Dr. Leggett, claimed elevated Troponin not secondary to cardiac
--- NOTE | 2016-10-12 11:57 | CP.PCM.CON ---
History of Present Illness - History of Present Illness History of Present Illness: THE PATIENT IS A 71 YEAR OLD MALE WITH A HISTORY OF HYPERTENSION IN THE PAST. LAST WEEK HE HAD EXPLORATORY ABDOMINAL SURGERY TAHT FOUND A PERFORATED CECAL MASS WITH JEANA INVOLVEMENT AND PERITONITIS. HE HAD A RIGHT HEMICOLECTOMY AND DRAINAGE AND WASHING OF AN ABSCESS AND PERITONITIS. HE HAS DONE WELL POSTOPERATIVELY AND WAS DISCHARGED TO TCU YESTERDAY FOR CONTINUATION OF IV ANTIBIOTICS AND FOR PHYSICAL THERAPY. HE IS HAVING BOWEL MOVEMENTS. Past Patient History - Past Medical History & Family History Past Medical History?: Yes - Past Social History Smoking Status: Never Smoked - CARDIAC Hx Hypertension: Yes - PULMONARY Hx Respiratory Disorders: No - NEUROLOGICAL Hx Neurological Disorder: No - HEENT Hx HEENT Problems: No - RENAL Hx Chronic Kidney Disease: No - ENDOCRINE/METABOLIC Hx Endocrine Disorders: No - HEMATOLOGICAL/ONCOLOGICAL Hx Blood Disorders: No - INTEGUMENTARY Hx Dermatological Problems: No - MUSCULOSKELETAL/RHEUMATOLOGICAL Hx Falls: Yes - GASTROINTESTINAL Hx Gastrointestinal Disorders: No Hx Bowel Surgery: Yes - GENITOURINARY/GYNECOLOGICAL Hx Genitourinary Disorders: No - PSYCHIATRIC Hx Substance Use: No - SURGICAL HISTORY Hx Herniorrhaphy: Yes (Bilateral inguinal) - ANESTHESIA Hx Anesthesia: Yes Hx Anesthesia Reactions: No Meds Allergies/Adverse Reactions: Allergies Allergy/AdvReac Type Severity Reaction Status Date / Time No Known Allergies Allergy Verified 10/05/16 23:30 - Medications Medications: Current Medications Famotidine (Pepcid) 20 mg PO BID [facility] Vancomycin HCl 1 gm/ Sodium (Chloride) 250 mls @ 166.667 mls/hr IVPB DAILY@ 1700 [facility] Metronidazole (Flagyl 500mg/100ml Ns) 100 mls @ 100 mls/hr IVPB Q8@0500,1300, 2100 [facility] Last Admin: 10/12/16 05:24 Dose: 100 mls/hr Metoprolol Tartrate (Lopressor) 25 mg PO Q12 [facility] Ondansetron HCl (Zofran Inj) 4 mg IVP Q4 PRN PRN Reason: Nausea/Vomiting Oxycodone/Acetaminophen (Percocet 5/325 Mg Tab) 1 tab PO Q6 PRN PRN Reason: Pain, moderate (4-7) Stop: 10/15/16 04:18 Saccharomyces Boulardii (Florastor) 250 mg PO BID [facility] Last Admin: 10/12/16 09:41 Dose: 250 mg Physical Exam - Respiratory Exam Respiratory Exam: Clear to Auscultation Bilateral - Cardiovascular Exam Cardiovascular Exam: REGULAR RHYTHM, +S1, +S2 - Extremities Exam Extremities exam: Positive for: normal inspection - Additional Findings Additional findings: PATHOLOGY WAS CALLED AND THE PRLIMINARY REPORT ON THE COLONIC MASS IS ADENOCARCINOMA BUT THE LYMPH NODES HAVE STILL BE TO ASSESSED AND THE FINAL REPORT SHOULD BE FINISHED LATER TODAY OR TOMORROW Results - Vital Signs Recent Vital Signs: Last Vital Signs Temp 97.7 F 10/12/16 08:11 Pulse 89 10/12/16 08:11 Resp 20 10/12/16 08:11 BP 148/99 H 10/12/16 08:11 Pulse Ox 97 10/12/16 08:11 - Labs Result Diagrams: 10/12/16 07:50 10/12/16 07:50 Labs: Laboratory Results - last 24 hr 10/12/16 07:50 WBC 12.2 H RBC 4.66 Hgb 13.2 Hct 38.8 MCV 83.3 MCH 28.3 MCHC 33.9 RDW 15.2 H Plt Count 447 H D Sodium 141 Potassium 3.8 Chloride 106 Carbon Dioxide 25 Anion Gap 14 BUN 10 Creatinine 0.8 Est GFR ( Amer) > 60 Est GFR (Non-Af Amer) > 60 Random Glucose 118 H Calcium 8.1 L Assessment & Plan - Assessment and Plan (Free Text) Assessment: CECAL TUMOR WITH PERFORATION AND PERITONITIS HYPERTENSION HISTORY Plan: CONTINUE IV ANTIBIOTICS PHYSICAL THERAPY WILL HAVE ONCOLOGY SEE ONCE FINAL PATHOLOGY REPORT IS AVAILABLE
--- NOTE | 2016-10-12 12:50 | CARD ---
APPROVED REPORT EKG Measurement Heart [id number] NM [id number] <Conclusion> Sinus tachycardia Right bundle branch block Inferior infarct, age undetermined Abnormal ECG
[2016-10-13] MEDS: metroNIDAZOLE 500mg/100ml NS 100 ML IVPB SCH ×2 (05:46→13:20)
--- NOTE | 2016-10-13 08:02 | CP.PCM.PN ---
<Khushi Montana - Last Filed: 10/13/16 10:21> Subjective - Date & Time of Evaluation Date of Evaluation: 10/13/16 Time of Evaluation: 07:00 - Subjective Subjective: GENERAL SURGERY PROGRESS NOTE FOR DR. VAZQUEZ Patient seen and examined with Dr. Vazquez at bedside in the TCU. He states that he had several bowel movements yesterday and last night. He is passing flatus. He is tolerating his regular diet and denies nausea or vomiting. He was doing OT in the gym yesterday when he developed "rapid breathing" per the pt and his HR was 129 and O2 95%. Patient was seen by Dr. Montilla and EKG was done and he was given Metoprolol. Patient also reports dry mouth even though he is drinking a lot of water. Objective - Vital Signs/Intake and Output Vital Signs (last 24 hours): Temp Pulse Resp BP Pulse Ox 98.1 F 100 H 20 131/78 96 10/12/16 20:52 10/12/16 20:52 10/12/16 20:52 10/12/16 20:52 10/12/16 20:52 - Medications Medications: Current Medications Famotidine (Pepcid) 20 mg PO BID [facility] Last Admin: 10/12/16 16:58 Dose: 20 mg Vancomycin HCl 1 gm/ Sodium (Chloride) 250 mls @ 166.667 mls/hr IVPB DAILY@ 1700 [facility] Last Admin: 10/12/16 16:59 Dose: 166.667 mls/hr Metronidazole (Flagyl 500mg/100ml Ns) 100 mls @ 100 mls/hr IVPB Q8@0500,1300, 2100 [facility] Last Admin: 10/13/16 05:46 Dose: 100 mls/hr Metoprolol Tartrate (Lopressor) 25 mg PO Q12 [facility] Last Admin: 10/12/16 20:38 Dose: 25 mg Ondansetron HCl (Zofran Inj) 4 mg IVP Q4 PRN PRN Reason: Nausea/Vomiting Oxycodone/Acetaminophen (Percocet 5/325 Mg Tab) 1 tab PO Q6 PRN PRN Reason: Pain, moderate (4-7) Stop: 10/15/16 04:18 Saccharomyces Boulardii (Florastor) 250 mg PO BID [facility] Last Admin: 10/12/16 16:57 Dose: 250 mg - Labs Labs: 10/12/16 07:50 10/12/16 07:50 - Constitutional Appears: Well, Non-toxic, No Acute Distress - Head Exam Head Exam: ATRAUMATIC, NORMAL INSPECTION - Eye Exam Eye Exam: EOMI, Normal appearance - Respiratory Exam Respiratory Exam: NORMAL BREATHING PATTERN. absent: Respiratory Distress - Cardiovascular Exam Cardiovascular Exam: Tachycardia - GI/Abdominal Exam GI & Abdominal Exam: Distended (very mildly distended, greatly improved from yesterday), Soft. absent: Firm, Guarding, Rigid, Tenderness, Rebound Additional comments: Abdomen much softer today compared to previous days [place] in place Small amount of serosanguinous drainge on dressing, changed - Neurological Exam Neurological Exam: Alert, Awake, Oriented x3 - Psychiatric Exam Psychiatric exam: Normal Affect, Normal Mood - Skin Skin Exam: Dry, Normal Color, Warm Assessment and Plan - Assessment and Plan (Free Text) Assessment: 71yo M with PMHx of HTN with perforated cecal mass and peritonitis s/p Exploratory laparotomy with Right hemicolectomy POD #7 - Afebrile, VSS - Intra op abdomen cx: negative @ final - Blood cx & urine cx neg - Awaiting final pathology results - Strongly encouraged OOB, ambulation and IS use - Changed dressing at bedside - Patient is tolerating regular diet and having regular bowel movements - Surgery will sign off at this time. Please re-consult as necessary - Discussed plan with Dr. George [place] PGY-2 <Armando Vazquez - Last Filed: 10/13/16 10:32> Subjective - Date & Time of Evaluation Date of Evaluation: 10/13/16 Time of Evaluation: 10:00 - Subjective Subjective: Patient was seen and examined at the bedside. Agree with resident's note above. Objective - Vital Signs/Intake and Output Vital Signs (last 24 hours): Temp Pulse Resp BP Pulse Ox 97.3 F L 99 H 20 147/95 H 95 10/13/16 08:44 10/13/16 09:02 10/13/16 08:44 10/13/16 09:02 10/13/16 08:44 - Medications Medications: Current Medications Enoxaparin Sodium (Lovenox) 40 mg SC DAILY [facility] PRN Reason: Protocol Famotidine (Pepcid) 20 mg PO BID [facility] Last Admin: 10/13/16 09:03 Dose: 20 mg Vancomycin HCl 1 gm/ Sodium (Chloride) 250 mls @ 166.667 mls/hr IVPB DAILY@ 1700 [facility] Last Admin: 10/12/16 16:59 Dose: 166.667 mls/hr Metronidazole (Flagyl 500mg/100ml Ns) 100 mls @ 100 mls/hr IVPB Q8@0500,1300, 2100 [facility] Last Admin: 10/13/16 05:46 Dose: 100 mls/hr Metoprolol Tartrate (Lopressor) 25 mg PO Q12 [facility] Last Admin: 10/13/16 09:02 Dose: 25 mg Ondansetron HCl (Zofran Inj) 4 mg IVP Q4 PRN PRN Reason: Nausea/Vomiting Oxycodone/Acetaminophen (Percocet 5/325 Mg Tab) 1 tab PO Q6 PRN PRN Reason: Pain, moderate (4-7) Stop: 10/15/16 04:18 Saccharomyces Boulardii (Florastor) 250 mg PO BID [facility] Last Admin: 10/13/16 09:02 Dose: 250 mg - Labs Labs: 10/12/16 07:50 10/12/16 07:50 Assessment and Plan - Assessment and Plan (Free Text) Plan: - Oncology follow up - Continue care as per medical team - No further general surgery intervention at present time - Please re-consult as needed
[2016-10-13] MEDS: Saccharomyces Boulardi 250 mg Cap PO SCH ×2 (09:02→17:42)
--- NOTE | 2016-10-13 10:55 | CP.PCM.PN ---
Subjective - Date & Time of Evaluation Date of Evaluation: 10/13/16 Time of Evaluation: 10:15 - Subjective Subjective: NO CHEST PAIN OR SOB ONLY MILD ABDOMINAL PAIN HAVING BM Objective - Vital Signs/Intake and Output Vital Signs (last 24 hours): Temp Pulse Resp BP Pulse Ox 97.3 F L 99 H 20 147/95 H 95 10/13/16 08:44 10/13/16 09:02 10/13/16 08:44 10/13/16 09:02 10/13/16 08:44 - Medications Medications: Current Medications Enoxaparin Sodium (Lovenox) 40 mg SC DAILY [facility] PRN Reason: Protocol Famotidine (Pepcid) 20 mg PO BID [facility] Last Admin: 10/13/16 09:03 Dose: 20 mg Vancomycin HCl 1 gm/ Sodium (Chloride) 250 mls @ 166.667 mls/hr IVPB DAILY@ 1700 [facility] Last Admin: 10/12/16 16:59 Dose: 166.667 mls/hr Metronidazole (Flagyl 500mg/100ml Ns) 100 mls @ 100 mls/hr IVPB Q8@0500,1300, 2100 [facility] Last Admin: 10/13/16 05:46 Dose: 100 mls/hr Metoprolol Tartrate (Lopressor) 25 mg PO Q12 [facility] Last Admin: 10/13/16 09:02 Dose: 25 mg Ondansetron HCl (Zofran Inj) 4 mg IVP Q4 PRN PRN Reason: Nausea/Vomiting Oxycodone/Acetaminophen (Percocet 5/325 Mg Tab) 1 tab PO Q6 PRN PRN Reason: Pain, moderate (4-7) Stop: 10/15/16 04:18 Saccharomyces Boulardii (Florastor) 250 mg PO BID [facility] Last Admin: 10/13/16 09:02 Dose: 250 mg - Labs Labs: 10/12/16 07:50 10/12/16 07:50 - Respiratory Exam Respiratory Exam: Clear to Ausculation Bilateral - Cardiovascular Exam Cardiovascular Exam: REGULAR RHYTHM - Extremities Exam Extremities Exam: Normal Inspection - Additional Findings Additional findings: EKG YESTERDAY ST, R 120, NO NEW CHANGES HEART RATE NOW NORMAL PATH REPORT WITH ADENOCARCINOMA OF THE COLON WITH LN INVOLVEMENT Assessment and Plan - Assessment and Plan (Free Text) Assessment: ADENOOCARCINOMA OF THE COLON HYPERTENSION Plan: CONDTINUE METOPROLOL, IV FLUIDS AND IV ANTIBIOTICS ONCOLOGY TO EVALUATE AND DISCUSS TREATMENT PLAN
--- NOTE | 2016-10-13 12:10 | CP.PCM.CON ---
History of Present Illness - History of Present Illness History of Present Illness: 71 year old male with a history of HTN, recently diagnosed with stage IV colon cancer currently admitted to TCU. The patient was admitted with abdominal pain , taken to the OR and found to have a perforated cecal mass with peritonitis s/ p hemicolectomy, results showing colon adenocarcinoma with LN involvment and colonic perforation. A CT chest revealed multiple pulmonary nodules concerning for metastatic disease. The patient reports to feeling better post surgery. He has mild post surgical pain but reports this is well controlled. He has lost about 10-15 pounds since coming to the hospital. Past medical history: HTN Past surgical history: Inguinal hernia repair Past family history: Denies hematologic and oncologic problems Social history: Denies tobacco, alcohol, and illicit drug use. Allergies: NKA Review of systems: All remaining review of systems including HEENT, cardiovascular, respiratory, gastrointestinal, genitourinary, musculoskeletal, dermatologic, neurologic, and psychiatric are negative unless mentioned in the HPI. Past Patient History - Past Medical History & Family History Past Medical History?: Yes - Past Social History Smoking Status: Never Smoked - CARDIAC Hx Hypertension: Yes - PULMONARY Hx Respiratory Disorders: No - NEUROLOGICAL Hx Neurological Disorder: No - HEENT Hx HEENT Problems: No - RENAL Hx Chronic Kidney Disease: No - ENDOCRINE/METABOLIC Hx Endocrine Disorders: No - HEMATOLOGICAL/ONCOLOGICAL Hx Blood Disorders: No - INTEGUMENTARY Hx Dermatological Problems: No - MUSCULOSKELETAL/RHEUMATOLOGICAL Hx Falls: Yes - GASTROINTESTINAL Hx Gastrointestinal Disorders: No Hx Bowel Surgery: Yes - GENITOURINARY/GYNECOLOGICAL Hx Genitourinary Disorders: No - PSYCHIATRIC Hx Substance Use: No - SURGICAL HISTORY Hx Herniorrhaphy: Yes (Bilateral inguinal) - ANESTHESIA Hx Anesthesia: Yes Hx Anesthesia Reactions: No Meds Allergies/Adverse Reactions: Allergies Allergy/AdvReac Type Severity Reaction Status Date / Time No Known Allergies Allergy Verified 10/05/16 23:30 - Medications Medications: Current Medications Enoxaparin Sodium (Lovenox) 40 mg SC DAILY [facility] PRN Reason: Protocol Famotidine (Pepcid) 20 mg PO BID [facility] Last Admin: 10/13/16 09:03 Dose: 20 mg Vancomycin HCl 1 gm/ Sodium (Chloride) 250 mls @ 166.667 mls/hr IVPB DAILY@ 1700 [facility] Last Admin: 10/12/16 16:59 Dose: 166.667 mls/hr Metronidazole (Flagyl 500mg/100ml Ns) 100 mls @ 100 mls/hr IVPB Q8@0500,1300, 2100 [facility] Last Admin: 10/13/16 05:46 Dose: 100 mls/hr Metoprolol Tartrate (Lopressor) 25 mg PO Q12 [facility] Last Admin: 10/13/16 09:02 Dose: 25 mg Ondansetron HCl (Zofran Inj) 4 mg IVP Q4 PRN PRN Reason: Nausea/Vomiting Oxycodone/Acetaminophen (Percocet 5/325 Mg Tab) 1 tab PO Q6 PRN PRN Reason: Pain, moderate (4-7) Stop: 10/15/16 04:18 Saccharomyces Boulardii (Florastor) 250 mg PO BID [facility] Last Admin: 10/13/16 09:02 Dose: 250 mg Physical Exam - Head Exam Head Exam: ATRAUMATIC - Eye Exam Eye Exam: Normal appearance - ENT Exam ENT Exam: Mucous Membranes Dry - Respiratory Exam Respiratory Exam: NORMAL BREATHING PATTERN - Cardiovascular Exam Cardiovascular Exam: +S1, +S2 - GI/Abdominal Exam GI & Abdominal Exam: Normal Bowel Sounds - Extremities Exam Extremities exam: Positive for: normal inspection - Neurological Exam Neurological exam: Oriented x3 - Psychiatric Exam Psychiatric exam: Normal Affect, Normal Mood - Skin Skin Exam: Warm Results - Vital Signs Recent Vital Signs: Last Vital Signs Temp 97.3 F L 10/13/16 08:44 Pulse 99 H 10/13/16 09:02 Resp 20 10/13/16 08:44 BP 147/95 H 10/13/16 09:02 Pulse Ox 95 10/13/16 08:44 - Labs Result Diagrams: 10/14/16 08:35 10/12/16 07:50 Assessment & Plan (1) Colon cancer Assessment and Plan: lymph node and lung metastasis discussed diagnosis, stage, and chemotherapy options recommend portacath placement for outpatient chemotherapy Status: Acute (2) Elevated CEA Assessment and Plan: secondary to colon cancer Thank you for this interesting consult. Status: Acute
[2016-10-13] MEDS: Enoxaparin 40 mg Syringe SC SCH (13:16)
[2016-10-13] MEDS ORDERED: Sodium Chloride 0.9% 50 ML IV ONE (16:15)
[2016-10-13] MEDS ORDERED: Iohexol 300 100 ML IJ ONE (16:15)
--- NOTE | 2016-10-13 18:38 | CT ---
PROCEDURE: CT Chest with contrast HISTORY: COLON CA. STAGING COMPARISON: None. TECHNIQUE: Contiguous axial images were obtained through the chest with intravenous contrast enhancement. Sagittal and coronal reconstructions were performed. IV contrast: 90 mL Omnipaque 300 Radiation dose (DLP): 406.20 mGy-cm. This CT exam was performed using 1 or more of the following dose reduction techniques: Automated exposure control, adjustment of the mA and/or kV according to patient size, and/or use of iterative reconstruction technique. FINDINGS: LUNGS: There are small to moderate bilateral pleural effusions. There is bilateral compressive atelectasis of the lower lobes. There is no pulmonary infiltrate. There are numerous bilateral pulmonary nodules. The largest such nodule is cavitary and is seen in the right upper lobe. It measures 11 mm in diameter. MEDIASTINUM: Unremarkable thoracic aorta. No aneurysm or dissection. Normal sized heart. Main pulmonary artery unremarkable. No vascular congestion. There is mediastinal lymphadenopathy and mild right hilar lymphadenopathy. Left hilum is unremarkable. PLEURA: As above, bilateral [id number] pleural effusions. There is mild pleural thickening in both lung apices with small calcified plaque in the left apex. BONES: Mild thoracic dextroscoliosis. No fracture. UPPER ABDOMEN: Mild ascites. Nonspecific pericholecystic fluid. Celiac axis lymphadenopathy. OTHER FINDINGS: None. IMPRESSION: Numerous bilateral pulmonary nodules most likely representing metastatic disease. Cannot rule out infection. There is 1 cavitary nodule seen in the right upper lobe. There is mediastinal and right hilar lymphadenopathy. There is celiac axis lymphadenopathy. There are bilateral pleural effusions as well as ascites. Bilateral lower lobe compressive atelectasis is noted.
[2016-10-14 09:01] LABS: BASO % 0.3 % (0.0-2.0); EOS # 0.1 K/uL (0.0-0.7); EOS % 0.5 % (0.0-4.0); HEMATOCRIT 36.9 % (35.0-51.0); LYMPH # 0.9 K/uL (1.0-4.3); LYMPH % 5.4 % (20.0-40.0); MEAN CELL VOLUME 83.3 fl (80.0-94.0); MEAN CORPUSCULAR HEMOGLOBIN 27.5 pg (27.0-31.0); MEAN CORPUSCULAR HGB CONC 33.1 g/dL (33.0-37.0); MEAN PLATELET VOLUME 7.9 fl (7.2-11.7); MONO # 1.1 K/uL (0.0-0.8); MONO % 7.2 % (0.0-10.0); NEUT # 13.8 K/uL (1.8-7.0); NEUT % 86.6 % (50.0-75.0); PLATELET COUNT 547 K/uL (130-400); RED CELL DISTRIBUTION WIDTH 15.2 % (11.5-14.5); WHITE BLOOD COUNT 15.9 K/uL (4.8-10.8)
[2016-10-14] MEDS: Saccharomyces Boulardi 250 mg Cap PO SCH ×2 (10:07→16:37)
[2016-10-14] MEDS: Enoxaparin 40 mg Syringe SC SCH (10:08)
--- NOTE | 2016-10-14 11:00 | CP.PCM.PN ---
Subjective - Date & Time of Evaluation Date of Evaluation: 10/14/16 Time of Evaluation: 10:00 - Subjective Subjective: GENERAL SURGERY PROGRESS NOTE FOR DR. DUNN Patient seen and examined in the TCU. He is OOB to chair. He states that his back is hurting from the bed and chair and he would like to walk more, however he has to be cleared by PT before he is able to walk on his own. He worked with PT yesterday. He states that he is tolerating regular diet and he is still passing flatus and having BMs. He states that before he passes flatus, his abdomen feels bloated and then he passes a lot at once and his abdomen becomes soft again. All questions were answered regarding life port insertion which will happen on Sun. Objective - Vital Signs/Intake and Output Vital Signs (last 24 hours): Temp Pulse Resp BP Pulse Ox 97.5 F L 89 20 142/80 100 10/14/16 08:42 10/14/16 10:07 10/14/16 08:42 10/14/16 10:07 10/14/16 08:42 - Medications Medications: Current Medications Enalapril Maleate (Vasotec) 10 mg PO DAILY [facility] Last Admin: 10/14/16 10:07 Dose: 10 mg Enoxaparin Sodium (Lovenox) 40 mg SC DAILY [facility] PRN Reason: Protocol Last Admin: 10/14/16 10:08 Dose: 40 mg Famotidine (Pepcid) 20 mg PO BID [facility] Last Admin: 10/14/16 10:07 Dose: 20 mg Metoprolol Tartrate (Lopressor) 25 mg PO Q12 [facility] Last Admin: 10/14/16 10:07 Dose: 25 mg Ondansetron HCl (Zofran Inj) 4 mg IVP Q4 PRN PRN Reason: Nausea/Vomiting Oxycodone/Acetaminophen (Percocet 5/325 Mg Tab) 1 tab PO Q6 PRN PRN Reason: Pain, moderate (4-7) Stop: 10/15/16 04:18 Saccharomyces Boulardii (Florastor) 250 mg PO BID [facility] Last Admin: 10/14/16 10:07 Dose: 250 mg - Labs Labs: 10/14/16 08:35 10/12/16 07:50 - Constitutional Appears: Non-toxic, No Acute Distress - Head Exam Head Exam: ATRAUMATIC, NORMAL INSPECTION - Eye Exam Eye Exam: EOMI, Normal appearance - Respiratory Exam Respiratory Exam: NORMAL BREATHING PATTERN. absent: Respiratory Distress - Cardiovascular Exam Cardiovascular Exam: +S1, +S2 - GI/Abdominal Exam GI & Abdominal Exam: Distended, Soft. absent: Rigid, Tenderness, Rebound Additional comments: Juan in place over midline incision. Serosanguinous drainage coming from inferior portion of incision. Dressing changed. - Neurological Exam Neurological Exam: Alert, Awake, Oriented x3 - Psychiatric Exam Psychiatric exam: Normal Affect, Normal Mood - Skin Skin Exam: Dry, Normal Color, Warm Assessment and Plan - Assessment and Plan (Free Text) Assessment: 71yo M with PMHx of HTN with perforated cecal mass and peritonitis s/p Exploratory laparotomy with Right hemicolectomy POD #8 - Afebrile, VSS - Intra op abdomen cx: negative @ final - Strongly encouraged OOB, ambulation and IS use - Changed dressing at bedside - Patient is tolerating regular diet and having regular bowel movements - Will place life port for chemo in OR on Sunday - NPO past midnight on Sunday - Discussed plan with Dr. Kiko Montana PGY-2
[2016-10-14 12:40] LABS: NEUTROPHIL 86 % (42-75); REACTIVE LYMPHOCYTES 1 % (0-0); TOTAL CELLS COUNTED 100
[2016-10-14 12:42] LABS: LARGE PLATELETS PRESENT
[2016-10-14] MEDS ORDERED: Iohexol 240 (50 ml) PO ONE (15:05)
[2016-10-14] MEDS ORDERED: Iohexol 240 (50 ml) ONE (15:34)
[2016-10-15] MEDS: Saccharomyces Boulardi 250 mg Cap PO SCH ×2 (08:57→17:27)
[2016-10-15] MEDS: Enoxaparin 40 mg Syringe SC SCH (08:58)
--- NOTE | 2016-10-15 09:53 | CP.PCM.PN ---
Subjective - Date & Time of Evaluation Date of Evaluation: 10/15/16 Time of Evaluation: 09:50 - Subjective Subjective: Gen Surg: Dr. Hoover Pt S&E this morning. Reports passing flatus and having BM. Patient is out of bed to chair. States he is working with PT and feeling stronger. Lower abdominal incision developed seroma which was drained today, dressing if c/d/i. Patient denies chest pain/SOB, n/v/d. Objective - Vital Signs/Intake and Output Vital Signs (last 24 hours): Temp Pulse Resp BP Pulse Ox 97.7 F 97 H 20 142/82 97 10/15/16 08:27 10/15/16 08:58 10/15/16 08:27 10/15/16 08:58 10/15/16 08:27 - Medications Medications: Current Medications Enalapril Maleate (Vasotec) 10 mg PO DAILY [facility] Last Admin: 10/15/16 08:58 Dose: 10 mg Enoxaparin Sodium (Lovenox) 40 mg SC DAILY [facility] PRN Reason: Protocol Last Admin: 10/15/16 08:58 Dose: 40 mg Famotidine (Pepcid) 20 mg PO BID [facility] Last Admin: 10/15/16 08:58 Dose: 20 mg Metoprolol Tartrate (Lopressor) 25 mg PO Q12 [facility] Last Admin: 10/15/16 08:58 Dose: 25 mg Ondansetron HCl (Zofran Inj) 4 mg IVP Q4 PRN PRN Reason: Nausea/Vomiting Saccharomyces Boulardii (Florastor) 250 mg PO BID [facility] Last Admin: 10/15/16 08:57 Dose: 250 mg - Labs Labs: 10/14/16 08:35 10/12/16 07:50 - Constitutional Appears: No Acute Distress - Head Exam Head Exam: NORMOCEPHALIC - Eye Exam Pupil Exam: NORMAL ACCOMODATION - Respiratory Exam Respiratory Exam: NORMAL BREATHING PATTERN - Cardiovascular Exam Cardiovascular Exam: +S1, +S2 - GI/Abdominal Exam GI & Abdominal Exam: Soft - Neurological Exam Neurological Exam: Alert, Awake, Oriented x3 - Psychiatric Exam Psychiatric exam: Normal Mood - Skin Skin Exam: Erythema, Warm Assessment and Plan - Assessment and Plan (Free Text) Assessment: 71yo M with PMHx of HTN with perforated cecal mass and peritonitis s/p Exploratory laparotomy with Right hemicolectomy POD #9 - encourage OOB, ambulation and IS use - Drained seroma at bedside. -Changed dressing at bedside - Patient is tolerating regular diet and having regular bowel movements - Scheduled for portacath placement on Sunday - NPO past midnight on Sunday
[2016-10-15 10:32] LABS: BASO # 0.2 K/uL (0.0-0.2); BASO % 1.2 % (0.0-2.0); EOS % 0.2 % (0.0-4.0); HEMATOCRIT 36.8 % (35.0-51.0); LYMPH # 0.7 K/uL (1.0-4.3); LYMPH % 4.2 % (20.0-40.0); MEAN CELL VOLUME 83.6 fl (80.0-94.0); MEAN CORPUSCULAR HEMOGLOBIN 27.6 pg (27.0-31.0); MEAN PLATELET VOLUME 7.7 fl (7.2-11.7); MONO # 1.1 K/uL (0.0-0.8); MONO % 6.7 % (0.0-10.0); NEUT % 87.7 % (50.0-75.0); RED CELL DISTRIBUTION WIDTH 15.2 % (11.5-14.5)
[2016-10-15] MEDS ORDERED: Piperacillin/Tazobact 3.375 GM in Sodium Chloride 0.9% 100 ML IVPB SCH (11:15)
--- NOTE | 2016-10-15 12:40 | CP.PCM.PN ---
Subjective - Date & Time of Evaluation Date of Evaluation: 10/15/16 Time of Evaluation: 11:00 - Subjective Subjective: NO NEW COMPLAINTS FEELS OK Objective - Vital Signs/Intake and Output Vital Signs (last 24 hours): Temp Pulse Resp BP Pulse Ox 97.7 F 97 H 20 142/82 97 10/15/16 08:27 10/15/16 08:58 10/15/16 08:27 10/15/16 08:58 10/15/16 08:27 - Medications Medications: Current Medications Enalapril Maleate (Vasotec) 10 mg PO DAILY [facility] Last Admin: 10/15/16 08:58 Dose: 10 mg Enoxaparin Sodium (Lovenox) 40 mg SC DAILY [facility] PRN Reason: Protocol Last Admin: 10/15/16 08:58 Dose: 40 mg Famotidine (Pepcid) 20 mg PO BID [facility] Last Admin: 10/15/16 08:58 Dose: 20 mg Piperacillin Sod/Tazobactam (Sod 3.375 gm/ Sodium Chloride) 100 mls @ 100 mls/ hr IVPB Q12 [facility] Metoprolol Tartrate (Lopressor) 25 mg PO Q12 [facility] Last Admin: 10/15/16 08:58 Dose: 25 mg Ondansetron HCl (Zofran Inj) 4 mg IVP Q4 PRN PRN Reason: Nausea/Vomiting Saccharomyces Boulardii (Florastor) 250 mg PO BID [facility] Last Admin: 10/15/16 08:57 Dose: 250 mg - Labs Labs: 10/15/16 10:15 10/12/16 07:50 - Respiratory Exam Respiratory Exam: Clear to Ausculation Bilateral - Cardiovascular Exam Cardiovascular Exam: REGULAR RHYTHM, +S1, +S2 - Extremities Exam Extremities Exam: Normal Inspection - Additional Findings Additional findings: ONCOLOGY NOTE REVIEWED Assessment and Plan - Assessment and Plan (Free Text) Assessment: COLON CA WITH LN AND LUNG INVOLVEMENT COLON PERFORATION WITH PERITONITIS HYPERTENSION Plan: CONTINUE IV ANTIBIOTICS, METOPROLOL, ENALAPRIL, LOVENOX ONCOLOGY RECOMMENDED PORTACATH INSERTION FOLLOWED BY CHEMOTHERAPY COLON CA AND TREATMENT DISCUSSED IN DETAIL WITH PATIENT AND FAMILY
[2016-10-15] MEDS: Piperacillin/Tazobact 3.375 GM in Sodium Chloride 0.9% 100 ML IVPB SCH (17:27)
[2016-10-16] MEDS: Piperacillin/Tazobact 3.375 GM in Sodium Chloride 0.9% 100 ML IVPB SCH ×2 (04:27→16:41)
[2016-10-16] MEDS: Saccharomyces Boulardi 250 mg Cap PO SCH ×2 (08:21→17:29)
[2016-10-16] MEDS: Enoxaparin 40 mg Syringe SC SCH (08:21)
--- NOTE | 2016-10-16 09:40 | CP.PCM.PN ---
Subjective - Date & Time of Evaluation Date of Evaluation: 10/16/16 Time of Evaluation: 09:05 - Subjective Subjective: Patient was seen and examined at the bedside. Denies any abdominal pain, passing flatus and having normal bowel movements Objective - Vital Signs/Intake and Output Vital Signs (last 24 hours): Temp Pulse Resp BP Pulse Ox 97.7 F 97 H 20 144/84 99 10/16/16 08:34 10/16/16 08:34 10/16/16 08:34 10/16/16 08:34 10/16/16 08:34 - Medications Medications: Current Medications Enalapril Maleate (Vasotec) 10 mg PO DAILY [facility] Last Admin: 10/16/16 08:21 Dose: 10 mg Enoxaparin Sodium (Lovenox) 40 mg SC DAILY [facility] PRN Reason: Protocol Last Admin: 10/16/16 08:21 Dose: 40 mg Famotidine (Pepcid) 20 mg PO BID [facility] Last Admin: 10/16/16 08:21 Dose: 20 mg Piperacillin Sod/Tazobactam (Sod 3.375 gm/ Sodium Chloride) 100 mls @ 100 mls/ hr IVPB Q12@0500,1700 [facility] Last Admin: 10/16/16 04:27 Dose: 100 mls/hr Metoprolol Tartrate (Lopressor) 25 mg PO Q12 [facility] Last Admin: 10/16/16 08:21 Dose: 25 mg Ondansetron HCl (Zofran Inj) 4 mg IVP Q4 PRN PRN Reason: Nausea/Vomiting Saccharomyces Boulardii (Florastor) 250 mg PO BID [facility] Last Admin: 10/16/16 08:21 Dose: 250 mg - Labs Labs: 10/15/16 10:15 10/12/16 07:50 - Constitutional Appears: Well, Non-toxic, No Acute Distress - Head Exam Head Exam: ATRAUMATIC, NORMAL INSPECTION, NORMOCEPHALIC - Eye Exam Eye Exam: EOMI, Normal appearance, PERRL Pupil Exam: NORMAL ACCOMODATION, PERRL - ENT Exam ENT Exam: Mucous Membranes Moist, Normal Exam - Neck Exam Neck Exam: Full ROM, Normal Inspection - Respiratory Exam Respiratory Exam: NORMAL BREATHING PATTERN - Cardiovascular Exam Cardiovascular Exam: REGULAR RHYTHM, +S1, +S2 - GI/Abdominal Exam GI & Abdominal Exam: Soft, Normal Bowel Sounds Additional comments: NT, mildly distended, no rebound, no guarding, incision with mild erythema to the lower pole of the wound, elaine in place - Rectal Exam Rectal Exam: Deferred - Extremities Exam Extremities Exam: Full ROM, Normal Inspection - Neurological Exam Neurological Exam: Alert, Awake, Oriented x3 - Psychiatric Exam Psychiatric exam: Normal Affect, Normal Mood - Skin Skin Exam: Dry, Intact, Normal Color, Warm Assessment and Plan - Assessment and Plan (Free Text) Assessment: 71 y.o. male s/p Exploratory Laparotomy and Right hemicolectomy for perforated cecal cancer Plan: - Continue diet - Continue Zosyn - Physical therapy - Awaiting official reading on the CT scan of the abdomen/pelvis - Repeat labs in am - Will follow
[2016-10-16 11:58] LABS: BASO % 0.3 % (0.0-2.0); EOS # 0.1 K/uL (0.0-0.7); EOS % 0.4 % (0.0-4.0); HEMATOCRIT 38.5 % (35.0-51.0); LYMPH # 0.9 K/uL (1.0-4.3); LYMPH % 6.2 % (20.0-40.0); MEAN CELL VOLUME 83.6 fl (80.0-94.0); MEAN CORPUSCULAR HEMOGLOBIN 27.6 pg (27.0-31.0); MEAN PLATELET VOLUME 7.8 fl (7.2-11.7); MONO # 1.1 K/uL (0.0-0.8); MONO % 7.7 % (0.0-10.0); NEUT # 12.1 K/uL (1.8-7.0); NEUT % 85.4 % (50.0-75.0); WHITE BLOOD COUNT 14.2 K/uL (4.8-10.8)
--- NOTE | 2016-10-16 13:07 | CP.PCM.PN ---
Subjective - Date & Time of Evaluation Date of Evaluation: 10/16/16 Time of Evaluation: 12:15 - Subjective Subjective: NO CHEST PAIN OR SOB MILD ABDOMINAL DISCOMFORT ONLY HAVING BOWEL MOVEMENTS Objective - Vital Signs/Intake and Output Vital Signs (last 24 hours): Temp Pulse Resp BP Pulse Ox 97.7 F 97 H 20 144/84 99 10/16/16 08:34 10/16/16 08:34 10/16/16 08:34 10/16/16 08:34 10/16/16 08:34 - Medications Medications: Current Medications Docusate Sodium (Colace) 100 mg PO BID [facility] Enalapril Maleate (Vasotec) 10 mg PO DAILY [facility] Last Admin: 10/16/16 08:21 Dose: 10 mg Enoxaparin Sodium (Lovenox) 40 mg SC DAILY [facility] PRN Reason: Protocol Last Admin: 10/16/16 08:21 Dose: 40 mg Famotidine (Pepcid) 20 mg PO BID [facility] Last Admin: 10/16/16 08:21 Dose: 20 mg Piperacillin Sod/Tazobactam (Sod 3.375 gm/ Sodium Chloride) 100 mls @ 100 mls/ hr IVPB Q12@0500,1700 [facility] Last Admin: 10/16/16 04:27 Dose: 100 mls/hr Metoprolol Tartrate (Lopressor) 25 mg PO Q12 [facility] Last Admin: 10/16/16 08:21 Dose: 25 mg Ondansetron HCl (Zofran Inj) 4 mg IVP Q4 PRN PRN Reason: Nausea/Vomiting Saccharomyces Boulardii (Florastor) 250 mg PO BID [facility] Last Admin: 10/16/16 08:21 Dose: 250 mg - Labs Labs: 10/16/16 10:00 10/12/16 07:50 - Respiratory Exam Respiratory Exam: Clear to Ausculation Bilateral - Cardiovascular Exam Cardiovascular Exam: REGULAR RHYTHM, +S1, +S2 - Extremities Exam Extremities Exam: Normal Inspection - Additional Findings Additional findings: WBC 14K CT OF CHEST REPORT FROM 10/13 NOTED SURGICAL REPORT NOTED Assessment and Plan - Assessment and Plan (Free Text) Assessment: S/P SURGERY FOR COLON CANCER PERITONITIS FROM PERFORATED COLON HYPERTENSION Plan: CONTINUE ANTIBIOTICS, METOPROLOL, ENALAPRIL, LOVENOX FOR POSSIBLE PORTACATH THIS WEEK
[2016-10-16] MEDS: metroNIDAZOLE 500mg/100ml NS 100 ML IVPB SCH (20:16)
[2016-10-17] MEDS: Piperacillin/Tazobact 3.375 GM in Sodium Chloride 0.9% 100 ML IVPB SCH ×2 (04:29→17:38)
[2016-10-17] MEDS: metroNIDAZOLE 500mg/100ml NS 100 ML IVPB SCH ×3 (05:29→20:19)
--- NOTE | 2016-10-17 07:30 | CP.PCM.PN ---
<Emely Grant - Last Filed: 10/17/16 07:25> Subjective - Date & Time of Evaluation Date of Evaluation: 10/17/16 Time of Evaluation: 07:25 - Subjective Subjective: General Surgery - Dr. Vazquez Pt S&EManuel LIN. Pt denies any pain currently. He is tolerating regular diet and ambulating with PT. He states he had a large BM this morning. No N/V, F/C , SOB/CP. Objective - Vital Signs/Intake and Output Vital Signs (last 24 hours): Temp Pulse Resp BP Pulse Ox 97.9 F 100 H 20 147/81 96 10/16/16 20:17 10/16/16 20:17 10/16/16 20:17 10/16/16 20:17 10/16/16 20:17 - Medications Medications: Current Medications Docusate Sodium (Colace) 100 mg PO BID [facility] Last Admin: 10/16/16 17:29 Dose: 100 mg Enalapril Maleate (Vasotec) 10 mg PO DAILY [facility] Last Admin: 10/16/16 08:21 Dose: 10 mg Enoxaparin Sodium (Lovenox) 40 mg SC DAILY [facility] PRN Reason: Protocol Last Admin: 10/16/16 08:21 Dose: 40 mg Famotidine (Pepcid) 20 mg PO BID [facility] Last Admin: 10/16/16 17:29 Dose: 20 mg Piperacillin Sod/Tazobactam (Sod 3.375 gm/ Sodium Chloride) 100 mls @ 100 mls/ hr IVPB Q12@0500,1700 [facility] Last Admin: 10/17/16 04:29 Dose: 100 mls/hr Metronidazole (Flagyl 500mg/100ml Ns) 100 mls @ 100 mls/hr IVPB Q8@0500,1300, 2100 [facility] Last Admin: 10/17/16 05:29 Dose: 100 mls/hr Metoprolol Tartrate (Lopressor) 25 mg PO Q12 [facility] Last Admin: 10/16/16 20:14 Dose: 25 mg Ondansetron HCl (Zofran Inj) 4 mg IVP Q4 PRN PRN Reason: Nausea/Vomiting Saccharomyces Boulardii (Florastor) 250 mg PO BID [facility] Last Admin: 10/16/16 17:29 Dose: 250 mg - Labs Labs: 10/16/16 10:00 10/12/16 07:50 - Constitutional Appears: No Acute Distress - Head Exam Head Exam: ATRAUMATIC, NORMOCEPHALIC - Respiratory Exam Respiratory Exam: NORMAL BREATHING PATTERN. absent: Respiratory Distress - GI/Abdominal Exam GI & Abdominal Exam: Soft. absent: Distended, Guarding, Tenderness, Rebound Additional comments: midline incision w/ elaine, mild erythema, non tender, small amt serous drainage from lower portion of incision, dressing changed - Neurological Exam Neurological Exam: Alert, Oriented x3 - Psychiatric Exam Psychiatric exam: Normal Affect, Normal Mood - Skin Skin Exam: Dry, Intact Assessment and Plan - Assessment and Plan (Free Text) Assessment: 71yo M s/p Exp. Laparotomy and Right hemicolectomy for perforated cecal cancer, POD #11 Plan: - Continue Regular diet - Continue Zosyn - OOB/Ambulation, Physical therapy - CT abdomen/pelvis reviewed w/ radiologist - fluid in R pericolic gutter w/ no drainable collection or abscess - F/U WBC, if normalized will plan for Port insertion tomorrow DW Dr George Grant PGY2 <Armando Vazquez - Last Filed: 10/17/16 10:16> Subjective - Date & Time of Evaluation Date of Evaluation: 10/17/16 Time of Evaluation: 09:40 - Subjective Subjective: Patient was seen and examined at the bedside. Agree with resident's note above. Objective - Vital Signs/Intake and Output Vital Signs (last 24 hours): Temp Pulse Resp BP Pulse Ox 97.7 F 99 H 20 144/87 97 10/17/16 08:36 10/17/16 09:08 10/17/16 08:36 10/17/16 09:08 10/17/16 08:36 - Medications Medications: Current Medications Docusate Sodium (Colace) 100 mg PO BID [facility] Last Admin: 10/17/16 09:08 Dose: 100 mg Enalapril Maleate (Vasotec) 10 mg PO DAILY [facility] Last Admin: 10/17/16 09:09 Dose: 10 mg Enoxaparin Sodium (Lovenox) 40 mg SC DAILY [facility] PRN Reason: Protocol Last Admin: 10/17/16 09:08 Dose: 40 mg Famotidine (Pepcid) 20 mg PO BID [facility] Last Admin: 10/17/16 09:09 Dose: 20 mg Piperacillin Sod/Tazobactam (Sod 3.375 gm/ Sodium Chloride) 100 mls @ 100 mls/ hr IVPB Q12@0500,1700 [facility] Last Admin: 10/17/16 04:29 Dose: 100 mls/hr Metronidazole (Flagyl 500mg/100ml Ns) 100 mls @ 100 mls/hr IVPB Q8@0500,1300, 2100 [facility] Last Admin: 10/17/16 05:29 Dose: 100 mls/hr Metoprolol Tartrate (Lopressor) 25 mg PO Q12 [facility] Last Admin: 10/17/16 09:08 Dose: 25 mg Ondansetron HCl (Zofran Inj) 4 mg IVP Q4 PRN PRN Reason: Nausea/Vomiting Saccharomyces Boulardii (Florastor) 250 mg PO BID [facility] Last Admin: 10/17/16 09:07 Dose: 250 mg - Labs Labs: 10/17/16 08:05 10/17/16 08:05 Assessment and Plan - Assessment and Plan (Free Text) Plan: - NPO after midnight - Plan for Port-a-cath placement tomorrow
[2016-10-17 08:21] LABS: BASO # 0.1 K/uL (0.0-0.2); BASO % 0.7 % (0.0-2.0); EOS # 0.1 K/uL (0.0-0.7); EOS % 0.8 % (0.0-4.0); HEMATOCRIT 34.7 % (35.0-51.0); LYMPH # 0.9 K/uL (1.0-4.3); LYMPH % 8.7 % (20.0-40.0); MEAN CELL VOLUME 84.1 fl (80.0-94.0); MEAN CORPUSCULAR HGB CONC 33.2 g/dL (33.0-37.0); MEAN PLATELET VOLUME 7.5 fl (7.2-11.7); MONO % 9.9 % (0.0-10.0); NEUT % 79.9 % (50.0-75.0); RED CELL DISTRIBUTION WIDTH 15.3 % (11.5-14.5)
[2016-10-17 08:29] LABS: ALB/GLOB RATIO 0.8 (1.0-2.1); ALKALINE PHOSPHATASE 114 U/L (38-126); ALT/SGPT 31 U/L (21-72); AST/SGOT 20 U/L (17-59); BILIRUBIN,TOTAL 0.5 mg/dl (0.2-1.3); BLOOD UREA NITROGEN 6 mg/dl (9-20); CALCIUM 7.7 mg/dL (8.4-10.2); CARBON DIOXIDE 24 mmol/L (22-30); CHLORIDE 102 mmol/L (98-107); GFR AFRICAN-AMERICAN > 60; GLUCOSE,RANDOM 106 mg/dL (75-110); POTASSIUM 3.2 MMOL/L (3.6-5.0); SODIUM 137 mmol/l (132-148); TOTAL PROTEIN 5.5 G/DL (6.3-8.2)
[2016-10-17] MEDS: Saccharomyces Boulardi 250 mg Cap PO SCH ×2 (09:07→17:37)
[2016-10-17] MEDS: Enoxaparin 40 mg Syringe SC SCH (09:08)
[2016-10-17] MEDS ORDERED: Potassium Chloride 20 mEq ER Tab PO ONE ×2 (09:33→12:33)
--- NOTE | 2016-10-17 09:35 | CP.PCM.PN ---
Subjective - Date & Time of Evaluation Date of Evaluation: 10/17/16 Time of Evaluation: 09:00 - Subjective Subjective: NO NEW COMPLAINTS FEELS WELL Objective - Vital Signs/Intake and Output Vital Signs (last 24 hours): Temp Pulse Resp BP Pulse Ox 97.7 F 99 H 20 144/87 97 10/17/16 08:36 10/17/16 09:08 10/17/16 08:36 10/17/16 09:08 10/17/16 08:36 - Medications Medications: Current Medications Docusate Sodium (Colace) 100 mg PO BID [facility] Last Admin: 10/17/16 09:08 Dose: 100 mg Enalapril Maleate (Vasotec) 10 mg PO DAILY [facility] Last Admin: 10/17/16 09:09 Dose: 10 mg Enoxaparin Sodium (Lovenox) 40 mg SC DAILY [facility] PRN Reason: Protocol Last Admin: 10/17/16 09:08 Dose: 40 mg Famotidine (Pepcid) 20 mg PO BID [facility] Last Admin: 10/17/16 09:09 Dose: 20 mg Piperacillin Sod/Tazobactam (Sod 3.375 gm/ Sodium Chloride) 100 mls @ 100 mls/ hr IVPB Q12@0500,1700 [facility] Last Admin: 10/17/16 04:29 Dose: 100 mls/hr Metronidazole (Flagyl 500mg/100ml Ns) 100 mls @ 100 mls/hr IVPB Q8@0500,1300, 2100 [facility] Last Admin: 10/17/16 05:29 Dose: 100 mls/hr Metoprolol Tartrate (Lopressor) 25 mg PO Q12 [facility] Last Admin: 10/17/16 09:08 Dose: 25 mg Ondansetron HCl (Zofran Inj) 4 mg IVP Q4 PRN PRN Reason: Nausea/Vomiting Saccharomyces Boulardii (Florastor) 250 mg PO BID [facility] Last Admin: 10/17/16 09:07 Dose: 250 mg - Labs Labs: 10/17/16 08:05 10/17/16 08:05 - Respiratory Exam Respiratory Exam: Clear to Ausculation Bilateral - Cardiovascular Exam Cardiovascular Exam: REGULAR RHYTHM, +S1, +S2 - Extremities Exam Extremities Exam: Normal Inspection - Additional Findings Additional findings: WBC 10 SURGICAL NOTE REVIEWED Assessment and Plan - Assessment and Plan (Free Text) Assessment: COLON CARCINOMA WITH METS PERITONITIS SECONDARY TO COLON PERFORATION HYPERTENSION Plan: CONTINUE ANTIBIOTICS, METOPROLOL, ENALAPRIL FOR PORTACATH INSERTION
--- NOTE | 2016-10-17 10:49 | CP.PCM.PN ---
Subjective - Date & Time of Evaluation Date of Evaluation: 10/17/16 Time of Evaluation: 10:30 - Subjective Subjective: Hospitalist Progress Note (Patient was seen and examined 10:30 AM 10/17/16 TCU 709 -2) 71 years old male (PMH of HTN, Bilateral Inguinal hernia repair (one in 1979 and the other 7 years ago), came into [facility] on 10/06/16 with worsening intermittent abdominal discomfort involving the upper abdomen which began 2 weeks prior to his presentation associated with nausea/vomiting. Sensation of the gas moving about in the abdomen, frequent loose stools, and generalized weakness. In the ED he was found to have a temperature of 101.7F and HR of 155/ min and RR of 32/min. Patient was admitted to ICU with diagnosis of ischemic bowel and severe sepsis. He was taken to OR 10/06/16 and underwent right hemicolectomy for perforated cecal mass and pus in abdomen. 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 He was transferred to the [facility] TCU unit on 10/11/16 for further care. He was seen by Senior Mechanical Design Engineer/ Oncologist Dr. Dianna Sanchez and plan is for outpatient Chemotherapy. Patient is scheduled for Shahbaz Cath with Surgery Team on 10/18/16. NPO after midnight tonight. Curretly upon FULL ROS: He is having well formed to soft bowel movements: nonbloody/nonblack No abdominal discomfort Dry cough with occasional white phlegm but less often now Tolerated regular diet without any issues NO chest pain, NO palpitations, NO SOB/Wheezing, NO burning/pain with urination , NO lightheadedness/dizziness, NO new changes in vision/eye pain, NO new changes in hearing/ear pain, NO edema, NO paresthesias HEENT: NCA, EOMI, PERRLA, NO cervical lymphadenopathy, NO thyromegaly, NO Pharyngeal erythema/exudate, Oral Mucosa and Nasal Turbinates are moist Cardio: NS1 and NS2, NO M/R/G Respiratory: CTA B/L, NO R/R/W GI: BSx4 reduced but present, (+)Distended but Soft, NT, NO guarding/rebound tenderness, Abdominal Surgical Juan along midline without evidence of surrounding cellulitis (NO dehiscence of surgical incision) Ext: 1+ Pitting Edema of B/L LE from Feet to Tibial Tuberosities (Beni Stockings ordered, patient to keep legs elevated while sitting), Pulses are strong and equal, Capillary Refill is 2 seconds Neuro: CN II through XII are grossly intact Assessment and Plan: 1). Hx of Severe Sepsis: Resolved Secondary to Perforated Viscus S/p right hemicolectomy for perforated cecal mass 10/06/16 Self extubated post op on 10/07/16 but no issues afterwards Midline surgical incision intact without evidence of surrounding cellulitis/ without dehiscence) Zosyn 3.375 gm IV Q6H (10/06/16) Flagyl 500 mg IV Q8H (10/06/16) Blood Culture 10/06/16 Negative To Date Abdominal Wound 10/07/16 Negative Abdominal Wound 10/15/16 Preliminary showing Gram Negative Rods Urine Culture 10/08/[address] 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 Dianna Sanchez For Shahbaz Cath 10/18/16 Outpatient Chemotherapy 3). Perforated Viscus S/P Hemicoloctomy Post op day #11 Pain is well controlled: not requiring pain medication PT/OT Surgery Team Dr. Vazquez following patient Continue pain management PRN and IV antibiotics (Zosyn, Flagyl as above) 4). Hx Elevated troponin probably secondary to the Sepsis Cardiology Dr. Leggett consult appreciated Patient is currently chest pain free 5). HTN Controlled Vasotec 10 mg PO 1x/day Lopressor 25 mg PO Q12H 6). Bilateral Pulmonary nodules suggestive of Metastatic disease 7). Anemia Ferritin 77.1 Reticulocyte Count 1.2 B12 > 1000 HgB/Hct are stable Monitor CBC 8). Hyokalemia 3.2 on 10/17/16 KCl 40 mEQ PO x 1 dose 10/17/16 F/U morning 10/18/16 labs 9). Right Midpole Kidney Lesion As seen on CT Abdomen/Pelvis 10/14/16 (please see full report) Renal U/S will have to be ordered 10).Prophylactic Measures B/L Beni Stockings Lovenox 40 mg SQ 1x/day (discontinued after 10/17/16 for OR 10/18/16) Pepcid 20 mg PO Q12H Florastor 250 mg PO Q12H Zofran 4 mg IV Q4H PRN N/V Objective - Vital Signs/Intake and Output Vital Signs (last 24 hours): Temp Pulse Resp BP Pulse Ox 97.7 F 99 H 20 144/87 97 10/17/16 08:36 10/17/16 09:08 10/17/16 08:36 10/17/16 09:08 10/17/16 08:36 - Medications Medications: Current Medications Docusate Sodium (Colace) 100 mg PO BID [facility] Last Admin: 10/17/16 09:08 Dose: 100 mg Enalapril Maleate (Vasotec) 10 mg PO DAILY [facility] Last Admin: 10/17/16 09:09 Dose: 10 mg Famotidine (Pepcid) 20 mg PO BID [facility] Last Admin: 10/17/16 09:09 Dose: 20 mg Piperacillin Sod/Tazobactam (Sod 3.375 gm/ Sodium Chloride) 100 mls @ 100 mls/ hr IVPB Q12@0500,1700 [facility] Last Admin: 10/17/16 04:29 Dose: 100 mls/hr Metronidazole (Flagyl 500mg/100ml Ns) 100 mls @ 100 mls/hr IVPB Q8@0500,1300, 2100 [facility] Last Admin: 10/17/16 05:29 Dose: 100 mls/hr Metoprolol Tartrate (Lopressor) 25 mg PO Q12 [facility] Last Admin: 10/17/16 09:08 Dose: 25 mg Ondansetron HCl (Zofran Inj) 4 mg IVP Q4 PRN PRN Reason: Nausea/Vomiting Saccharomyces Boulardii (Florastor) 250 mg PO BID [facility] Last Admin: 10/17/16 09:07 Dose: 250 mg - Labs Labs: 10/17/16 08:05 10/17/16 08:05
[2016-10-17 12:14] LABS: PARTIAL THROMBOPLASTIN TIME 28.3 SECONDS (23.3-32.5)
--- NOTE | 2016-10-17 15:36 | CP.PCM.PN ---
Subjective - Date & Time of Evaluation Date of Evaluation: 10/17/16 Time of Evaluation: 16:15 - Subjective Subjective: id note ct scan reviewed antibiotics restarted zosyn/flagyl Objective - Vital Signs/Intake and Output Vital Signs (last 24 hours): Temp Pulse Resp BP Pulse Ox 97.7 F 99 H 20 144/87 97 10/17/16 08:36 10/17/16 09:08 10/17/16 08:36 10/17/16 09:08 10/17/16 08:36 - Medications Medications: Current Medications Docusate Sodium (Colace) 100 mg PO BID [facility] Last Admin: 10/17/16 09:08 Dose: 100 mg Enalapril Maleate (Vasotec) 10 mg PO DAILY [facility] Last Admin: 10/17/16 09:09 Dose: 10 mg Famotidine (Pepcid) 20 mg PO BID [facility] Last Admin: 10/17/16 09:09 Dose: 20 mg Piperacillin Sod/Tazobactam (Sod 3.375 gm/ Sodium Chloride) 100 mls @ 100 mls/ hr IVPB Q12@0500,1700 [facility] Last Admin: 10/17/16 04:29 Dose: 100 mls/hr Metronidazole (Flagyl 500mg/100ml Ns) 100 mls @ 100 mls/hr IVPB Q8@0500,1300, 2100 [facility] Last Admin: 10/17/16 12:32 Dose: 100 mls/hr Metoprolol Tartrate (Lopressor) 25 mg PO Q12 [facility] Last Admin: 10/17/16 09:08 Dose: 25 mg Ondansetron HCl (Zofran Inj) 4 mg IVP Q4 PRN PRN Reason: Nausea/Vomiting Saccharomyces Boulardii (Florastor) 250 mg PO BID [facility] Last Admin: 10/17/16 09:07 Dose: 250 mg - Labs Labs: 10/17/16 08:05 10/17/16 08:05 PT 11.4 SECONDS (9.6-11.2) H 10/17/16 11:40 INR 1.10 (0.92-1.08) H 10/17/16 11:40 APTT 28.3 SECONDS (23.3-32.5) 10/17/16 11:40
--- NOTE | 2016-10-17 22:30 | CP.PCM.PN ---
Subjective - Date & Time of Evaluation Date of Evaluation: 10/17/16 Time of Evaluation: 16:25 - Subjective Subjective: No complaints. Objective - Vital Signs/Intake and Output Vital Signs (last 24 hours): Temp Pulse Resp BP Pulse Ox 98.2 F 98 H 20 132/80 97 10/17/16 20:30 10/17/16 20:30 10/17/16 20:30 10/17/16 20:30 10/17/16 20:30 - Medications Medications: Current Medications Docusate Sodium (Colace) 100 mg PO BID [facility] Last Admin: 10/17/16 17:37 Dose: 100 mg Enalapril Maleate (Vasotec) 10 mg PO DAILY [facility] Last Admin: 10/17/16 09:09 Dose: 10 mg Famotidine (Pepcid) 20 mg PO BID [facility] Last Admin: 10/17/16 17:37 Dose: 20 mg Piperacillin Sod/Tazobactam (Sod 3.375 gm/ Sodium Chloride) 100 mls @ 100 mls/ hr IVPB Q12@0500,1700 [facility] Last Admin: 10/17/16 17:38 Dose: 100 mls/hr Metronidazole (Flagyl 500mg/100ml Ns) 100 mls @ 100 mls/hr IVPB Q8@0500,1300, 2100 [facility] Last Admin: 10/17/16 20:19 Dose: 100 mls/hr Metoprolol Tartrate (Lopressor) 25 mg PO Q12 [facility] Last Admin: 10/17/16 20:19 Dose: 25 mg Ondansetron HCl (Zofran Inj) 4 mg IVP Q4 PRN PRN Reason: Nausea/Vomiting Saccharomyces Boulardii (Florastor) 250 mg PO BID [facility] Last Admin: 10/17/16 17:37 Dose: 250 mg - Labs Labs: 10/17/16 08:05 10/17/16 08:05 PT 11.4 SECONDS (9.6-11.2) H 10/17/16 11:40 INR 1.10 (0.92-1.08) H 10/17/16 11:40 APTT 28.3 SECONDS (23.3-32.5) 10/17/16 11:40 - Head Exam Head Exam: ATRAUMATIC - Eye Exam Eye Exam: Normal appearance - ENT Exam ENT Exam: Mucous Membranes Dry - Respiratory Exam Respiratory Exam: NORMAL BREATHING PATTERN - Cardiovascular Exam Cardiovascular Exam: +S1, +S2 - GI/Abdominal Exam GI & Abdominal Exam: Normal Bowel Sounds - Extremities Exam Extremities Exam: Normal Inspection Assessment and Plan (1) Colon cancer Assessment & Plan: imaging suggestive of LN and lung metastasis portacath insertion tomorrow no chemotherapy until adequate wound healing and clearance of infection Status: Acute (2) Elevated CEA Status: Acute
[2016-10-18] MEDS: Piperacillin/Tazobact 3.375 GM in Sodium Chloride 0.9% 100 ML IVPB SCH ×2 (04:34→16:52)
[2016-10-18] MEDS: metroNIDAZOLE 500mg/100ml NS 100 ML IVPB SCH ×3 (05:34→21:41)
[2016-10-18 08:07] LABS: BASO # 0.1 K/uL (0.0-0.2); EOS # 0.1 K/uL (0.0-0.7); EOS % 1.1 % (0.0-4.0); HEMATOCRIT 33.6 % (35.0-51.0); LYMPH % 11.1 % (20.0-40.0); MEAN CELL VOLUME 83.6 fl (80.0-94.0); MEAN CORPUSCULAR HEMOGLOBIN 27.8 pg (27.0-31.0); MEAN CORPUSCULAR HGB CONC 33.2 g/dL (33.0-37.0); MEAN PLATELET VOLUME 7.7 fl (7.2-11.7); MONO % 11.1 % (0.0-10.0); NEUT # 7.1 K/uL (1.8-7.0); NEUT % 75.7 % (50.0-75.0); RED CELL DISTRIBUTION WIDTH 15.3 % (11.5-14.5); WHITE BLOOD COUNT 9.4 K/uL (4.8-10.8)
[2016-10-18] MEDS: Saccharomyces Boulardi 250 mg Cap PO SCH ×2 (08:10→16:50)
[2016-10-18 08:40] LABS: BLOOD UREA NITROGEN 7 mg/dl (9-20); CALCIUM 7.9 mg/dL (8.4-10.2); CARBON DIOXIDE 26 mmol/L (22-30); CHLORIDE 104 mmol/L (98-107); GFR AFRICAN-AMERICAN > 60; GLUCOSE,RANDOM 91 mg/dL (75-110); MAGNESIUM 1.9 MG/DL (1.6-2.3); PHOSPHOROUS 2.9 mg/dl (2.5-4.5); POTASSIUM 3.8 MMOL/L (3.6-5.0); SODIUM 139 mmol/l (132-148)
--- NOTE | 2016-10-18 09:47 | CP.PCM.PN ---
Subjective - Date & Time of Evaluation Date of Evaluation: 10/18/16 Time of Evaluation: 08:45 - Subjective Subjective: NO NEW COMPLAINTS Objective - Vital Signs/Intake and Output Vital Signs (last 24 hours): Temp Pulse Resp BP Pulse Ox 97.7 F 89 20 139/85 97 10/18/16 08:04 10/18/16 08:10 10/18/16 08:04 10/18/16 08:10 10/18/16 08:04 - Medications Medications: Current Medications Docusate Sodium (Colace) 100 mg PO BID [facility] Last Admin: 10/18/16 08:10 Dose: Not Given Enalapril Maleate (Vasotec) 10 mg PO DAILY [facility] Last Admin: 10/18/16 08:10 Dose: Not Given Famotidine (Pepcid) 20 mg PO BID [facility] Last Admin: 10/18/16 08:10 Dose: Not Given Piperacillin Sod/Tazobactam (Sod 3.375 gm/ Sodium Chloride) 100 mls @ 100 mls/ hr IVPB Q12@0500,1700 [facility] Last Admin: 10/18/16 04:34 Dose: 100 mls/hr Metronidazole (Flagyl 500mg/100ml Ns) 100 mls @ 100 mls/hr IVPB Q8@0500,1300, 2100 [facility] Last Admin: 10/18/16 05:34 Dose: 100 mls/hr Metoprolol Tartrate (Lopressor) 25 mg PO Q12 [facility] Last Admin: 10/18/16 08:10 Dose: 25 mg Ondansetron HCl (Zofran Inj) 4 mg IVP Q4 PRN PRN Reason: Nausea/Vomiting Saccharomyces Boulardii (Florastor) 250 mg PO BID [facility] Last Admin: 10/18/16 08:10 Dose: Not Given - Labs Labs: 10/18/16 07:47 10/18/16 07:47 PT 11.4 SECONDS (9.6-11.2) H 10/17/16 11:40 INR 1.10 (0.92-1.08) H 10/17/16 11:40 APTT 28.3 SECONDS (23.3-32.5) 10/17/16 11:40 - Respiratory Exam Respiratory Exam: Clear to Ausculation Bilateral - Cardiovascular Exam Cardiovascular Exam: REGULAR RHYTHM, +S1, +S2 - Extremities Exam Extremities Exam: Normal Inspection - Additional Findings Additional findings: ONCOLOGY NOTE REVIEWED WBC 10K CT SCAN REPORTS REVIEWED Assessment and Plan - Assessment and Plan (Free Text) Assessment: COLON CA WITH METS PERFORATED COLON WITH PERITONITIS HYPERTENSION Plan: CONTINUE ANTIBIOTICS, METOPROLOL, ENALAPRIL FOR PORTACATH TODAY
[2016-10-18] MEDS ORDERED: Midazolam 2 MG/2 ML VIAL ONE (12:32)
[2016-10-18] MEDS ORDERED: Propofol 10 mg/ml Inj (20 ML) ONE (12:33)
[2016-10-18] MEDS ORDERED: Lidocaine Hydrochloride 5 ML INJ ONE (12:33)
--- NOTE | 2016-10-18 14:21 | PCM.SURG1 ---
Surgeon's Initial Post Op Note - Surgeon's Notes Surgeon: Dr. Vazquez Department Editor: Dr. Grant PGY2 Type of Anesthesia: IV Sedation Pre-Operative Diagnosis: Colon CA Operative Findings: same Post-Operative Diagnosis: same Operation Performed: Insertion of Lifeport - Left Subclavian Vein Specimen/Specimens Removed: lifeport inserted Estimated Blood Loss: EBL {In ML}: 5 Blood Products Given: N/A Drains Used: No Drains Post-Op Condition: Good Date of Surgery/Procedure: 10/18/16 Time of Surgery/Procedure: 14:21
[2016-10-18] MEDS ORDERED: Oxycodone/Acetaminophen 5/325 mg Tab PO PRN (17:14)
[2016-10-19] MEDS: metroNIDAZOLE 500mg/100ml NS 100 ML IVPB SCH ×3 (06:01→20:57)
[2016-10-19] MEDS: Piperacillin/Tazobact 3.375 GM in Sodium Chloride 0.9% 100 ML IVPB SCH (06:02)
[2016-10-19] MEDS: Saccharomyces Boulardi 250 mg Cap PO SCH ×2 (09:24→16:25)
--- NOTE | 2016-10-19 11:11 | CP.PCM.PN ---
Subjective - Date & Time of Evaluation Date of Evaluation: 10/19/16 Time of Evaluation: 10:45 - Subjective Subjective: NO COMPLAINTS Objective - Vital Signs/Intake and Output Vital Signs (last 24 hours): Temp Pulse Resp BP Pulse Ox 97.7 F 95 H 20 144/88 95 10/19/16 08:03 10/19/16 09:25 10/19/16 08:03 10/19/16 09:25 10/19/16 08:03 - Medications Medications: Current Medications Docusate Sodium (Colace) 100 mg PO BID [facility] Last Admin: 10/19/16 09:24 Dose: 100 mg Enalapril Maleate (Vasotec) 10 mg PO DAILY [facility] Last Admin: 10/19/16 09:26 Dose: 10 mg Famotidine (Pepcid) 20 mg PO BID [facility] Last Admin: 10/19/16 09:25 Dose: 20 mg Piperacillin Sod/Tazobactam (Sod 3.375 gm/ Sodium Chloride) 100 mls @ 100 mls/ hr IVPB Q12@0500,1700 [facility] Last Admin: 10/19/16 06:02 Dose: 100 mls/hr Metronidazole (Flagyl 500mg/100ml Ns) 100 mls @ 100 mls/hr IVPB Q8@0500,1300, 2100 [facility] Last Admin: 10/19/16 06:01 Dose: 100 mls/hr Metoprolol Tartrate (Lopressor) 25 mg PO Q12 [facility] Last Admin: 10/19/16 09:25 Dose: 25 mg Ondansetron HCl (Zofran Inj) 4 mg IVP Q4 PRN PRN Reason: Nausea/Vomiting Oxycodone/Acetaminophen (Percocet 5/325 Mg Tab) 1 tab PO Q4 PRN PRN Reason: Pain, moderate (4-7) Stop: 10/21/16 17:15 Saccharomyces Boulardii (Florastor) 250 mg PO BID [facility] Last Admin: 10/19/16 09:24 Dose: 250 mg - Labs Labs: 10/18/16 07:47 10/18/16 07:47 PT 11.4 SECONDS (9.6-11.2) H 10/17/16 11:40 INR 1.10 (0.92-1.08) H 10/17/16 11:40 APTT 28.3 SECONDS (23.3-32.5) 10/17/16 11:40 - Respiratory Exam Respiratory Exam: Clear to Ausculation Bilateral - Cardiovascular Exam Cardiovascular Exam: REGULAR RHYTHM, +S1, +S2 - Extremities Exam Extremities Exam: Normal Inspection - Additional Findings Additional findings: HAD PORTACATH INSERTED YESTERDAY AND SITE IS CLEAN ID NOTE SEEN Assessment and Plan - Assessment and Plan (Free Text) Assessment: COLON CANCER PERITONITIS FROM COLON PERFORATION HYPERTENSION Plan: CONTINUE METOPROLOL, ENALAPRIL AND IV ANTIBIOTICS ID WILL BE CALLED ON DURATION OF IV ANTIBIOTIC USE
--- NOTE | 2016-10-19 11:36 | CP.PCM.PN ---
Subjective - Date & Time of Evaluation Date of Evaluation: 10/19/16 Time of Evaluation: 09:40 - Subjective Subjective: General Surgery Pt S&E, NAEO. No complaints at this time. Objective - Vital Signs/Intake and Output Vital Signs (last 24 hours): Temp Pulse Resp BP Pulse Ox 97.7 F 95 H 20 144/88 95 10/19/16 08:03 10/19/16 09:25 10/19/16 08:03 10/19/16 09:25 10/19/16 08:03 - Medications Medications: Current Medications Docusate Sodium (Colace) 100 mg PO BID [facility] Last Admin: 10/19/16 09:24 Dose: 100 mg Enalapril Maleate (Vasotec) 10 mg PO DAILY [facility] Last Admin: 10/19/16 09:26 Dose: 10 mg Famotidine (Pepcid) 20 mg PO BID [facility] Last Admin: 10/19/16 09:25 Dose: 20 mg Metronidazole (Flagyl 500mg/100ml Ns) 100 mls @ 100 mls/hr IVPB Q8@0500,1300, 2100 [facility] Last Admin: 10/19/16 06:01 Dose: 100 mls/hr Meropenem 1 gm/ Sodium (Chloride) 100 mls @ 100 mls/hr IVPB Q12H [facility] Metoprolol Tartrate (Lopressor) 25 mg PO Q12 [facility] Last Admin: 10/19/16 09:25 Dose: 25 mg Ondansetron HCl (Zofran Inj) 4 mg IVP Q4 PRN PRN Reason: Nausea/Vomiting Oxycodone/Acetaminophen (Percocet 5/325 Mg Tab) 1 tab PO Q4 PRN PRN Reason: Pain, moderate (4-7) Stop: 10/21/16 17:15 Saccharomyces Boulardii (Florastor) 250 mg PO BID [facility] Last Admin: 10/19/16 09:24 Dose: 250 mg - Labs Labs: 10/18/16 07:47 10/18/16 07:47 PT 11.4 SECONDS (9.6-11.2) H 10/17/16 11:40 INR 1.10 (0.92-1.08) H 10/17/16 11:40 APTT 28.3 SECONDS (23.3-32.5) 10/17/16 11:40 - Constitutional Appears: Non-toxic, No Acute Distress - Head Exam Head Exam: ATRAUMATIC, NORMOCEPHALIC - Respiratory Exam Respiratory Exam: NORMAL BREATHING PATTERN. absent: Respiratory Distress Additional comments: Surgical site C/D/I no hematoma/swelling. Mild ttp - GI/Abdominal Exam GI & Abdominal Exam: Soft, Tenderness (mild at incision site). absent: Distended Additional comments: small amount of drainage from lower incision - Neurological Exam Neurological Exam: Alert, Awake, Oriented x3 - Skin Skin Exam: Dry, Warm Assessment and Plan - Assessment and Plan (Free Text) Assessment: 71yo M s/p Exp. Laparotomy and Right hemicolectomy for perforated cecal cancer, POD #13, S/P L portacath POD#1 Plan: - Cont diet - Continue Zosyn - OOB/Ambulation, Physical therapy, limit overhead movement/exercises with arms for 2-3 days PGY3
[2016-10-19] MEDS: Meropenem 1 GM in Sodium Chloride 0.9% 100 ML IVPB SCH ×2 (14:00→23:46)
--- NOTE | 2016-10-19 17:04 | CP.PCM.PN ---
Subjective - Date & Time of Evaluation Date of Evaluation: 10/19/16 Time of Evaluation: 11:45 - Subjective Subjective: Hospitalist Progress Note (Patient was seen and examined 11:45 AM 10/19/16 TCU 709 -2) 71 years old male (PMH of HTN, Bilateral Inguinal hernia repair (one in 1979 and the other 7 years ago), came into [facility] on 10/06/16 with worsening intermittent abdominal discomfort involving the upper abdomen which began 2 weeks prior to his presentation associated with nausea/vomiting. Sensation of the gas moving about in the abdomen, frequent loose stools, and generalized weakness. In the ED he was found to have a temperature of 101.7F and HR of 155/ min and RR of 32/min. Patient was admitted to ICU with diagnosis of ischemic bowel and severe sepsis. He was taken to OR 10/06/16 and underwent right hemicolectomy for perforated cecal mass and pus in abdomen. 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 He was transferred to the [facility] TCU unit on 10/11/16 for further care. He was seen by Assistant Professor Sculpture/ Oncologist Dr. Dianna Sanchez and plan is for outpatient Chemotherapy. Patient had Shahbaz Cath placed in Left Subclavian on 10/18/16. Abdominal Wound Culture 10/15/16 was positive for E. coli. Curretly upon FULL ROS: He is having well formed to soft bowel movements: nonbloody/nonblack No abdominal discomfort Dry cough with occasional white phlegm but less frequent and improved Tolerating regular diet without any issues NO chest pain, NO palpitations, NO SOB/Wheezing, NO burning/pain with urination , NO lightheadedness/dizziness, NO new changes in vision/eye pain, NO new changes in hearing/ear pain, NO edema, NO paresthesias HEENT: NCA, EOMI, PERRLA, NO cervical lymphadenopathy, NO thyromegaly, NO Pharyngeal erythema/exudate, Oral Mucosa and Nasal Turbinates are moist Cardio: NS1 and NS2, NO M/R/G Respiratory: CTA B/L, NO R/R/W GI: BSx4 reduced but present, (+)Distended but Soft, NT, NO guarding/rebound tenderness, Abdominal Surgical Juan along midline without evidence of surrounding cellulitis (NO dehiscence of surgical incision) Ext: 1+ Pitting Edema of B/L LE from Feet to Tibial Tuberosities that has now essentially resolved with Beni Stockings and patient keeping his legs elevated while sitting, Pulses are strong and equal, Capillary Refill is 2 seconds Neuro: CN II through XII are grossly intact Assessment and Plan: 1). Hx of Severe Sepsis: Resolved Secondary to Perforated Viscus S/p right hemicolectomy for perforated cecal mass 10/06/16 Self extubated post op on 10/07/16 but no issues afterwards Midline surgical incision intact without evidence of surrounding cellulitis/ without dehiscence: the inferior aspect of surgical incision showed blanchable erythema Blood Culture 10/06/16 Negative To Date Abdominal Wound 10/07/16 Negative Abdominal Wound 10/15/16 positive for E. coli. Sensitive to Impenem. I spoke with ID Dr. Dianna Jackson and Meropenem 1 gm IV Q12H started (10/19/16) and Zosyn () was discontinued. Continue the Flagyl 500 mg IV Q8H (10/06/16) Urine Culture 10/08/[address] 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 Dianna Sanchez Shahbaz Cath placed 10/18/16 into Left Subclavian by Surgery Dr. Vazquez Outpatient Chemotherapy once infection (Abdominal Wound: please see above) has resolved. 3). Perforated Viscus S/P Hemicoloctomy Post op day #13 Pain is well controlled: not requiring pain medication PT/OT Surgery Team Dr. Vazquez following patient Continue pain management PRN and IV antibiotics (Flagyl and Meropenem as above) 4). Hx Elevated troponin probably secondary to the Sepsis Cardiology Dr. Leggett consult appreciated Patient is currently chest pain free 5). HTN Controlled Vasotec 10 mg PO 1x/day Lopressor 25 mg PO Q12H 6). Bilateral Pulmonary nodules suggestive of Metastatic disease 7). Anemia Ferritin 77.1 Reticulocyte Count 1.2 B12 > 1000 HgB/Hct are stable Monitor CBC 8). Hyokalemia 3.2 on 10/17/16 KCl 40 mEQ PO x 1 dose 10/17/16 F/U morning 10/20/16 labs 9). Right Midpole Kidney Lesion As seen on CT Abdomen/Pelvis 10/14/16 (please see full report) Renal U/S will have to be ordered 10).Prophylactic Measures B/L Beni Stockings Lovenox 40 mg SQ 1x/day Pepcid 20 mg PO Q12H Florastor 250 mg PO Q12H Zofran 4 mg IV Q4H PRN N/V Objective - Vital Signs/Intake and Output Vital Signs (last 24 hours): Temp Pulse Resp BP Pulse Ox 97.3 F L 95 H 20 146/93 H 98 10/19/16 16:45 10/19/16 16:45 10/19/16 16:45 10/19/16 16:45 10/19/16 16:45 - Medications Medications: Current Medications Alprazolam (Xanax) 0.25 mg PO ONCE ONE Stop: 10/19/16 23:01 Docusate Sodium (Colace) 100 mg PO BID [facility] Last Admin: 10/19/16 16:21 Dose: Not Given Enalapril Maleate (Vasotec) 10 mg PO DAILY [facility] Last Admin: 10/19/16 09:26 Dose: 10 mg Famotidine (Pepcid) 20 mg PO BID [facility] Last Admin: 10/19/16 16:25 Dose: 20 mg Metronidazole (Flagyl 500mg/100ml Ns) 100 mls @ 100 mls/hr IVPB Q8@0500,1300, 2100 [facility] Last Admin: 10/19/16 12:29 Dose: 100 mls/hr Meropenem 1 gm/ Sodium (Chloride) 100 mls @ 100 mls/hr IVPB Q12H [facility] Last Admin: 10/19/16 14:00 Dose: 100 mls/hr Metoprolol Tartrate (Lopressor) 25 mg PO Q12 [facility] Last Admin: 10/19/16 09:25 Dose: 25 mg Ondansetron HCl (Zofran Inj) 4 mg IVP Q4 PRN PRN Reason: Nausea/Vomiting Oxycodone/Acetaminophen (Percocet 5/325 Mg Tab) 1 tab PO Q4 PRN PRN Reason: Pain, moderate (4-7) Stop: 10/21/16 17:15 Saccharomyces Boulardii (Florastor) 250 mg PO BID [facility] Last Admin: 10/19/16 16:25 Dose: 250 mg - Labs Labs: 10/18/16 07:47 10/18/16 07:47 PT 11.4 SECONDS (9.6-11.2) H 10/17/16 11:40 INR 1.10 (0.92-1.08) H 10/17/16 11:40 APTT 28.3 SECONDS (23.3-32.5) 10/17/16 11:40
--- NOTE | 2016-10-19 19:27 | CP.PCM.PN ---
Subjective - Date & Time of Evaluation Date of Evaluation: 10/19/16 Time of Evaluation: 17:27 - Subjective Subjective: ID NOTE AFEBRILE DISCUSSED IN DETAIL HIS CARE c ANTIBIOTICS WILL CONTINUE IV RX OVER THE WEEKEND AND ORDER CT SCAN FOR SUNDAY Objective - Vital Signs/Intake and Output Vital Signs (last 24 hours): Temp Pulse Resp BP Pulse Ox 97.3 F L 95 H 20 146/93 H 98 10/19/16 16:45 10/19/16 16:45 10/19/16 16:45 10/19/16 16:45 10/19/16 16:45 - Medications Medications: Current Medications Alprazolam (Xanax) 0.25 mg PO ONCE ONE Stop: 10/19/16 23:01 Docusate Sodium (Colace) 100 mg PO BID [facility] Last Admin: 10/19/16 16:21 Dose: Not Given Enalapril Maleate (Vasotec) 10 mg PO DAILY [facility] Last Admin: 10/19/16 09:26 Dose: 10 mg Enoxaparin Sodium (Lovenox) 40 mg SC DAILY [facility] PRN Reason: Protocol Famotidine (Pepcid) 20 mg PO BID [facility] Last Admin: 10/19/16 16:25 Dose: 20 mg Metronidazole (Flagyl 500mg/100ml Ns) 100 mls @ 100 mls/hr IVPB Q8@0500,1300, 2100 [facility] Last Admin: 10/19/16 12:29 Dose: 100 mls/hr Meropenem 1 gm/ Sodium (Chloride) 100 mls @ 100 mls/hr IVPB Q12H [facility] Last Admin: 10/19/16 14:00 Dose: 100 mls/hr Metoprolol Tartrate (Lopressor) 25 mg PO Q12 [facility] Last Admin: 10/19/16 09:25 Dose: 25 mg Ondansetron HCl (Zofran Inj) 4 mg IVP Q4 PRN PRN Reason: Nausea/Vomiting Oxycodone/Acetaminophen (Percocet 5/325 Mg Tab) 1 tab PO Q4 PRN PRN Reason: Pain, moderate (4-7) Stop: 10/21/16 17:15 Saccharomyces Boulardii (Florastor) 250 mg PO BID [facility] Last Admin: 10/19/16 16:25 Dose: 250 mg - Labs Labs: 10/18/16 07:47 10/18/16 07:47 PT 11.4 SECONDS (9.6-11.2) H 10/17/16 11:40 INR 1.10 (0.92-1.08) H 10/17/16 11:40 APTT 28.3 SECONDS (23.3-32.5) 10/17/16 11:40
--- NOTE | 2016-10-19 23:36 | CP.PCM.PN ---
Subjective - Date & Time of Evaluation Date of Evaluation: 10/19/16 Time of Evaluation: 19:00 - Subjective Subjective: No complaints. Objective - Vital Signs/Intake and Output Vital Signs (last 24 hours): Temp Pulse Resp BP Pulse Ox 97.9 F 102 H 20 146/94 H 97 10/19/16 22:04 10/19/16 22:04 10/19/16 22:04 10/19/16 22:04 10/19/16 22:04 - Medications Medications: Current Medications Docusate Sodium (Colace) 100 mg PO BID [facility] Last Admin: 10/19/16 16:21 Dose: Not Given Enalapril Maleate (Vasotec) 10 mg PO DAILY [facility] Last Admin: 10/19/16 09:26 Dose: 10 mg Enoxaparin Sodium (Lovenox) 40 mg SC DAILY [facility] PRN Reason: Protocol Famotidine (Pepcid) 20 mg PO BID [facility] Last Admin: 10/19/16 16:25 Dose: 20 mg Metronidazole (Flagyl 500mg/100ml Ns) 100 mls @ 100 mls/hr IVPB Q8@0500,1300, 2100 [facility] Last Admin: 10/19/16 20:57 Dose: 100 mls/hr Meropenem 1 gm/ Sodium (Chloride) 100 mls @ 100 mls/hr IVPB Q12H [facility] Last Admin: 10/19/16 14:00 Dose: 100 mls/hr Metoprolol Tartrate (Lopressor) 25 mg PO Q12 [facility] Last Admin: 10/19/16 20:55 Dose: 25 mg Ondansetron HCl (Zofran Inj) 4 mg IVP Q4 PRN PRN Reason: Nausea/Vomiting Oxycodone/Acetaminophen (Percocet 5/325 Mg Tab) 1 tab PO Q4 PRN PRN Reason: Pain, moderate (4-7) Stop: 10/21/16 17:15 Saccharomyces Boulardii (Florastor) 250 mg PO BID [facility] Last Admin: 10/19/16 16:25 Dose: 250 mg - Labs Labs: 10/18/16 07:47 10/18/16 07:47 PT 11.4 SECONDS (9.6-11.2) H 10/17/16 11:40 INR 1.10 (0.92-1.08) H 10/17/16 11:40 APTT 28.3 SECONDS (23.3-32.5) 10/17/16 11:40 - Head Exam Head Exam: ATRAUMATIC - Eye Exam Eye Exam: Normal appearance - ENT Exam ENT Exam: Mucous Membranes Dry - Respiratory Exam Respiratory Exam: NORMAL BREATHING PATTERN - Cardiovascular Exam Cardiovascular Exam: +S1, +S2 - GI/Abdominal Exam GI & Abdominal Exam: Normal Bowel Sounds - Extremities Exam Extremities Exam: Normal Inspection Assessment and Plan (1) Colon cancer Assessment & Plan: imaging suggests lung mets outpatient treatment Status: Acute (2) Elevated CEA Assessment & Plan: secondary to colon cancer Status: Acute (3) Thrombocytosis Assessment & Plan: reactive, likely from infection and iron deficiency not a clotting risk Status: Acute
[2016-10-20] MEDS: metroNIDAZOLE 500mg/100ml NS 100 ML IVPB SCH ×3 (04:58→21:08)
[2016-10-20] MEDS: Meropenem 1 GM in Sodium Chloride 0.9% 100 ML IVPB SCH ×2 (05:16→17:11)
[2016-10-20 07:30] LABS: BASO # 0.1 K/uL (0.0-0.2); BASO % 1.1 % (0.0-2.0); EOS # 0.2 K/uL (0.0-0.7); EOS % 2.3 % (0.0-4.0); HEMATOCRIT 33.5 % (35.0-51.0); LYMPH # 1.1 K/uL (1.0-4.3); LYMPH % 13.1 % (20.0-40.0); MEAN CELL VOLUME 83.6 fl (80.0-94.0); MEAN CORPUSCULAR HEMOGLOBIN 27.7 pg (27.0-31.0); MEAN CORPUSCULAR HGB CONC 33.1 g/dL (33.0-37.0); MEAN PLATELET VOLUME 7.3 fl (7.2-11.7); MONO # 1.1 K/uL (0.0-0.8); MONO % 13.2 % (0.0-10.0); NEUT # 5.9 K/uL (1.8-7.0); NEUT % 70.3 % (50.0-75.0); RED CELL DISTRIBUTION WIDTH 15.5 % (11.5-14.5); WHITE BLOOD COUNT 8.4 K/uL (4.8-10.8)
--- NOTE | 2016-10-20 07:39 | CP.PCM.PN ---
Subjective - Date & Time of Evaluation Date of Evaluation: 10/20/16 Time of Evaluation: 07:15 - Subjective Subjective: General Surgery Progress note. Pt seen and evaluated, NAEO. No complaints at this time. Pt is progressing with physical therapy. No recent n/v/f/c/cp/sob. Objective - Vital Signs/Intake and Output Vital Signs (last 24 hours): Temp Pulse Resp BP Pulse Ox 97.9 F 102 H 20 146/94 H 97 10/19/16 22:04 10/19/16 22:04 10/19/16 22:04 10/19/16 22:04 10/19/16 22:04 - Medications Medications: Current Medications Docusate Sodium (Colace) 100 mg PO BID [facility] Last Admin: 10/19/16 16:21 Dose: Not Given Enalapril Maleate (Vasotec) 10 mg PO DAILY [facility] Last Admin: 10/19/16 09:26 Dose: 10 mg Enoxaparin Sodium (Lovenox) 40 mg SC DAILY [facility] PRN Reason: Protocol Famotidine (Pepcid) 20 mg PO BID [facility] Last Admin: 10/19/16 16:25 Dose: 20 mg Metronidazole (Flagyl 500mg/100ml Ns) 100 mls @ 100 mls/hr IVPB Q8@0500,1300, 2100 [facility] Last Admin: 10/20/16 04:58 Dose: 100 mls/hr Meropenem 1 gm/ Sodium (Chloride) 100 mls @ 100 mls/hr IVPB Q12@0500,1700 [facility] Last Admin: 10/20/16 05:16 Dose: 100 mls/hr Metoprolol Tartrate (Lopressor) 25 mg PO Q12 [facility] Last Admin: 10/19/16 20:55 Dose: 25 mg Ondansetron HCl (Zofran Inj) 4 mg IVP Q4 PRN PRN Reason: Nausea/Vomiting Oxycodone/Acetaminophen (Percocet 5/325 Mg Tab) 1 tab PO Q4 PRN PRN Reason: Pain, moderate (4-7) Stop: 10/21/16 17:15 Saccharomyces Boulardii (Florastor) 250 mg PO BID [facility] Last Admin: 10/19/16 16:25 Dose: 250 mg - Labs Labs: 10/18/16 07:47 10/18/16 07:47 PT 11.4 SECONDS (9.6-11.2) H 10/17/16 11:40 INR 1.10 (0.92-1.08) H 10/17/16 11:40 APTT 28.3 SECONDS (23.3-32.5) 10/17/16 11:40 - Constitutional Appears: Well, Non-toxic, No Acute Distress - Head Exam Head Exam: NORMAL INSPECTION, NORMOCEPHALIC - Respiratory Exam Respiratory Exam: NORMAL BREATHING PATTERN. absent: Respiratory Distress - Cardiovascular Exam Cardiovascular Exam: REGULAR RHYTHM, +S1, +S2 - GI/Abdominal Exam GI & Abdominal Exam: Soft, Tenderness (minor to incision. ) Additional comments: Incision site well approximated, all elaine intact. Minor serous from inferior apex of incision. - Neurological Exam Neurological Exam: Alert, Awake, Oriented x3 Assessment and Plan - Assessment and Plan (Free Text) Assessment: 71 y/o male s/p Exp. Laparotomy & Right hemicolectomy for perforated cecal cancer, POD #14, S/P L portacath POD#2 Plan: - Cont diet - Continue IV abx per ID. - OOB/Ambulation, Physical therapy, limit overhead movement/exercises with arms for 2-3 days - Pt is stable from surgical standpoint for discharge. Will continue to follwo while inhouse.
[2016-10-20 07:45] LABS: BLOOD UREA NITROGEN 7 mg/dl (9-20); CALCIUM 8.1 mg/dL (8.4-10.2); CARBON DIOXIDE 24 mmol/L (22-30); CHLORIDE 103 mmol/L (98-107); GFR AFRICAN-AMERICAN > 60; GLUCOSE,RANDOM 105 mg/dL (75-110); POTASSIUM 3.4 MMOL/L (3.6-5.0); SODIUM 138 mmol/l (132-148)
[2016-10-20] MEDS: Saccharomyces Boulardi 250 mg Cap PO SCH ×2 (08:22→17:11)
[2016-10-20] MEDS: Enoxaparin 40 mg Syringe SC SCH (08:22)
[2016-10-20] MEDS: Potassium Chloride 20 mEq ER Tab PO SCH (08:25)
--- NOTE | 2016-10-20 10:00 | CP.PCM.PN ---
Subjective - Date & Time of Evaluation Date of Evaluation: 10/20/16 Time of Evaluation: 09:00 - Subjective Subjective: NO ABDOMINAL PAIN Objective - Vital Signs/Intake and Output Vital Signs (last 24 hours): Temp Pulse Resp BP Pulse Ox 97.9 F 97 H 20 145/90 96 10/20/16 08:15 10/20/16 08:21 10/20/16 08:15 10/20/16 08:21 10/20/16 08:15 - Medications Medications: Current Medications Docusate Sodium (Colace) 100 mg PO BID [facility] Last Admin: 10/20/16 08:22 Dose: 100 mg Enalapril Maleate (Vasotec) 10 mg PO DAILY [facility] Last Admin: 10/20/16 08:22 Dose: 10 mg Enoxaparin Sodium (Lovenox) 40 mg SC DAILY [facility] PRN Reason: Protocol Last Admin: 10/20/16 08:22 Dose: 40 mg Famotidine (Pepcid) 20 mg PO BID [facility] Last Admin: 10/20/16 08:21 Dose: 20 mg Metronidazole (Flagyl 500mg/100ml Ns) 100 mls @ 100 mls/hr IVPB Q8@0500,1300, 2100 [facility] Last Admin: 10/20/16 04:58 Dose: 100 mls/hr Meropenem 1 gm/ Sodium (Chloride) 100 mls @ 100 mls/hr IVPB Q12@0500,1700 [facility] Last Admin: 10/20/16 05:16 Dose: 100 mls/hr Metoprolol Tartrate (Lopressor) 25 mg PO Q12 [facility] Last Admin: 10/20/16 08:21 Dose: 25 mg Ondansetron HCl (Zofran Inj) 4 mg IVP Q4 PRN PRN Reason: Nausea/Vomiting Oxycodone/Acetaminophen (Percocet 5/325 Mg Tab) 1 tab PO Q4 PRN PRN Reason: Pain, moderate (4-7) Stop: 10/21/16 17:15 Potassium Chloride (K-Dur 20 Meq Er Tab) 20 meq PO DAILY [facility] Last Admin: 10/20/16 08:25 Dose: 20 meq Saccharomyces Boulardii (Florastor) 250 mg PO BID [facility] Last Admin: 10/20/16 08:22 Dose: 250 mg - Labs Labs: 10/20/16 07:06 10/20/16 07:06 PT 11.4 SECONDS (9.6-11.2) H 10/17/16 11:40 INR 1.10 (0.92-1.08) H 10/17/16 11:40 APTT 28.3 SECONDS (23.3-32.5) 10/17/16 11:40 - Respiratory Exam Respiratory Exam: Clear to Ausculation Bilateral - Cardiovascular Exam Cardiovascular Exam: REGULAR RHYTHM, +S1, +S2 - Extremities Exam Extremities Exam: Normal Inspection Assessment and Plan - Assessment and Plan (Free Text) Assessment: COLON CA ABDOMINAL ABSCESS FROM COLON PERFORATION AND PERITONITIS HYPERTENSION Plan: CONTINUE IV ANTIBIOTICS, METOPROLOL, ENALAPRIL, LOVENOX PATIENT DISCUSSED WITH DR CALVILLO AND IV ANTIBIOTICS WILL BE CONTINUED OVER THE WEEKEND AND A REPEAT CT OF THE ABDOMEN WILL BE DONE SUNDAY TO DECIDE ON FURTHER ANTIBIOTIC TX-THE PATIENT WAS TOLD OF THIS PLAN
[2016-10-21] MEDS: metroNIDAZOLE 500mg/100ml NS 100 ML IVPB SCH ×3 (05:09→20:51)
[2016-10-21] MEDS: Meropenem 1 GM in Sodium Chloride 0.9% 100 ML IVPB SCH ×2 (05:22→17:19)
[2016-10-21] MEDS: Potassium Chloride 20 mEq ER Tab PO SCH (08:40)
[2016-10-21] MEDS: Enoxaparin 40 mg Syringe SC SCH (08:41)
[2016-10-21] MEDS: Saccharomyces Boulardi 250 mg Cap PO SCH ×2 (10:35→17:50)
--- NOTE | 2016-10-21 15:49 | CP.PCM.PN ---
Subjective - Date & Time of Evaluation Date of Evaluation: 10/21/16 Time of Evaluation: 14:00 - Subjective Subjective: NO COMPLAINTS Objective - Vital Signs/Intake and Output Vital Signs (last 24 hours): Temp Pulse Resp BP Pulse Ox 97.7 F 103 H 20 147/96 H 96 10/21/16 08:33 10/21/16 08:41 10/21/16 08:33 10/21/16 08:41 10/21/16 08:33 - Medications Medications: Current Medications Docusate Sodium (Colace) 100 mg PO BID [facility] Last Admin: 10/21/16 08:40 Dose: 100 mg Enalapril Maleate (Vasotec) 10 mg PO DAILY [facility] Last Admin: 10/21/16 08:41 Dose: 10 mg Enoxaparin Sodium (Lovenox) 40 mg SC DAILY [facility] PRN Reason: Protocol Last Admin: 10/21/16 08:41 Dose: 40 mg Famotidine (Pepcid) 20 mg PO BID [facility] Last Admin: 10/21/16 08:40 Dose: 20 mg Metronidazole (Flagyl 500mg/100ml Ns) 100 mls @ 100 mls/hr IVPB Q8@0500,1300, 2100 [facility] Last Admin: 10/21/16 13:12 Dose: 100 mls/hr Meropenem 1 gm/ Sodium (Chloride) 100 mls @ 100 mls/hr IVPB Q12@0500,1700 [facility] Last Admin: 10/21/16 05:22 Dose: 100 mls/hr Metoprolol Tartrate (Lopressor) 25 mg PO Q12 [facility] Last Admin: 10/21/16 08:41 Dose: 25 mg Ondansetron HCl (Zofran Inj) 4 mg IVP Q4 PRN PRN Reason: Nausea/Vomiting Oxycodone/Acetaminophen (Percocet 5/325 Mg Tab) 1 tab PO Q4 PRN PRN Reason: Pain, moderate (4-7) Stop: 10/21/16 17:15 Potassium Chloride (K-Dur 20 Meq Er Tab) 20 meq PO DAILY [facility] Last Admin: 10/21/16 08:40 Dose: 20 meq Saccharomyces Boulardii (Florastor) 250 mg PO BID [facility] Last Admin: 10/21/16 10:35 Dose: 250 mg - Labs Labs: 10/20/16 07:06 10/20/16 07:06 PT 11.4 SECONDS (9.6-11.2) H 10/17/16 11:40 INR 1.10 (0.92-1.08) H 10/17/16 11:40 APTT 28.3 SECONDS (23.3-32.5) 10/17/16 11:40 - Respiratory Exam Respiratory Exam: Clear to Ausculation Bilateral - Cardiovascular Exam Cardiovascular Exam: REGULAR RHYTHM, +S1, +S2 - Extremities Exam Extremities Exam: Normal Inspection Assessment and Plan - Assessment and Plan (Free Text) Assessment: COLON CA WITH LN INVOLVEMENT AND METS ABDOMINAL ABSCESS AND PERITONITIS FROM COLON PERFORATION HYPERTENSION Plan: CONTINUE IV ANTIBIOTICS, ENALAPRIL, METOPROLOL, LOVENOX
--- NOTE | 2016-10-21 17:51 | CP.PCM.PN ---
Subjective - Date & Time of Evaluation Date of Evaluation: 10/21/16 Time of Evaluation: 16:00 - Subjective Subjective: Feeling better Objective - Vital Signs/Intake and Output Vital Signs (last 24 hours): Temp Pulse Resp BP Pulse Ox 97.7 F 99 H 20 150/88 98 10/21/16 17:34 10/21/16 17:34 10/21/16 17:34 10/21/16 17:34 10/21/16 17:34 - Medications Medications: Current Medications Docusate Sodium (Colace) 100 mg PO BID [facility] Last Admin: 10/21/16 17:20 Dose: 100 mg Enalapril Maleate (Vasotec) 10 mg PO DAILY [facility] Last Admin: 10/21/16 08:41 Dose: 10 mg Enoxaparin Sodium (Lovenox) 40 mg SC DAILY [facility] PRN Reason: Protocol Last Admin: 10/21/16 08:41 Dose: 40 mg Famotidine (Pepcid) 20 mg PO BID [facility] Last Admin: 10/21/16 17:20 Dose: 20 mg Metronidazole (Flagyl 500mg/100ml Ns) 100 mls @ 100 mls/hr IVPB Q8@0500,1300, 2100 [facility] Last Admin: 10/21/16 13:12 Dose: 100 mls/hr Meropenem 1 gm/ Sodium (Chloride) 100 mls @ 100 mls/hr IVPB Q12@0500,1700 [facility] Last Admin: 10/21/16 17:19 Dose: 100 mls/hr Metoprolol Tartrate (Lopressor) 25 mg PO Q12 [facility] Last Admin: 10/21/16 08:41 Dose: 25 mg Ondansetron HCl (Zofran Inj) 4 mg IVP Q4 PRN PRN Reason: Nausea/Vomiting Potassium Chloride (K-Dur 20 Meq Er Tab) 20 meq PO DAILY [facility] Last Admin: 10/21/16 08:40 Dose: 20 meq Saccharomyces Boulardii (Florastor) 250 mg PO BID [facility] Last Admin: 10/21/16 17:50 Dose: 250 mg - Labs Labs: 10/20/16 07:06 10/20/16 07:06 PT 11.4 SECONDS (9.6-11.2) H 10/17/16 11:40 INR 1.10 (0.92-1.08) H 10/17/16 11:40 APTT 28.3 SECONDS (23.3-32.5) 10/17/16 11:40 - Head Exam Head Exam: ATRAUMATIC - Eye Exam Eye Exam: Normal appearance - ENT Exam ENT Exam: Mucous Membranes Dry - Respiratory Exam Respiratory Exam: NORMAL BREATHING PATTERN - Cardiovascular Exam Cardiovascular Exam: +S1, +S2 - GI/Abdominal Exam GI & Abdominal Exam: Normal Bowel Sounds - Extremities Exam Extremities Exam: Normal Inspection Assessment and Plan (1) Colon cancer Assessment & Plan: lung lesions concerning for metastatic disease s/p portacath placement outpatient chemotherapy once clear of infections and surgical wound healed Status: Acute (2) Elevated CEA Assessment & Plan: secondary to malignancy Status: Acute (3) Thrombocytosis Assessment & Plan: reactive Status: Acute
[2016-10-22] MEDS: metroNIDAZOLE 500mg/100ml NS 100 ML IVPB SCH ×3 (04:03→21:23)
[2016-10-22] MEDS: Meropenem 1 GM in Sodium Chloride 0.9% 100 ML IVPB SCH ×2 (05:11→16:42)
[2016-10-22] MEDS: Enoxaparin 40 mg Syringe SC SCH (09:02)
[2016-10-22] MEDS: Saccharomyces Boulardi 250 mg Cap PO SCH ×2 (09:03→16:42)
[2016-10-22] MEDS: Potassium Chloride 20 mEq ER Tab PO SCH (09:03)
--- NOTE | 2016-10-22 11:14 | CP.PCM.PN ---
Subjective - Date & Time of Evaluation Date of Evaluation: 10/22/16 Time of Evaluation: 11:00 - Subjective Subjective: NO CHEST PAIN OR SOB Objective - Vital Signs/Intake and Output Vital Signs (last 24 hours): Temp Pulse Resp BP Pulse Ox 98.1 F 99 H 20 141/87 98 10/22/16 08:18 10/22/16 09:04 10/22/16 08:18 10/22/16 09:04 10/22/16 08:18 - Medications Medications: Current Medications Docusate Sodium (Colace) 100 mg PO BID [facility] Last Admin: 10/22/16 09:04 Dose: 100 mg Enalapril Maleate (Vasotec) 10 mg PO DAILY [facility] Last Admin: 10/22/16 09:03 Dose: 10 mg Enoxaparin Sodium (Lovenox) 40 mg SC DAILY [facility] PRN Reason: Protocol Last Admin: 10/22/16 09:02 Dose: 40 mg Famotidine (Pepcid) 20 mg PO BID [facility] Last Admin: 10/22/16 09:04 Dose: 20 mg Metronidazole (Flagyl 500mg/100ml Ns) 100 mls @ 100 mls/hr IVPB Q8@0500,1300, 2100 [facility] Last Admin: 10/22/16 04:03 Dose: 100 mls/hr Meropenem 1 gm/ Sodium (Chloride) 100 mls @ 100 mls/hr IVPB Q12@0500,1700 [facility] Last Admin: 10/22/16 05:11 Dose: 100 mls/hr Metoprolol Tartrate (Lopressor) 25 mg PO Q12 [facility] Last Admin: 10/22/16 09:04 Dose: 25 mg Ondansetron HCl (Zofran Inj) 4 mg IVP Q4 PRN PRN Reason: Nausea/Vomiting Potassium Chloride (K-Dur 20 Meq Er Tab) 20 meq PO DAILY [facility] Last Admin: 10/22/16 09:03 Dose: 20 meq Saccharomyces Boulardii (Florastor) 250 mg PO BID [facility] Last Admin: 10/22/16 09:03 Dose: 250 mg - Labs Labs: 10/20/16 07:06 10/20/16 07:06 PT 11.4 SECONDS (9.6-11.2) H 10/17/16 11:40 INR 1.10 (0.92-1.08) H 10/17/16 11:40 APTT 28.3 SECONDS (23.3-32.5) 10/17/16 11:40 - Respiratory Exam Respiratory Exam: Clear to Ausculation Bilateral - Cardiovascular Exam Cardiovascular Exam: REGULAR RHYTHM, +S1, +S2 - Extremities Exam Extremities Exam: Normal Inspection Assessment and Plan - Assessment and Plan (Free Text) Assessment: COLON CA PERITONITIS HYPERTENSION Plan: CONTINUE IV ANTIBIOTICS, METOPROLOL, ENALAPRIL, LOVENOX FOR CT SCAN AND ID WILL DECIDE ON NEXT STAGE OF ANTIBIOTIC TX
--- NOTE | 2016-10-22 17:43 | CP.PCM.PN ---
Subjective - Date & Time of Evaluation Date of Evaluation: 10/22/16 Time of Evaluation: 17:38 - Subjective Subjective: iID NOTE AFEBRILE WBC:8.4,RENAL FUNCTION IS WNL CT SCAN C IV CONTAST ORDERED FOR TOMORRIW WILL DECIDE F/U IV RX AFTER REVIEW HE CANNOT HAVE CHEMOTHERAPY C INFECTION NOTE :PLATELETS ARE STILL ELEVATED(627) Objective - Vital Signs/Intake and Output Vital Signs (last 24 hours): Temp Pulse Resp BP Pulse Ox 98.1 F 101 H 20 135/72 100 10/22/16 16:39 10/22/16 16:39 10/22/16 16:39 10/22/16 16:39 10/22/16 16:39 - Medications Medications: Current Medications Docusate Sodium (Colace) 100 mg PO BID [facility] Last Admin: 10/22/16 16:42 Dose: 100 mg Enalapril Maleate (Vasotec) 10 mg PO DAILY [facility] Last Admin: 10/22/16 09:03 Dose: 10 mg Enoxaparin Sodium (Lovenox) 40 mg SC DAILY [facility] PRN Reason: Protocol Last Admin: 10/22/16 09:02 Dose: 40 mg Famotidine (Pepcid) 20 mg PO BID [facility] Last Admin: 10/22/16 16:42 Dose: 20 mg Metronidazole (Flagyl 500mg/100ml Ns) 100 mls @ 100 mls/hr IVPB Q8@0500,1300, 2100 [facility] Last Admin: 10/22/16 12:25 Dose: 100 mls/hr Meropenem 1 gm/ Sodium (Chloride) 100 mls @ 100 mls/hr IVPB Q12@0500,1700 [facility] Last Admin: 10/22/16 16:42 Dose: 100 mls/hr Metoprolol Tartrate (Lopressor) 25 mg PO Q12 [facility] Last Admin: 10/22/16 09:04 Dose: 25 mg Ondansetron HCl (Zofran Inj) 4 mg IVP Q4 PRN PRN Reason: Nausea/Vomiting Potassium Chloride (K-Dur 20 Meq Er Tab) 20 meq PO DAILY [facility] Last Admin: 10/22/16 09:03 Dose: 20 meq Saccharomyces Boulardii (Florastor) 250 mg PO BID [facility] Last Admin: 10/22/16 16:42 Dose: 250 mg - Labs Labs: 10/20/16 07:06 10/20/16 07:06 PT 11.4 SECONDS (9.6-11.2) H 10/17/16 11:40 INR 1.10 (0.92-1.08) H 10/17/16 11:40 APTT 28.3 SECONDS (23.3-32.5) 10/17/16 11:40
[2016-10-23] MEDS: metroNIDAZOLE 500mg/100ml NS 100 ML IVPB SCH ×2 (04:55→12:41)
[2016-10-23] MEDS: Meropenem 1 GM in Sodium Chloride 0.9% 100 ML IVPB SCH ×2 (06:00→16:25)
[2016-10-23] MEDS: Saccharomyces Boulardi 250 mg Cap PO SCH ×2 (09:53→16:24)
[2016-10-23] MEDS: Potassium Chloride 20 mEq ER Tab PO SCH (09:54)
[2016-10-23] MEDS: Enoxaparin 40 mg Syringe SC SCH (09:54)
--- NOTE | 2016-10-23 15:09 | CP.PCM.PN ---
Subjective - Date & Time of Evaluation Date of Evaluation: 10/23/16 Time of Evaluation: 14:00 - Subjective Subjective: Patient was seen and examined at the bedside. CT scan results noted, passing flatus and tolerating regular diet, having normal bowel movements Objective - Vital Signs/Intake and Output Vital Signs (last 24 hours): Temp Pulse Resp BP Pulse Ox 97.0 F L 98 H 20 137/92 H 98 10/23/16 08:06 10/23/16 09:53 10/23/16 08:06 10/23/16 09:53 10/23/16 08:06 - Medications Medications: Current Medications Docusate Sodium (Colace) 100 mg PO BID [facility] Last Admin: 10/23/16 09:53 Dose: 100 mg Enalapril Maleate (Vasotec) 10 mg PO DAILY [facility] Last Admin: 10/23/16 09:53 Dose: 10 mg Enoxaparin Sodium (Lovenox) 40 mg SC DAILY [facility] PRN Reason: Protocol Last Admin: 10/23/16 09:54 Dose: 40 mg Famotidine (Pepcid) 20 mg PO BID [facility] Last Admin: 10/23/16 09:53 Dose: 20 mg Metronidazole (Flagyl 500mg/100ml Ns) 100 mls @ 100 mls/hr IVPB Q8@0500,1300, 2100 [facility] Last Admin: 10/23/16 12:41 Dose: 100 mls/hr Meropenem 1 gm/ Sodium (Chloride) 100 mls @ 100 mls/hr IVPB Q12@0500,1700 [facility] Last Admin: 10/23/16 06:00 Dose: 100 mls/hr Metoprolol Tartrate (Lopressor) 25 mg PO Q12 [facility] Last Admin: 10/23/16 09:53 Dose: 25 mg Ondansetron HCl (Zofran Inj) 4 mg IVP Q4 PRN PRN Reason: Nausea/Vomiting Potassium Chloride (K-Dur 20 Meq Er Tab) 20 meq PO DAILY [facility] Last Admin: 10/23/16 09:54 Dose: 20 meq Saccharomyces Boulardii (Florastor) 250 mg PO BID [facility] Last Admin: 10/23/16 09:53 Dose: 250 mg - Labs Labs: 10/20/16 07:06 10/20/16 07:06 PT 11.4 SECONDS (9.6-11.2) H 10/17/16 11:40 INR 1.10 (0.92-1.08) H 10/17/16 11:40 APTT 28.3 SECONDS (23.3-32.5) 10/17/16 11:40 - Constitutional Appears: Well, Non-toxic, No Acute Distress - Head Exam Head Exam: ATRAUMATIC, NORMAL INSPECTION, NORMOCEPHALIC - Eye Exam Eye Exam: EOMI, Normal appearance, PERRL Pupil Exam: NORMAL ACCOMODATION, PERRL - ENT Exam ENT Exam: Mucous Membranes Moist, Normal Exam - Neck Exam Neck Exam: Full ROM, Normal Inspection - Respiratory Exam Respiratory Exam: NORMAL BREATHING PATTERN - Cardiovascular Exam Cardiovascular Exam: REGULAR RHYTHM, +S1, +S2 - GI/Abdominal Exam GI & Abdominal Exam: Soft, Normal Bowel Sounds Additional comments: NT, ND, no rebound, no guarding, incision clean, small area of drainage, no erythema, elaine in place - Rectal Exam Rectal Exam: Deferred - Extremities Exam Extremities Exam: Full ROM, Normal Inspection - Neurological Exam Neurological Exam: Alert, Awake, Oriented x3 - Psychiatric Exam Psychiatric exam: Normal Affect, Normal Mood - Skin Skin Exam: Dry, Intact, Normal Color, Warm Assessment and Plan - Assessment and Plan (Free Text) Assessment: 71 y.o. male s/o Exp. lap. and right hemicolectomy for perforated colon cancer Plan: - Removed elaine - Pain control - Antibiotics as per ID - No further general surgery intervention at present time - General surgery will sign off - Continue care as per medical team - Please re-consult surgery as need
--- NOTE | 2016-10-23 15:42 | CP.PCM.PN ---
Subjective - Date & Time of Evaluation Date of Evaluation: 10/23/16 Time of Evaluation: 08:00 - Subjective Subjective: NO COMPLAINTS Objective - Vital Signs/Intake and Output Vital Signs (last 24 hours): Temp Pulse Resp BP Pulse Ox 97.0 F L 98 H 20 137/92 H 98 10/23/16 08:06 10/23/16 09:53 10/23/16 08:06 10/23/16 09:53 10/23/16 08:06 - Medications Medications: Current Medications Docusate Sodium (Colace) 100 mg PO BID [facility] Last Admin: 10/23/16 09:53 Dose: 100 mg Enalapril Maleate (Vasotec) 10 mg PO DAILY [facility] Last Admin: 10/23/16 09:53 Dose: 10 mg Enoxaparin Sodium (Lovenox) 40 mg SC DAILY [facility] PRN Reason: Protocol Last Admin: 10/23/16 09:54 Dose: 40 mg Famotidine (Pepcid) 20 mg PO BID [facility] Last Admin: 10/23/16 09:53 Dose: 20 mg Metronidazole (Flagyl 500mg/100ml Ns) 100 mls @ 100 mls/hr IVPB Q8@0500,1300, 2100 [facility] Last Admin: 10/23/16 12:41 Dose: 100 mls/hr Meropenem 1 gm/ Sodium (Chloride) 100 mls @ 100 mls/hr IVPB Q12@0500,1700 [facility] Last Admin: 10/23/16 06:00 Dose: 100 mls/hr Metoprolol Tartrate (Lopressor) 25 mg PO Q12 [facility] Last Admin: 10/23/16 09:53 Dose: 25 mg Ondansetron HCl (Zofran Inj) 4 mg IVP Q4 PRN PRN Reason: Nausea/Vomiting Potassium Chloride (K-Dur 20 Meq Er Tab) 20 meq PO DAILY [facility] Last Admin: 10/23/16 09:54 Dose: 20 meq Saccharomyces Boulardii (Florastor) 250 mg PO BID [facility] Last Admin: 10/23/16 09:53 Dose: 250 mg - Labs Labs: 10/20/16 07:06 10/20/16 07:06 PT 11.4 SECONDS (9.6-11.2) H 10/17/16 11:40 INR 1.10 (0.92-1.08) H 10/17/16 11:40 APTT 28.3 SECONDS (23.3-32.5) 10/17/16 11:40 - Respiratory Exam Respiratory Exam: Clear to Ausculation Bilateral - Cardiovascular Exam Cardiovascular Exam: REGULAR RHYTHM, +S1, +S2 - Extremities Exam Extremities Exam: Normal Inspection - Additional Findings Additional findings: ID AND SURGERY NOTES SEEN CT OF ABDOMEN DONE THIS AM-REPORT PENDING Assessment and Plan - Assessment and Plan (Free Text) Assessment: COLON CA WITH METS COLON PERFORATION WITH ABSCESS AND PERITONITIS HYPERTENSION Plan: CONTINUE IV ANTIBIOTICS, METOPROLOL, ENALAPRIL, LOVENOX DECISION ON ANTIBIOTICS AND DURATION TO BE DECIDED BY ID ONCE ABDOMINAL CT IS REVIEWED
--- NOTE | 2016-10-23 20:19 | CP.PCM.PN ---
Subjective - Date & Time of Evaluation Date of Evaluation: 10/23/16 Time of Evaluation: 20:15 - Subjective Subjective: ID NOTE HAVE REVIEWED CT SCAN WILL D/C IV ANTIBIOTICS START PO OMNICEF AND FLAGYL FOLLOW TEMP AND WBC CLOSELY Objective - Vital Signs/Intake and Output Vital Signs (last 24 hours): Temp Pulse Resp BP Pulse Ox 97.3 F L 100 H 20 140/88 98 10/23/16 19:55 10/23/16 19:55 10/23/16 19:55 10/23/16 19:55 10/23/16 19:55 - Medications Medications: Current Medications Cefdinir (Omnicef) 300 mg PO BID [facility] Docusate Sodium (Colace) 100 mg PO BID [facility] Last Admin: 10/23/16 16:24 Dose: 100 mg Enalapril Maleate (Vasotec) 10 mg PO DAILY [facility] Last Admin: 10/23/16 09:53 Dose: 10 mg Enoxaparin Sodium (Lovenox) 40 mg SC DAILY [facility] PRN Reason: Protocol Last Admin: 10/23/16 09:54 Dose: 40 mg Famotidine (Pepcid) 20 mg PO BID [facility] Last Admin: 10/23/16 16:24 Dose: 20 mg Metoprolol Tartrate (Lopressor) 25 mg PO Q12 [facility] Last Admin: 10/23/16 09:53 Dose: 25 mg Metronidazole (Flagyl) 250 mg PO Q8 [facility] Ondansetron HCl (Zofran Inj) 4 mg IVP Q4 PRN PRN Reason: Nausea/Vomiting Potassium Chloride (K-Dur 20 Meq Er Tab) 20 meq PO DAILY [facility] Last Admin: 10/23/16 09:54 Dose: 20 meq Saccharomyces Boulardii (Florastor) 250 mg PO BID [facility] Last Admin: 10/23/16 16:24 Dose: 250 mg - Labs Labs: 10/20/16 07:06 10/20/16 07:06 PT 11.4 SECONDS (9.6-11.2) H 10/17/16 11:40 INR 1.10 (0.92-1.08) H 10/17/16 11:40 APTT 28.3 SECONDS (23.3-32.5) 10/17/16 11:40
[2016-10-24 07:00] LABS: BASO # 0.1 K/uL (0.0-0.2); BASO % 0.9 % (0.0-2.0); EOS # 0.3 K/uL (0.0-0.7); EOS % 3.3 % (0.0-4.0); HEMATOCRIT 38.9 % (35.0-51.0); LYMPH # 1.6 K/uL (1.0-4.3); LYMPH % 15.4 % (20.0-40.0); MEAN CELL VOLUME 84.1 fl (80.0-94.0); MEAN CORPUSCULAR HGB CONC 33.3 g/dL (33.0-37.0); MONO # 1.3 K/uL (0.0-0.8); MONO % 12.3 % (0.0-10.0); NEUT # 6.9 K/uL (1.8-7.0); NEUT % 68.1 % (50.0-75.0); NRBC % 0.1 % (0.0-0.0); RED CELL DISTRIBUTION WIDTH 15.6 % (11.5-14.5); WHITE BLOOD COUNT 10.2 K/uL (4.8-10.8)
[2016-10-24 08:08] VITALS: PULSE 99; TEMP 97; O2SAT 99
[2016-10-24] MEDS: Potassium Chloride 20 mEq ER Tab PO SCH (08:28)
[2016-10-24] MEDS: Saccharomyces Boulardi 250 mg Cap PO SCH (08:28)
[2016-10-24] MEDS: Enoxaparin 40 mg Syringe SC SCH (08:29)
[2016-10-24 08:30] VITALS: BP 140/90
[2016-10-24] MEDS ORDERED: Cefdinir 300 MG CAP PO SCH (09:00)
--- NOTE | 2016-10-24 10:35 | CP.PCM.PN ---
Subjective - Date & Time of Evaluation Date of Evaluation: 10/24/16 Time of Evaluation: 08:30 - Subjective Subjective: NO CHEST PAIN OR SOB NO FEVERS OR CHILLS Objective - Vital Signs/Intake and Output Vital Signs (last 24 hours): Temp Pulse Resp BP Pulse Ox 97.0 F L 99 H 20 140/90 99 10/24/16 08:07 10/24/16 08:28 10/24/16 08:07 10/24/16 08:28 10/24/16 08:07 - Medications Medications: Current Medications Cefdinir (Omnicef) 300 mg PO BID [facility] Last Admin: 10/24/16 08:29 Dose: 300 mg Docusate Sodium (Colace) 100 mg PO BID [facility] Last Admin: 10/24/16 08:28 Dose: 100 mg Enalapril Maleate (Vasotec) 10 mg PO DAILY [facility] Last Admin: 10/24/16 08:29 Dose: 10 mg Enoxaparin Sodium (Lovenox) 40 mg SC DAILY [facility] PRN Reason: Protocol Last Admin: 10/24/16 08:29 Dose: 40 mg Famotidine (Pepcid) 20 mg PO BID [facility] Last Admin: 10/24/16 08:29 Dose: 20 mg Metoprolol Tartrate (Lopressor) 25 mg PO Q12 [facility] Last Admin: 10/24/16 08:28 Dose: 25 mg Metronidazole (Flagyl) 250 mg PO Q8 [facility] Last Admin: 10/24/16 08:28 Dose: 250 mg Ondansetron HCl (Zofran Inj) 4 mg IVP Q4 PRN PRN Reason: Nausea/Vomiting Potassium Chloride (K-Dur 20 Meq Er Tab) 20 meq PO DAILY [facility] Last Admin: 10/24/16 08:28 Dose: 20 meq Saccharomyces Boulardii (Florastor) 250 mg PO BID [facility] Last Admin: 10/24/16 08:28 Dose: 250 mg - Labs Labs: 10/24/16 06:39 10/20/16 07:06 PT 11.4 SECONDS (9.6-11.2) H 10/17/16 11:40 INR 1.10 (0.92-1.08) H 10/17/16 11:40 APTT 28.3 SECONDS (23.3-32.5) 10/17/16 11:40 - Respiratory Exam Respiratory Exam: Clear to Ausculation Bilateral - Cardiovascular Exam Cardiovascular Exam: REGULAR RHYTHM, +S1, +S2 - Extremities Exam Extremities Exam: Normal Inspection - Additional Findings Additional findings: CT OF THE ABDOMEN DONE 10/23/16 SHOWS RESOLUTION OF ABSCESS ID NOTE OF 10/23/16 REVIEWED WBC 10 Assessment and Plan - Assessment and Plan (Free Text) Assessment: COLON CA WITH METS PERFORATED COLON WITH ABSCESS AND PERITONITIS-TREATED SURGICALLY AND WITH IV ANTIBIOTICS. HYPERTENSION Plan: CONTINUE METOPROLOL AND ENALAPRIL ANTIBIOTICS CHANGED FROM IV TO PO BY ID
--- NOTE | 2016-10-24 11:49 | CP.PCM.DIS ---
Provider - Provider Date of Admission: 10/11/16 23:22 Attending physician: Quintin Coleman MD Consults: Dr George Mcgowan Time Spent in preparation of Discharge (in minutes): 35 Diagnosis - Discharge Diagnosis (1) Sepsis Status: Resolved (2) Colonic mass Status: Acute Comment: metastatic adenocarcinoma of the colon. for chemotherapy as outpatient with Dr Sanchez (3) HTN (hypertension) Status: Chronic Comment: BP controlled. continue Metoprolol and Enalapril (4) Elevated troponin Status: Resolved Hospital Course - Lab Results Lab Results: Micro Results 10/15/16 09:58 Abdomen Gram Stain - Final 10/15/16 09:58 Abdomen Wound Culture - Final Escherichia Coli Most Recent Lab Values WBC 10.2 K/uL (4.8-10.8) 10/24/16 06:39 RBC 4.62 Mil/uL (4.40-5.90) 10/24/16 06:39 Hgb 12.9 g/dL (12.0-18.0) 10/24/16 06:39 Hct 38.9 % (35.0-51.0) 10/24/16 06:39 MCV 84.1 fl (80.0-94.0) 10/24/16 06:39 MCH 28.0 pg (27.0-31.0) 10/24/16 06:39 MCHC 33.3 g/dL (33.0-37.0) 10/24/16 06:39 RDW 15.6 % (11.5-14.5) H 10/24/16 06:39 Plt Count 628 K/uL (130-400) H 10/24/16 06:39 MPV 7.0 fl (7.2-11.7) L 10/24/16 06:39 Neut % (Auto) 68.1 % (50.0-75.0) 10/24/16 06:39 Lymph % (Auto) 15.4 % (20.0-40.0) L 10/24/16 06:39 Fergus % (Auto) 12.3 % (0.0-10.0) H 10/24/16 06:39 Eos % (Auto) 3.3 % (0.0-4.0) 10/24/16 06:39 Baso % (Auto) 0.9 % (0.0-2.0) 10/24/16 06:39 Neut # 6.9 K/uL (1.8-7.0) 10/24/16 06:39 Lymph # 1.6 K/uL (1.0-4.3) 10/24/16 06:39 Fergus # 1.3 K/uL (0.0-0.8) H 10/24/16 06:39 Eos # 0.3 K/uL (0.0-0.7) 10/24/16 06:39 Baso # 0.1 K/uL (0.0-0.2) 10/24/16 06:39 Neutrophils % (Manual) 86 % (42-75) H 10/14/16 08:35 Lymphocytes % (Manual) 6 % (20-50) L 10/14/16 08:35 Reactive Lymphs % 1 % (0-0) H 10/14/16 08:35 Monocytes % (Manual) 7 % (0-10) 10/14/16 08:35 Toxic Granulation Present 10/14/16 08:35 Platelet Estimate Increased (NORMAL) H 10/14/16 08:35 Large Platelets Present 10/14/16 08:35 Hypochromasia (manual) Slight 10/14/16 08:35 Anisocytosis (manual) Slight 10/14/16 08:35 PT 11.4 SECONDS (9.6-11.2) H 10/17/16 11:40 INR 1.10 (0.92-1.08) H 10/17/16 11:40 APTT 28.3 SECONDS (23.3-32.5) 10/17/16 11:40 Sodium 138 mmol/l (132-148) 10/20/16 07:06 Potassium 3.4 MMOL/L (3.6-5.0) L 10/20/16 07:06 Chloride 103 mmol/L (98-107) 10/20/16 07:06 Carbon Dioxide 24 mmol/L (22-30) 10/20/16 07:06 Anion Gap 14 (10-20) 10/20/16 07:06 BUN 7 mg/dl (9-20) L 10/20/16 07:06 Creatinine 0.7 mg/dL (0.8-1.5) L 10/20/16 07:06 Est GFR ( Amer) > 60 10/20/16 07:06 Est GFR (Non-Af Amer) > 60 10/20/16 07:06 Random Glucose 105 mg/dL (75-110) 10/20/16 07:06 Calcium 8.1 mg/dL (8.4-10.2) L 10/20/16 07:06 Phosphorus 2.9 mg/dl (2.5-4.5) 10/18/16 07:47 Magnesium 1.9 MG/DL (1.6-2.3) 10/18/16 07:47 Total Bilirubin 0.5 mg/dl (0.2-1.3) 10/17/16 08:05 AST 20 U/L (17-59) 10/17/16 08:05 ALT 31 U/L (21-72) 10/17/16 08:05 Alkaline Phosphatase 114 U/L (38-126) 10/17/16 08:05 Total Protein 5.5 G/DL (6.3-8.2) L 10/17/16 08:05 Albumin 2.5 g/dL (3.5-5.0) L D 10/17/16 08:05 Globulin 3.0 gm/dL (2.2-3.9) 10/17/16 08:05 Albumin/Globulin Ratio 0.8 (1.0-2.1) L 10/17/16 08:05 - Hospital Course Hospital Course: 71 yo male with history of HTN initially admitted because of generalized abdominal discomfort accompanied with nausea. He was found septic with perforated cecal mass with pus and was admitted in ICU. A right hemicolectomy was done which showed moderately differentiated adenocarcinoma with lymph node involvement. There were also pulmonary nodules on CT scan. Pt was put on IV antibiotics and transferred to TCU where he received PT and continuation of the antibiotics. Pt did well and now is ready for discharge. He would follow up with Dr Sanchez for outpatient chemotherapy. Discharge Exam - Head Exam Head Exam: ATRAUMATIC, NORMAL INSPECTION, NORMOCEPHALIC - Eye Exam Eye Exam: absent: Scleral icterus - ENT Exam ENT Exam: Mucous Membranes Moist - Respiratory Exam Respiratory Exam: NORMAL BREATHING PATTERN. absent: Wheezes, Respiratory Distress - Cardiovascular Exam Cardiovascular Exam: REGULAR RHYTHM, +S1, +S2 - GI/Abdominal Exam GI & Abdominal Exam: Soft. absent: Tenderness - Rectal Exam Rectal Exam: Deferred - Neurological Exam Neurological exam: Alert, Oriented x3 - Psychiatric Exam Psychiatric exam: Normal Affect - Skin Skin Exam: Dry, Intact Discharge Plan - Follow Up Plan Condition: GOOD Disposition: HOME/ ROUTINE Instructions: Colorectal Cancer (DC), Hypertension (DC), Fall Prevention (DC) Referrals: Pool Sanchez MD [Staff Provider] - Armando Vazquez MD [Staff Provider] - Davi Leggett MD [Family Provider] - Nino Jackson MD [Medical Doctor] -
== END 2016-10-24 12:50 | disposition home or self-care (01) | DRG 871 ==
LOC: H.TCU 23:22
PROVIDERS: ADMIT Internal Medicine; ATTEND Internal Medicine
PROC: 3E03329 Introduction of Other Anti-infective into Peripheral Vein, Percutaneous Approach (ICD-10-PCS; principal; 2016-10-12)
PROC: F07L6ZZ Therapeutic Exercise Treatment of Musculoskeletal System - Lower Back / Lower Extremity (ICD-10-PCS; 2016-10-12)
PROC: F08Z4FZ Home Management Treatment using Assistive, Adaptive, Supportive or Protective Equipment (ICD-10-PCS; 2016-10-12)
PROC: F07Z9FZ Gait Training/Functional Ambulation Treatment using Assistive, Adaptive, Supportive or Protective Equipment (ICD-10-PCS; 2016-10-12)
DX: A41.9 Sepsis, unspecified organism (principal); K63.1 Perforation of intestine (nontraumatic); K65.9 Peritonitis, unspecified; C78.00 Secondary malignant neoplasm of unspecified lung; C18.0 Malignant neoplasm of cecum; D64.9 Anemia, unspecified; I10 Essential (primary) hypertension; E87.6 Hypokalemia

== ENCOUNTER 2016-10-18 09:04 | Day surgery (SDC) | payer MEDICARE ==
[2016-10-18 10:09] VITALS: BMI 22.2
[2016-10-18] MEDS ORDERED: Lidocaine 1% Inj (20ml) ONE (10:58)
[2016-10-18] MEDS ORDERED: Bupivacaine 0.5% Inj(30mL) ONE (10:59)
[2016-10-18 11:12] VITALS: RESP 18
[2016-10-18] MEDS: Lactated Ringer's 1,000 ML IV ONE (13:10)
[2016-10-18] MEDS: metroNIDAZOLE 500mg/100ml NS IVPB ONE (13:15)
[2016-10-18] MEDS: Lidocaine 1% Inj (20ml) IJ ONE ×2 (13:32)
[2016-10-18] MEDS ORDERED: Lactated Ringer's 1,000 ML IV SCH (14:15)
--- NOTE | 2016-10-18 14:52 | RAD ---
PROCEDURE: CHEST RADIOGRAPH, 1 VIEW HISTORY: s/p Portacath COMPARISON: 10/07/2016 FINDINGS: The left MediPort terminates at the cavoatrial junction. LUNGS: This patient rotation to the left. There is an apparent 8 mm nodule in the right upper lobe. There are tiny nodular opacities in the left upper lobe. PLEURA: There are bilateral pleural effusions, larger on the right. No pneumothorax. CARDIOVASCULAR: Normal. OSSEOUS STRUCTURES: No significant abnormalities. VISUALIZED UPPER ABDOMEN: Normal. OTHER FINDINGS: None. IMPRESSION: The left MediPort terminates at the cavoatrial junction. Bilateral pleural effusions, larger on the right. No nodules in upper lobes, the largest in the right upper lobe measures 8 mm.
--- NOTE | 2016-10-18 15:01 | RAD ---
PROCEDURE: Fluoroscopy up to 1 hr. HISTORY: LIFE PORT COMPARISON: None TECHNIQUE: Standard protocol for this study/examination. FINDINGS: Total fluoroscopic time (continuous mode) utilized during the procedure: 3.9 seconds. IMPRESSION: Less than 1 hr fluoroscopic time utilized during performance of the procedure.
--- NOTE | 2016-10-18 15:03 | OP ---
PROCEDURE DATE: 10/18/2016 PREOPERATIVE DIAGNOSIS: Colon cancer. POSTOPERATIVE DIAGNOSIS: Colon cancer. PROCEDURE: Insertion of the Port-A-Cath under fluoroscopic guidance. SURGEON: Armando Vazquez MD HEAT TREATING FURNACE TENDER: Rudy ANESTHESIA: Local with sedation. INTRAVENOUS FLUIDS: Crystalloids. ESTIMATED BLOOD LOSS: 2 mL. INTRAOPERATIVE FINDINGS: Satisfactory placement of the port on fluoroscopy as well as good flush of the port. SPECIMEN: None. BRIEF HISTORY: The patient is a very pleasant 71-year-old gentleman who initially presented to the [facility] complaining of abdominal pain and upon further investigation and exploratory laparotomy, tariq ent was found to have a perforated cecal mass and had peritonitis during the exploration. Postoperat fani course was uncomplicated and the pathology came back as adenocarcinoma of the colon, so patient i s in need of chemotherapy. Hence, the need for insertion of a Port-A-Cath. All the risks and benefi ts of the procedure were explained to the patient and with the patient having a full understanding of all the risks and benefits involved, informed consent was obtained and patient was taken to the oper ating room for above stated procedure. DESCRIPTION OF PROCEDURE: The patient was brought into the operating room and placed supine on the o perating table. Bilateral Flowtron boots were applied to patient's lower extremities. After success ful sedation by the anesthesia team, a shoulder roll was placed under the patient's shoulders and sub sequent to that, patient's upper chest was shaved and prepped with ChloraPrep stick and draped in the standard surgical fashion. Prior to the beginning of the procedure, timeout was called in the room and everyone in the room were in agreement. Using a syringe with the needle, left subclavian vein wa s cannulated. Subsequent to that, guidewire was inserted into the patient. At that point in time, f luoroscopy C-arm was asked to come into the field and a fluoro spot was taken. The guidewire appeare d to go into the superior vena cava. Once this was accomplished, the guidewire was clamped to the dr yang and our attention was turned to the area for the pocket. The area was marked approximately 2 cm below the stick of the subclavian vein and subsequent to that, using 10 mL of lidocaine anesthetic, t he area was infiltrated with local anesthetic and subsequent to that, using a 15 blade scalpel knife, an approximately a 2.5 cm incision was made in a transverse fashion and subsequent to that, dissecti on was carried down with electrical cautery until pectoral fascia was visualized. Once this was acco mplished, using blunt dissection with a finger, the pocket was created inferiorly right on top of the pectoral fascia. Once that was accomplished and hemostasis was achieved with electrical cautery, ou r attention was turned to the port. Tubing was connected to the port and the locking mechanism was l ocked in place to the port, securing the tube. At that point in time, the port was flushed with hepa rinized saline and a tunneler was attached to the end of the tubing. Using a 15 blade scalpel knife, approximately a 5 mm shayy was made in the skin right along the guidewire and subsequent to that, the tunneler was tunneled under the skin through the pocket towards the area of the guidewire. Once thi s was accomplished, the proper distance was measured on the tubing and the fluoroscopy C-arm was aske d to come into the field again and a fluoro spot was taken. At that point in time, the tubing was sc arred with a suture scissor and once this was accomplished, the introducer sheath was introduced into the patient over the guidewire. At that point in time, the guidewire with the portion of the introd ucer sheath was removed from the patient and passed off to the Pierre stand. At that point in time, th e tubing for the Port-A-Cath was introduced into the sheath and the sheath was broken and essentially tubing was completely inserted into the patient and the 2 ends of the introducer sheath were passed off to the Pierre stand. Once this was accomplished, fluoroscopy C-arm was asked to come into the view 1 more time and 2 fluoro spots were taken, 1 showing no kinking in the tubing and another one showin g the termination of the tubing in the superior vena cava. Once this was accomplished, the wound was closed with deep dermal suture with 3-0 Vicryl suture in a running fashion and subsequent to that, s kin was closed with 4-0 Monocryl suture in a running subcuticular fashion. At the end of the procedu re, the port was cannulated and good return of the blood and flushing of the port was observed. Once this was accomplished, the patient's chest was washed and dried and a Dermabond was applied to the i ncision sites. The patient was successfully transferred to the stretcher and taken to the recovery r oom in a stable condition. At the end of the procedure, all instrument counts, needles and sponges w ere correct. Armando Vazquez MD cc: [id number] TT: 10/18/2016 15:02:50 en
[2016-10-18 15:13] VITALS: BP 139/91; PULSE 89; TEMP 97.8
[2016-10-18 15:15] VITALS: O2SAT 94
== END 2016-10-18 15:50 ==
LOC: H.OPSURG 09:04
PROVIDERS: ATTEND Surgery
DX: C19 Malignant neoplasm of rectosigmoid junction (principal)
CPT/HCPCS: 36561; 71010; C1769; C1788; J0690; J1644; J7040; J7120

== ENCOUNTER 2018-01-22 17:56 | Inpatient (IN) | payer MEDICARE ==
[2018-01-22 17:57] VITALS: BMI 22.2
[2018-01-22] MEDS ORDERED: Sodium Chloride 0.9% 1,000 ML IV STA (18:45)
--- NOTE | 2018-01-22 19:02 | ED PDOC ---
HPI: General Adult Time Seen by Provider: 01/22/18 18:20 Chief Complaint (Nursing): Abnormal Labs Chief Complaint (Provider): Abnormal Labs History Per: Patient History/Exam Limitations: no limitations Onset/Duration Of Symptoms: Days (x 1) Current Symptoms Are (Timing): Still Present Recently: Treated By A Physician Additional Complaint(s): 72 year old male with a history of colon cancer presents to the ED with abnormal labs and white stool that began several days ago.. Patient had blood drawn today that revealed elevated total bilirubin levels. He was advised to come to the ED by Dr. Sanchez. His most recent PET scan show metastasis to lungs and abdomen. Patient received Avastin treatment this morning. Denies abdominal pain, nausea, vomiting and fever. PMD: Dr. Houser Surgeon: Dr. Romero Hemo-onc: Dr. Reyes Sanchez Past Medical History Reviewed: Historical Data, Nursing Documentation, Vital Signs Vital Signs: Last Vital Signs Temp 97.4 F L 01/23/18 16:19 Pulse 55 L 01/23/18 16:19 Resp 18 01/23/18 16:19 BP 143/81 01/23/18 16:19 Pulse Ox 98 01/23/18 16:19 - Medical History PMH: HTN Denies: Chronic Kidney Disease Other PMH: colon CA - Surgical History Surgical History: Hernia Repair (b/l inguinal ) - Family History Family History: States: Unknown Family Hx - Home Medications Home Medications: Ambulatory Orders Medication Instructions Recorded Enalapril Maleate [Vasotec] 10 mg PO DAILY 10/18/16 - Allergies Allergies/Adverse Reactions: Allergies Allergy/AdvReac Type Severity Reaction Status Date / Time No Known Allergies Allergy Verified 10/05/16 23:30 Review of Systems ROS Statement: Except As Marked, All Systems Reviewed And Found Negative Gastrointestinal: Positive for: Other (white stool). Negative for: Nausea, Vomiting, Abdominal Pain Physical Exam - Reviewed Nursing Documentation Reviewed: Yes Vital Signs Reviewed: Yes - Physical Exam Appears: Positive for: No Acute Distress Head Exam: Positive for: ATRAUMATIC, NORMAL INSPECTION, NORMOCEPHALIC Skin: Positive for: Warm, Dry, Jaundice Eye Exam: Positive for: Scleral icterus Neck: Positive for: Normal, Painless ROM, Supple Cardiovascular/Chest: Positive for: Regular Rate, Rhythm. Negative for: Murmur Respiratory: Positive for: Normal Breath Sounds. Negative for: Respiratory Distress Gastrointestinal/Abdominal: Positive for: Normal Exam, Soft. Negative for: Tenderness Neurologic/Psych: Positive for: Alert, Oriented. Negative for: Motor/Sensory Deficits - Laboratory Results Result Diagrams: 01/23/18 05:50 01/23/18 05:50 - ECG O2 Sat by Pulse Oximetry: 98 (RA) Pulse Ox Interpretation: Normal Medical Decision Making Medical Decision Making: Time: 18:35 --Spoke to Dr. Reyes Sanchez. He reports patient was [id number] to have another chemotherapy treatment tomorrow but it will now be put on hold for treatment of these symptoms. --Dr. Sanchez recommends labs and CT and will be updated with results. Time: 18:41 Initial Plan: --Abd & Pelvis CT --EKG --CMP --Lipase --Urine dip --CBC --PTT --Prothrombin --NS IV 125 mls/hr --UA ---- Scribe Attestation: Documented by Cintia Whitmore, acting as a scribe for Larisa Nelson MD Provider Scribe Attestation: All medical record entries made by the Scribe were at my direction and personally dictated by me. I have reviewed the chart and agree that the record accurately reflects my personal performance of the history, physical exam, medical decision making, and the department course for this patient. I have also personally directed, reviewed, and agree with the discharge instructions and disposition. Disposition - Clinical Impression Clinical Impression: Jaundice, Biliary disease - Patient ED Disposition Is Patient to be Admitted: Transfer of Care - Disposition Disposition: Transfer of Care Disposition Time: 19:00 Condition: SERIOUS Patient Signed Over To: Doug Mendosa Handoff Comments: pending Ct and reeval
--- NOTE | 2018-01-22 19:26 | ED PDOC ---
- Laboratory Results Result Diagrams: 01/22/18 19:42 01/22/18 19:42 - ECG O2 Sat by Pulse Oximetry: 98 (RA) Pulse Ox Interpretation: Normal Medical Decision Making Medical Decision Making: time; 19:00 --care endorsed to this provider by Dr. Nelson pending CT and reevaluation. Time; 22:25 CT FINDINGS: Lung bases: Multiple cavitary nodules are noted in the lung bases. ABDOMEN: Liver: gallbladder and bile ducts: Moderate intrahepatic biliary duct dilation. Common bile duct is dilated measuring up to 1.8 cm. Gallbladder is distended and fluid-filled. No calcified stones. Pancreas: Unremarkable. No ductal dilation. Spleen: Unremarkable. Adrenals: Left adrenal thickening. Kidneys and ureters: 1.4 cm hypodensity in the lower pole of the right kidney. No hydronephrosis. Stomach and bowel: Bowel anastomosis is noted in the right upper quadrant. Stool is present throughout the colon and rectum, correlate with history of constipation.Scattered diverticulosis of the colon. No evidence of diverticulitis. Ventral hernia containing segments of nondilated bowel. PELVIS: Appendix: No findings to suggest acute appendicitis. Bladder: Urinary bladder is partially contracted with apparent wall thickening, probably exaggerated by under distention. Correlate for possible cystitis. Reproductive: Enlarged prostate ABDOMEN and PELVIS: Intraperitoneal space: Trace amount of fluid is noted in the bilateral lower quadrants. No free air. Bones/joints: Osteopenia. Spondylosis. No acute fracture. No dislocation. Soft tissues: See above. Vasculature: Atherosclerotic calcifications. No abdominal aortic aneurysm. Lymph nodes: Subcentimeter in short axis retroperitoneal lymph nodes are noted. IMPRESSION: 1. Moderate intrahepatic biliary duct dilation. Common bile duct is dilated measuring up to 1.8 cm. 2. 1.4 cm hypodensity in the lower pole of the right kidney. 3. Bowel anastomosis is noted in the right upper quadrant. Stool is present throughout the colon and rectum, correlate with history of constipation.Scattered diverticulosis of the colon. No evidence of diverticulitis. 4. Urinary bladder is partially contracted with apparent wall thickening, probably exaggerated by under distention. Correlate for possible cystitis. 5. Multiple cavitary nodules are noted in the lung bases. Differential considerations include malignancy/metastatic disease versus other etiologies including infectious process versus septic emboli. Time; 22:30 --Gallbladder US Time: 23:53 --US RUQ FINDINGS: Liver: Intrahepatic ductal dilatation Gallbladder: Sludge is identified in the gallbladder. Common bile duct: There is intrahepatic and more prominent extrahepatic ductal dilatation noted as seen on the earlier CT would be distal duct measuring up to 1.6 cm. Findings are concerning for obstructive process. There are multiple pulmonary masses as noted on the earlier CT. Rule out neoplasm. Pancreas: Visualized pancreas is unremarkable. Right kidney: Normal. No mass. No hydronephrosis. IMPRESSION: There is intrahepatic and more prominent extrahepatic ductal dilatation noted as seen on the earlier CT would be distal duct measuring up to 1.6 cm. Findings are concerning for obstructive process. There are multiple pulmonary masses as noted on the earlier CT. Rule out neoplasm. Case was discussed with Dr. Reyes Sanchez who agrees with management. Case was discussed with Dr. Herring, GI fellow under Dr. Smith's service, who agrees to consultation, states that patient will need MCRCP tomorrow, recommends antibiotics and NPO after midnight. Spoke with Dr. Leggett who agrees with management. Spoke with Dr. Faizan Yates who accepts patient. All information was relayed to patient who understands the plan. ---- Scribe Attestation: Documented by Cintia Whitmore, acting as a scribe for Doug Mendosa MD Provider Scribe Attestation: All medical record entries made by the Scribe were at my direction and personally dictated by me. I have reviewed the chart and agree that the record accurately reflects my personal performance of the history, physical exam, medical decision making, and the department course for this patient. I have also personally directed, reviewed, and agree with the discharge instructions and disposition. Disposition - Clinical Impression Clinical Impression: Jaundice, Biliary disease - POA Present On Arrival: None - Disposition Disposition: Admitted as In-Patient Disposition Time: 23:30 Condition: SERIOUS
[2018-01-22 19:45] LABS: SQUAMOUS EPITHIAL < 1 /hpf (0-5); URINE AMORPHOUS SEDIMENT RARE /ul (<OCC); URINE BACTERIA RARE (<OCC); URINE BILIRUBIN NEGATIVE (NEGATIVE); URINE BLOOD NEGATIVE (NEGATIVE); URINE CLARITY SLIGHTY-CLOUDY (Clear); URINE COLOR AMBER (YELLOW); URINE GLUCOSE (UA) 150 mg/dL (Normal); URINE LEUKOCYTE ESTERASE NEG Leu/uL (Negative); URINE PROTEIN NEGATIVE (NEGATIVE); URINE UROBILINOGEN 0.2-1.0 mg/dL (0.2-1.0)
[2018-01-22 20:04] LABS: BASO % 0.8 % (0.0-2.0); EOS % 0.1 % (0.0-4.0); LYMPH # 0.3 K/uL (1.0-4.3); MEAN CELL VOLUME 96.2 fl (80.0-94.0); MEAN CORPUSCULAR HEMOGLOBIN 33.2 pg (27.0-31.0); MEAN CORPUSCULAR HGB CONC 34.5 g/dL (33.0-37.0); MEAN PLATELET VOLUME 7.3 fl (7.2-11.7); MONO # 0.2 K/uL (0.0-0.8); MONO % 4.8 % (0.0-10.0); NEUT # 3.3 K/uL (1.8-7.0); NEUT % 85.3 % (50.0-75.0); PLATELET COUNT 352 K/uL (130-400); RBC 4.22 Mil/uL (4.40-5.90); WHITE BLOOD COUNT 3.9 K/uL (4.8-10.8)
[2018-01-22 20:17] LABS: ALB/GLOB RATIO 1.1 (1.0-2.1); ALBUMIN 4.3 g/dL (3.5-5.0); CALCIUM 9.6 mg/dL (8.4-10.2); GFR AFRICAN-AMERICAN > 60; GFR NON-AFRICAN AMERICAN > 60; LIPASE 17 U/L (23-300)
[2018-01-22 20:30] LABS: ALT/SGPT 336 U/L (21-72); AST/SGOT 179 U/L (17-59); BLOOD UREA NITROGEN 10 mg/dl (9-20)
[2018-01-22 21:04] LABS: BASOPHIL 2 % (0-2); LYMPHOCYTE 15 % (20-50); MONOCYTE 4 % (0-10); NEUTROPHIL 79 % (42-75); PLATELET ESTIMATE NORMAL (NORMAL); TOTAL CELLS COUNTED 100
[2018-01-22 21:05] LABS: PROTHROMBIN TIME 11.8 Seconds (9.8-13.1)
[2018-01-22 21:06] LABS: INR 1.1 (0.9-1.2); PARTIAL THROMBOPLASTIN TIME 30.9 Seconds (25.6-37.1)
[2018-01-22] MEDS ORDERED: Sodium Chloride 0.9% 50 ML IV ONE (21:21)
[2018-01-22] MEDS ORDERED: Iohexol 300 100 ML IJ ONE (21:21)
[2018-01-22 22:48] LABS: BILIRUBIN,DIRECT 5.3 mg/ml (0.0-0.4)
[2018-01-22] MEDS ORDERED: Piperacillin/Tazobact 3.375 GM in Sodium Chloride 0.9% 100 ML IVPB STA (23:33)
--- NOTE | 2018-01-22 23:54 | CP.PCM.HP ---
History of Present Illness - History of Present Illness History of Present Illness: CC: Jaundice/scleral icterus HPI: This is a 72 y/o male with MHx significant for HTN and for colon cancer s/ p surgery and for which he is getting chemotherapy currently. He states that he has had some intermittent abd pain (though L sided) for several days. However, since yesterday, he has become more jaundiced. He went in for chemotherapy today , and after being noted to be significantly jaundiced, was sent to the ER. He denies f/c/n/v/d. Denies any current abd pain. PCP: Betsey ROS: 14 systems reviewed, negative other than HPI MHx: HTN, Colon ca SHx: Colon ca surgery Allergies: NKDA Medications: Per med rec Family Hx: reviewed, no relevant fidnings Social Hx: Lives with family, no tobacco or EtOH Surrogate Dec Mkr: Son, info on chart Present on Admission - Present on Admission Any Indicators Present on Admission: No Past Patient History - Past Medical History & Family History Past Medical History?: Yes - Past Social History Smoking Status: Former Smoker - CARDIAC Hx Hypertension: Yes - NEUROLOGICAL Hx Neurological Disorder: No - HEENT Hx HEENT Problems: No - RENAL Hx Chronic Kidney Disease: No - ENDOCRINE/METABOLIC Hx Endocrine Disorders: No - HEMATOLOGICAL/ONCOLOGICAL Hx Blood Disorders: No - INTEGUMENTARY Hx Dermatological Problems: No - MUSCULOSKELETAL/RHEUMATOLOGICAL Hx Musculoskeletal Disorders: No Hx Falls: Yes - GASTROINTESTINAL Hx Gastrointestinal Disorders: No Hx Bowel Surgery: Yes - GENITOURINARY/GYNECOLOGICAL Hx Genitourinary Disorders: No - PSYCHIATRIC Hx Emotional Abuse: No Hx Physical Abuse: No Hx Substance Use: No - SURGICAL HISTORY Hx Surgeries: Yes Hx Herniorrhaphy: Yes (Bilateral inguinal) - ANESTHESIA Hx Anesthesia: Yes Hx Anesthesia Reactions: No Hx Malignant Hyperthermia: No Meds Allergies/Adverse Reactions: Allergies Allergy/AdvReac Type Severity Reaction Status Date / Time No Known Allergies Allergy Verified 10/05/16 23:30 Physical Exam - Constitutional Appears: No Acute Distress, Chronically Ill - Head Exam Head Exam: ATRAUMATIC, NORMOCEPHALIC - Eye Exam Eye Exam: EOMI, PERRL Additional comments: scleral icterus - ENT Exam ENT Exam: Mucous Membranes Moist - Neck Exam Neck exam: Positive for: Full Rom - Respiratory Exam Respiratory Exam: Clear to Auscultation Bilateral, NORMAL BREATHING PATTERN - Cardiovascular Exam Cardiovascular Exam: REGULAR RHYTHM, +S1, +S2 - GI/Abdominal Exam GI & Abdominal Exam: Normal Bowel Sounds, Soft - Extremities Exam Extremities exam: Positive for: full ROM, normal inspection - Neurological Exam Neurological exam: Alert, CN II-XII Intact, Oriented x3 - Psychiatric Exam Psychiatric exam: Normal Affect, Normal Mood - Skin Skin Exam: Dry, Warm Additional comments: jaundice Results - Vital Signs Recent Vital Signs: Last Vital Signs Temp 97.6 F 01/22/18 17:59 Pulse 88 01/22/18 17:59 Resp 16 01/22/18 17:59 BP 148/96 H 01/22/18 17:59 Pulse Ox 98 01/22/18 22:42 - Labs Result Diagrams: 01/22/18 19:42 01/22/18 19:42 Labs: Laboratory Results - last 24 hr 01/22/18 01/22/18 01/22/18 19:31 19:42 19:42 WBC 3.9 L RBC 4.22 L Hgb 14.0 Hct 40.6 MCV 96.2 H MCH 33.2 H MCHC 34.5 RDW 15.0 H Plt Count 352 MPV 7.3 Neut % (Auto) 85.3 H Lymph % (Auto) 9.0 L [place] % (Auto) 4.8 Eos % (Auto) 0.1 Baso % (Auto) 0.8 Neut # (Auto) 3.3 Lymph # (Auto) 0.3 L [place] # (Auto) 0.2 Eos # (Auto) 0.0 Baso # (Auto) 0.0 Neutrophils % (Manual) 79 H Lymphocytes % (Manual) 15 L Monocytes % (Manual) 4 Basophils % (Manual) 2 Platelet Estimate Normal RBC Morphology Normal PT INR APTT Sodium 130 L Potassium 4.9 Chloride 98 Carbon Dioxide 17 L Anion Gap 20 BUN 10 Creatinine 0.7 L Est GFR ( Amer) > 60 Est GFR (Non-Af Amer) > 60 Random Glucose 156 H Calcium 9.6 Total Bilirubin 7.0 H Direct Bilirubin 5.3 H AST 179 H D ALT 336 H D Alkaline Phosphatase 433 H D Total Protein 8.2 Albumin 4.3 Globulin 3.9 Albumin/Globulin Ratio 1.1 Lipase 17 L Urine Color [place] Urine Clarity Slighty-cloudy Urine pH 6.0 Ur Specific [place] 1.006 Urine Protein Negative Urine Glucose (UA) 150 Urine Ketones Negative Urine Blood Negative Urine Nitrate Negative Urine Bilirubin Negative Urine Urobilinogen 0.2-1.0 Ur Leukocyte Esterase Neg Urine RBC (Auto) 3 Urine Microscopic WBC 1 Ur Squamous Epith Cells < 1 Amorphous Sediment Rare H Urine Bacteria Rare 01/22/18 20:49 WBC RBC Hgb Hct MCV MCH MCHC RDW Plt Count MPV Neut % (Auto) Lymph % (Auto) [place] % (Auto) Eos % (Auto) Baso % (Auto) Neut # (Auto) Lymph # (Auto) [place] # (Auto) Eos # (Auto) Baso # (Auto) Neutrophils % (Manual) Lymphocytes % (Manual) Monocytes % (Manual) Basophils % (Manual) Platelet Estimate RBC Morphology PT 11.8 INR 1.1 APTT 30.9 Sodium Potassium Chloride Carbon Dioxide Anion Gap BUN Creatinine Est GFR ( Amer) Est GFR (Non-Af Amer) Random Glucose Calcium Total Bilirubin Direct Bilirubin AST ALT Alkaline Phosphatase Total Protein Albumin Globulin Albumin/Globulin Ratio Lipase Urine Color Urine Clarity Urine pH Ur Specific [place] Urine Protein Urine Glucose (UA) Urine Ketones Urine Blood Urine Nitrate Urine Bilirubin Urine Urobilinogen Ur Leukocyte Esterase Urine RBC (Auto) Urine Microscopic WBC Ur Squamous Epith Cells Amorphous Sediment Urine Bacteria - Imaging and Cardiology CT scan - abdomen Status: Report reviewed by me (bile duct dilation, ) Assessment & Plan (1) Acalculous cholecystitis Assessment and Plan: 72 y/o male currently on chemotherapy for colon cancer who presents with jaundice/icterus, elevated bilirubin, and possibly radiographic evidence of acalculous cholecystitis. 1) Acalculous cholecystitis/elevated bili/jaundice -NPO, IVF -MRCP in AM -Cont Zosyn IV q6h -Heme Onc ([place]) consult in AM -GI ([facility]) consult in AM 2) HTN -- cont home medications 3) Electrolyte abn -- Hypo Na, Hypo Cl -IVF o/n 4) DVT PPx -- SCDs Status: Acute (2) Elevated bilirubin Status: Acute (3) Electrolyte abnormality Status: Acute (4) HTN (hypertension) Status: Chronic (5) DVT prophylaxis Status: Acute
[2018-01-23] MEDS ORDERED: Lactated Ringer's 1,000 ML IV SCH (00:15)
[2018-01-23] MEDS ORDERED: Piperacillin/Tazobact 3.375 gm Inj IVPB ONE (00:32)
[2018-01-23] MEDS ORDERED: Piperacillin/Tazobact 3.375 GM in Sodium Chloride 0.9% 100 ML IVPB SCH (04:00)
[2018-01-23] MEDS: Piperacillin/Tazobact 3.375 GM in Sodium Chloride 0.9% 100 ML IVPB SCH ×3 (06:15→17:20)
[2018-01-23 06:55] LABS: HEMOGLOBIN 13.5 g/dL (12.0-18.0); MEAN CELL VOLUME 95.9 fl (80.0-94.0); MEAN CORPUSCULAR HEMOGLOBIN 33.3 pg (27.0-31.0); MEAN CORPUSCULAR HGB CONC 34.7 g/dL (33.0-37.0); RBC 4.07 Mil/uL (4.40-5.90); RED CELL DISTRIBUTION WIDTH 15.4 % (11.5-14.5); WHITE BLOOD COUNT 8.5 K/uL (4.8-10.8)
[2018-01-23 07:04] LABS: ALB/GLOB RATIO 1.1 (1.0-2.1); ALBUMIN 3.8 g/dL (3.5-5.0); ALT/SGPT 323 U/L (21-72); AST/SGOT 146 U/L (17-59); BLOOD UREA NITROGEN 11 mg/dl (9-20); CALCIUM 9.5 mg/dL (8.4-10.2); GFR AFRICAN-AMERICAN > 60; GFR NON-AFRICAN AMERICAN > 60
--- NOTE | 2018-01-23 07:55 | CP.PCM.CON ---
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 HE HAS BEEN UNDERGOING CHEMOTHERAPY FOR THE PAST YEAR. HE HAS BEEN HAVING SOME ABDOMINAL PAIN LATELY AND HAD CHEMOTHERAPY YESTERDAY AND WAS ADVISED TO GO TO THE ER DUE TO JAUNDICE. HE WILL UNDERGO AN MRCP TODAY. I WAS CALLED TO SEE AND FOLLOW THE PATIENT ON THIS ADMISSION. Past Patient History - Past Medical History & Family History Past Medical History?: Yes - Past Social History Smoking Status: Former Smoker - CARDIAC Hx Cardiac Disorders: Yes Hx Hypertension: Yes - PULMONARY Hx Respiratory Disorders: No - NEUROLOGICAL Hx Neurological Disorder: No - HEENT Hx HEENT Problems: Yes Other/Comment: Use Eyeglasses. Uses hearing aid both ears - RENAL Hx Chronic Kidney Disease: No - ENDOCRINE/METABOLIC Hx Endocrine Disorders: No - HEMATOLOGICAL/ONCOLOGICAL Hx Blood Disorders: No - INTEGUMENTARY Hx Dermatological Problems: No - MUSCULOSKELETAL/RHEUMATOLOGICAL Hx Musculoskeletal Disorders: No Hx Falls: No - GASTROINTESTINAL Hx Gastrointestinal Disorders: Yes Hx Bowel Surgery: Yes (September 2016) - GENITOURINARY/GYNECOLOGICAL Hx Genitourinary Disorders: No - PSYCHIATRIC Hx Psychophysiologic Disorder: No Hx Substance Use: No - SURGICAL HISTORY Hx Surgeries: Yes Hx Herniorrhaphy: Yes (Bilateral inguinal) - ANESTHESIA Hx Anesthesia: Yes Hx Anesthesia Reactions: No Hx Malignant Hyperthermia: No Has any member of the family had a problem w/ anesthesia?: No Meds Allergies/Adverse Reactions: Allergies Allergy/AdvReac Type Severity Reaction Status Date / Time No Known Allergies Allergy Verified 10/05/16 23:30 - Medications Medications: Current Medications Enalapril Maleate (Vasotec) 10 mg PO DAILY LOREN Famotidine (Pepcid) 20 mg PO BID LOREN Lactated Ringer's (Lactated Ringer's) 1,000 mls @ 100 mls/hr IV .Q10H LOREN Stop: 01/23/18 10:14 Last Admin: 01/23/18 01:01 Dose: 100 mls/hr Piperacillin Sod/Tazobactam (Sod 3.375 gm/ Sodium Chloride) 100 mls @ 100 mls/ hr IVPB Q6H LOREN PRN Reason: Protocol Last Admin: 01/23/18 06:15 Dose: 100 mls/hr Metoprolol Tartrate (Lopressor) 25 mg PO Q12 LOREN Ondansetron HCl (Zofran Inj) 4 mg IVP Q6 PRN PRN Reason: Nausea/Vomiting Physical Exam - Respiratory Exam Respiratory Exam: Clear to Auscultation Bilateral - Cardiovascular Exam Cardiovascular Exam: REGULAR RHYTHM, +S1, +S2 - GI/Abdominal Exam Additional comments: SOFT BS PRESENT MILD TENDERNESS - Additional Findings Additional findings: EKG NSR(READ MACHINE OLD IWMI BUT THE PATIENT NEVER HAD AN VT AND THESE ARE OLD FINGINGS) LFT ABNORMAL Results - Vital Signs Recent Vital Signs: Last Vital Signs Temp 97.4 F L 01/23/18 02:05 Pulse 82 01/23/18 02:05 Resp 18 01/23/18 02:05 BP 152/92 H 01/23/18 02:05 Pulse Ox 98 01/23/18 03:44 - Labs Result Diagrams: 01/23/18 05:50 01/23/18 05:50 Labs: Laboratory Results - last 24 hr 01/22/18 01/22/18 01/22/18 19:31 19:42 19:42 WBC 3.9 L RBC 4.22 L Hgb 14.0 Hct 40.6 MCV 96.2 H MCH 33.2 H MCHC 34.5 RDW 15.0 H Plt Count 352 MPV 7.3 Neut % (Auto) 85.3 H Lymph % (Auto) 9.0 L [place] % (Auto) 4.8 Eos % (Auto) 0.1 Baso % (Auto) 0.8 Neut # (Auto) 3.3 Lymph # (Auto) 0.3 L [place] # (Auto) 0.2 Eos # (Auto) 0.0 Baso # (Auto) 0.0 Neutrophils % (Manual) 79 H Lymphocytes % (Manual) 15 L Monocytes % (Manual) 4 Basophils % (Manual) 2 Platelet Estimate Normal RBC Morphology Normal PT INR APTT Sodium 130 L Potassium 4.9 Chloride 98 Carbon Dioxide 17 L Anion Gap 20 BUN 10 Creatinine 0.7 L Est GFR ( Amer) > 60 Est GFR (Non-Af Amer) > 60 Random Glucose 156 H Calcium 9.6 Total Bilirubin 7.0 H Direct Bilirubin 5.3 H AST 179 H D ALT 336 H D Alkaline Phosphatase 433 H D Total Protein 8.2 Albumin 4.3 Globulin 3.9 Albumin/Globulin Ratio 1.1 Lipase 17 L Urine Color [place] Urine Clarity Slighty-cloudy Urine pH 6.0 Ur Specific [place] 1.006 Urine Protein Negative Urine Glucose (UA) 150 Urine Ketones Negative Urine Blood Negative Urine Nitrate Negative Urine Bilirubin Negative Urine Urobilinogen 0.2-1.0 Ur Leukocyte Esterase Neg Urine RBC (Auto) 3 Urine Microscopic WBC 1 Ur Squamous Epith Cells < 1 Amorphous Sediment Rare H Urine Bacteria Rare 01/22/18 01/23/18 01/23/18 20:49 05:50 05:50 WBC 8.5 D RBC 4.07 L Hgb 13.5 Hct 39.0 MCV 95.9 H MCH 33.3 H MCHC 34.7 RDW 15.4 H Plt Count 382 MPV Neut % (Auto) Lymph % (Auto) [place] % (Auto) Eos % (Auto) Baso % (Auto) Neut # (Auto) Lymph # (Auto) [place] # (Auto) Eos # (Auto) Baso # (Auto) Neutrophils % (Manual) Lymphocytes % (Manual) Monocytes % (Manual) Basophils % (Manual) Platelet Estimate RBC Morphology PT 11.8 INR 1.1 APTT 30.9 Sodium 130 L Potassium 4.1 Chloride 99 Carbon Dioxide 19 L Anion Gap 16 BUN 11 Creatinine 0.6 L Est GFR ( Amer) > 60 Est GFR (Non-Af Amer) > 60 Random Glucose 102 Calcium 9.5 Total Bilirubin 6.7 H Direct Bilirubin AST 146 H ALT 323 H Alkaline Phosphatase 421 H Total Protein 7.4 Albumin 3.8 Globulin 3.6 Albumin/Globulin Ratio 1.1 Lipase Urine Color Urine Clarity Urine pH Ur Specific [place] Urine Protein Urine Glucose (UA) Urine Ketones Urine Blood Urine Nitrate Urine Bilirubin Urine Urobilinogen Ur Leukocyte Esterase Urine RBC (Auto) Urine Microscopic WBC Ur Squamous Epith Cells Amorphous Sediment Urine Bacteria Assessment & Plan - Assessment and Plan (Free Text) Assessment: COLON CANCER WITH METASTASIS INCLUDING THE LIVER NOW WITH ABDOMINAL PAIN, ELEVATED LFT AND JAUNDICE HYPERTENSION Plan: CONTINUE METOPROLOL AND ENALAPRIL FOR MRC PATIENT IS CLEARED FOR ANY GI PROCEDURE FROM THE CARDIAC VIEWPOINT
[2018-01-23] MEDS ORDERED: Sodium Chloride 3% for Inhalation 4 ML VIAL.NEB IH PRN (08:01)
--- NOTE | 2018-01-23 10:40 | CP.PCM.CON ---
Addendum entered and electronically signed by Jairo Russo DO 01/23/18 10:55: correction; neg scleral icteris, + jaundice Original Note: <Jairo Russo - Last Filed: 01/23/18 10:49> History of Present Illness - History of Present Illness History of Present Illness: PGY5 Initial GI Consult NOte Brent Genao is a 72M w/ hx of Stage 4 Colon cancer to the Lung, s/p right hemicolectomy, currently receiving chemotherapy who presents to the ER with complaints of juandice. Pt states that he has noticed his skin turning yellow for the past 1 week. He was concerned and came to the Er for further eval. Pt denies any hx of RUQ pain. He states that he had some LUQ pain, starting 1 week prior. He noted that the pain was non-radiating. Graded it a 1-2 out o 10. Denied any fever, chills or diaphoresis. Denies any nausea, vomiting or diarrhea. Tolerating food without difficulty. 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 Subsequently, underwent a right lucita colectomy. He notes that he finished 12 rounds of chemotherapt, but a later CT abd revealed lung lesions. As per pt, he is currently undergoing additional chemotherapy for his lung lesion. He was unaware of any hepatic mets. A Ct of the abd in the ER revealed dilated intrahepatic ducts and dilated CBD of 1.8cm. Past medical history: HTN Past surgical history: Inguinal hernia repair Past family history: Denies hematologic and oncologic problems Social history: Denies tobacco, alcohol, and illicit drug use. Endo hx; none ROS: 12 point ROS conducted, neg other than above Past Patient History - Past Medical History & Family History Past Medical History?: Yes - Past Social History Smoking Status: Former Smoker - CARDIAC Hx Cardiac Disorders: Yes Hx Hypertension: Yes - PULMONARY Hx Respiratory Disorders: No - NEUROLOGICAL Hx Neurological Disorder: No - HEENT Hx HEENT Problems: Yes Other/Comment: Use Eyeglasses. Uses hearing aid both ears - RENAL Hx Chronic Kidney Disease: No - ENDOCRINE/METABOLIC Hx Endocrine Disorders: No - HEMATOLOGICAL/ONCOLOGICAL Hx Blood Disorders: No - INTEGUMENTARY Hx Dermatological Problems: No - MUSCULOSKELETAL/RHEUMATOLOGICAL Hx Musculoskeletal Disorders: No Hx Falls: No - GASTROINTESTINAL Hx Gastrointestinal Disorders: Yes Hx Bowel Surgery: Yes (September 2016) - GENITOURINARY/GYNECOLOGICAL Hx Genitourinary Disorders: No - PSYCHIATRIC Hx Psychophysiologic Disorder: No Hx Substance Use: No - SURGICAL HISTORY Hx Surgeries: Yes Hx Herniorrhaphy: Yes (Bilateral inguinal) - ANESTHESIA Hx Anesthesia: Yes Hx Anesthesia Reactions: No Hx Malignant Hyperthermia: No Has any member of the family had a problem w/ anesthesia?: No Meds Allergies/Adverse Reactions: Allergies Allergy/AdvReac Type Severity Reaction Status Date / Time No Known Allergies Allergy Verified 10/05/16 23:30 - Medications Medications: Current Medications Enalapril Maleate (Vasotec) 10 mg PO DAILY [facility] Last Admin: 01/23/18 10:23 Dose: 10 mg Famotidine (Pepcid) 20 mg PO BID [facility] Last Admin: 01/23/18 10:23 Dose: 20 mg Piperacillin Sod/Tazobactam (Sod 3.375 gm/ Sodium Chloride) 100 mls @ 100 mls/ hr IVPB Q6H [facility] PRN Reason: Protocol Last Admin: 01/23/18 06:15 Dose: 100 mls/hr Metoprolol Tartrate (Lopressor) 25 mg PO Q12 [facility] Last Admin: 01/23/18 10:22 Dose: 25 mg Ondansetron HCl (Zofran Inj) 4 mg IVP Q6 PRN PRN Reason: Nausea/Vomiting Physical Exam - Constitutional Appears: Well, No Acute Distress - Head Exam Head Exam: ATRAUMATIC, NORMOCEPHALIC - Eye Exam Eye Exam: Normal appearance. absent: Scleral icterus - ENT Exam ENT Exam: Mucous Membranes Moist - Respiratory Exam Respiratory Exam: Clear to Auscultation Bilateral, NORMAL BREATHING PATTERN. absent: Rales, Rhonchi, Wheezes, Respiratory Distress - Cardiovascular Exam Cardiovascular Exam: REGULAR RHYTHM, +S1, +S2 - GI/Abdominal Exam GI & Abdominal Exam: Normal Bowel Sounds, Soft. absent: Distended, Firm, Guarding, Organomegaly, Rebound, Rigid, Tenderness - Extremities Exam Extremities exam: Negative for: joint swelling, pedal edema - Back Exam Back exam: NORMAL INSPECTION - Psychiatric Exam Psychiatric exam: Normal Affect, Normal Mood - Skin Skin Exam: Dry, Intact, Normal Color, Warm Results - Vital Signs Recent Vital Signs: Last Vital Signs Temp 97.4 F L 01/23/18 08:17 Pulse 69 07/11/18 08:17 Resp 19 01/23/18 08:17 BP 149/84 01/23/18 08:17 Pulse Ox 97 01/23/18 08:17 - Labs Result Diagrams: 01/23/18 05:50 01/23/18 05:50 Labs: Laboratory Results - last 24 hr 01/22/18 01/22/18 01/22/18 19:31 19:42 19:42 WBC 3.9 L RBC 4.22 L Hgb 14.0 Hct 40.6 MCV 96.2 H MCH 33.2 H MCHC 34.5 RDW 15.0 H Plt Count 352 MPV 7.3 Neut % (Auto) 85.3 H Lymph % (Auto) 9.0 L [place] % (Auto) 4.8 Eos % (Auto) 0.1 Baso % (Auto) 0.8 Neut # (Auto) 3.3 Lymph # (Auto) 0.3 L [place] # (Auto) 0.2 Eos # (Auto) 0.0 Baso # (Auto) 0.0 Neutrophils % (Manual) 79 H Lymphocytes % (Manual) 15 L Monocytes % (Manual) 4 Basophils % (Manual) 2 Platelet Estimate Normal RBC Morphology Normal PT INR APTT Sodium 130 L Potassium 4.9 Chloride 98 Carbon Dioxide 17 L Anion Gap 20 BUN 10 Creatinine 0.7 L Est GFR ( Amer) > 60 Est GFR (Non-Af Amer) > 60 Random Glucose 156 H Calcium 9.6 Total Bilirubin 7.0 H Direct Bilirubin 5.3 H AST 179 H D ALT 336 H D Alkaline Phosphatase 433 H D Total Protein 8.2 Albumin 4.3 Globulin 3.9 Albumin/Globulin Ratio 1.1 Lipase 17 L Urine Color [place] Urine Clarity Slighty-cloudy Urine pH 6.0 Ur Specific [place] 1.006 Urine Protein Negative Urine Glucose (UA) 150 Urine Ketones Negative Urine Blood Negative Urine Nitrate Negative Urine Bilirubin Negative Urine Urobilinogen 0.2-1.0 Ur Leukocyte Esterase Neg Urine RBC (Auto) 3 Urine Microscopic WBC 1 Ur Squamous Epith Cells < 1 Amorphous Sediment Rare H Urine Bacteria Rare 01/22/18 01/23/18 01/23/18 20:49 05:50 05:50 WBC 8.5 D RBC 4.07 L Hgb 13.5 Hct 39.0 MCV 95.9 H MCH 33.3 H MCHC 34.7 RDW 15.4 H Plt Count 382 MPV Neut % (Auto) Lymph % (Auto) [place] % (Auto) Eos % (Auto) Baso % (Auto) Neut # (Auto) Lymph # (Auto) [place] # (Auto) Eos # (Auto) Baso # (Auto) Neutrophils % (Manual) Lymphocytes % (Manual) Monocytes % (Manual) Basophils % (Manual) Platelet Estimate RBC Morphology PT 11.8 INR 1.1 APTT 30.9 Sodium 130 L Potassium 4.1 Chloride 99 Carbon Dioxide 19 L Anion Gap 16 BUN 11 Creatinine 0.6 L Est GFR ( Amer) > 60 Est GFR (Non-Af Amer) > 60 Random Glucose 102 Calcium 9.5 Total Bilirubin 6.7 H Direct Bilirubin AST 146 H ALT 323 H Alkaline Phosphatase 421 H Total Protein 7.4 Albumin 3.8 Globulin 3.6 Albumin/Globulin Ratio 1.1 Lipase Urine Color Urine Clarity Urine pH Ur Specific [place] Urine Protein Urine Glucose (UA) Urine Ketones Urine Blood Urine Nitrate Urine Bilirubin Urine Urobilinogen Ur Leukocyte Esterase Urine RBC (Auto) Urine Microscopic WBC Ur Squamous Epith Cells Amorphous Sediment Urine Bacteria Assessment & Plan - Assessment and Plan (Free Text) Assessment: Brent Genao is a 72M w/ hx of Stage 4 Colon cancer to the Lung, s/p right hemicolectomy, currently receiving chemotherapy who presents to the ER with complaints of juandice. Jaundice Dilated GB possible acalculois cholecystitis, r/o CBD stone elevated lfts, likely 2/2 above; r/o infectous and autoimmune etiology vs chemo induced hx of cecal colon cancer Plan: -MRCP pending -CT reviewed and read with Dr. Smith -continue diet as tolerated -will send for viral and autoimmune etiology -surgery on board -continue Iv abx as per primary team -next course of action pending MRCP -recommend hem/onc consult -D/W Dr. smith <Lurdes Smith - Last Filed: 01/23/18 14:10> Meds - Medications Medications: Current Medications Enalapril Maleate (Vasotec) 10 mg PO DAILY [facility] Last Admin: 01/23/18 10:23 Dose: 10 mg Famotidine (Pepcid) 20 mg PO BID [facility] Last Admin: 01/23/18 10:23 Dose: 20 mg Piperacillin Sod/Tazobactam (Sod 3.375 gm/ Sodium Chloride) 100 mls @ 100 mls/ hr IVPB Q6H [facility] PRN Reason: Protocol Last Admin: 01/23/18 12:14 Dose: 100 mls/hr Metoprolol Tartrate (Lopressor) 25 mg PO Q12 [facility] Last Admin: 01/23/18 10:22 Dose: 25 mg Ondansetron HCl (Zofran Inj) 4 mg IVP Q6 PRN PRN Reason: Nausea/Vomiting Results - Vital Signs Recent Vital Signs: Last Vital Signs Temp 97.4 F L 01/23/18 08:17 Pulse 69 01/23/18 08:17 Resp 19 01/23/18 08:17 BP 149/84 01/23/18 08:17 Pulse Ox 97 01/23/18 08:17 - Labs Result Diagrams: 01/23/18 05:50 01/23/18 05:50 Labs: Laboratory Results - last 24 hr 01/22/18 01/22/18 01/22/18 19:31 19:42 19:42 WBC 3.9 L RBC 4.22 L Hgb 14.0 Hct 40.6 MCV 96.2 H MCH 33.2 H MCHC 34.5 RDW 15.0 H Plt Count 352 MPV 7.3 Neut % (Auto) 85.3 H Lymph % (Auto) 9.0 L [place] % (Auto) 4.8 Eos % (Auto) 0.1 Baso % (Auto) 0.8 Neut # (Auto) 3.3 Lymph # (Auto) 0.3 L [place] # (Auto) 0.2 Eos # (Auto) 0.0 Baso # (Auto) 0.0 Neutrophils % (Manual) 79 H Lymphocytes % (Manual) 15 L Monocytes % (Manual) 4 Basophils % (Manual) 2 Platelet Estimate Normal RBC Morphology Normal PT INR APTT Sodium 130 L Potassium 4.9 Chloride 98 Carbon Dioxide 17 L Anion Gap 20 BUN 10 Creatinine 0.7 L Est GFR ( Amer) > 60 Est GFR (Non-Af Amer) > 60 Random Glucose 156 H Calcium 9.6 Total Bilirubin 7.0 H Direct Bilirubin 5.3 H AST 179 H D ALT 336 H D Alkaline Phosphatase 433 H D Total Protein 8.2 Albumin 4.3 Globulin 3.9 Albumin/Globulin Ratio 1.1 Lipase 17 L Urine Color [place] Urine Clarity Slighty-cloudy Urine pH 6.0 Ur Specific [place] 1.006 Urine Protein Negative Urine Glucose (UA) 150 Urine Ketones Negative Urine Blood Negative Urine Nitrate Negative Urine Bilirubin Negative Urine Urobilinogen 0.2-1.0 Ur Leukocyte Esterase Neg Urine RBC (Auto) 3 Urine Microscopic WBC 1 Ur Squamous Epith Cells < 1 Amorphous Sediment Rare H Urine Bacteria Rare 01/22/18 01/23/18 01/23/18 20:49 05:50 05:50 WBC 8.5 D RBC 4.07 L Hgb 13.5 Hct 39.0 MCV 95.9 H MCH 33.3 H MCHC 34.7 RDW 15.4 H Plt Count 382 MPV Neut % (Auto) Lymph % (Auto) [place] % (Auto) Eos % (Auto) Baso % (Auto) Neut # (Auto) Lymph # (Auto) [place] # (Auto) Eos # (Auto) Baso # (Auto) Neutrophils % (Manual) Lymphocytes % (Manual) Monocytes % (Manual) Basophils % (Manual) Platelet Estimate RBC Morphology PT 11.8 INR 1.1 APTT 30.9 Sodium 130 L Potassium 4.1 Chloride 99 Carbon Dioxide 19 L Anion Gap 16 BUN 11 Creatinine 0.6 L Est GFR ( Amer) > 60 Est GFR (Non-Af Amer) > 60 Random Glucose 102 Calcium 9.5 Total Bilirubin 6.7 H Direct Bilirubin AST 146 H ALT 323 H Alkaline Phosphatase 421 H Total Protein 7.4 Albumin 3.8 Globulin 3.6 Albumin/Globulin Ratio 1.1 Lipase Urine Color Urine Clarity Urine pH Ur Specific [place] Urine Protein Urine Glucose (UA) Urine Ketones Urine Blood Urine Nitrate Urine Bilirubin Urine Urobilinogen Ur Leukocyte Esterase Urine RBC (Auto) Urine Microscopic WBC Ur Squamous Epith Cells Amorphous Sediment Urine Bacteria Attending/Attestation - Attestation I have personally seen and examined this patient.: Yes I have fully participated in the care of the patient.: Yes I have reviewed all pertinent clinical information: Yes Notes (Text): 01/23/18 14:04 Patient seen with GI fellow on rounds this am. This is a 72 yr old M with history of Stage 4 Colon cancer mets to the Lung, s/p right hemicolectomy, currently receiving chemotherapy who presents to the ER with complaints of new onset jaundice, increased LFT and CT abdomen showing modertely dilated CBD and intrahepatic dilatation. Pending MRCP/ MRi to assess hilum lesion or CBd stone/ stricture. Diet as tolerated. Hematology note appreciated. Follow viral and autoimmune serologies. Surgery on board. Continue IV abx as per primary team
--- NOTE | 2018-01-23 11:03 | CT ---
Date of service: 01/22/2018 PROCEDURE: CT Abdomen and Pelvis with contrast HISTORY: Elevated bili, jaundice. History of colon cancer COMPARISON: Comparison is made with the previous study dated 10/23/2016 TECHNIQUE: Contrast dose: 95 cc of Omnipaque 300. Axial and reformatted coronal and sagittal CT images of the abdomen and pelvis were obtained after IV contrast administration. Radiation dose: Total exam DLP = 284.15 mGy-cm. This CT exam was performed using one or more of the following dose reduction techniques: Automated exposure control, adjustment of the mA and/or kV according to patient size, and/or use of iterative reconstruction technique. FINDINGS: LOWER THORAX: Interval worsening of lung metastasis with significant interval increase in the number and size of lung nodules since the previous exam. Some of the lung nodules are cavitary lesions. LIVER: No evidence of enhancing mass lesion in the liver. Interval appearance of moderate intrahepatic biliary ductal dilatation. GALLBLADDER AND BILE DUCTS: The gallbladder is mildly distended. The proximal portion of the common bile duct and main hepatic duct are also dilated. PANCREAS: No evidence of pancreatitis. The main pancreatic duct is not dilated. Fullness is noted in the pancreatic head. SPLEEN: Unremarkable. ADRENALS: There is 1.4 centimeter nodule at the left adrenal gland appears larger compared to the previous exam. The right adrenal gland is grossly unremarkable. KIDNEYS AND URETERS: The kidneys are enhancing symmetrically. Again seen is low-attenuation lesion at the midpole of the right kidney measures 1.5 centimeter. VASCULATURE: Unremarkable. No aortic aneurysm. BOWEL: There is no evidence of high-grade bowel obstruction. Again seen are diffuse distal large bowel diverticulosis. Diffuse wall thickening of the sigmoid colon is again noted. Mild small bowel wall thickening noted. Bowel anastomosis is again noted at the right upper abdomen. APPENDIX: No evidence of appendicitis. PERITONEUM: Unremarkable. No free fluid. No free air. LYMPH NODES: Epigastric and upper abdomen lymphadenopathy is again noted. BLADDER: [id number] urinary bladder wall thickening is noted. REPRODUCTIVE: The prostate is mildly enlarged. BONES: No acute fracture. OTHER FINDINGS: There is interval appearance of ventral hernia at the mid abdomen contains ante mesenteric portion of transverse colon without evidence of bowel incarceration or obstruction. IMPRESSION: Interval worsening of lung metastasis since the previous study. Interval appearance of multiple cavitary lesions in the lungs since the previous exam. Interval appearance of moderate intrahepatic biliary ductal dilatation and mild to moderate dilatation of the proximal and mid common bile duct. The possibility of distal common bile duct mass or stricture should be considered. Further assessment by MRCP is suggested. Interval appearance of ventral hernia at the mid abdomen contains the anti mesenteric wall of the transverse colon without evidence of bowel obstruction or incarceration. Upper abdomen lymphadenopathy. Mild to moderate urinary bladder wall thickening. Enlarged prostate. Preliminary report was submitted by [facility].
--- NOTE | 2018-01-23 11:09 | CARD ---
APPROVED REPORT Date of service: 01/22/2018 EKG Measurement Heart [id number] <Conclusion> Sinus tachycardia Possible Left atrial enlargement Right bundle branch block Inferior infarct, age undetermined Abnormal ECG
--- NOTE | 2018-01-23 11:27 | CP.PCM.CON ---
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 The patient has been receiving chemotherapy every 2 weeks with 5-Fluorouracil and Avastin. He presented for for his chemotherapy and was noted to be jaundiced and blood work revealed a tbili of 6.5. His 5-Fluorouracil was not given and told to come to the ER. He does have left sided abdominal pain which has been chronic for 1-2 weeks. He does note his stools have been pale colored. He denies fevers and chills. Past medical history: HTN Past surgical history: Inguinal hernia repair Past family history: Denies hematologic and oncologic problems Social history: Denies tobacco, alcohol, and illicit drug use. Allergies: NKA Review of systems: All remaining review of systems including HEENT, cardiovascular, respiratory, gastrointestinal, genitourinary, musculoskeletal, dermatologic, neurologic, and psychiatric are negative unless mentioned in the HPI. Past Patient History - Past Medical History & Family History Past Medical History?: Yes - Past Social History Smoking Status: Former Smoker - CARDIAC Hx Cardiac Disorders: Yes Hx Hypertension: Yes - PULMONARY Hx Respiratory Disorders: No - NEUROLOGICAL Hx Neurological Disorder: No - HEENT Hx HEENT Problems: Yes Other/Comment: Use Eyeglasses. Uses hearing aid both ears - RENAL Hx Chronic Kidney Disease: No - ENDOCRINE/METABOLIC Hx Endocrine Disorders: No - HEMATOLOGICAL/ONCOLOGICAL Hx Blood Disorders: No - INTEGUMENTARY Hx Dermatological Problems: No - MUSCULOSKELETAL/RHEUMATOLOGICAL Hx Musculoskeletal Disorders: No Hx Falls: No - GASTROINTESTINAL Hx Gastrointestinal Disorders: Yes Hx Bowel Surgery: Yes (September 2016) - GENITOURINARY/GYNECOLOGICAL Hx Genitourinary Disorders: No - PSYCHIATRIC Hx Psychophysiologic Disorder: No Hx Substance Use: No - SURGICAL HISTORY Hx Surgeries: Yes Hx Herniorrhaphy: Yes (Bilateral inguinal) - ANESTHESIA Hx Anesthesia: Yes Hx Anesthesia Reactions: No Hx Malignant Hyperthermia: No Has any member of the family had a problem w/ anesthesia?: No Meds Allergies/Adverse Reactions: Allergies Allergy/AdvReac Type Severity Reaction Status Date / Time No Known Allergies Allergy Verified 10/05/16 23:30 - Medications Medications: Current Medications Enalapril Maleate (Vasotec) 10 mg PO DAILY [facility] Last Admin: 01/23/18 10:23 Dose: 10 mg Famotidine (Pepcid) 20 mg PO BID [facility] Last Admin: 01/23/18 10:23 Dose: 20 mg Piperacillin Sod/Tazobactam (Sod 3.375 gm/ Sodium Chloride) 100 mls @ 100 mls/ hr IVPB Q6H [facility] PRN Reason: Protocol Last Admin: 01/23/18 06:15 Dose: 100 mls/hr Metoprolol Tartrate (Lopressor) 25 mg PO Q12 [facility] Last Admin: 01/23/18 10:22 Dose: 25 mg Ondansetron HCl (Zofran Inj) 4 mg IVP Q6 PRN PRN Reason: Nausea/Vomiting Physical Exam - Head Exam Head Exam: ATRAUMATIC - Eye Exam Eye Exam: Scleral icterus - ENT Exam ENT Exam: Mucous Membranes Dry - Respiratory Exam Respiratory Exam: NORMAL BREATHING PATTERN - Cardiovascular Exam Cardiovascular Exam: +S1, +S2 - GI/Abdominal Exam GI & Abdominal Exam: Normal Bowel Sounds - Extremities Exam Extremities exam: Positive for: normal inspection - Neurological Exam Neurological exam: Oriented x3 - Psychiatric Exam Psychiatric exam: Normal Affect, Normal Mood - Skin Skin Exam: Warm Results - Vital Signs Recent Vital Signs: Last Vital Signs Temp 97.4 F L 01/23/18 08:17 Pulse 69 01/23/18 08:17 Resp 19 01/23/18 08:17 BP 149/84 01/23/18 08:17 Pulse Ox 97 01/23/18 08:17 - Labs Result Diagrams: 01/24/18 05:35 01/24/18 05:35 Labs: Laboratory Results - last 24 hr 01/22/18 01/22/18 01/22/18 19:31 19:42 19:42 WBC 3.9 L RBC 4.22 L Hgb 14.0 Hct 40.6 MCV 96.2 H MCH 33.2 H MCHC 34.5 RDW 15.0 H Plt Count 352 MPV 7.3 Neut % (Auto) 85.3 H Lymph % (Auto) 9.0 L [place] % (Auto) 4.8 Eos % (Auto) 0.1 Baso % (Auto) 0.8 Neut # (Auto) 3.3 Lymph # (Auto) 0.3 L [place] # (Auto) 0.2 Eos # (Auto) 0.0 Baso # (Auto) 0.0 Neutrophils % (Manual) 79 H Lymphocytes % (Manual) 15 L Monocytes % (Manual) 4 Basophils % (Manual) 2 Platelet Estimate Normal RBC Morphology Normal PT INR APTT Sodium 130 L Potassium 4.9 Chloride 98 Carbon Dioxide 17 L Anion Gap 20 BUN 10 Creatinine 0.7 L Est GFR ( Amer) > 60 Est GFR (Non-Af Amer) > 60 Random Glucose 156 H Calcium 9.6 Total Bilirubin 7.0 H Direct Bilirubin 5.3 H AST 179 H D ALT 336 H D Alkaline Phosphatase 433 H D Total Protein 8.2 Albumin 4.3 Globulin 3.9 Albumin/Globulin Ratio 1.1 Lipase 17 L Urine Color [place] Urine Clarity Slighty-cloudy Urine pH 6.0 Ur Specific [place] 1.006 Urine Protein Negative Urine Glucose (UA) 150 Urine Ketones Negative Urine Blood Negative Urine Nitrate Negative Urine Bilirubin Negative Urine Urobilinogen 0.2-1.0 Ur Leukocyte Esterase Neg Urine RBC (Auto) 3 Urine Microscopic WBC 1 Ur Squamous Epith Cells < 1 Amorphous Sediment Rare H Urine Bacteria Rare 01/22/18 01/23/18 01/23/18 20:49 05:50 05:50 WBC 8.5 D RBC 4.07 L Hgb 13.5 Hct 39.0 MCV 95.9 H MCH 33.3 H MCHC 34.7 RDW 15.4 H Plt Count 382 MPV Neut % (Auto) Lymph % (Auto) [place] % (Auto) Eos % (Auto) Baso % (Auto) Neut # (Auto) Lymph # (Auto) [place] # (Auto) Eos # (Auto) Baso # (Auto) Neutrophils % (Manual) Lymphocytes % (Manual) Monocytes % (Manual) Basophils % (Manual) Platelet Estimate RBC Morphology PT 11.8 INR 1.1 APTT 30.9 Sodium 130 L Potassium 4.1 Chloride 99 Carbon Dioxide 19 L Anion Gap 16 BUN 11 Creatinine 0.6 L Est GFR ( Amer) > 60 Est GFR (Non-Af Amer) > 60 Random Glucose 102 Calcium 9.5 Total Bilirubin 6.7 H Direct Bilirubin AST 146 H ALT 323 H Alkaline Phosphatase 421 H Total Protein 7.4 Albumin 3.8 Globulin 3.6 Albumin/Globulin Ratio 1.1 Lipase Urine Color Urine Clarity Urine pH Ur Specific [place] Urine Protein Urine Glucose (UA) Urine Ketones Urine Blood Urine Nitrate Urine Bilirubin Urine Urobilinogen Ur Leukocyte Esterase Urine RBC (Auto) Urine Microscopic WBC Ur Squamous Epith Cells Amorphous Sediment Urine Bacteria Assessment & Plan (1) Jaundice Assessment and Plan: rule out obstruction CT does not show liver metastasis for MRCP GI evaluation Status: Acute (2) Colon cancer Assessment and Plan: stage IV lung metastasis appear worse by CT outpatient treatment Thank you for this interesting consult. Status: Acute
--- NOTE | 2018-01-23 12:21 | US ---
Date of service: 01/22/2018 HISTORY: hx of CA, jaundice, distended CBD on CT COMPARISON: CT abdomen and pelvis 01/22/2018 TECHNIQUE: Sonographic evaluation of the right upper quadrant of the abdomen. FINDINGS: LIVER: Measures 12.8 cm in length. Normal echogenicity of the liver parenchyma. No mass. There is extensive intrahepatic bile duct dilatation. The extrahepatic bile duct dilatation appears more pronounced. GALLBLADDER: Distended with extensive sludge throughout it. No gallbladder wall thickening or pericholecystic fluid. No gross shadowing calculi noted COMMON BILE DUCT: Measures dilated -distally measuring up to 1.6 cm. There is intraluminal echoes non shadowing probably relating to debris. Small stones non shadowing not excluded PANCREAS: Unremarkable as visualized. No mass. No pancreatic uctal dilatation. RIGHT KIDNEY: Measures cm in length. Normal echogenicity. No calculus, mass, or hydronephrosis. AORTA: No aneurysmal dilatation. IVC: Unremarkable. OTHER FINDINGS: None . IMPRESSION: Intrahepatic and extrahepatic bile ductal dilatation the distal common bile duct measures up to 1.6 cm -intraluminal distal debris suggested. A discrete shadowing stone causing the obstruction is not appreciated on this exam. Findings concerning for distal obstruction - no gross obstructing mass appreciated. Follow-up recommended Concordant results (preliminary interpretation) provided by [facility].
--- NOTE | 2018-01-23 13:37 | CP.PCM.PN ---
<Myrna Crain - Last Filed: 01/23/18 15:57> Subjective - Date & Time of Evaluation Date of Evaluation: 01/23/18 Time of Evaluation: 13:37 - Subjective Subjective: 72 year old male admitted for jaundice/elevated bilirubin presents with mederate to severe jaundice. His past medical history includes hypertension and colon cancer (s/p right hemicolectomy 10/2016). Patient states recent PET showed active nodules in lungs. He admits to skipping chemotherapy last week ( onc doctor approved), putting this most recent infusion (Sunday) three weeks after his previous session. Once he returned home his son noticed jaundice of his body and the patient noticed darkening of urine and pale stools. He has no abdminal pain ad enies nausea, vomitting, diarrhea and fever. bedside. Objective - Vital Signs/Intake and Output Vital Signs (last 24 hours): Temp Pulse Resp BP Pulse Ox 97.4 F L 69 19 149/84 97 01/23/18 08:17 01/23/18 08:17 01/23/18 08:17 01/23/18 08:17 01/23/18 08:17 - Medications Medications: Current Medications Enalapril Maleate (Vasotec) 10 mg PO DAILY [facility] Last Admin: 01/23/18 10:23 Dose: 10 mg Famotidine (Pepcid) 20 mg PO BID [facility] Last Admin: 01/23/18 10:23 Dose: 20 mg Piperacillin Sod/Tazobactam (Sod 3.375 gm/ Sodium Chloride) 100 mls @ 100 mls/ hr IVPB Q6H [facility] PRN Reason: Protocol Last Admin: 01/23/18 12:14 Dose: 100 mls/hr Metoprolol Tartrate (Lopressor) 25 mg PO Q12 [facility] Last Admin: 01/23/18 10:22 Dose: 25 mg Ondansetron HCl (Zofran Inj) 4 mg IVP Q6 PRN PRN Reason: Nausea/Vomiting - Labs Labs: 01/23/18 05:50 01/23/18 05:50 PT 11.8 Seconds (9.8-13.1) 01/22/18 20:49 INR 1.1 (0.9-1.2) 01/22/18 20:49 APTT 30.9 Seconds (25.6-37.1) 01/22/18 20:49 - Constitutional Appears: Well - Eye Exam Additional comments: jaundice - Respiratory Exam Respiratory Exam: Clear to Ausculation Bilateral, NORMAL BREATHING PATTERN - Cardiovascular Exam Cardiovascular Exam: REGULAR RHYTHM - GI/Abdominal Exam GI & Abdominal Exam: Soft, Mass (hernia left of midline ). absent: Distended, Guarding, Tenderness Additional comments: midline scar appreciated - Extremities Exam Extremities Exam: Normal Inspection - Back Exam Back Exam: NORMAL INSPECTION - Neurological Exam Neurological Exam: Alert, Awake, Oriented x3 - Psychiatric Exam Psychiatric exam: Normal Affect, Normal Mood - Skin Skin Exam: Normal Color, Warm Assessment and Plan - Assessment and Plan (Free Text) Assessment: 1. Jaundice/Elevated Bilirubin -Bilirubin 7.0 on admission, 6.7 (01/23/18) -CT: moderate intra-hepatic biliary duct dilation & mild/moderate dilation of proximal and mid common bile duct -NPO, IVF -MRCP -Cont Zosyn IV q6h -Heme Onc consult: Daniel -GI consult: Luis 2. 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 Sanchez 3. Hypertension -continue home meds: Lopressor 25 mg PO Q12, Enalopril 10mg PO 4. Electrolyte abnormality -Hypo Na (130), Hypo Cl (19) -IVF o/n 5. DVT Prophylaxis -Sequential Compression Device <Bonita Fischer - Last Filed: 01/23/18 16:37> Objective - Vital Signs/Intake and Output Vital Signs (last 24 hours): Temp Pulse Resp BP Pulse Ox 97.4 F L 55 L 18 143/81 98 01/23/18 16:19 01/23/18 16:19 01/23/18 16:19 01/23/18 16:19 01/23/18 16:19 - Medications Medications: Current Medications Enalapril Maleate (Vasotec) 10 mg PO DAILY [facility] Last Admin: 01/23/18 10:23 Dose: 10 mg Famotidine (Pepcid) 20 mg PO BID [facility] Last Admin: 01/23/18 10:23 Dose: 20 mg Piperacillin Sod/Tazobactam (Sod 3.375 gm/ Sodium Chloride) 100 mls @ 100 mls/ hr IVPB Q6H [facility] PRN Reason: Protocol Last Admin: 01/23/18 12:14 Dose: 100 mls/hr Metoprolol Tartrate (Lopressor) 25 mg PO Q12 [facility] Last Admin: 01/23/18 10:22 Dose: 25 mg Ondansetron HCl (Zofran Inj) 4 mg IVP Q6 PRN PRN Reason: Nausea/Vomiting - Labs Labs: 01/23/18 05:50 01/23/18 05:50 PT 11.8 Seconds (9.8-13.1) 01/22/18 20:49 INR 1.1 (0.9-1.2) 01/22/18 20:49 APTT 30.9 Seconds (25.6-37.1) 01/22/18 20:49 Attending/Attestation - Attestation I have personally seen and examined this patient.: Yes I have fully participated in the care of the patient.: Yes I have reviewed all pertinent clinical information, including history, physical exam and plan: Yes
[2018-01-23 16:04] LABS: HEPATITIS B SURFACE AG Negative (NEGATIVE)
[2018-01-23 16:10] LABS: HEPATITIS A IGM NEGATIVE (NEGATIVE); HEPATITIS B CORE AB NEGATIVE (NEGATIVE)
[2018-01-23 16:21] LABS: HEPATITIS C ANTIBODY NEGATIVE (NEGATIVE)
[2018-01-24] MEDS: Piperacillin/Tazobact 3.375 GM in Sodium Chloride 0.9% 100 ML IVPB SCH ×3 (00:55→11:13)
[2018-01-24 06:16] LABS: BASO # 0.1 K/uL (0.0-0.2); BASO % 1.1 % (0.0-2.0); EOS # 0.1 K/uL (0.0-0.7); EOS % 2.2 % (0.0-4.0); HEMOGLOBIN 13.3 g/dL (12.0-18.0); LYMPH # 1.1 K/uL (1.0-4.3); LYMPH % 16.9 % (20.0-40.0); MEAN CELL VOLUME 96.8 fl (80.0-94.0); MEAN CORPUSCULAR HEMOGLOBIN 33.1 pg (27.0-31.0); MEAN CORPUSCULAR HGB CONC 34.2 g/dL (33.0-37.0); MEAN PLATELET VOLUME 7.1 fl (7.2-11.7); MONO # 0.9 K/uL (0.0-0.8); MONO % 14.5 % (0.0-10.0); NEUT # 4.2 K/uL (1.8-7.0); NEUT % 65.3 % (50.0-75.0); RBC 4.01 Mil/uL (4.40-5.90); WHITE BLOOD COUNT 6.4 K/uL (4.8-10.8)
[2018-01-24 06:28] LABS: INR 1.1 (0.9-1.2); PROTHROMBIN TIME 12.4 Seconds (9.8-13.1)
[2018-01-24 06:32] LABS: ALB/GLOB RATIO 1.1 (1.0-2.1); ALBUMIN 3.7 g/dL (3.5-5.0); ALT/SGPT 337 U/L (21-72); AST/SGOT 150 U/L (17-59); BLOOD UREA NITROGEN 12 mg/dl (9-20); CALCIUM 9.3 mg/dL (8.4-10.2); GFR AFRICAN-AMERICAN > 60; GFR NON-AFRICAN AMERICAN > 60
--- NOTE | 2018-01-24 08:45 | CP.PCM.PN ---
<Jairo Russo - Last Filed: 01/24/18 10:37> Subjective - Date & Time of Evaluation Date of Evaluation: 01/24/18 Time of Evaluation: 07:30 - Subjective Subjective: PGY5 GI Follow-up Pt seen and examined bedside Denies any abd pain tolerating diet BM yesterday denies any fever, chills or diaphoresis ROS: 12 point ROS conducted, neg other than above Objective - Vital Signs/Intake and Output Vital Signs (last 24 hours): Temp Pulse Resp BP Pulse Ox 97.8 F 83 19 148/81 98 01/24/18 08:24 01/24/18 08:24 01/24/18 08:24 01/24/18 08:24 01/24/18 08:24 - Medications Medications: Current Medications Enalapril Maleate (Vasotec) 10 mg PO DAILY [facility] Last Admin: 01/24/18 08:22 Dose: 10 mg Famotidine (Pepcid) 20 mg PO BID [facility] Last Admin: 01/24/18 08:22 Dose: 20 mg Piperacillin Sod/Tazobactam (Sod 3.375 gm/ Sodium Chloride) 100 mls @ 100 mls/ hr IVPB Q6H [facility] PRN Reason: Protocol Last Admin: 01/24/18 05:57 Dose: 100 mls/hr Metoprolol Tartrate (Lopressor) 25 mg PO Q12 [facility] Last Admin: 01/24/18 08:22 Dose: 25 mg Ondansetron HCl (Zofran Inj) 4 mg IVP Q6 PRN PRN Reason: Nausea/Vomiting - Labs Labs: 01/24/18 05:35 01/24/18 05:35 PT 12.4 Seconds (9.8-13.1) 01/24/18 05:35 INR 1.1 (0.9-1.2) 01/24/18 05:35 APTT 30.9 Seconds (25.6-37.1) 01/22/18 20:49 - Constitutional Appears: Well, No Acute Distress - Head Exam Head Exam: ATRAUMATIC, NORMOCEPHALIC - Eye Exam Eye Exam: Normal appearance - ENT Exam ENT Exam: Mucous Membranes Moist, Normal Exam - Neck Exam Neck Exam: Normal Inspection - Cardiovascular Exam Cardiovascular Exam: REGULAR RHYTHM, +S1, +S2 - GI/Abdominal Exam GI & Abdominal Exam: Soft, Normal Bowel Sounds. absent: Distended, Firm, Guarding, Rigid, Tenderness, Organomegaly - Extremities Exam Extremities Exam: absent: Joint Swelling, Pedal Edema - Neurological Exam Neurological Exam: Alert, Awake, Oriented x3 - Psychiatric Exam Psychiatric exam: Normal Affect, Normal Mood - Skin Skin Exam: Dry, Intact, Normal Color, Warm Assessment and Plan - Assessment and Plan (Free Text) Assessment: Brent Genao is a 72M w/ hx of Stage 4 Colon cancer to the Lung, s/p right hemicolectomy, currently receiving chemotherapy who presents to the ER with complaints of juandice. Jaundice Dilated GB wuth sludge, r/o CBD stone elevated lfts, likely 2/2 above; r/o infectous and autoimmune etiology vs chemo induced hx of cecal colon cancer Plan: -MRCP read pending -CT reviewed and read with Dr. Smith -continue diet as tolerated -hep viral neg and autoimmune etiology pending -continue Iv abx as per primary team -next course of action pending MRCP -will D/W Dr. smith <Lurdes Smith - Last Filed: 01/24/18 11:51> Objective - Vital Signs/Intake and Output Vital Signs (last 24 hours): Temp Pulse Resp BP Pulse Ox 97.8 F 83 19 148/81 98 01/24/18 08:24 01/24/18 08:24 01/24/18 08:24 01/24/18 08:24 01/24/18 08:24 - Medications Medications: Current Medications Enalapril Maleate (Vasotec) 10 mg PO DAILY [facility] Last Admin: 01/24/18 08:22 Dose: 10 mg Famotidine (Pepcid) 20 mg PO BID [facility] Last Admin: 01/24/18 08:22 Dose: 20 mg Piperacillin Sod/Tazobactam (Sod 3.375 gm/ Sodium Chloride) 100 mls @ 100 mls/ hr IVPB Q6H [facility] PRN Reason: Protocol Last Admin: 01/24/18 11:13 Dose: 100 mls/hr Metoprolol Tartrate (Lopressor) 25 mg PO Q12 [facility] Last Admin: 01/24/18 08:22 Dose: 25 mg Ondansetron HCl (Zofran Inj) 4 mg IVP Q6 PRN PRN Reason: Nausea/Vomiting - Labs Labs: 01/24/18 05:35 01/24/18 05:35 PT 12.4 Seconds (9.8-13.1) 01/24/18 05:35 INR 1.1 (0.9-1.2) 01/24/18 05:35 APTT 30.9 Seconds (25.6-37.1) 01/22/18 20:49 Attending/Attestation - Attestation I have personally seen and examined this patient.: Yes I have fully participated in the care of the patient.: Yes I have reviewed all pertinent clinical information, including history, physical exam and plan: Yes Notes (Text): 01/24/18 11:51 Patient seen with GI fellow on rounds this am. This is a 72 yr old M with history of Stage 4 Colon cancer mets to the Lung, s/p right hemicolectomy, currently receiving chemotherapy who presents to the ER with complaints of new onset jaundice, increased LFT and CT abdomen showing modertely dilated CBD and intrahepatic dilatation. Pending MRCP/ MRi to assess hilum lesion or CBd stone/ stricture. Diet as tolerated. Hematology note appreciated. Follow viral and autoimmune serologies. Surgery on board. Continue IV abx as per primary team
--- NOTE | 2018-01-24 10:24 | CP.PCM.PN ---
Subjective - Date & Time of Evaluation Date of Evaluation: 01/24/18 Time of Evaluation: 09:00 - Subjective Subjective: NO CHEST PAIN OR SOB Objective - Vital Signs/Intake and Output Vital Signs (last 24 hours): Temp Pulse Resp BP Pulse Ox 97.8 F 83 19 148/81 98 01/24/18 08:24 01/24/18 08:24 01/24/18 08:24 01/24/18 08:24 01/24/18 08:24 - Medications Medications: Current Medications Enalapril Maleate (Vasotec) 10 mg PO DAILY [facility] Last Admin: 01/24/18 08:22 Dose: 10 mg Famotidine (Pepcid) 20 mg PO BID [facility] Last Admin: 01/24/18 08:22 Dose: 20 mg Piperacillin Sod/Tazobactam (Sod 3.375 gm/ Sodium Chloride) 100 mls @ 100 mls/ hr IVPB Q6H [facility] PRN Reason: Protocol Last Admin: 01/24/18 05:57 Dose: 100 mls/hr Metoprolol Tartrate (Lopressor) 25 mg PO Q12 [facility] Last Admin: 01/24/18 08:22 Dose: 25 mg Ondansetron HCl (Zofran Inj) 4 mg IVP Q6 PRN PRN Reason: Nausea/Vomiting - Labs Labs: 01/24/18 05:35 01/24/18 05:35 PT 12.4 Seconds (9.8-13.1) 01/24/18 05:35 INR 1.1 (0.9-1.2) 01/24/18 05:35 APTT 30.9 Seconds (25.6-37.1) 01/22/18 20:49 - Respiratory Exam Respiratory Exam: Clear to Ausculation Bilateral - Cardiovascular Exam Cardiovascular Exam: REGULAR RHYTHM, +S1, +S2 - Extremities Exam Extremities Exam: Normal Inspection - Additional Findings Additional findings: MRCP DONE YESTERDAY-REPORT PENDING Assessment and Plan - Assessment and Plan (Free Text) Assessment: COLON CA WITH METASTASIS HYPERTENSION Plan: CONTINUE ENALAPRIL AND METOPROLOL PER GI
--- NOTE | 2018-01-24 12:57 | MRI ---
Date of service: 01/23/2018 PROCEDURE: Magnetic Resonance Cholangiopancreatography HISTORY: COMPARISON: Comparison is made with the previous CT dated 01/22/2018. TECHNIQUE: Multiplanar, multisequence MR images of the abdomen were obtained, including heavily T2 weighted MRCP images of the biliary system. Rotating maximum intensity projection images of the biliary system were generated. FINDINGS: MRCP: [id number] dilate a thompson of the common bile duct measures up to 16 millimeter in the proximal to midportion. No evidence of choledocholithiasis. LIVER: No definite evidence of mass lesion in the liver. Iadr-ay-yydgcwpr intrahepatic biliary ductal dilatation. GALLBLADDER: Distended gallbladder without evidence of acute cholecystitis. There is a gallbladder sludge or small stones seen. SPLEEN: Unremarkable. PANCREAS: There is suspicious for 2 centimeter mass lesion at the lateral aspect of the pancreatic head that cannot be from the duodenum. The main pancreatic duct is not dilated. ADRENALS: There is a 1.4 centimeter nodule at the left adrenal gland. KIDNEYS: Unremarkable. AORTA: No aneurysm. ASCITES: None. OTHER FINDINGS: There are multiple lesions in the lungs suggestive of metastasis. IMPRESSION: Suspicious for 2 centimeter mass lesion at the pancreatic head cannot be from the medial wall of the descending duodenum may represent malignant neoplasm compressing and narrowing the distal tip of the common bile duct. Moderate intrahepatic and extrahepatic biliary ductal dilatation. No evidence of choledocholithiasis. Distended gallbladder contains sludge and gallstones without evidence of acute cholecystitis. Multiple nodules in the lungs suspicious for lung metastasis.
--- NOTE | 2018-01-24 13:50 | CP.PCM.PN ---
Addendum entered and electronically signed by Myrna Crain MD 01/24/18 15: 33: diet advanced to bland soft solids Original Note: <Myrna Crain - Last Filed: 01/24/18 15:33> Subjective - Date & Time of Evaluation Date of Evaluation: 01/24/18 Time of Evaluation: 13:50 - Subjective Subjective: 72 year old male admitted for jaundice/elevated bilirubin presents with mederate to severe jaundice. His past medical history includes hypertension and colon cancer (s/p right hemicolectomy 10/2016). Patient reports stools are still very pale. He has no abdominal pain and denies nausea, vomiting, diarrhea and fever. Son bedside. Objective - Vital Signs/Intake and Output Vital Signs (last 24 hours): Temp Pulse Resp BP Pulse Ox 97.8 F 83 19 148/81 98 01/24/18 08:24 01/24/18 08:24 01/24/18 08:24 01/24/18 08:24 01/24/18 08:24 - Medications Medications: Current Medications Enalapril Maleate (Vasotec) 10 mg PO DAILY [facility] Last Admin: 01/24/18 08:22 Dose: 10 mg Famotidine (Pepcid) 20 mg PO BID [facility] Last Admin: 01/24/18 08:22 Dose: 20 mg Piperacillin Sod/Tazobactam (Sod 3.375 gm/ Sodium Chloride) 100 mls @ 100 mls/ hr IVPB Q6H [facility] PRN Reason: Protocol Last Admin: 01/24/18 11:13 Dose: 100 mls/hr Metoprolol Tartrate (Lopressor) 25 mg PO Q12 [facility] Last Admin: 01/24/18 08:22 Dose: 25 mg Ondansetron HCl (Zofran Inj) 4 mg IVP Q6 PRN PRN Reason: Nausea/Vomiting - Labs Labs: 01/24/18 05:35 01/24/18 05:35 PT 12.4 Seconds (9.8-13.1) 01/24/18 05:35 INR 1.1 (0.9-1.2) 01/24/18 05:35 APTT 30.9 Seconds (25.6-37.1) 01/22/18 20:49 - Constitutional Appears: Well - Head Exam Head Exam: ATRAUMATIC - Eye Exam Eye Exam: Normal appearance - Respiratory Exam Respiratory Exam: Clear to Ausculation Bilateral, NORMAL BREATHING PATTERN - Cardiovascular Exam Cardiovascular Exam: REGULAR RHYTHM - GI/Abdominal Exam GI & Abdominal Exam: Soft, Hernia. absent: Distended, Guarding, Rigid, Tenderness, Rebound - Neurological Exam Neurological Exam: Alert, Awake, Oriented x3 - Psychiatric Exam Psychiatric exam: Normal Affect, Normal Mood - Skin Skin Exam: Intact, Normal Color, Warm Assessment and Plan - Assessment and Plan (Free Text) Assessment: 1. Jaundice/Elevated Bilirubin -Bilirubin 7.0 on admission, 5.4 (01/24/18) -CT: moderate intra-hepatic biliary duct dilation & mild/moderate dilation of proximal and mid common bile duct -Tolerating clear liquids, IVF -MRCP: 2 cm mass at pancreatic head/medial wall of descending duodenum compressing and narrowing CBD, no choledocholithiasis, no acute cholecystitis -EUS with biopsy needed? -Cont Zosyn IV q6h -Heme Onc consult: Daniel -GI consult: Luis -Surgery on board 2. 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 Sanchez 3. Hypertension -continue home meds: Lopressor 25 mg PO Q12, Enalopril 10mg PO 4. Electrolyte abnormality -Hypo Na (131) -IVF o/n 5. DVT Prophylaxis -Sequential Compression Device <Bonita Fischer - Last Filed: 01/24/18 16:32> Objective - Vital Signs/Intake and Output Vital Signs (last 24 hours): Temp Pulse Resp BP Pulse Ox 97.3 F L 61 18 137/76 99 01/24/18 16:08 01/24/18 16:08 01/24/18 16:08 01/24/18 16:08 01/24/18 16:08 - Medications Medications: Current Medications Enalapril Maleate (Vasotec) 10 mg PO DAILY [facility] Last Admin: 01/24/18 08:22 Dose: 10 mg Famotidine (Pepcid) 20 mg PO BID [facility] Last Admin: 01/24/18 16:00 Dose: 20 mg Piperacillin Sod/Tazobactam (Sod 3.375 gm/ Sodium Chloride) 100 mls @ 100 mls/ hr IVPB Q6H [facility] PRN Reason: Protocol Last Admin: 01/24/18 11:13 Dose: 100 mls/hr Metoprolol Tartrate (Lopressor) 25 mg PO Q12 [facility] Last Admin: 01/24/18 08:22 Dose: 25 mg Ondansetron HCl (Zofran Inj) 4 mg IVP Q6 PRN PRN Reason: Nausea/Vomiting - Labs Labs: 01/24/18 05:35 01/24/18 05:35 PT 12.4 Seconds (9.8-13.1) 01/24/18 05:35 INR 1.1 (0.9-1.2) 01/24/18 05:35 APTT 30.9 Seconds (25.6-37.1) 01/22/18 20:49 Attending/Attestation - Attestation I have personally seen and examined this patient.: Yes I have fully participated in the care of the patient.: Yes I have reviewed all pertinent clinical information, including history, physical exam and plan: Yes
[2018-01-24 16:08] VITALS: BP 137/76; PULSE 61; RESP 18; TEMP 97.3; O2SAT 99
--- NOTE | 2018-01-24 16:50 | CP.PCM.DIS ---
Provider - Provider Date of Admission: 01/22/18 23:33 Attending physician: Jocelyn Yates MD Primary care physician: Dr Leggett Consults: GI : DR Smith Oncology: Dr Sanchez Time Spent in preparation of Discharge (in minutes): 40 Diagnosis - Discharge Diagnosis (1) Pancreatic mass Status: Acute (2) Jaundice Status: Acute (3) Colon cancer Status: Chronic (4) HTN (hypertension) Status: Chronic Hospital Course - Lab Results Lab Results: Most Recent Lab Values WBC 6.4 K/uL (4.8-10.8) 01/24/18 05:35 RBC 4.01 Mil/uL (4.40-5.90) L 01/24/18 05:35 Hgb 13.3 g/dL (12.0-18.0) 01/24/18 05:35 Hct 38.9 % (35.0-51.0) 01/24/18 05:35 MCV 96.8 fl (80.0-94.0) H 01/24/18 05:35 MCH 33.1 pg (27.0-31.0) H 01/24/18 05:35 MCHC 34.2 g/dL (33.0-37.0) 01/24/18 05:35 RDW 15.0 % (11.5-14.5) H 01/24/18 05:35 Plt Count 345 K/uL (130-400) 01/24/18 05:35 MPV 7.1 fl (7.2-11.7) L 01/24/18 05:35 Neut % (Auto) 65.3 % (50.0-75.0) 01/24/18 05:35 Lymph % (Auto) 16.9 % (20.0-40.0) L 01/24/18 05:35 [place] % (Auto) 14.5 % (0.0-10.0) H 01/24/18 05:35 Eos % (Auto) 2.2 % (0.0-4.0) 01/24/18 05:35 Baso % (Auto) 1.1 % (0.0-2.0) 01/24/18 05:35 Neut # (Auto) 4.2 K/uL (1.8-7.0) 01/24/18 05:35 Lymph # (Auto) 1.1 K/uL (1.0-4.3) 01/24/18 05:35 [place] # (Auto) 0.9 K/uL (0.0-0.8) H 01/24/18 05:35 Eos # (Auto) 0.1 K/uL (0.0-0.7) 01/24/18 05:35 Baso # (Auto) 0.1 K/uL (0.0-0.2) 01/24/18 05:35 Neutrophils % (Manual) 79 % (42-75) H 01/22/18 19:42 Lymphocytes % (Manual) 15 % (20-50) L 01/22/18 19:42 Monocytes % (Manual) 4 % (0-10) 01/22/18 19:42 Basophils % (Manual) 2 % (0-2) 01/22/18 19:42 Platelet Estimate Normal (NORMAL) 01/22/18 19:42 RBC Morphology Normal (NORMAL) 01/22/18 19:42 PT 12.4 Seconds (9.8-13.1) 01/24/18 05:35 INR 1.1 (0.9-1.2) 01/24/18 05:35 APTT 30.9 Seconds (25.6-37.1) 01/22/18 20:49 Sodium 131 mmol/l (132-148) L 01/24/18 05:35 Potassium 4.0 MMOL/L (3.6-5.0) 01/24/18 05:35 Chloride 99 mmol/L (98-107) 01/24/18 05:35 Carbon Dioxide 21 mmol/L (22-30) L 01/24/18 05:35 Anion Gap 15 (10-20) 01/24/18 05:35 BUN 12 mg/dl (9-20) 01/24/18 05:35 Creatinine 0.8 mg/dl (0.8-1.5) 01/24/18 05:35 Est GFR ( Amer) > 60 01/24/18 05:35 Est GFR (Non-Af Amer) > 60 01/24/18 05:35 Random Glucose 83 mg/dL (75-110) 01/24/18 05:35 Calcium 9.3 mg/dL (8.4-10.2) 01/24/18 05:35 Total Bilirubin 5.4 mg/dl (0.2-1.3) H 01/24/18 05:35 Direct Bilirubin 5.3 mg/ml (0.0-0.4) H 01/22/18 19:42 AST 150 U/L (17-59) H 01/24/18 05:35 ALT 337 U/L (21-72) H 01/24/18 05:35 Alkaline Phosphatase 343 U/L (38-126) H 01/24/18 05:35 Total Protein 7.1 G/DL (6.3-8.2) 01/24/18 05:35 Albumin 3.7 g/dL (3.5-5.0) 01/24/18 05:35 Globulin 3.3 gm/dL (2.2-3.9) 01/24/18 05:35 Albumin/Globulin Ratio 1.1 (1.0-2.1) 01/24/18 05:35 Lipase 17 U/L (23-300) L 01/22/18 19:42 Urine Color [place] (YELLOW) 01/22/18 19:31 Urine Clarity Slighty-cloudy (Clear) 01/22/18 19:31 Urine pH 6.0 (5.0-8.0) 01/22/18 19:31 Ur Specific Addis 1.006 (1.003-1.030) 01/22/18 19:31 Urine Protein Negative mg/dL (NEGATIVE) 01/22/18 19:31 Urine Glucose (UA) 150 mg/dL (Normal) 01/22/18 19:31 Urine Ketones Negative mg/dL (NEGATIVE) 01/22/18 19:31 Urine Blood Negative (NEGATIVE) 01/22/18 19:31 Urine Nitrate Negative (NEGATIVE) 01/22/18 19:31 Urine Bilirubin Negative (NEGATIVE) 01/22/18 19:31 Urine Urobilinogen 0.2-1.0 mg/dL (0.2-1.0) 01/22/18 19:31 Ur Leukocyte Esterase Neg Rayna/uL (Negative) 01/22/18 19:31 Urine RBC (Auto) 3 /hpf (0-3) 01/22/18 19:31 Urine Microscopic WBC 1 /hpf (0-5) 01/22/18 19:31 Ur Squamous Epith Cells < 1 /hpf (0-5) 01/22/18 19:31 Amorphous Sediment Rare /ul (<OCC) H 01/22/18 19:31 Urine Bacteria Rare (<OCC) 01/22/18 19:31 IgG 892.1 mg/dL (700.0-1600.0) 01/23/18 12:16 Anti-Mitochondrial Ab Negative (Negative) 01/23/18 12:16 Anti-Smooth Muscle Ab Negative (Negative) 01/23/18 12:16 Hepatitis A IgM Ab Negative (NEGATIVE) 01/23/18 11:29 Hep Bs Antigen Negative (NEGATIVE) 01/23/18 12:16 Hep B Core IgM Ab Negative (NEGATIVE) 01/23/18 11:29 Hepatitis C Antibody Negative (NEGATIVE) 01/23/18 11:29 - Hospital Course Hospital Course: 72 y/o gent with hx of Colon CA s/p Hemicolectomy - on Chemotherapy came in because of jaundice. 1. Jaundice, Abnormal LFT in pt with Pancreatic Mass -Bilirubin 7.0 on admission, 5.4 (01/24/18) -CT: moderate intra-hepatic biliary duct dilation & mild/moderate dilation of proximal and mid common bile duct -MRCP: 2 cm mass at pancreatic head/medial wall of descending duodenum compressing and narrowing CBD, no choledocholithiasis, no acute cholecystitis - Gi consulted - rec EUS with Biopsy - no one in [facility] can do EUS , Dr Smith recommended a GI Specialist in [facility] - Dr Charlette Pena. I Spoke with Dr Pena and discussed case , pt arlette call his office in am at 8: 30 and they will schedule the ERCP,EUS. - received Zosyn IV q6h -Heme Onc consult: Dr Sanchez -GI consult: Luis - pt tolerating PO diet - discussed MRCP result with pt and his Kathryn and treatment plan. 2. 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 Sanchez 3. Hypertension -continue home meds: Enalapril 10mg PO 4. Electrolyte abnormality -Hypo Na (131) -IVF 5. DVT Prophylaxis -Sequential Compression Device Discharge Exam - Head Exam Head Exam: ATRAUMATIC, NORMAL INSPECTION, NORMOCEPHALIC - Eye Exam Eye Exam: EOMI, Normal appearance, PERRL, Scleral icterus Pupil Exam: NORMAL ACCOMODATION - ENT Exam ENT Exam: Mucous Membranes Moist, Normal External Ear Exam - Neck Exam Neck exam: Full Rom - Respiratory Exam Respiratory Exam: NORMAL BREATHING PATTERN. absent: Respiratory Distress - Cardiovascular Exam Cardiovascular Exam: REGULAR RHYTHM, +S1, +S2 - GI/Abdominal Exam GI & Abdominal Exam: Normal Bowel Sounds, Soft. absent: Tenderness - Extremities Exam Extremities exam: full ROM, normal capillary refill, pedal pulses present - Back Exam Back exam: FULL ROM. absent: CVA tenderness (L), CVA tenderness (R) - Neurological Exam Neurological exam: Alert, CN II-XII Intact - Psychiatric Exam Psychiatric exam: Normal Affect, Normal Mood - Skin Skin Exam: Dry, Normal Color, Warm Discharge Plan - Follow Up Plan Condition: STABLE Disposition: HOME/ ROUTINE Instructions: Jaundice, Adult (DC), Cholecystitis (DC) Additional Instructions: Appt with Dr Charlette Pena from [facility] for EUS /Biopsy of Pancreatic [phone] Leggett in 1-[address] Daniel mazariegosp Referrals: Reyes Sanchez MD [Staff Provider] - Lurdes Smith MD [Medical Doctor] - Davi Leggett MD [Family Provider] -
--- NOTE | 2018-01-24 17:11 | CP.PCM.PCO ---
Physician Communication Note - Physician Communication Note Physician Communication Note: Needs EUS for pancreatic head mass and tissue diagnosis. D/W Dr Sanchez
== END 2018-01-24 18:10 | disposition home or self-care (01) | DRG 439 ==
LOC: H.ER 17:56 → H.ERHOLD 23:33 → H.MEDSURG1 01-23 01:42
PROVIDERS: ADMIT Internal Medicine; ATTEND Internal Medicine
DX: K86.89 Other specified diseases of pancreas (principal); E87.1 Hypo-osmolality and hyponatremia; C78.7 Secondary malignant neoplasm of liver and intrahepatic bile duct; C78.00 Secondary malignant neoplasm of unspecified lung; K83.8 Other specified diseases of biliary tract; K82.8 Other specified diseases of gallbladder; R17 Unspecified jaundice; I10 Essential (primary) hypertension; Z85.038 Personal history of other malignant neoplasm of large intestine; Z87.891 Personal history of nicotine dependence; Z90.49 Acquired absence of other specified parts of digestive tract

== ENCOUNTER 2018-07-19 14:58 | Observation (INO) | payer MEDICARE ==
[2018-07-19 14:58] VITALS: BMI 22.2
[2018-07-19] MEDS ORDERED: Sodium Chloride 0.9% 1,000 ML IV SCH (18:15)
--- NOTE | 2018-07-19 18:17 | ED PDOC ---
Upper Extremity Pain/Injury Time Seen by Provider: 07/19/18 18:00 Chief Complaint (Nursing): Upper Extremity Problem/Injury Chief Complaint (Provider): DVT History Per: Patient, Family History/Exam Limitations: no limitations Onset/Duration Of Symptoms: Days (one) Current Symptoms Are (Timing): Still Present Severity: Mild (Pt suffers from a malignancy of the colon and undergoes chemotherapy under the service of Dr Sanchez. Upon visit today, Dr Sanchez sent hm to the hospital for eval of DVT of left upper extremity. Pt denies pain, tenderness or erythemity) Past Medical History Reviewed: Historical Data, Nursing Documentation, Vital Signs Vital Signs: Last Vital Signs Temp 97.5 F L 07/19/18 15:58 Pulse 77 07/19/18 15:58 Resp 20 07/19/18 15:58 BP 130/89 07/19/18 15:58 Pulse Ox 99 07/19/18 15:58 - Medical History PMH: HTN Denies: Chronic Kidney Disease Other PMH: colonic cancer - Surgical History Surgical History: Hernia Repair (b/l inguinal ) - Family History Family History: States: Unknown Family Hx - Home Medications Home Medications: Ambulatory Orders Medication Instructions Recorded Enalapril Maleate [Vasotec] 10 mg PO DAILY 10/18/16 - Allergies Allergies/Adverse Reactions: Allergies Allergy/AdvReac Type Severity Reaction Status Date / Time No Known Allergies Allergy Verified 07/19/18 15:58 Review of Systems ROS Statement: Except As Marked, All Systems Reviewed And Found Negative Physical Exam - Reviewed Nursing Documentation Reviewed: Yes Vital Signs Reviewed: Yes - Physical Exam Appears: Positive for: Well, Non-toxic, No Acute Distress. Negative for: Uncomfortable Head Exam: Positive for: ATRAUMATIC, NORMAL INSPECTION Skin: Positive for: Warm, Dry. Negative for: Diaphoresis, Pallor Eye Exam: Positive for: Normal appearance ENT: Positive for: Normal ENT Inspection Neck: Positive for: Normal Cardiovascular/Chest: Positive for: Regular Rate, Rhythm Respiratory: Positive for: Normal Breath Sounds Pulses-Carotid (L): 2+ Pulses-Carotid (R): 2+ Pulses-Radial (L): 2+ Pulses-Radial (R): 2+ Extremity: Positive for: Normal ROM, Calf Tenderness. Negative for: Tenderness, Pedal Edema Neurologic/Psych: Positive for: Alert, Oriented - Laboratory Results Result Diagrams: 07/19/18 21:15 07/19/18 21:15 - ECG O2 Sat by Pulse Oximetry: 99 Medical Decision Making Medical Decision Making: evaluated for DVT (+) of the left upper extremity blood work call to Dr Neri admit to hospitalist Call to Dr Yates Admit orders sent Disposition - Clinical Impression Clinical Impression: Deep venous thrombosis of arm - Patient ED Disposition Is Patient to be Admitted: Yes Discussed With DrManuel: Jocelyn Yates Doctor Will See Patient In The: Hospital Counseled Patient/Family Regarding: Diagnosis - Disposition Disposition Time: 21:54 Condition: STABLE - Pt Status Changed To: Hospital Disposition Of: Inpatient - Admit Certification Admit to Inpatient:: After my assessment, the patient will require hospitalization for at least two midnights. This is because of the severity of symptoms shown, intensity of services needed, and/or the medical risk in this patient being treated as an outpatient.
[2018-07-19 21:32] LABS: INR 1.2
[2018-07-19 21:35] LABS: BLOOD UREA NITROGEN 10 mg/dl (9-20); CALCIUM 8.6 mg/dL (8.4-10.2); EOS # 0.1 K/uL (0.0-0.7); EOS % 3.9 % (0.0-4.0); GFR NON-AFRICAN AMERICAN > 60; LYMPH # 0.7 K/uL (1.0-4.3); LYMPH % 21.5 % (20.0-40.0); MEAN CELL VOLUME 95.6 fl (80.0-94.0); MEAN CORPUSCULAR HGB CONC 31.4 g/dL (33.0-37.0); MEAN PLATELET VOLUME 7.1 fl (7.2-11.7); MONO # 0.9 K/uL (0.0-0.8); MONO % 28.8 % (0.0-10.0); NEUT # 1.4 K/uL (1.8-7.0); NEUT % 44.8 % (50.0-75.0); NRBC % 0.2 % (0.0-0.0); PARTIAL THROMBOPLASTIN TIME 35.4 Seconds (25.6-37.1); RBC 4.34 Mil/uL (4.40-5.90); RED CELL DISTRIBUTION WIDTH 18.5 % (11.5-14.5); WHITE BLOOD COUNT 3.1 K/uL (4.8-10.8)
[2018-07-19 21:37] LABS: PLATELET COUNT 538 K/uL (130-400)
[2018-07-19 21:38] LABS: ALB/GLOB RATIO 0.9 (1.0-2.1); ALBUMIN 3.1 g/dL (3.5-5.0); ALT/SGPT 19 U/L (21-72); AST/SGOT 40 U/L (17-59)
--- NOTE | 2018-07-19 21:45 | CP.PCM.HP ---
History of Present Illness - History of Present Illness History of Present Illness: 73 yo M with pmhx of colon cancer with mets to pancreas and lung presents after his visit with Dr. Sanchez today, who recommended a work up for his acute L upper extremity swelling. is at bedside who was able to provide some of his history. L upper extremity swelling started 3 days prior. Denies recent trauma or falls. Reports he sleeps with affected arm wedged in the couch. Denies: numbness, tingling, loss of function/sensation to the extremity. Denies history of DVT or clots. Of note: colon cancer dx in 09/2016, local resection; Subsequent pancreatic mass with biliary obstruction, s/p stent. Chemo therapy, next appt on sunday. states patient has had increase in diarrhea requiring K supplementation. Heme/Onc: Dr. Sanchez PMD: Dr. Leggett Famhx: none, no cancer Surghx: Colon cancer resection; soc: stopped smoking in 1971; Denies: alcohol or illicit drugs; lives at home with NKDA Present on Admission - Present on Admission Any Indicators Present on Admission: No History of DVT/PE: No History of Uncontrolled Diabetes: No Urinary Catheter: No Review of Systems - Cardiovascular Cardiovascular: absent: Chest Pain, Chest Pain at Rest - Respiratory Respiratory: absent: Cough, Dyspnea - Gastrointestinal Gastrointestinal: absent: Abdominal Pain - Musculoskeletal Musculoskeletal: Abnormal Gait (Walks with cane) - Hematologic/Lymphatic Hematologic: As Per HPI Past Patient History - Past Medical History & Family History Past Medical History?: Yes - Past Social History Smoking Status: Former Smoker Alcohol: None Drugs: Denies Home Situation {Lives}: With Family - CARDIAC Hx Hypertension: Yes - NEUROLOGICAL Hx Neurological Disorder: No - HEENT Hx HEENT Problems: Yes Other/Comment: Use Eyeglasses. Uses hearing aid both ears - RENAL Hx Chronic Kidney Disease: No - ENDOCRINE/METABOLIC Hx Endocrine Disorders: No - HEMATOLOGICAL/ONCOLOGICAL Hx Blood Disorders: No Hx Cancer: Yes (colon with mets to pancreas and lung) - INTEGUMENTARY Hx Dermatological Problems: No - MUSCULOSKELETAL/RHEUMATOLOGICAL Hx Musculoskeletal Disorders: No Hx Falls: No - GASTROINTESTINAL Hx Gastrointestinal Disorders: Yes Hx Bowel Surgery: Yes (September 2016) Hx Diarrhea: Yes Hx Nausea: Yes - GENITOURINARY/GYNECOLOGICAL Hx Genitourinary Disorders: No - PSYCHIATRIC Hx Psychophysiologic Disorder: No Hx Substance Use: No - SURGICAL HISTORY Hx Surgeries: Yes Hx Herniorrhaphy: Yes (Bilateral inguinal) Other/Comment: colon cancer - ANESTHESIA Hx Anesthesia: Yes Hx Anesthesia Reactions: No Hx Malignant Hyperthermia: No Meds Allergies/Adverse Reactions: Allergies Allergy/AdvReac Type Severity Reaction Status Date / Time No Known Allergies Allergy Verified 07/19/18 15:58 Physical Exam - Constitutional Appears: No Acute Distress - Eye Exam Eye Exam: EOMI - ENT Exam ENT Exam: Mucous Membranes Moist - Respiratory Exam Respiratory Exam: Clear to Auscultation Bilateral, NORMAL BREATHING PATTERN. absent: Wheezes - Cardiovascular Exam Cardiovascular Exam: +S1, +S2 - GI/Abdominal Exam GI & Abdominal Exam: Normal Bowel Sounds, Soft. absent: Tenderness - Extremities Exam Extremities exam: Negative for: calf tenderness - Neurological Exam Neurological exam: Alert, CN II-XII Intact, Oriented x3 - Psychiatric Exam Psychiatric exam: Normal Affect, Normal Mood - Additional Findings Additional findings: Chest: Chemo port placed on L chest Results - Vital Signs Recent Vital Signs: Last Vital Signs Temp 97.5 F L 07/19/18 15:58 Pulse 77 07/19/18 15:58 Resp 20 07/19/18 15:58 BP 130/89 07/19/18 15:58 Pulse Ox 99 07/19/18 18:17 - Labs Result Diagrams: 07/19/18 21:15 07/19/18 21:15 Labs: Laboratory Results - last 24 hr 07/19/18 07/19/18 07/19/18 21:15 21:15 21:15 WBC 3.1 L D RBC 4.34 L Hgb 13.0 Hct 41.5 MCV 95.6 H MCH 30.0 MCHC 31.4 L RDW 18.5 H Plt Count 538 H D MPV 7.1 L Neut % (Auto) 44.8 L Lymph % (Auto) 21.5 Stokes % (Auto) 28.8 H Eos % (Auto) 3.9 Baso % (Auto) 1.0 Neut # (Auto) 1.4 L Lymph # (Auto) 0.7 L Stokes # (Auto) 0.9 H Eos # (Auto) 0.1 Baso # (Auto) 0.0 PT 14.0 H INR 1.2 APTT 35.4 Sodium 134 Potassium 4.3 Chloride 107 Carbon Dioxide 17 L Anion Gap 14 BUN 10 Creatinine 0.5 L Est GFR ( Amer) > 60 Est GFR (Non-Af Amer) > 60 Random Glucose 108 Calcium 8.6 Total Bilirubin 0.7 AST 40 ALT 19 L D Alkaline Phosphatase 92 Total Protein 6.6 Albumin 3.1 L Globulin 3.5 Albumin/Globulin Ratio 0.9 L Assessment & Plan - Assessment and Plan (Free Text) Assessment: 73 yo M with pmhx of colon cancer with mets to pancreas and lung admitted for DVT in Left Upper extremity Plan: DVT: L Upper Extremity Duplex US upper extremity s/p lovenox 50 mg SC x1 Heme/Onc: Dr. Sanchez consulted; recs appreciated Cardio: Dr. 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 Milan Kerr MD PGY-2
[2018-07-19] MEDS ORDERED: Enoxaparin 60 mg Syringe SC ONE (22:00)
[2018-07-19 22:19] LABS: BANDS 1 % (0-2); BASOPHIL 2 % (0-2); EOSINOPHIL 2 % (0-7); LYMPHOCYTE 24 % (20-50); MONOCYTE 26 % (0-10); NEUTROPHIL 42 % (42-75); PLATELET ESTIMATE INCREASED (NORMAL); REACTIVE LYMPHOCYTES 3 % (0-0); TOTAL CELLS COUNTED 100
[2018-07-19 22:20] LABS: ANISOCYTOSIS SLIGHT
[2018-07-19 22:21] LABS: BURR CELLS SLIGHT; OVALOCYTES SLIGHT; SCHISTOCYTES SLIGHT
[2018-07-19] MEDS: Lactated Ringer's 1,000 ML IV SCH (23:35)
[2018-07-20 06:58] LABS: BLOOD UREA NITROGEN 8 mg/dl (9-20); CALCIUM 7.3 mg/dL (8.4-10.2); GFR NON-AFRICAN AMERICAN > 60
[2018-07-20] MEDS: Lactated Ringer's 1,000 ML IV SCH ×2 (07:32→16:40)
[2018-07-20] MEDS ORDERED: Potassium Chloride 20 mEq ER Tab PO ONE ×2 (07:43→17:53)
[2018-07-20 08:38] VITALS: RESP 20
[2018-07-20 10:09] LABS: HEMOGLOBIN 10.2 g/dL (12.0-18.0); MEAN CELL VOLUME 93.7 fl (80.0-94.0); RBC 3.39 Mil/uL (4.40-5.90); RED CELL DISTRIBUTION WIDTH 18.3 % (11.5-14.5); WHITE BLOOD COUNT 2.3 K/uL (4.8-10.8)
[2018-07-20] MEDS: Enoxaparin 60 mg Syringe SC SCH ×2 (10:25→21:12)
--- NOTE | 2018-07-20 11:17 | CT ---
Date of service: 07/20/2018 PROCEDURE: CT HEAD WITHOUT CONTRAST. HISTORY: fall, superficial lip and nose bleed COMPARISON: None available. TECHNIQUE: Axial computed tomography images were obtained through the head/brain without intravenous contrast. Radiation dose: Total exam DLP = 806.74 mGy-cm. This CT exam was performed using one or more of the following dose reduction techniques: Automated exposure control, adjustment of the mA and/or kV according to patient size, and/or use of iterative reconstruction technique. FINDINGS: HEMORRHAGE: No intracranial hemorrhage. BRAIN: No mass effect or edema. Atrophy and mild chronic periventricular white matter ischemic disease. Question minimal right frontal subdural hygroma versus focal atrophy. VENTRICLES: Unremarkable. No hydrocephalus. CALVARIUM: Unremarkable. PARANASAL SINUSES: Unremarkable as visualized. No significant inflammatory changes. MASTOID AIR CELLS: Unremarkable as visualized. No inflammatory changes. OTHER FINDINGS: None. IMPRESSION: Atrophy and mild chronic periventricular white matter ischemic disease. Question minimal right frontal subdural hygroma versus focal atrophy.
--- NOTE | 2018-07-20 12:48 | CP.PCM.CON ---
History of Present Illness - History of Present Illness History of Present Illness: THE PATIENT IS A 73 YEAR OLD MALE WHO WAS ADMITTED YESTERDAY FOR LUE DVT. 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 IT IS STAGE 4 AND HE IS RECEIVING CHEMO BY DR FUENTES. HE ALSO HAS A HISTORY OF HYPERTENSION FOR MANY YEARS. HE DENIES CHEST PAIN OR SOB. I FOLLOW HIM IN MY OFFICE FOR HYPERTENSION. HE SLIPPED ON THE FLOOR THIS MORNING IN THE HOSPITAL AND HIT HIS MOUTH AND BACK BUT HE DOESN'T THINK HE SUSTAINED ANY SERIOUS INJURY. Past Patient History - Past Medical History & Family History Past Medical History?: Yes - Past Social History Smoking Status: Former Smoker Alcohol: None Drugs: Denies Home Situation {Lives}: With Family - CARDIAC Hx Hypertension: Yes - NEUROLOGICAL Hx Neurological Disorder: No - HEENT Hx HEENT Problems: Yes Other/Comment: Use Eyeglasses. Uses hearing aid both ears - RENAL Hx Chronic Kidney Disease: No - ENDOCRINE/METABOLIC Hx Endocrine Disorders: No - HEMATOLOGICAL/ONCOLOGICAL Hx Blood Disorders: No Hx Cancer: Yes (colon with mets to pancreas and lung) - INTEGUMENTARY Hx Dermatological Problems: No - MUSCULOSKELETAL/RHEUMATOLOGICAL Hx Musculoskeletal Disorders: No Hx Falls: No - GASTROINTESTINAL Hx Gastrointestinal Disorders: Yes Hx Bowel Surgery: Yes (September 2016) Hx Diarrhea: Yes Hx Nausea: Yes - GENITOURINARY/GYNECOLOGICAL Hx Genitourinary Disorders: No - PSYCHIATRIC Hx Psychophysiologic Disorder: No Hx Substance Use: No - SURGICAL HISTORY Hx Surgeries: Yes Hx Herniorrhaphy: Yes (Bilateral inguinal) Other/Comment: colon cancer - ANESTHESIA Hx Anesthesia: Yes Hx Anesthesia Reactions: No Hx Malignant Hyperthermia: No Meds Allergies/Adverse Reactions: Allergies Allergy/AdvReac Type Severity Reaction Status Date / Time No Known Allergies Allergy Verified 07/19/18 15:58 - Medications Medications: Current Medications Acetaminophen (Tylenol 325mg Tab) 650 mg PO Q6 PRN PRN Reason: Pain, Mild (1-3) Enoxaparin Sodium (Lovenox) 50 mg SC Q12 LOREN; Protocol Last Admin: 07/20/18 10:25 Dose: 50 mg Famotidine (Pepcid) 20 mg PO DAILY [facility] Last Admin: 07/20/18 10:18 Dose: 20 mg Lactated Ringer's (Lactated Ringer's) 1,000 mls @ 125 mls/hr IV .Q8H [facility] Last Admin: 07/20/18 07:32 Dose: Not Given Loperamide HCl (Imodium) 2 mg PO Q6 PRN PRN Reason: Diarrhea Last Admin: 07/20/18 10:17 Dose: 2 mg Mupirocin (Bactroban Ointment) 1 applic TOP BID [facility] Ondansetron HCl (Zofran Inj) 4 mg IVP Q6 PRN PRN Reason: Nausea/Vomiting Physical Exam - Respiratory Exam Respiratory Exam: Clear to Auscultation Bilateral - Cardiovascular Exam Cardiovascular Exam: REGULAR RHYTHM, +S1, +S2 - Extremities Exam Additional comments: LUE SWELLING COMPARED TO RUE NO LOWER EXTREMITY EDEMA Results - Vital Signs Recent Vital Signs: Last Vital Signs Temp 97.6 F 07/20/18 08:36 Pulse 67 07/20/18 08:36 Resp 20 07/20/18 08:36 BP 115/72 07/20/18 08:36 Pulse Ox 98 07/20/18 08:36 - Labs Result Diagrams: 07/20/18 10:00 07/20/18 05:45 Labs: Laboratory Results - last 24 hr 07/19/18 07/19/18 07/19/18 21:15 21:15 21:15 WBC 3.1 L D RBC 4.34 L Hgb 13.0 Hct 41.5 MCV 95.6 H MCH 30.0 MCHC 31.4 L RDW 18.5 H Plt Count 538 H D MPV 7.1 L Neut % (Auto) 44.8 L Lymph % (Auto) 21.5 Dukes % (Auto) 28.8 H Eos % (Auto) 3.9 Baso % (Auto) 1.0 Neut # (Auto) 1.4 L Lymph # (Auto) 0.7 L Dukes # (Auto) 0.9 H Eos # (Auto) 0.1 Baso # (Auto) 0.0 Neutrophils % (Manual) 42 Band Neutrophils % 1 Lymphocytes % (Manual) 24 Reactive Lymphs % 3 H Monocytes % (Manual) 26 H Eosinophils % (Manual) 2 Basophils % (Manual) 2 Platelet Estimate Increased H Anisocytosis (manual) Slight Ovalocytes Slight [place] Cells Slight Schistocytes Slight PT 14.0 H INR 1.2 APTT 35.4 Sodium 134 Potassium 4.3 Chloride 107 Carbon Dioxide 17 L Anion Gap 14 BUN 10 Creatinine 0.5 L Est GFR ( Amer) > 60 Est GFR (Non-Af Amer) > 60 Random Glucose 108 Calcium 8.6 Total Bilirubin 0.7 AST 40 ALT 19 L D Alkaline Phosphatase 92 Total Protein 6.6 Albumin 3.1 L Globulin 3.5 Albumin/Globulin Ratio 0.9 L 07/20/18 07/20/18 05:45 10:00 WBC 2.3 L RBC 3.39 L Hgb 10.2 L D Hct 31.8 L MCV 93.7 MCH 30.0 MCHC 32.0 L RDW 18.3 H Plt Count 386 D MPV Neut % (Auto) Lymph % (Auto) Dukes % (Auto) Eos % (Auto) Baso % (Auto) Neut # (Auto) Lymph # (Auto) Dukes # (Auto) Eos # (Auto) Baso # (Auto) Neutrophils % (Manual) Band Neutrophils % Lymphocytes % (Manual) Reactive Lymphs % Monocytes % (Manual) Eosinophils % (Manual) Basophils % (Manual) Platelet Estimate Anisocytosis (manual) Ovalocytes Jose Cells Schistocytes PT INR APTT Sodium 132 Potassium 3.4 L Chloride 108 H Carbon Dioxide 16 L Anion Gap 11 BUN 8 L Creatinine 0.4 L Est GFR ( Amer) > 60 Est GFR (Non-Af Amer) > 60 Random Glucose 63 L Calcium 7.3 L Total Bilirubin AST ALT Alkaline Phosphatase Total Protein Albumin Globulin Albumin/Globulin Ratio Assessment & Plan - Assessment and Plan (Free Text) Assessment: LUE DVT COLON CANCER WITH METASTASIS HYPERTENSION HISTORY-BP IS PRESENTLY GOOD OFF MEDICATION(BP 115/72) Plan: THE PATIENT HAS BEEN STARTED ON LOVENOX
--- NOTE | 2018-07-20 14:25 | CP.PCM.PN ---
<Martha Tamayo - Last Filed: 07/20/18 16:08> Subjective - Date & Time of Evaluation Date of Evaluation: 07/20/18 Time of Evaluation: 09:55 - Subjective Subjective: Pt seen/eval this am with Dr. Fischer. Prior to team arrival to round on pt, he was getting something from closet in his room and slipped and fell backwards. He did not hit his head, and does not think he sustained serious injury, however he did bite his lip and has some abrasions on his back. Alert, oriented, talking without difficulty, no focal weakness or deficits. Reports that overall he feels good and has no specific complaints; discussed with patient that he has DVT in left upper extremity and needs anticoag treatment. Objective - Vital Signs/Intake and Output Vital Signs (last 24 hours): Temp Pulse Resp BP Pulse Ox 97.6 F 67 20 115/72 98 07/20/18 09:00 07/20/18 09:00 07/20/18 09:00 07/20/18 09:00 07/20/18 09:00 - Medications Medications: Current Medications Acetaminophen (Tylenol 325mg Tab) 650 mg PO Q6 PRN PRN Reason: Pain, Mild (1-3) Enoxaparin Sodium (Lovenox) 50 mg SC Q12 LOREN; Protocol Last Admin: 07/20/18 10:25 Dose: 50 mg Famotidine (Pepcid) 20 mg PO DAILY [facility] Last Admin: 07/20/18 10:18 Dose: 20 mg Lactated Ringer's (Lactated Ringer's) 1,000 mls @ 125 mls/hr IV .Q8H [facility] Last Admin: 07/20/18 07:32 Dose: Not Given Loperamide HCl (Imodium) 2 mg PO Q6 PRN PRN Reason: Diarrhea Last Admin: 07/20/18 10:17 Dose: 2 mg Mupirocin (Bactroban Ointment) 1 applic TOP BID [facility] Ondansetron HCl (Zofran Inj) 4 mg IVP Q6 PRN PRN Reason: Nausea/Vomiting - Labs Labs: 07/20/18 10:00 07/20/18 05:45 PT 14.0 Seconds (9.8-13.1) H 07/19/18 21:15 INR 1.2 07/19/18 21:15 APTT 35.4 Seconds (25.6-37.1) 07/19/18 21:15 - Constitutional Appears: No Acute Distress - Eye Exam Eye Exam: EOMI, Normal appearance - Respiratory Exam Respiratory Exam: Clear to Ausculation Bilateral, NORMAL BREATHING PATTERN. absent: Respiratory Distress - Cardiovascular Exam Cardiovascular Exam: REGULAR RHYTHM, +S1, +S2 - GI/Abdominal Exam GI & Abdominal Exam: Soft. absent: Tenderness - Extremities Exam Extremities Exam: absent: Calf Tenderness, Pedal Edema Additional comments: LEFT arm edematous as compared to right; LEFT arm propped up on pillow no edema in LOWER ext - Back Exam Additional comments: multiple superficial abrasions to back - Neurological Exam Neurological Exam: Alert, Oriented x3 - Psychiatric Exam Psychiatric exam: Normal Mood - Skin Skin Exam: Warm - Additional Findings Additional findings: chemo port in L chest Assessment and Plan - Assessment and Plan (Free Text) Assessment: 73 yo M with history of colon cancer with mets to pancreas and lung admitted for DVT in left upper extremity; started on anticoagulation. Slipped and fell this am. Plan: Left Upper Extremity DVT - Received lovenox 50 mg SC x1 (1 mg/kg) in ED last night - Started on lovenox 50 mg SC BID - Heme/Onc: Dr. Sanchez consulted, input appreciated, pending recs for outpt anticoagulation - Cardio: Dr. Leggett consulted; input/recs appreciated Mechanical Fall - Hip/Pelvis, Spine, Ribs Xrays - CT head - Bactroban to abrasions on back - Encourage to ask for assistance Diet - Regular diet, supplement with Ensure - Consult assistant news director, recs appreciated Diarrhea, chronic - Loperamide <Bonita Fischer - Last Filed: 07/20/18 16:25> Objective - Vital Signs/Intake and Output Vital Signs (last 24 hours): Temp Pulse Resp BP Pulse Ox 97.6 F 67 20 115/72 98 07/20/18 09:00 07/20/18 09:00 07/20/18 09:00 07/20/18 09:00 07/20/18 09:00 - Medications Medications: Current Medications Acetaminophen (Tylenol 325mg Tab) 650 mg PO Q6 PRN PRN Reason: Pain, Mild (1-3) Enoxaparin Sodium (Lovenox) 50 mg SC Q12 [facility]; Protocol Last Admin: 07/20/18 10:25 Dose: 50 mg Famotidine (Pepcid) 20 mg PO DAILY [facility] Last Admin: 07/20/18 10:18 Dose: 20 mg Lactated Ringer's (Lactated Ringer's) 1,000 mls @ 125 mls/hr IV .Q8H [facility] Last Admin: 07/20/18 07:32 Dose: Not Given Dextrose/Sodium Chloride (Dextrose 5%/0.9% Ns 1000 Ml) 1,000 mls @ 999 mls/hr IV .Q1H1M [facility] Stop: 07/21/18 16:19 Loperamide HCl (Imodium) 2 mg PO Q6 PRN PRN Reason: Diarrhea Last Admin: 07/20/18 10:17 Dose: 2 mg Mupirocin (Bactroban Ointment) 1 applic TOP BID [facility] Ondansetron HCl (Zofran Inj) 4 mg IVP Q6 PRN PRN Reason: Nausea/Vomiting - Labs Labs: 07/20/18 10:00 07/20/18 05:45 PT 14.0 Seconds (9.8-13.1) H 07/19/18 21:15 INR 1.2 07/19/18 21:15 APTT 35.4 Seconds (25.6-37.1) 07/19/18 21:15 Attending/Attestation - Attestation I have personally seen and examined this patient.: Yes I have fully participated in the care of the patient.: Yes I have reviewed all pertinent clinical information, including history, physical exam and plan: Yes
[2018-07-20] MEDS ORDERED: Atropine-Diphenoxylate 0.025-2.5 mg Tab PO ONE (16:18)
[2018-07-20] MEDS ORDERED: Dextrose 5%/0.9% NS 1,000 ML IV SCH (16:30)
[2018-07-20 16:33] VITALS: BP 118/77; PULSE 80; TEMP 97.2; O2SAT 99
--- NOTE | 2018-07-20 16:38 | RAD ---
Date of service: 07/20/2018 HISTORY: s/p fall COMPARISON: None available. FINDINGS: BONES: Normal. No fracture. JOINTS: Normal. No osteoarthritis. SOFT TISSUE: Normal. OTHER FINDINGS: None . IMPRESSION: Normal Bone Xray.
--- NOTE | 2018-07-20 16:39 | RAD ---
Date of service: 07/20/2018 HISTORY: s/p fall COMPARISON: No prior. FINDINGS: BONES: Alignment maintained. No fracture. DISC SPACES: Normal. SOFT TISSUES: Normal. OTHER FINDINGS: None. IMPRESSION: Normal radiographs of the thoracic spine.
--- NOTE | 2018-07-20 16:41 | RAD ---
Date of service: 07/20/2018 PROCEDURE: Radiographs of the chest and bilateral ribs HISTORY: s/p fall COMPARISON: None available. TECHNIQUE: Frontal radiograph of the chest and multiple oblique radiographs of the bilateral ribs were obtained. FINDINGS: RIGHT RIBS: No fracture or focal lesion visualized. LEFT RIBS: No fracture or focal lesion visualized. LUNGS: Innumerable bilateral pulmonary nodules compatible with metastatic disease. PLEURA: No pneumothorax or pleural fluid. CARDIOVASCULAR: Normal cardiac size. No pulmonary vascular congestion. No aortic atherosclerotic calcification present OTHER FINDINGS: Left MediPort catheter in place. IMPRESSION: No evidence of rib fracture. Diffuse bilateral metastatic nodules.
--- NOTE | 2018-07-20 18:53 | CP.PCM.DIS ---
<Martha Tamayo - Last Filed: 07/21/18 01:08> Provider - Provider Date of Admission: 07/19/18 20:36 Attending physician: Jocelyn Yates MD Primary care physician: Dr. Leggett Consults: 07/19/18 21:05 Cardiology Consult Stat Comment: Consulting Provider: Davi Leggett Consulting Physician: Davi Leggett Reason for Consult: DVT LUE 07/19/18 21:06 Hematology Oncology Consult Stat Comment: Consulting Provider: Reyes Sanchez Consulting Physician: Reyes Sanchez Reason for Consult: DVT LUE Time Spent in preparation of Discharge (in minutes): 30 Diagnosis - Discharge Diagnosis (1) Deep vein thrombosis (DVT) of left upper extremity Status: Acute (2) Malignancy Status: Chronic (3) Fall Status: Acute Hospital Course - Lab Results Lab Results: Most Recent Lab Values WBC 2.3 K/uL (4.8-10.8) L 07/20/18 10:00 RBC 3.39 Mil/uL (4.40-5.90) L 07/20/18 10:00 Hgb 10.2 g/dL (12.0-18.0) L D 07/20/18 10:00 Hct 31.8 % (35.0-51.0) L 07/20/18 10:00 MCV 93.7 fl (80.0-94.0) 07/20/18 10:00 MCH 30.0 pg (27.0-31.0) 07/20/18 10:00 MCHC 32.0 g/dL (33.0-37.0) L 07/20/18 10:00 RDW 18.3 % (11.5-14.5) H 07/20/18 10:00 Plt Count 386 K/uL (130-400) D 07/20/18 10:00 MPV 7.1 fl (7.2-11.7) L 07/19/18 21:15 Neut % (Auto) 44.8 % (50.0-75.0) L 07/19/18 21:15 Lymph % (Auto) 21.5 % (20.0-40.0) 07/19/18 21:15 Beaver % (Auto) 28.8 % (0.0-10.0) H 07/19/18 21:15 Eos % (Auto) 3.9 % (0.0-4.0) 07/19/18 21:15 Baso % (Auto) 1.0 % (0.0-2.0) 07/19/18 21:15 Neut # (Auto) 1.4 K/uL (1.8-7.0) L 07/19/18 21:15 Lymph # (Auto) 0.7 K/uL (1.0-4.3) L 07/19/18 21:15 Beaver # (Auto) 0.9 K/uL (0.0-0.8) H 07/19/18 21:15 Eos # (Auto) 0.1 K/uL (0.0-0.7) 07/19/18 21:15 Baso # (Auto) 0.0 K/uL (0.0-0.2) 07/19/18 21:15 Neutrophils % (Manual) 42 % (42-75) 07/19/18 21:15 Band Neutrophils % 1 % (0-2) 07/19/18 21:15 Lymphocytes % (Manual) 24 % (20-50) 07/19/18 21:15 Reactive Lymphs % 3 % (0-0) H 07/19/18 21:15 Monocytes % (Manual) 26 % (0-10) H 07/19/18 21:15 Eosinophils % (Manual) 2 % (0-7) 07/19/18 21:15 Basophils % (Manual) 2 % (0-2) 07/19/18 21:15 Platelet Estimate Increased (NORMAL) H 07/19/18 21:15 Anisocytosis (manual) Slight 07/19/18 21:15 Ovalocytes Slight 07/19/18 21:15 Jose Cells Slight 07/19/18 21:15 Schistocytes Slight 07/19/18 21:15 PT 14.0 Seconds (9.8-13.1) H 07/19/18 21:15 INR 1.2 07/19/18 21:15 APTT 35.4 Seconds (25.6-37.1) 07/19/18 21:15 Sodium 132 mmol/l (132-148) 07/20/18 05:45 Potassium 3.4 MMOL/L (3.6-5.0) L 07/20/18 05:45 Chloride 108 mmol/L (98-107) H 07/20/18 05:45 Carbon Dioxide 16 mmol/L (22-30) L 07/20/18 05:45 Anion Gap 11 (10-20) 07/20/18 05:45 BUN 8 mg/dl (9-20) L 07/20/18 05:45 Creatinine 0.4 mg/dl (0.8-1.5) L 07/20/18 05:45 Est GFR ( Amer) > 60 07/20/18 05:45 Est GFR (Non-Af Amer) > 60 07/20/18 05:45 Random Glucose 63 mg/dL (75-110) L 07/20/18 05:45 Calcium 7.3 mg/dL (8.4-10.2) L 07/20/18 05:45 Total Bilirubin 0.7 mg/dl (0.2-1.3) 07/19/18 21:15 AST 40 U/L (17-59) 07/19/18 21:15 ALT 19 U/L (21-72) L D 07/19/18 21:15 Alkaline Phosphatase 92 U/L (38-126) 07/19/18 21:15 Total Protein 6.6 G/DL (6.3-8.2) 07/19/18 21:15 Albumin 3.1 g/dL (3.5-5.0) L 07/19/18 21:15 Globulin 3.5 gm/dL (2.2-3.9) 07/19/18 21:15 Albumin/Globulin Ratio 0.9 (1.0-2.1) L 07/19/18 21:15 - Hospital Course Hospital Course: 73 yo M with colon cancer with mets to pancreas and lung was admitted for left upper extremity DVT, diagnosed after prompted visit to ED by his oncologist Dr. Sanchez who noted LUE swelling. Venous doppler confirmed DVT. This is pt's first DVT. Started on therapeutic lovenox, received 1 dose 50 mg lovenox on night of admission 07/19/18, and 2 doses Q12 on 07/20/18. During admission, pt slipped and fell backwards onto a chair while trying to reach for something in the room closet (did not ask for assistance with getting out of bed); had superficial abrasions to back. Pt evaluated within minutes of his fall - reports he thinks he slipped, did not hit his head, no specific complaints. [employer] monitoring system then started. CT head, as well as XRAYS of hips, spine, ribs were done and showed no acute pathology. Bactroban was applied to abrasions on back. Dr. Sanchez was consulted regarding DVT treatment outpatient- recommended eliquis. After all scans negative for acute pathology resulted, pt was cleared for d/c. Given prescription for starter dose eliquis - 10 mg BID x 7 days, then 5 mg BID. Pt stayed to get evening dose therapeutic lovenox prior to discharge; to start eliquis tomorrow at 9 am. To continue to apply bactroban to abrasions. Advised to f/u with Dr. Sanchez during the next 2 weeks; pt's verbalized that they have an apt for next week. Discharge Exam - Head Exam Head Exam: ATRAUMATIC, NORMAL INSPECTION - Eye Exam Eye Exam: Normal appearance - Respiratory Exam Respiratory Exam: Clear to PA & Lateral, NORMAL BREATHING PATTERN, UNREMARKABLE - Cardiovascular Exam Cardiovascular Exam: REGULAR RHYTHM, +S1, +S2 - GI/Abdominal Exam GI & Abdominal Exam: Soft, Unremarkable - Extremities Exam Additional comments: LEFT arm edematous as compared to right; LEFT arm propped up on pillow no edema in LOWER ext - Back Exam Additional comments: multiple superficial abrasions to back - Neurological Exam Neurological exam: Alert, Oriented x3 - Psychiatric Exam Psychiatric exam: Normal Affect - Skin Skin Exam: Warm - Additional Findings Additional findings: chemo port in L chest Discharge Plan - Discharge Medications Prescriptions: Apixaban [Eliquis] 10 mg PO BID 30 Days #1 tab.ds.pk - Follow Up Plan Condition: STABLE Disposition: HOME/ ROUTINE Instructions: Apixaban, How to Prevent Blood Clots Additional Instructions: ff up with Dr Sanchez in 2 wks ff up with Dr Tran 2-3 wks Referrals: Reyes Sanchez MD [Staff Provider] - Davi Leggett MD [Family Provider] - <FischerBonita - Last Filed: 07/21/18 14:52> Provider - Provider Date of Admission: 07/19/18 20:36 Attending physician: Jocelyn Yates MD Consults: 07/19/18 21:05 Cardiology Consult Stat Comment: Consulting Provider: Davi Leggett Consulting Physician: Davi Leggett Reason for Consult: DVT LUE 07/19/18 21:06 Hematology Oncology Consult Stat Comment: Consulting Provider: Reyes Sanchez Consulting Physician: Reyes Sanchez Reason for Consult: DVT LUE Hospital Course - Lab Results Lab Results: Most Recent Lab Values WBC 2.3 K/uL (4.8-10.8) L 07/20/18 10:00 RBC 3.39 Mil/uL (4.40-5.90) L 07/20/18 10:00 Hgb 10.2 g/dL (12.0-18.0) L D 07/20/18 10:00 Hct 31.8 % (35.0-51.0) L 07/20/18 10:00 MCV 93.7 fl (80.0-94.0) 07/20/18 10:00 MCH 30.0 pg (27.0-31.0) 07/20/18 10:00 MCHC 32.0 g/dL (33.0-37.0) L 07/20/18 10:00 RDW 18.3 % (11.5-14.5) H 07/20/18 10:00 Plt Count 386 K/uL (130-400) D 07/20/18 10:00 MPV 7.1 fl (7.2-11.7) L 07/19/18 21:15 Neut % (Auto) 44.8 % (50.0-75.0) L 07/19/18 21:15 Lymph % (Auto) 21.5 % (20.0-40.0) 07/19/18 21:15 Beaver % (Auto) 28.8 % (0.0-10.0) H 07/19/18 21:15 Eos % (Auto) 3.9 % (0.0-4.0) 07/19/18 21:15 Baso % (Auto) 1.0 % (0.0-2.0) 07/19/18 21:15 Neut # (Auto) 1.4 K/uL (1.8-7.0) L 07/19/18 21:15 Lymph # (Auto) 0.7 K/uL (1.0-4.3) L 07/19/18 21:15 Beaver # (Auto) 0.9 K/uL (0.0-0.8) H 07/19/18 21:15 Eos # (Auto) 0.1 K/uL (0.0-0.7) 07/19/18 21:15 Baso # (Auto) 0.0 K/uL (0.0-0.2) 07/19/18 21:15 Neutrophils % (Manual) 42 % (42-75) 07/19/18 21:15 Band Neutrophils % 1 % (0-2) 07/19/18 21:15 Lymphocytes % (Manual) 24 % (20-50) 07/19/18 21:15 Reactive Lymphs % 3 % (0-0) H 07/19/18 21:15 Monocytes % (Manual) 26 % (0-10) H 07/19/18 21:15 Eosinophils % (Manual) 2 % (0-7) 07/19/18 21:15 Basophils % (Manual) 2 % (0-2) 07/19/18 21:15 Platelet Estimate Increased (NORMAL) H 07/19/18 21:15 Anisocytosis (manual) Slight 07/19/18 21:15 Ovalocytes Slight 07/19/18 21:15 Jose Cells Slight 07/19/18 21:15 Schistocytes Slight 07/19/18 21:15 PT 14.0 Seconds (9.8-13.1) H 07/19/18 21:15 INR 1.2 07/19/18 21:15 APTT 35.4 Seconds (25.6-37.1) 07/19/18 21:15 Sodium 132 mmol/l (132-148) 07/20/18 05:45 Potassium 3.4 MMOL/L (3.6-5.0) L 07/20/18 05:45 Chloride 108 mmol/L (98-107) H 07/20/18 05:45 Carbon Dioxide 16 mmol/L (22-30) L 07/20/18 05:45 Anion Gap 11 (10-20) 07/20/18 05:45 BUN 8 mg/dl (9-20) L 07/20/18 05:45 Creatinine 0.4 mg/dl (0.8-1.5) L 07/20/18 05:45 Est GFR ( Amer) > 60 07/20/18 05:45 Est GFR (Non-Af Amer) > 60 07/20/18 05:45 Random Glucose 63 mg/dL (75-110) L 07/20/18 05:45 Calcium 7.3 mg/dL (8.4-10.2) L 07/20/18 05:45 Total Bilirubin 0.7 mg/dl (0.2-1.3) 07/19/18 21:15 AST 40 U/L (17-59) 07/19/18 21:15 ALT 19 U/L (21-72) L D 07/19/18 21:15 Alkaline Phosphatase 92 U/L (38-126) 07/19/18 21:15 Total Protein 6.6 G/DL (6.3-8.2) 07/19/18 21:15 Albumin 3.1 g/dL (3.5-5.0) L 07/19/18 21:15 Globulin 3.5 gm/dL (2.2-3.9) 07/19/18 21:15 Albumin/Globulin Ratio 0.9 (1.0-2.1) L 07/19/18 21:15 Attending/Attestation - Attestation I have personally seen and examined this patient.: Yes I have fully participated in the care of the patient.: Yes I have reviewed all pertinent clinical information, including history, physical exam and plan: Yes
--- NOTE | 2018-07-22 09:24 | US ---
Date of service: 07/19/2018 PROCEDURE: Bilateral upper Extremity Venous Doppler HISTORY: r/o dvt COMPARISON: None available. TECHNIQUE: Bilateral upper extremity deep veins, including the lower internal jugular, subclavian, axillary and brachial veins, were evaluated flow, compressibility and respiratory phasicity. FINDINGS: Normal flow, compressibility and respiratory phasicity was observed in the right upper extremity deep veins. The cephalic vein is not visualized. There is an acute occlusive thrombus in the left subclavian, axillary and basilic vein. Normal flow, compressibility and respiratory phasicity was observed in the left internal jugular and brachial deep veins. The cephalic vein is not visualized. IMPRESSION: 1. No evidence of deep venous thrombosis in the right upper extremity. 2. Acute occlusive deep venous thrombosis in the left subclavian and axillary veins. Acute thrombosis in left basilic vein. A preliminary report was provided by [employer].
--- NOTE | 2018-07-22 13:48 | CARD ---
APPROVED REPORT Date of service: 07/20/2018 EKG Measurement Heart [id number] <Conclusion> Normal sinus rhythm Low voltage QRS Nonspecific T wave abnormality Abnormal ECG
== END 2018-07-20 22:20 | disposition home or self-care (01) ==
LOC: H.ER 14:58 → H.ERHOLD 20:36 → INTOOBSV 20:36 → H.MEDSURG1 22:49
PROVIDERS: ADMIT Internal Medicine; ATTEND Internal Medicine
DX: I82.622 Acute embolism and thrombosis of deep veins of left upper extremity (principal); R19.7 Diarrhea, unspecified; S20.419A Abrasion of unspecified back wall of thorax, initial encounter; C78.89 Secondary malignant neoplasm of other digestive organs; C78.00 Secondary malignant neoplasm of unspecified lung; I10 Essential (primary) hypertension; Z85.038 Personal history of other malignant neoplasm of large intestine; Z87.891 Personal history of nicotine dependence; W01.0XXA Fall on same level from slipping, tripping and stumbling without subsequent striking against object, initial encounter; Y92.9 Unspecified place or not applicable
CPT/HCPCS: 36415; 70450; 71110; 72082; 73521; 80048; 80053; 85025; 85027; 85610; 85730; 93970; 99285; G0378; J1650; J7030; J7042; J7120

== ENCOUNTER 2018-08-20 11:24 | Emergency (ER) | payer MEDICARE ==
[2018-08-20 11:30] VITALS: BMI 15.0
[2018-08-20] MEDS ORDERED: Sodium Chloride 0.9% 1,000 ML IV STA (11:50)
--- NOTE | 2018-08-20 12:29 | ED PDOC ---
HPI: General Adult Time Seen by Provider: 08/20/18 11:44 Chief Complaint (Nursing): GI Problem Chief Complaint (Provider): weakness, dizziness, dehydration History Per: Patient History/Exam Limitations: no limitations Onset/Duration Of Symptoms: Days Current Symptoms Are (Timing): Still Present Additional Complaint(s): 73 year old male was brought to the ED via EMS for diarrhea and dehydration. Patient has a history of colon cancer with metastasis. Patient received chemo one week ago. Currently, patient has weakness and dizziness. Otherwise, denies vomiting or fever. PMD: aDvi Leggett Past Medical History Reviewed: Historical Data, Nursing Documentation, Vital Signs Vital Signs: Last Vital Signs Temp 98.7 F 08/20/18 11:34 Pulse 88 08/20/18 11:34 Resp 18 08/20/18 11:34 BP 99/76 L 08/20/18 11:43 Pulse Ox 97 08/20/18 11:34 - Medical History PMH: Gall Bladder Disease, HTN Denies: Asthma, HIV, Chronic Kidney Disease - Surgical History Surgical History: Hernia Repair (b/l inguinal ) - Family History Family History: States: Unknown Family Hx - Home Medications Home Medications: Ambulatory Orders Medication Instructions Recorded Apixaban [Eliquis] 10 mg PO BID 30 Days #1 tab.ds.pk 07/20/18 Atropine/Diphenoxylate [Lomotil 3 tab PO Q4 PRN 07/20/18 0.025-2.5 mg tablet] Mupirocin 2% Ointment [Bactroban 1 applic TOP BID tube 07/20/18 Ointment] Potassium Chloride [K-Tab ER] 20 meq PO BID 07/20/18 Amoxicillin/Clavulanate [Augmentin 1 tab PO Q12 #20 tab 08/20/18 875 MG-125 MG] - Allergies Allergies/Adverse Reactions: Allergies Allergy/AdvReac Type Severity Reaction Status Date / Time No Known Allergies Allergy Verified 07/19/18 15:58 Review of Systems ROS Statement: Except As Marked, All Systems Reviewed And Found Negative Constitutional: Positive for: Other (dehydrated). Negative for: Fever Gastrointestinal: Positive for: Diarrhea. Negative for: Vomiting Neurological: Positive for: Weakness, Dizziness Physical Exam - Reviewed Nursing Documentation Reviewed: Yes Vital Signs Reviewed: Yes - Physical Exam Appears: Negative for: Well (cachectic) ENT: Positive for: Other (mucous membrane are dry) Cardiovascular/Chest: Positive for: Tachycardia Respiratory: Positive for: Rhonchi (scattered). Negative for: Wheezing Gastrointestinal/Abdominal: Positive for: Soft. Negative for: Tenderness, Distended Extremity: Positive for: Other (peripheral edema on upper and lower extremities) Neurologic/Psych: Positive for: Alert, Oriented (x3) - Laboratory Results Result Diagrams: 08/20/18 12:15 08/20/18 12:15 - ECG O2 Sat by Pulse Oximetry: 97 (RA) Pulse Ox Interpretation: Normal Medical Decision Making Medical Decision Making: Time: 1150 Impression: end stage, colon cancer, dehydration, cachectic. Will obtain labs, chest x-ray and provide fluid Plan: --EKG --CMP --ED urine --CBC w/ Differential --Chest portable [RAD] --Normal Saline 200 mls/hr --Reevaluation 1615 Labs reviewed, discussed with Dr. Sanchez, patient to be discharged home wt PO antibiotics for possible infiltrates. Discussed with family plan for treatment at home with antibiotics and agree that is the best option at this time. Patient noted to be hypokalemic, PO Potassium given. 1700 On reassessment, patient reports feeling much better after IV hydration. Case discussed with Dr Leggett, who is agreeable with plan for discharge home. Patient stable for discharge home. Scribe Attestation: Documented by Donnie Lugo, acting as a scribe for Nima Daley MD. Provider Scribe Attestation: All medical record entries made by the Scribe were at my direction and personally dictated by me. I have reviewed the chart and agree that the record accurately reflects my personal performance of the history, physical exam, medical decision making, and the department course for this patient. I have also personally directed, reviewed, and agree with the discharge instructions and disposition. Disposition - Clinical Impression Clinical Impression: Primary colon cancer with metastasis to other site, Dehydration - Patient ED Disposition Is Patient to be Admitted: No Counseled Patient/Family Regarding: Studies Performed, Diagnosis, Need For Followup, Rx Given - Disposition Referrals: Reyes Sanchez MD [Staff Provider] - Disposition: Routine/Home Disposition Time: 17:00 Condition: FAIR Prescriptions: Amoxicillin/Clavulanate [Augmentin 875 MG-125 MG] 1 tab PO Q12 #20 tab Instructions: Colon and Rectal Cancer, Dehydration, Adult (DC) Forms: [employer] ([employer])
[2018-08-20 13:20] LABS: BASO % 0.1 % (0.0-2.0); EOS % 0.3 % (0.0-4.0); HEMOGLOBIN 9.8 g/dL (12.0-18.0); LYMPH # 0.5 K/uL (1.0-4.3); LYMPH % 11.7 % (20.0-40.0); MEAN CELL VOLUME 89.4 fl (80.0-94.0); MEAN CORPUSCULAR HEMOGLOBIN 29.3 pg (27.0-31.0); MEAN CORPUSCULAR HGB CONC 32.7 g/dL (33.0-37.0); MEAN PLATELET VOLUME 7.2 fl (7.2-11.7); MONO # 1.1 K/uL (0.0-0.8); MONO % 27.6 % (0.0-10.0); NEUT # 2.3 K/uL (1.8-7.0); NEUT % 60.3 % (50.0-75.0); NRBC % 0.1 % (0.0-0.0); PLATELET COUNT 404 K/uL (130-400); RBC 3.36 Mil/uL (4.40-5.90); RED CELL DISTRIBUTION WIDTH 18.4 % (11.5-14.5); WHITE BLOOD COUNT 3.9 K/uL (4.8-10.8)
[2018-08-20 13:29] LABS: ALB/GLOB RATIO 0.9 (1.0-2.1); ALBUMIN 2.1 g/dL (3.5-5.0); ALT/SGPT 31 U/L (21-72); AST/SGOT 36 U/L (17-59); BLOOD UREA NITROGEN 18 mg/dl (9-20); CALCIUM 8.2 mg/dL (8.4-10.2); GFR NON-AFRICAN AMERICAN > 60
[2018-08-20] MEDS ORDERED: Potassium Chloride 20 mEq ER Tab PO ONE ×2 (13:32→15:10)
--- NOTE | 2018-08-20 13:57 | RAD ---
Date of service: 08/20/2018 HISTORY: cough COMPARISON: Portable chest 10/18/2016. FINDINGS: LUNGS: Right MediPort left MediPort in situ unchanged compared prior to prior CT. Heterogeneous density seen throughout both lung garcia compatible with metastatic nodules previously demonstrated in chest segment of chest and pelvis CT 06/21/2018. Potential limited infiltrate or atelectasis medial left base with none at the right. PLEURA: Trace left pleural effusion. None identified at the right. No pneumothorax bilaterally. CARDIOVASCULAR: Calcific atherosclerotic changes are seen related to the thoracic aorta. Normal cardiac size. No pulmonary vascular congestion. OSSEOUS STRUCTURES: No significant abnormalities. VISUALIZED UPPER ABDOMEN: Biliary stent suggested in the midline upper abdomen. OTHER FINDINGS: None. IMPRESSION: Widespread pulmonary metastasis reiterated with limited medial left basilar atelectasis or infiltrate. Small pleural effusion present.
[2018-08-20 14:28] LABS: ANISOCYTOSIS SLIGHT; BANDS 4 % (0-2); BASOPHIL 1 % (0-2); EOSINOPHIL 1 % (0-7); HYPOCHROMIC SLIGHT; LYMPHOCYTE 18 % (20-50); MONOCYTE 29 % (0-10); NEUTROPHIL 47 % (42-75); PLATELET ESTIMATE SLIGHTLY INCREASED (NORMAL); TOTAL CELLS COUNTED 100
[2018-08-20] MEDS ORDERED: Piperacillin/Tazobact 3.375 GM in Sodium Chloride 0.9% 100 ML IVPB STA (14:38)
[2018-08-20] MEDS ORDERED: Piperacillin/Tazobact 3.375 gm Inj IVPB ONE (15:11)
[2018-08-20 18:37] VITALS: BP 114/69; PULSE 84; RESP 18; TEMP 98.1; O2SAT 99
--- NOTE | 2018-08-20 20:27 | CARD ---
APPROVED REPORT Date of service: 08/20/2018 EKG Measurement Heart [id number] <Conclusion> Sinus tachycardia Low voltage QRS Incomplete right bundle branch block Nonspecific ST-T changes Abnormal ECG
== END 2018-08-20 18:38 | disposition home or self-care (01) ==
LOC: H.ER 11:24
DX: C18.9 Malignant neoplasm of colon, unspecified (principal); C78.00 Secondary malignant neoplasm of unspecified lung; E86.0 Dehydration; I10 Essential (primary) hypertension; Z79.01 Long term (current) use of anticoagulants; Z85.038 Personal history of other malignant neoplasm of large intestine; Z79.899 Other long term (current) drug therapy
CPT/HCPCS: 71045; 80053; 85025; 93005; 96361; 96365; 99285; J2543; J7030

== ENCOUNTER 2018-09-09 19:55 | Inpatient (IN) | payer MEDICARE ==
[2018-09-09 19:55] VITALS: BMI 15.0
[2018-09-09] MEDS ORDERED: Sodium Chloride 0.9% 1,000 ML IV STA ×2 (20:30→21:27)
[2018-09-09 21:14] LABS: BASO # 0.1 K/uL (0.0-0.2); BASO % 0.4 % (0.0-2.0); HEMOGLOBIN 12.1 g/dL (12.0-18.0); LYMPH # 0.1 K/uL (1.0-4.3); LYMPH % 0.4 % (20.0-40.0); MEAN CELL VOLUME 92.6 fl (80.0-94.0); MEAN CORPUSCULAR HEMOGLOBIN 30.1 pg (27.0-31.0); MEAN CORPUSCULAR HGB CONC 32.5 g/dL (33.0-37.0); MEAN PLATELET VOLUME 7.5 fl (7.2-11.7); MONO # 0.1 K/uL (0.0-0.8); MONO % 0.4 % (0.0-10.0); NEUT # 14.6 K/uL (1.8-7.0); NEUT % 98.8 % (50.0-75.0); NRBC % 0.1 % (0.0-0.0); PLATELET COUNT 397 K/uL (130-400); RBC 4.03 Mil/uL (4.40-5.90); RED CELL DISTRIBUTION WIDTH 21.8 % (11.5-14.5); WHITE BLOOD COUNT 14.7 K/uL (4.8-10.8)
[2018-09-09 21:18] LABS: INR 1.8; PROTHROMBIN TIME 20.3 Seconds (9.8-13.1)
[2018-09-09 21:24] LABS: VENOUS BLOOD GAS BASE EXCESS -9.2 mmol/L (0.0-2.0); VENOUS BLOOD GAS PCO2 19 mmHg (40-60); VENOUS BLOOD GAS PO2 28 mm/Hg (30-55); VENOUS BLOOD PH 7.43 (7.32-7.43)
[2018-09-09] MEDS ORDERED: Piperacillin/Tazobact 3.375 GM in Sodium Chloride 0.9% 100 ML IVPB STA (21:27)
[2018-09-09] MEDS ORDERED: Piperacillin/Tazobact 3.375 gm Inj IVPB ONE (21:43)
[2018-09-09 22:05] LABS: ALB/GLOB RATIO 0.8 (1.0-2.1); ALBUMIN 2.5 g/dL (3.5-5.0); ALT/SGPT 66 U/L (21-72); AST/SGOT 93 U/L (17-59); BLOOD UREA NITROGEN 13 mg/dl (9-20); CALCIUM 8.3 mg/dL (8.4-10.2); GFR NON-AFRICAN AMERICAN > 60
--- NOTE | 2018-09-09 22:09 | ED PDOC ---
HPI: SOB/CHF/COPD Time Seen by Provider: 09/09/18 20:19 Chief Complaint (Nursing): Flu-like Symptoms History Per: Family History/Exam Limitations: no limitations Onset/Duration Of Symptoms: Days Current Symptoms Are (Timing): Still Present Associated Symptoms: Chills Additional Complaint(s): 73 year old M with history of metastatic colon CA, DVT on eliquis presenting with tremors, chills, and difficulty breathing today. and son state that he has been progressively declining in his health, not wanting to eat or hydrate orally, not wanting to leave the house. The son states that he had to force him to go to his scheduled appointment today with Dr. Sanchez for an infusion of IV fluids and upon returning to the house in the car, the patient stated to his family the he was shaky and cold and "could not get warm." Family did not notice a fever at home. No recent travel. PMD: Dr. Leggett Past Medical History Vital Signs: Last Vital Signs Temp 100.3 F H 09/09/18 21:07 Pulse 136 H 09/09/18 21:30 Resp 20 09/09/18 21:30 BP 112/67 09/09/18 21:30 Pulse Ox 96 09/09/18 21:30 - Medical History PMH: Gall Bladder Disease, HTN Denies: Asthma, HIV, Chronic Kidney Disease - Surgical History Surgical History: Hernia Repair (b/l inguinal ) - Family History Family History: States: Unknown Family Hx - Home Medications Home Medications: Ambulatory Orders Medication Instructions Recorded Apixaban [Eliquis] 10 mg PO BID 30 Days #1 tab.ds.pk 07/20/18 Atropine/Diphenoxylate [Lomotil 3 tab PO Q4 PRN 07/20/18 0.025-2.5 mg tablet] Mupirocin 2% Ointment [Bactroban 1 applic TOP BID tube 07/20/18 Ointment] Potassium Chloride [K-Tab ER] 20 meq PO BID 07/20/18 Amoxicillin/Clavulanate [Augmentin 1 tab PO Q12 #20 tab 08/20/18 875 MG-125 MG] - Allergies Allergies/Adverse Reactions: Allergies Allergy/AdvReac Type Severity Reaction Status Date / Time No Known Allergies Allergy Verified 07/19/18 15:58 Review of Systems ROS Statement: Except As Marked, All Systems Reviewed And Found Negative Constitutional: Positive for: Chills, Weakness Cardiovascular: Negative for: Chest Pain Respiratory: Positive for: Shortness of Breath Gastrointestinal: Negative for: Nausea, Vomiting Physical Exam - Reviewed Nursing Documentation Reviewed: Yes Vital Signs Reviewed: Yes - Physical Exam Appears: Negative for: Well (Cachectic, unwell appearing) Head Exam: Positive for: ATRAUMATIC, NORMAL INSPECTION, NORMOCEPHALIC Skin: Positive for: Pallor Eye Exam: Positive for: EOMI, Normal appearance, PERRL ENT: Positive for: Other (Dry mucus membranes) Neck: Positive for: Normal, Painless ROM Cardiovascular/Chest: Positive for: Tachycardia Respiratory: Positive for: Accessory Muscle Use, Rhonchi Gastrointestinal/Abdominal: Positive for: Normal Exam, Soft. Negative for: Tenderness Back: Positive for: Normal Inspection Extremity: Positive for: Normal ROM Neurologic/Psych: Positive for: Alert, heel painter II-XII, Oriented. Negative for: Motor/Sensory Deficits - Laboratory Results Result Diagrams: 09/09/18 21:02 09/09/18 21:02 Lab Results: pO2 28 mm/Hg (30-55) L 09/09/18 21:15 VBG pH 7.43 (7.32-7.43) 09/09/18 21:15 VBG pCO2 19 mmHg (40-60) L* 09/09/18 21:15 VBG HCO3 16.6 mmol/L 09/09/18 21:15 VBG Total CO2 13.2 mmol/L (22-28) L 09/09/18 21:15 VBG O2 Sat (Calc) 57.5 % (40-65) 09/09/18 21:15 VBG Base Excess -9.2 mmol/L (0.0-2.0) L 09/09/18 21:15 VBG Potassium 4.9 mmol/L (3.6-5.2) 09/09/18 21:15 Sodium 126.0 mmol/L (132-148) L 09/09/18 21:15 Chloride 101.0 mmol/L (98-107) 09/09/18 21:15 Glucose 153 mg/dL (75-110) H 09/09/18 21:15 Lactate 8.0 mmol/L (0.7-2.1) H* 09/09/18 21:15 FiO2 21.0 % 09/09/18 21:15 Crit Value Called To Angela joel 09/09/18 21:15 Crit Value Called By 23 09/09/18 21:15 Crit Value Read Back Y 09/09/18 21:15 Blood Gas Notified Time 212009/09/18 21:15 PT 20.3 Seconds (9.8-13.1) H 09/09/18 21:02 INR 1.8 09/09/18 21:02 Total Bilirubin 3.8 mg/dl (0.2-1.3) H 09/09/18 21:02 AST 93 U/L (17-59) H D 09/09/18 21:02 ALT 66 U/L (21-72) 09/09/18 21:02 Alkaline Phosphatase 339 U/L (38-126) H D 09/09/18 21:02 Total Protein 5.5 G/DL (6.3-8.2) L 09/09/18 21:02 Albumin 2.5 g/dL (3.5-5.0) L 09/09/18 21:02 Globulin 3.0 gm/dL (2.2-3.9) 09/09/18 21:02 Albumin/Globulin Ratio 0.8 (1.0-2.1) L 09/09/18 21:02 - ECG O2 Sat by Pulse Oximetry: 96 Pulse Ox Interpretation: Normal - Critical Care Total Time (In Min): 30 Documented Critical Care: Time excludes all time spent performint seperately billable procedures Medical Decision Making Medical Decision Makin73 year old with metastatic colon CA presenting to ER for chills, tremors --Patient likely septic given fever, tachycardia, elevated WBC count --Source is likely PNA given infiltrates on CXR, however also extensive pulmonary mets a possibility --Patient bolused with IVF, empiric IV antibiotics started for sepsis --Dr. Leggett contacted, aware that patient is in ER, states he can be placed on consult by hospitalist if necessary --Spoke with Dr. Myers stating that patient will need ICU level of care --Patient admitted to hospitalist service, condition: guarded Disposition - Clinical Impression Clinical Impression: Pneumonia, Sepsis - Patient ED Disposition Is Patient to be Admitted: Yes Counseled Patient/Family Regarding: Studies Performed, Diagnosis - Disposition Disposition Time: 21:28 Condition: GUARDED
[2018-09-09 22:34] LABS: BANDS 7 % (0-2); LYMPHOCYTE 4 % (20-50); MONOCYTE 3 % (0-10); NEUTROPHIL 86 % (42-75); PLATELET ESTIMATE NORMAL (NORMAL); TOTAL CELLS COUNTED 100
[2018-09-09 22:35] LABS: ANISOCYTOSIS SLIGHT; PLATELET CLUMPS PRESENT
--- NOTE | 2018-09-10 00:23 | CP.PCM.HP ---
<Amrik Mendoza - Last Filed: 09/10/18 03:58> History of Present Illness - History of Present Illness History of Present Illness: Pt is a 73 y/o male with hx of Colon Cancer Stage IV and DVT of Upper Extremity on Eliquis presenting to ED by family due progressive weakness, poor po intake, weight loss over the past 3-4 weeks. They were prompted to come to ED today when she had an episode of chills and unresponsiveness after leaving the oncologists office today. Of note, he received IV fluids in the office visit that day. As per family, pt was receiving chemotherapy until one month ago when the oncologist felt it best to interrupt his chemotherapy as his health began to declines. Family states he is usually alert and oriented x3 but has become more quiet and withdrawn often refusing meals and not getting up out of bed. ROS:+ Watery Diarrhea, intermittent. Negative for difficulty breathing, fevers, chest pain, abdominal pain, n/v or diarrhea. History taken by and son at bedside due to pt's neurological impairment. Oncologist: Dr. Sanchez PMD: Dr. Leggett PMHX: Colon Cancer, Upper extremity DVT (diagnosed last hospital admission 3 weeks ago, on Eliquis), HTN (BP meds discontinued), CHF (Echo form 2017 EF 35- 40%) PSurgx: Colon resection 2017, Pancreatic Duct Stent NKDA Social: Lives with and son Code status discussed extensively with family at bedside. They state they would like him to be DNR/DNI and fully understand this means. Discussion held with Dr. Putnam. Present on Admission - Present on Admission Any Indicators Present on Admission: Yes History of DVT/PE: Yes History of Uncontrolled Diabetes: No Urinary Catheter: No Decubitus Ulcer Present: No Past Patient History - Infectious Disease Hx of Infectious Diseases: None - Past Medical History & Family History Past Medical History?: Yes - Past Social History Smoking Status: Former Smoker - CARDIAC Hx Hypertension: Yes - PULMONARY Hx Asthma: No - NEUROLOGICAL Hx Neurological Disorder: No - HEENT Hx HEENT Problems: Yes Other/Comment: Use Eyeglasses. Uses hearing aid both ears - RENAL Hx Chronic Kidney Disease: No - ENDOCRINE/METABOLIC Hx Endocrine Disorders: No - HEMATOLOGICAL/ONCOLOGICAL Hx Human Immunodeficiency Virus (HIV): No - INTEGUMENTARY Hx Dermatological Problems: No - MUSCULOSKELETAL/RHEUMATOLOGICAL Hx Musculoskeletal Disorders: No Hx Falls: No - GASTROINTESTINAL Hx Gall Bladder Disease: Yes - GENITOURINARY/GYNECOLOGICAL Hx Genitourinary Disorders: Yes Hx Urinary Tract Infection: Yes - PSYCHIATRIC Hx Psychophysiologic Disorder: No Hx Substance Use: No - SURGICAL HISTORY Hx Surgeries: Yes Hx Herniorrhaphy: Yes (Bilateral inguinal) Other/Comment: colon cancer, gallbladder stents - ANESTHESIA Hx Anesthesia: Yes Hx Anesthesia Reactions: No Hx Malignant Hyperthermia: No Meds Allergies/Adverse Reactions: Allergies Allergy/AdvReac Type Severity Reaction Status Date / Time No Known Allergies Allergy Verified 07/19/18 15:58 Physical Exam - Constitutional Appears: No Acute Distress, Confused, Cachectic, Chronically Ill - Head Exam Head Exam: NORMAL INSPECTION - Eye Exam Eye Exam: Normal appearance - ENT Exam ENT Exam: Mucous Membranes Dry - Neck Exam Neck exam: Positive for: Full Rom - Respiratory Exam Respiratory Exam: Accessory Muscle Use (tachypnic), Decreased Breath Sounds, Rales (Bilateral bases of lung). absent: Rhonchi, Wheezes - Cardiovascular Exam Cardiovascular Exam: Tachycardia, +S1, +S2, Systolic Murmur - GI/Abdominal Exam GI & Abdominal Exam: Normal Bowel Sounds, Soft. absent: Tenderness - Extremities Exam Extremities exam: Positive for: normal capillary refill, pedal edema (+ 1 piting bilaterally up to mid thompson), pedal pulses present - Neurological Exam Neurological exam: Altered (Arousable to voice, oriented to name only, able to respond appropriately to family occassionaly ) - Psychiatric Exam Psychiatric exam: Depressed - Skin Skin Exam: Pallor Results - Vital Signs Recent Vital Signs: Last Vital Signs Temp 99.4 F 09/09/18 22:45 Pulse 124 H 09/09/18 22:45 Resp 20 09/09/18 22:45 BP 112/67 09/09/18 22:45 Pulse Ox 96 09/09/18 23:08 - Labs Result Diagrams: 09/09/18 21:02 09/09/18 21:02 Labs: Laboratory Results - last 24 hr 09/09/18 09/09/18 09/09/18 20:36 21:02 21:02 WBC 14.7 H D RBC 4.03 L Hgb 12.1 D Hct 37.3 MCV 92.6 D MCH 30.1 MCHC 32.5 L RDW 21.8 H Plt Count 397 MPV 7.5 Neut % (Auto) 98.8 H Lymph % (Auto) 0.4 L Mcculloch % (Auto) 0.4 Eos % (Auto) 0.0 Baso % (Auto) 0.4 Neut # (Auto) 14.6 H Lymph # (Auto) 0.1 L M[place]ulloch # (Auto) 0.1 Eos # (Auto) 0.0 Baso # (Auto) 0.1 Neutrophils % (Manual) 86 H Band Neutrophils % 7 H Lymphocytes % (Manual) 4 L Monocytes % (Manual) 3 Platelet Estimate Normal Plt Clumps, EDTA Present Anisocytosis (manual) Slight Macrocytosis (manual) Slight PT INR APTT pO2 VBG pH VBG pCO2 VBG HCO3 VBG Total CO2 VBG O2 Sat (Calc) VBG Base Excess VBG Potassium Glucose Lactate FiO2 Crit Value Called To Crit Value Called By Crit Value Read Back Blood Gas Notified Time Sodium 128 L Potassium 4.8 Chloride 99 Carbon Dioxide 13 L Anion Gap 21 H BUN 13 Creatinine 0.8 Est GFR ( Amer) > 60 Est GFR (Non-Af Amer) > 60 Random Glucose 145 H Calcium 8.3 L Phosphorus 3.6 Magnesium 1.5 L Total Bilirubin 3.8 H AST 93 H D ALT 66 Alkaline Phosphatase 339 H D NT-Pro-B Natriuret Pep 1660 H Total Protein 5.5 L Albumin 2.5 L Globulin 3.0 Albumin/Globulin Ratio 0.8 L Venous Blood Potassium 09/09/18 09/09/18 21:15 22:02 WBC RBC Hgb Hct MCV MCH MCHC RDW Plt Count MPV Neut % (Auto) Lymph % (Auto) M[place]ulloch % (Auto) Eos % (Auto) Baso % (Auto) Neut # (Auto) Lymph # (Auto) M[place]och # (Auto) Eos # (Auto) Baso # (Auto) Neutrophils % (Manual) Band Neutrophils % Lymphocytes % (Manual) Monocytes % (Manual) Platelet Estimate Plt Clumps, EDTA Anisocytosis (manual) Macrocytosis (manual) PT 20.3 H INR 1.8 APTT 167.0 H pO2 28 L VBG pH 7.43 VBG pCO2 19 L* VBG HCO3 16.6 VBG Total CO2 13.2 L VBG O2 Sat (Calc) 57.5 VBG Base Excess -9.2 L VBG Potassium 4.9 Glucose 153 H Lactate 8.0 H* FiO2 21.0 Crit Value Called To Angela joel Crit Value Called By 23 Crit Value Read Back Y Blood Gas Notified Time 2120 Sodium 126.0 L Potassium Chloride 101.0 Carbon Dioxide Anion Gap BUN Creatinine Est GFR ( Amer) Est GFR (Non-Af Amer) Random Glucose Calcium Phosphorus Magnesium Total Bilirubin AST ALT Alkaline Phosphatase NT-Pro-B Natriuret Pep Total Protein Albumin Globulin Albumin/Globulin Ratio Venous Blood Potassium 4.9 Assessment & Plan - Assessment and Plan (Free Text) Assessment: Pt is a 73 y/o male with hx of Colon Cancer Stage IV and DVT of Upper Extremity on Eliquis presenting to ED by family due progressive weakness and poor po intake admitted for Severe Sepsis and Pneumonia. Admitted to ICU. #Severe Sepsis w/ shock -Febrile 100.4, Tachycardia 136, Leukocytosis 14.7, Bands 7, Lactic Acid 8 -Chest Xray- bilateral infiltrates suggestive of pulmonary edema vs pneumonia vs metastatic ca -ED Course: Vanco and Zosyn, Fluid resuscitation 3L of NS -Levophed ggt started for BP support, titrate as needed to MAP of 65 -Will continue with Vancomycin and Zosyn for empiric coverage -F/U Pulmonology Consult, Dr Pollock -F/U CBC, Lactic Acid, Bcx and Ucx #CHF Exacerbation -Acute decompensated -On exam, pt appears fluid overloaded and Cxray consistent with pulmonary edema -Concern for CHF exacerbation, BP too low to tolerate diuresis= -ProBNP 1660 -Hx of CHF reduced EF, Echo in 09/2016 EF 35-40%, LV function mild to moderately impaired -Non invasive ventilation/BIPAP -EKG: Sinus tachycardia, non specific ST changes -Daily weights, Monitor I&O's #Hyponatremia - Na 128 on admission; may be secondary to fluid overload -Received 3 L of Normal Saline in ED -F/U am labs #Acute Left Upper Extremity DVT -C/w home dosage Eliquis PPX measures -DVT: on Eliquis -GI: Protonix IV daily DNR/DNI <Ti Myers - Last Filed: 09/10/18 20:43> Results - Vital Signs Recent Vital Signs: Last Vital Signs Temp 97.8 F 09/10/18 16:00 Pulse 107 H 09/10/18 18:00 Resp 15 09/10/18 18:00 BP 101/66 09/10/18 18:00 Pulse Ox 97 09/10/18 18:00 - Labs Result Diagrams: 09/10/18 10:18 09/10/18 04:35 Labs: Laboratory Results - last 24 hr 09/09/18 09/09/18 09/09/18 20:36 21:02 21:02 WBC 14.7 H D RBC 4.03 L Hgb 12.1 D Hct 37.3 MCV 92.6 D MCH 30.1 MCHC 32.5 L RDW 21.8 H Plt Count 397 MPV 7.5 Neut % (Auto) 98.8 H Lymph % (Auto) 0.4 L Mcculloch % (Auto) 0.4 Eos % (Auto) 0.0 Baso % (Auto) 0.4 Neut # (Auto) 14.6 H Lymph # (Auto) 0.1 L M[place]ulloch # (Auto) 0.1 Eos # (Auto) 0.0 Baso # (Auto) 0.1 Neutrophils % (Manual) 86 H Band Neutrophils % 7 H Lymphocytes % (Manual) 4 L Monocytes % (Manual) 3 Metamyelocytes % Toxic Granulation Platelet Estimate Normal Plt Clumps, EDTA Present Hypochromasia (manual) Anisocytosis (manual) Slight Macrocytosis (manual) Slight Ovalocytes Schistocytes PT INR APTT pO2 ABG Carboxyhemoglobin POC ABG HHb (Measured) ABG Methemoglobin VBG pH VBG pCO2 VBG HCO3 VBG Total CO2 VBG O2 Sat (Calc) VBG Base Excess VBG Hgb O2 Saturation VBG Potassium Hemoglobin Glucose Lactate FiO2 Crit Value Called To Crit Value Called By Crit Value Read Back Blood Gas Notified Time Sodium 128 L Potassium 4.8 Chloride 99 Carbon Dioxide 13 L Anion Gap 21 H BUN 13 Creatinine 0.8 Est GFR ( Amer) > 60 Est GFR (Non-Af Amer) > 60 Random Glucose 145 H Lactic Acid Calcium 8.3 L Phosphorus 3.6 Magnesium 1.5 L Total Bilirubin 3.8 H AST 93 H D ALT 66 Alkaline Phosphatase 339 H D NT-Pro-B Natriuret Pep 1660 H Total Protein 5.5 L Albumin 2.5 L Globulin 3.0 Albumin/Globulin Ratio 0.8 L Venous Blood Potassium Urine Color Urine Clarity Urine pH Ur Specific [place] Urine Protein Urine Glucose (UA) Urine Ketones Urine Blood Urine Nitrate Urine Bilirubin Urine Urobilinogen Ur Leukocyte Esterase Urine RBC (Auto) Urine Microscopic WBC Urine Bacteria Hyaline Casts 09/09/18 09/09/18 09/10/18 21:15 22:02 04:00 WBC RBC Hgb Hct MCV MCH MCHC RDW Plt Count MPV Neut % (Auto) Lymph % (Auto) Mcculloch % (Auto) Eos % (Auto) Baso % (Auto) Neut # (Auto) Lymph # (Auto) M[place]ulloch # (Auto) Eos # (Auto) Baso # (Auto) Neutrophils % (Manual) Band Neutrophils % Lymphocytes % (Manual) Monocytes % (Manual) Metamyelocytes % Toxic Granulation Platelet Estimate Plt Clumps, EDTA Hypochromasia (manual) Anisocytosis (manual) Macrocytosis (manual) Ovalocytes Schistocytes PT 20.3 H INR 1.8 APTT 167.0 H pO2 28 L 24 L ABG Carboxyhemoglobin 0 L POC ABG HHb (Measured) 66.1 H ABG Methemoglobin 0.7 VBG pH 7.43 7.25 L VBG pCO2 19 L* 34 L VBG HCO3 16.6 14.6 VBG Total CO2 13.2 L VBG O2 Sat (Calc) 57.5 33.4 L VBG Base Excess -9.2 L -11.3 L VBG Hgb O2 Saturation 33.2 L VBG Potassium 4.9 Hemoglobin 11.9 Glucose 153 H Lactate 8.0 H* FiO2 21.0 Crit Value Called To Angela joel Crit Value Called By 23 Crit Value Read Back Y Blood Gas Notified Time 2120 Sodium 126.0 L Potassium Chloride 101.0 Carbon Dioxide Anion Gap BUN Creatinine Est GFR ( Amer) Est GFR (Non-Af Amer) Random Glucose Lactic Acid Calcium Phosphorus Magnesium Total Bilirubin AST ALT Alkaline Phosphatase NT-Pro-B Natriuret Pep Total Protein Albumin Globulin Albumin/Globulin Ratio Venous Blood Potassium 4.9 Urine Color Urine Clarity Urine pH Ur Specific [place] Urine Protein Urine Glucose (UA) Urine Ketones Urine Blood Urine Nitrate Urine Bilirubin Urine Urobilinogen Ur Leukocyte Esterase Urine RBC (Auto) Urine Microscopic WBC Urine Bacteria Hyaline Casts 09/10/18 09/10/18 09/10/18 04:35 04:35 04:35 WBC 39.2 H* D RBC 3.78 L Hgb 11.1 L Hct 35.1 MCV 92.8 MCH 29.4 MCHC 31.7 L RDW 22.0 H Plt Count 286 D MPV 7.7 Neut % (Auto) 97.9 H Lymph % (Auto) 0.6 L M[place]ulloch % (Auto) 1.4 Eos % (Auto) 0.0 Baso % (Auto) 0.1 Neut # (Auto) 38.3 H Lymph # (Auto) 0.2 L [place] # (Auto) 0.6 Eos # (Auto) 0.0 Baso # (Auto) 0.0 Neutrophils % (Manual) 86 H Band Neutrophils % 8 H Lymphocytes % (Manual) 1 L Monocytes % (Manual) 4 Metamyelocytes % 1 H Toxic Granulation Present Platelet Estimate Normal Plt Clumps, EDTA Hypochromasia (manual) Slight Anisocytosis (manual) Moderate Macrocytosis (manual) Ovalocytes Slight Schistocytes Slight PT INR APTT pO2 ABG Carboxyhemoglobin POC ABG HHb (Measured) ABG Methemoglobin VBG pH VBG pCO2 VBG HCO3 VBG Total CO2 VBG O2 Sat (Calc) VBG Base Excess VBG Hgb O2 Saturation VBG Potassium Hemoglobin Glucose Lactate FiO2 Crit Value Called To Crit Value Called By Crit Value Read Back Blood Gas Notified Time Sodium 130 L Potassium 4.6 Chloride 103 Carbon Dioxide 16 L Anion Gap 16 BUN 15 Creatinine 0.8 Est GFR ( Amer) > 60 Est GFR (Non-Af Amer) > 60 Random Glucose 95 Lactic Acid 5.3 H* Calcium 7.4 L Phosphorus 4.0 Magnesium 1.5 L Total Bilirubin 3.2 H AST 126 H D ALT 78 H Alkaline Phosphatase 293 H NT-Pro-B Natriuret Pep Total Protein 4.4 L Albumin 2.0 L Globulin 2.5 Albumin/Globulin Ratio 0.8 L Venous Blood Potassium Urine Color Urine Clarity Urine pH Ur Specific [place] Urine Protein Urine Glucose (UA) Urine Ketones Urine Blood Urine Nitrate Urine Bilirubin Urine Urobilinogen Ur Leukocyte Esterase Urine RBC (Auto) Urine Microscopic WBC Urine Bacteria Hyaline Casts 09/10/18 09/10/18 10:18 18:18 WBC 44.6 H* RBC 3.91 L Hgb 11.5 L Hct 36.9 MCV 94.3 H MCH 29.5 MCHC 31.3 L RDW 22.4 H Plt Count 287 MPV Neut % (Auto) Lymph % (Auto) [place]och % (Auto) Eos % (Auto) Baso % (Auto) Neut # (Auto) Lymph # (Auto) [place] # (Auto) Eos # (Auto) Baso # (Auto) Neutrophils % (Manual) Band Neutrophils % Lymphocytes % (Manual) Monocytes % (Manual) Metamyelocytes % Toxic Granulation Platelet Estimate Plt Clumps, EDTA Hypochromasia (manual) Anisocytosis (manual) Macrocytosis (manual) Ovalocytes Schistocytes PT INR APTT pO2 ABG Carboxyhemoglobin POC ABG HHb (Measured) ABG Methemoglobin VBG pH VBG pCO2 VBG HCO3 VBG Total CO2 VBG O2 Sat (Calc) VBG Base Excess VBG Hgb O2 Saturation VBG Potassium Hemoglobin Glucose Lactate FiO2 Crit Value Called To Crit Value Called By Crit Value Read Back Blood Gas Notified Time Sodium Potassium Chloride Carbon Dioxide Anion Gap BUN Creatinine Est GFR ( Amer) Est GFR (Non-Af Amer) Random Glucose Lactic Acid Calcium Phosphorus Magnesium Total Bilirubin AST ALT Alkaline Phosphatase NT-Pro-B Natriuret Pep Total Protein Albumin Globulin Albumin/Globulin Ratio Venous Blood Potassium Urine Color Yellow Urine Clarity Cloudy Urine pH 5.0 Ur Specific [place] 1.020 Urine Protein 30 Urine Glucose (UA) Neg Urine Ketones Negative Urine Blood Moderate Urine Nitrate Negative Urine Bilirubin Negative Urine Urobilinogen 2.0 Ur Leukocyte Esterase Neg Urine RBC (Auto) 12 H Urine Microscopic WBC 5 Urine Bacteria Rare Hyaline Casts 0-2 Assessment & Plan - Assessment and Plan (Free Text) Plan: History as documented by resident was reviewed with patient and resident. I pe rsonally performed the fernandes elements of physical exam and agree with the above findings. Diagnostics reviewed. X-ray and EKG as above interpreted by me. Medical decision making and plan of care performed by me. 73 yo male with extensive medical hx including HTN, DVT on Eliquis, chronic HFrEF (echo couple of years ago showed EF of 35-40%) and metastatic colon cancer with mets to liver and lungs p/w malaise and chills and diminished mental status. Was febrile and tachycardic/tachypneic (130s and 30s/min respectively) with boarder line low BP. Was found to have WBC of 15 with 99% neutrophil and lactic acid of 8! VBC showed PH of 7.43 and PCO2 of 19. Bicarb was low at 13 with gap of 21 and Na of 128. Basically concomitant pulmonary alkalosis and AGMA. Also had deranged LFTs. CXR I personally reviewed showed b/l opacities significantly worsened as compared to earlier this month. Likely superimposed pulmonary edema and/or pneumonia on background of metastatic lung disease. EKG I personally reviewed showed sinus tachy at 135/min but no evidence of ongoing ischemia. On exam confused, tachycar dic with regular rhythem and has coarse breathing sounds with diffuse rales b/l. Upon arrival to unit dropped her BP and O2 sat. My impression is septic shock likely due to bilateral pneumonia, lactic acidosis, acute hypoxic respiratory failure due to pneumonia and/or acute on chronic HFrEF with resultant tachypnea and resultant respiratory alkalosis. Deranged LFTs possibly congestive hepatopathy vs hypo-perfusion/sepsis vs metastatic liver disease. Also acute metabolic encephalopathy due to the above. Started patient on IV antibiotic, Bipap, gentle IV hydration. Prognosis grave. Will try to discuss with family regarding code status.
[2018-09-10] MEDS: Piperacillin/Tazobact 3.375 GM in Sodium Chloride 0.9% 100 ML IVPB SCH ×4 (03:01→21:40)
[2018-09-10 04:32] LABS: VENOUS BLOOD GAS BASE EXCESS -11.3 mmol/L (0.0-2.0); VENOUS BLOOD GAS PCO2 34 mmHg (40-60); VENOUS BLOOD GAS PO2 24 mm/Hg (30-55); VENOUS BLOOD PH 7.25 (7.32-7.43)
[2018-09-10 05:41] LABS: BASO % 0.1 % (0.0-2.0); HEMOGLOBIN 11.1 g/dL (12.0-18.0); LYMPH # 0.2 K/uL (1.0-4.3); LYMPH % 0.6 % (20.0-40.0); MEAN CELL VOLUME 92.8 fl (80.0-94.0); MEAN CORPUSCULAR HEMOGLOBIN 29.4 pg (27.0-31.0); MEAN CORPUSCULAR HGB CONC 31.7 g/dL (33.0-37.0); MEAN PLATELET VOLUME 7.7 fl (7.2-11.7); MONO # 0.6 K/uL (0.0-0.8); MONO % 1.4 % (0.0-10.0); NEUT # 38.3 K/uL (1.8-7.0); NEUT % 97.9 % (50.0-75.0); NRBC % 0.1 % (0.0-0.0); PLATELET COUNT 286 K/uL (130-400); RBC 3.78 Mil/uL (4.40-5.90)
[2018-09-10 06:03] LABS: ALB/GLOB RATIO 0.8 (1.0-2.1); ALT/SGPT 78 U/L (21-72); AST/SGOT 126 U/L (17-59); BLOOD UREA NITROGEN 15 mg/dl (9-20); CALCIUM 7.4 mg/dL (8.4-10.2); GFR NON-AFRICAN AMERICAN > 60
[2018-09-10 06:12] LABS: WHITE BLOOD COUNT 39.2 K/uL (4.8-10.8)
[2018-09-10] MEDS ORDERED: Magnesium Sulfate 2 gm/50 ml 2 GM/50 ML BAG IVPB ONE (08:00)
--- NOTE | 2018-09-10 08:40 | RAD ---
Date of service: 09/10/2018 HISTORY: hx of metastatic lung ca, sob, COMPARISON: Portable chest 9:50 p.m.. FINDINGS: LUNGS: Left MediPort unchanged in position. Diffuse metastasis are reiterated with diminishing infiltrate at the mid to inferior right lung zone and left perihilar region. Left basilar airspace disease has increased slightly. PLEURA: No pneumothorax bilaterally. No right pleural effusion. Trace left pleural effusion not excluded. CARDIOVASCULAR: No aortic atherosclerotic calcification present. Normal cardiac size. No pulmonary vascular congestion. OSSEOUS STRUCTURES: No significant abnormalities. VISUALIZED UPPER ABDOMEN: Normal. OTHER FINDINGS: None. IMPRESSION: Diminishing mid to inferior right pulmonary infiltrates and left perihilar infiltrate with left basilar airspace disease slightly increased. Widespread pulmonary metastases reiterated.
--- NOTE | 2018-09-10 09:06 | RAD ---
Date of service: 09/10/2018 HISTORY: pneumonia COMPARISON: Portable chest 09/10/2018 4:18 a.m.. FINDINGS: LUNGS: No interval change in medial right basilar infiltrate bilaterally with scattered pulmonary metastasis reiterated. MediPort unchanged in position. PLEURA: No significant pleural effusion identified, no pneumothorax apparent. CARDIOVASCULAR: Calcific atherosclerotic changes are seen related to the thoracic aorta. Normal cardiac size. No pulmonary vascular congestion. OSSEOUS STRUCTURES: No significant abnormalities. VISUALIZED UPPER ABDOMEN: Normal. OTHER FINDINGS: None. IMPRESSION: Stable medial basilar infiltrates bilaterally. Widespread pulmonary metastasis reiterated.
[2018-09-10] MEDS ORDERED: Sodium Chloride 0.9% 500 ML IV ONE (10:16)
[2018-09-10 10:44] LABS: HEMOGLOBIN 11.5 g/dL (12.0-18.0); MEAN CELL VOLUME 94.3 fl (80.0-94.0); MEAN CORPUSCULAR HEMOGLOBIN 29.5 pg (27.0-31.0); MEAN CORPUSCULAR HGB CONC 31.3 g/dL (33.0-37.0); RBC 3.91 Mil/uL (4.40-5.90); RED CELL DISTRIBUTION WIDTH 22.4 % (11.5-14.5)
[2018-09-10 10:50] LABS: WHITE BLOOD COUNT 44.6 K/uL (4.8-10.8)
[2018-09-10] MEDS ORDERED: Magnesium Sulfate 1 gm in D5W 1 GM/100 ML BAG IVPB SCH (11:15)
--- NOTE | 2018-09-10 11:24 | CP.PCM.CON ---
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 HE UNDERWENT COLON SURGERY IN 2017 WELL INSERTION OF A BILIARY STENT. HE HAS BEEN UNDERGOING CHEMOTHERAPY BY DR FUENTES AND RECENTLY HAS LOST MUCH WEIGHT AND IS VERY WEEK. YESTERDAY HE HAD IV FLUIDS BY DR FUENTES AND ON THE WAY HOME FELT VERY WEAK AND TIRED AND HE ALSO HAD THE CHILLS SO HE WAS BROUGHT TO THE ER WHERE HE WAS FOUND TO HAVE PNEUMONIA AND HE WAS SEPTIC. HE WAS ADMITTED TO THE ICU AND HE WAS ALSO HYPOTENSIVE AND NOREPINEPHRINE WAS STARTED. HE DENIES FEVERS OR CHILLS TODAY. HE DENIES CHEST PAIN AND STATES HE IS BREATHING COMFORTABLY. HE HAD HYPERTENSION BEFORE BUT WAS OFF MEDICATIONS FOR HYPERTENSION HIS BLOOD PRESSURE WAS NORMAL WITH HIS WEIGHT LOSS. I WAS ASKED TO SEE AND FOLLOW HIM. Past Patient History - Infectious Disease Hx of Infectious Diseases: None - Past Medical History & Family History Past Medical History?: Yes - Past Social History Smoking Status: Former Smoker - CARDIAC Hx Hypertension: Yes - PULMONARY Hx Asthma: No - NEUROLOGICAL Hx Neurological Disorder: No - HEENT Hx HEENT Problems: Yes Other/Comment: Use Eyeglasses. Uses hearing aid both ears - RENAL Hx Chronic Kidney Disease: No - ENDOCRINE/METABOLIC Hx Endocrine Disorders: No - HEMATOLOGICAL/ONCOLOGICAL Hx Human Immunodeficiency Virus (HIV): No - INTEGUMENTARY Hx Dermatological Problems: No - MUSCULOSKELETAL/RHEUMATOLOGICAL Hx Musculoskeletal Disorders: No Hx Falls: No - GASTROINTESTINAL Hx Gall Bladder Disease: Yes - GENITOURINARY/GYNECOLOGICAL Hx Genitourinary Disorders: Yes Hx Urinary Tract Infection: Yes - PSYCHIATRIC Hx Psychophysiologic Disorder: No Hx Substance Use: No - SURGICAL HISTORY Hx Surgeries: Yes Hx Herniorrhaphy: Yes (Bilateral inguinal) Other/Comment: colon cancer, gallbladder stents - ANESTHESIA Hx Anesthesia: Yes Hx Anesthesia Reactions: No Hx Malignant Hyperthermia: No Meds Allergies/Adverse Reactions: Allergies Allergy/AdvReac Type Severity Reaction Status Date / Time No Known Allergies Allergy Verified 07/19/18 15:58 - Medications Medications: Current Medications Apixaban (Eliquis) 10 mg PO BID [facility] Last Admin: 09/10/18 08:54 Dose: 10 mg Vancomycin HCl 1 gm/ Sodium (Chloride) 250 mls @ 166.667 mls/hr IVPB DAILY [facility]; Protocol Last Admin: 09/10/18 08:56 Dose: 166.667 mls/hr Piperacillin Sod/Tazobactam (Sod 3.375 gm/ Sodium Chloride) 100 mls @ 100 mls/hr IVPB Q6 [facility]; Protocol Last Admin: 09/10/18 09:05 Dose: 100 mls/hr Norepinephrine Bitartrate 8 mg (/ Dextrose) 258 mls @ 4.84 mls/hr IV .Q24H [facility]; Protocol Stop: 09/11/18 01:52 Last Admin: 09/10/18 02:07 Dose: 2.5 mcg/min, 4.84 mls/hr Sodium Chloride (Sodium Chloride 0.9%) 1,000 mls @ 100 mls/hr IV .Q10H [facility] Stop: 09/11/18 07:34 Magnesium Sulfate/Dextrose (Magnesium Sulfate 1 Gm/100 Ml D5w) 1 gm in 100 mls @ 200 mls/hr IVPB ONCE [facility] Megestrol Acetate (Megace) 800 mg PO DAILY [facility] Pantoprazole Sodium (Protonix Inj) 40 mg IVP DAILY [facility] Last Admin: 09/10/18 08:56 Dose: 40 mg Physical Exam - Respiratory Exam Respiratory Exam: Decreased Breath Sounds - Cardiovascular Exam Cardiovascular Exam: REGULAR RHYTHM, +S1, +S2 - Extremities Exam Additional comments: NO LE EDEMA - Additional Findings Additional findings: CXR C/W METASTATIC LUNG LESIONS EKG SINUS TACHYCARDIA, R 134, IRBBB WBC 44K LACTATE 8 OTHER LABS NOTED BP WAS LOW 74/51 NOW 104/70 ON NOREPINEPHRINE Results - Vital Signs Recent Vital Signs: Last Vital Signs Temp 98.9 F 09/10/18 08:00 Pulse 108 H 09/10/18 08:00 Resp 25 H 09/10/18 08:00 BP 104/70 09/10/18 08:00 Pulse Ox 95 09/10/18 08:00 - Labs Result Diagrams: 09/10/18 10:18 09/10/18 04:35 Labs: Laboratory Results - last 24 hr 09/09/18 09/09/18 09/09/18 20:36 21:02 21:02 WBC 14.7 H D RBC 4.03 L Hgb 12.1 D Hct 37.3 MCV 92.6 D MCH 30.1 MCHC 32.5 L RDW 21.8 H Plt Count 397 MPV 7.5 Neut % (Auto) 98.8 H Lymph % (Auto) 0.4 L [place] % (Auto) 0.4 Eos % (Auto) 0.0 Baso % (Auto) 0.4 Neut # (Auto) 14.6 H Lymph # (Auto) 0.1 L [place] # (Auto) 0.1 Eos # (Auto) 0.0 Baso # (Auto) 0.1 Neutrophils % (Manual) 86 H Band Neutrophils % 7 H Lymphocytes % (Manual) 4 L Monocytes % (Manual) 3 Platelet Estimate Normal Plt Clumps, EDTA Present Anisocytosis (manual) Slight Macrocytosis (manual) Slight PT INR APTT pO2 ABG Carboxyhemoglobin POC ABG HHb (Measured) ABG Methemoglobin VBG pH VBG pCO2 VBG HCO3 VBG Total CO2 VBG O2 Sat (Calc) VBG Base Excess VBG Hgb O2 Saturation VBG Potassium Hemoglobin Glucose Lactate FiO2 Crit Value Called To Crit Value Called By Crit Value Read Back Blood Gas Notified Time Sodium 128 L Potassium 4.8 Chloride 99 Carbon Dioxide 13 L Anion Gap 21 H BUN 13 Creatinine 0.8 Est GFR ( Amer) > 60 Est GFR (Non-Af Amer) > 60 Random Glucose 145 H Lactic Acid Calcium 8.3 L Phosphorus 3.6 Magnesium 1.5 L Total Bilirubin 3.8 H AST 93 H D ALT 66 Alkaline Phosphatase 339 H D NT-Pro-B Natriuret Pep 1660 H Total Protein 5.5 L Albumin 2.5 L Globulin 3.0 Albumin/Globulin Ratio 0.8 L Venous Blood Potassium 09/09/18 09/09/18 09/10/18 21:15 22:02 04:00 WBC RBC Hgb Hct MCV MCH MCHC RDW Plt Count MPV Neut % (Auto) Lymph % (Auto) [place] % (Auto) Eos % (Auto) Baso % (Auto) Neut # (Auto) Lymph # (Auto) [place] # (Auto) Eos # (Auto) Baso # (Auto) Neutrophils % (Manual) Band Neutrophils % Lymphocytes % (Manual) Monocytes % (Manual) Platelet Estimate Plt Clumps, EDTA Anisocytosis (manual) Macrocytosis (manual) PT 20.3 H INR 1.8 APTT 167.0 H pO2 28 L 24 L ABG Carboxyhemoglobin 0 L POC ABG HHb (Measured) 66.1 H ABG Methemoglobin 0.7 VBG pH 7.43 7.25 L VBG pCO2 19 L* 34 L VBG HCO3 16.6 14.6 VBG Total CO2 13.2 L VBG O2 Sat (Calc) 57.5 33.4 L VBG Base Excess -9.2 L -11.3 L VBG Hgb O2 Saturation 33.2 L VBG Potassium 4.9 Hemoglobin 11.9 Glucose 153 H Lactate 8.0 H* FiO2 21.0 Crit Value Called To Angela joel Crit Value Called By 23 Crit Value Read Back Y Blood Gas Notified Time 2120 Sodium 126.0 L Potassium Chloride 101.0 Carbon Dioxide Anion Gap BUN Creatinine Est GFR ( Amer) Est GFR (Non-Af Amer) Random Glucose Lactic Acid Calcium Phosphorus Magnesium Total Bilirubin AST ALT Alkaline Phosphatase NT-Pro-B Natriuret Pep Total Protein Albumin Globulin Albumin/Globulin Ratio Venous Blood Potassium 4.9 09/10/18 09/10/18 09/10/18 04:35 04:35 04:35 WBC 39.2 H* D RBC 3.78 L Hgb 11.1 L Hct 35.1 MCV 92.8 MCH 29.4 MCHC 31.7 L RDW 22.0 H Plt Count 286 D MPV 7.7 Neut % (Auto) 97.9 H Lymph % (Auto) 0.6 L [place] % (Auto) 1.4 Eos % (Auto) 0.0 Baso % (Auto) 0.1 Neut # (Auto) 38.3 H Lymph # (Auto) 0.2 L [place] # (Auto) 0.6 Eos # (Auto) 0.0 Baso # (Auto) 0.0 Neutrophils % (Manual) Band Neutrophils % Lymphocytes % (Manual) Monocytes % (Manual) Platelet Estimate Plt Clumps, EDTA Anisocytosis (manual) Macrocytosis (manual) PT INR APTT pO2 ABG Carboxyhemoglobin POC ABG HHb (Measured) ABG Methemoglobin VBG pH VBG pCO2 VBG HCO3 VBG Total CO2 VBG O2 Sat (Calc) VBG Base Excess VBG Hgb O2 Saturation VBG Potassium Hemoglobin Glucose Lactate FiO2 Crit Value Called To Crit Value Called By Crit Value Read Back Blood Gas Notified Time Sodium 130 L Potassium 4.6 Chloride 103 Carbon Dioxide 16 L Anion Gap 16 BUN 15 Creatinine 0.8 Est GFR ( Amer) > 60 Est GFR (Non-Af Amer) > 60 Random Glucose 95 Lactic Acid 5.3 H* Calcium 7.4 L Phosphorus 4.0 Magnesium 1.5 L Total Bilirubin 3.2 H AST 126 H D ALT 78 H Alkaline Phosphatase 293 H NT-Pro-B Natriuret Pep Total Protein 4.4 L Albumin 2.0 L Globulin 2.5 Albumin/Globulin Ratio 0.8 L Venous Blood Potassium 09/10/18 10:18 WBC 44.6 H* RBC 3.91 L Hgb 11.5 L Hct 36.9 MCV 94.3 H MCH 29.5 MCHC 31.3 L RDW 22.4 H Plt Count 287 MPV Neut % (Auto) Lymph % (Auto) [place] % (Auto) Eos % (Auto) Baso % (Auto) Neut # (Auto) Lymph # (Auto) [place] # (Auto) Eos # (Auto) Baso # (Auto) Neutrophils % (Manual) Band Neutrophils % Lymphocytes % (Manual) Monocytes % (Manual) Platelet Estimate Plt Clumps, EDTA Anisocytosis (manual) Macrocytosis (manual) PT INR APTT pO2 ABG Carboxyhemoglobin POC ABG HHb (Measured) ABG Methemoglobin VBG pH VBG pCO2 VBG HCO3 VBG Total CO2 VBG O2 Sat (Calc) VBG Base Excess VBG Hgb O2 Saturation VBG Potassium Hemoglobin Glucose Lactate FiO2 Crit Value Called To Crit Value Called By Crit Value Read Back Blood Gas Notified Time Sodium Potassium Chloride Carbon Dioxide Anion Gap BUN Creatinine Est GFR ( Amer) Est GFR (Non-Af Amer) Random Glucose Lactic Acid Calcium Phosphorus Magnesium Total Bilirubin AST ALT Alkaline Phosphatase NT-Pro-B Natriuret Pep Total Protein Albumin Globulin Albumin/Globulin Ratio Venous Blood Potassium Assessment & Plan - Assessment and Plan (Free Text) Assessment: PNEUMONIA AND SEPSIS STAGE 4 COLON CA HYPERTENSION IN THE PAST PROGNOSIS IS GUARDED Plan: CONTINUE IV FLUIDS, ANTIBIOTICS AND NOREPINEPHRINE THE PATIENT IS A DNR/DNI CODE STATUS
[2018-09-10 12:42] LABS: BANDS 8 % (0-2); LYMPHOCYTE 1 % (20-50); METAMYELOCYTE 1 % (0-0); MONOCYTE 4 % (0-10); NEUTROPHIL 86 % (42-75); PLATELET ESTIMATE NORMAL (NORMAL); TOTAL CELLS COUNTED 100
[2018-09-10 12:43] LABS: ANISOCYTOSIS MODERATE; HYPOCHROMIC SLIGHT; OVALOCYTES SLIGHT; SCHISTOCYTES SLIGHT
[2018-09-10 12:44] LABS: TOXIC GRANULATION PRESENT
--- NOTE | 2018-09-10 12:45 | CARD ---
APPROVED REPORT Date of service: 09/09/2018 EKG Measurement Heart [id number] <Conclusion> Sinus tachycardia Low voltage QRS Right bundle branch block Abnormal ECG
--- NOTE | 2018-09-10 13:12 | CP.PCM.CON ---
History of Present Illness - History of Present Illness History of Present Illness: CC: Lung Metastasis. Pulmonary consult for a 73 y/o M, Hx of Colon Ca with Lungs and Pancreas Metastasis. Pt came to [facility] on 09/08/18 for evaluation of difficulty breathing associated to cold, tremors with no relief, after been seen in Dr Sanchez's office As per family: Pt was receiving chemotherapy until one month ago when the Oncologist felt was best to interrupt his chemo as his health began to declines. Worsening symptoms: Found septic, with PNA b/l on CXR, also with fever /chills, TMAx 100.3 F, HR: 136, Increased weaknesses that began in 2017 after Colon surgery, lack of appetite, tiredness, generalized body pain. Also with Hx of DVT LUE on July 2018 on Eliquis, HTN, Gall bladder disease. Last CXR: Stable medial bibasilar infiltrates, wide spread pulmonary metastasis reiterated. EKG: Sinus tachycardia. R BBB. Review of Systems - Review of Systems Systems not reviewed;Unavailable: Acuity of Condition, Other (confused, forgetful, very weak,) Past Patient History - Infectious Disease Hx of Infectious Diseases: None - Past Medical History & Family History Past Medical History?: Yes Pertinent Family History: Unknown - Past Social History Smoking Status: Former Smoker Alcohol: None Drugs: Denies Home Situation {Lives}: With Family - CARDIAC Hx Cardiac Disorders: Yes Hx Hypertension: Yes - PULMONARY Hx Respiratory Disorders: Yes Hx Lung Cancer: Yes (Metastasis) - NEUROLOGICAL Hx Neurological Disorder: No - HEENT Hx HEENT Problems: Yes Other/Comment: Use Eyeglasses. Uses hearing aid both ears - RENAL Hx Chronic Kidney Disease: No - ENDOCRINE/METABOLIC Hx Endocrine Disorders: No - HEMATOLOGICAL/ONCOLOGICAL Hx Blood Disorders: Yes Hx Cancer: Yes Hx Human Immunodeficiency Virus (HIV): No - INTEGUMENTARY Hx Dermatological Problems: No - MUSCULOSKELETAL/RHEUMATOLOGICAL Hx Musculoskeletal Disorders: Yes Hx Falls: No Other/Comment: General body pain 2nd to ca. - GASTROINTESTINAL Hx Gastrointestinal Disorders: Yes Hx Gall Bladder Disease: Yes - GENITOURINARY/GYNECOLOGICAL Hx Genitourinary Disorders: Yes Hx Urinary Tract Infection: Yes - PSYCHIATRIC Hx Psychophysiologic Disorder: No Hx Substance Use: No - SURGICAL HISTORY Hx Surgeries: Yes Hx Herniorrhaphy: Yes (Bilateral inguinal) Other/Comment: colon cancer surgery 2017, biliary stent - ANESTHESIA Hx Anesthesia: Yes Hx Anesthesia Reactions: No Hx Malignant Hyperthermia: No Meds Allergies/Adverse Reactions: Allergies Allergy/AdvReac Type Severity Reaction Status Date / Time No Known Allergies Allergy Verified 07/19/18 15:58 - Medications Medications: Current Medications Apixaban (Eliquis) 10 mg PO BID [facility] Last Admin: 09/10/18 08:54 Dose: 10 mg Vancomycin HCl 1 gm/ Sodium (Chloride) 250 mls @ 166.667 mls/hr IVPB DAILY [facility]; Protocol Last Admin: 09/10/18 08:56 Dose: 166.667 mls/hr Piperacillin Sod/Tazobactam (Sod 3.375 gm/ Sodium Chloride) 100 mls @ 100 mls/hr IVPB Q6 [facility]; Protocol Last Admin: 09/10/18 09:05 Dose: 100 mls/hr Norepinephrine Bitartrate 8 mg (/ Dextrose) 258 mls @ 4.84 mls/hr IV .Q24H [facility]; Protocol Stop: 09/11/18 01:52 Last Admin: 09/10/18 02:07 Dose: 2.5 mcg/min, 4.84 mls/hr Sodium Chloride (Sodium Chloride 0.9%) 1,000 mls @ 100 mls/hr IV .Q10H [facility] Stop: 09/11/18 07:34 Magnesium Sulfate/Dextrose (Magnesium Sulfate 1 Gm/100 Ml D5w) 1 gm in 100 mls @ 200 mls/hr IVPB ONCE [facility] Megestrol Acetate (Megace) 800 mg PO DAILY [facility] Pantoprazole Sodium (Protonix Inj) 40 mg IVP DAILY [facility] Last Admin: 09/10/18 08:56 Dose: 40 mg Physical Exam - Constitutional Appears: Cachectic, Chronically Ill - Head Exam Head Exam: NORMAL INSPECTION - Eye Exam Eye Exam: PERRL - ENT Exam Additional comments: Hard of hearing b/l - Neck Exam Neck exam: Positive for: Normal Inspection - Respiratory Exam Respiratory Exam: Decreased Breath Sounds (b/l), Rhonchi (b/l) - Cardiovascular Exam Cardiovascular Exam: REGULAR RHYTHM - GI/Abdominal Exam GI & Abdominal Exam: Normal Bowel Sounds, Soft - Extremities Exam Additional comments: Edema LUE and around elbow, edema BLE - Neurological Exam Additional comments: Lethargic, minimal response to verbal stimuli - Skin Skin Exam: Warm Results - Vital Signs Recent Vital Signs: Last Vital Signs Temp 98.9 F 09/10/18 12:00 Pulse 99 H 09/10/18 12:00 Resp 19 09/10/18 12:00 BP 95/63 L 09/10/18 12:00 Pulse Ox 100 09/10/18 12:00 leopoldo Abebe - Labs Result Diagrams: 09/16/18 04:10 09/16/18 04:10 Labs: Laboratory Results - last 24 hr 09/09/18 09/09/18 09/09/18 20:36 21:02 21:02 WBC 14.7 H D RBC 4.03 L Hgb 12.1 D Hct 37.3 MCV 92.6 D MCH 30.1 MCHC 32.5 L RDW 21.8 H Plt Count 397 MPV 7.5 Neut % (Auto) 98.8 H Lymph % (Auto) 0.4 L [place] % (Auto) 0.4 Eos % (Auto) 0.0 Baso % (Auto) 0.4 Neut # (Auto) 14.6 H Lymph # (Auto) 0.1 L [place] # (Auto) 0.1 Eos # (Auto) 0.0 Baso # (Auto) 0.1 Neutrophils % (Manual) 86 H Band Neutrophils % 7 H Lymphocytes % (Manual) 4 L Monocytes % (Manual) 3 Metamyelocytes % Toxic Granulation Platelet Estimate Normal Plt Clumps, EDTA Present Hypochromasia (manual) Anisocytosis (manual) Slight Macrocytosis (manual) Slight Ovalocytes Schistocytes PT INR APTT pO2 ABG Carboxyhemoglobin POC ABG HHb (Measured) ABG Methemoglobin VBG pH VBG pCO2 VBG HCO3 VBG Total CO2 VBG O2 Sat (Calc) VBG Base Excess VBG Hgb O2 Saturation VBG Potassium Hemoglobin Glucose Lactate FiO2 Crit Value Called To Crit Value Called By Crit Value Read Back Blood Gas Notified Time Sodium 128 L Potassium 4.8 Chloride 99 Carbon Dioxide 13 L Anion Gap 21 H BUN 13 Creatinine 0.8 Est GFR ( Amer) > 60 Est GFR (Non-Af Amer) > 60 Random Glucose 145 H Lactic Acid Calcium 8.3 L Phosphorus 3.6 Magnesium 1.5 L Total Bilirubin 3.8 H AST 93 H D ALT 66 Alkaline Phosphatase 339 H D NT-Pro-B Natriuret Pep 1660 H Total Protein 5.5 L Albumin 2.5 L Globulin 3.0 Albumin/Globulin Ratio 0.8 L Venous Blood Potassium 09/09/18 09/09/18 09/10/18 21:15 22:02 04:00 WBC RBC Hgb Hct MCV MCH MCHC RDW Plt Count MPV Neut % (Auto) Lymph % (Auto) [place] % (Auto) Eos % (Auto) Baso % (Auto) Neut # (Auto) Lymph # (Auto) [place] # (Auto) Eos # (Auto) Baso # (Auto) Neutrophils % (Manual) Band Neutrophils % Lymphocytes % (Manual) Monocytes % (Manual) Metamyelocytes % Toxic Granulation Platelet Estimate Plt Clumps, EDTA Hypochromasia (manual) Anisocytosis (manual) Macrocytosis (manual) Ovalocytes Schistocytes PT 20.3 H INR 1.8 APTT 167.0 H pO2 28 L 24 L ABG Carboxyhemoglobin 0 L POC ABG HHb (Measured) 66.1 H ABG Methemoglobin 0.7 VBG pH 7.43 7.25 L VBG pCO2 19 L* 34 L VBG HCO3 16.6 14.6 VBG Total CO2 13.2 L VBG O2 Sat (Calc) 57.5 33.4 L VBG Base Excess -9.2 L -11.3 L VBG Hgb O2 Saturation 33.2 L VBG Potassium 4.9 Hemoglobin 11.9 Glucose 153 H Lactate 8.0 H* FiO2 21.0 Crit Value Called To Angela joel Crit Value Called By 23 Crit Value Read Back Y Blood Gas Notified Time 2120 Sodium 126.0 L Potassium Chloride 101.0 Carbon Dioxide Anion Gap BUN Creatinine Est GFR ( Amer) Est GFR (Non-Af Amer) Random Glucose Lactic Acid Calcium Phosphorus Magnesium Total Bilirubin AST ALT Alkaline Phosphatase NT-Pro-B Natriuret Pep Total Protein Albumin Globulin Albumin/Globulin Ratio Venous Blood Potassium 4.9 09/10/18 09/10/18 09/10/18 04:35 04:35 04:35 WBC 39.2 H* D RBC 3.78 L Hgb 11.1 L Hct 35.1 MCV 92.8 MCH 29.4 MCHC 31.7 L RDW 22.0 H Plt Count 286 D MPV 7.7 Neut % (Auto) 97.9 H Lymph % (Auto) 0.6 L [place] % (Auto) 1.4 Eos % (Auto) 0.0 Baso % (Auto) 0.1 Neut # (Auto) 38.3 H Lymph # (Auto) 0.2 L [place] # (Auto) 0.6 Eos # (Auto) 0.0 Baso # (Auto) 0.0 Neutrophils % (Manual) 86 H Band Neutrophils % 8 H Lymphocytes % (Manual) 1 L Monocytes % (Manual) 4 Metamyelocytes % 1 H Toxic Granulation Present Platelet Estimate Normal Plt Clumps, EDTA Hypochromasia (manual) Slight Anisocytosis (manual) Moderate Macrocytosis (manual) Ovalocytes Slight Schistocytes Slight PT INR APTT pO2 ABG Carboxyhemoglobin POC ABG HHb (Measured) ABG Methemoglobin VBG pH VBG pCO2 VBG HCO3 VBG Total CO2 VBG O2 Sat (Calc) VBG Base Excess VBG Hgb O2 Saturation VBG Potassium Hemoglobin Glucose Lactate FiO2 Crit Value Called To Crit Value Called By Crit Value Read Back Blood Gas Notified Time Sodium 130 L Potassium 4.6 Chloride 103 Carbon Dioxide 16 L Anion Gap 16 BUN 15 Creatinine 0.8 Est GFR ( Amer) > 60 Est GFR (Non-Af Amer) > 60 Random Glucose 95 Lactic Acid 5.3 H* Calcium 7.4 L Phosphorus 4.0 Magnesium 1.5 L Total Bilirubin 3.2 H AST 126 H D ALT 78 H Alkaline Phosphatase 293 H NT-Pro-B Natriuret Pep Total Protein 4.4 L Albumin 2.0 L Globulin 2.5 Albumin/Globulin Ratio 0.8 L Venous Blood Potassium 09/10/18 10:18 WBC 44.6 H* RBC 3.91 L Hgb 11.5 L Hct 36.9 MCV 94.3 H MCH 29.5 MCHC 31.3 L RDW 22.4 H Plt Count 287 MPV Neut % (Auto) Lymph % (Auto) [place] % (Auto) Eos % (Auto) Baso % (Auto) Neut # (Auto) Lymph # (Auto) [place] # (Auto) Eos # (Auto) Baso # (Auto) Neutrophils % (Manual) Band Neutrophils % Lymphocytes % (Manual) Monocytes % (Manual) Metamyelocytes % Toxic Granulation Platelet Estimate Plt Clumps, EDTA Hypochromasia (manual) Anisocytosis (manual) Macrocytosis (manual) Ovalocytes Schistocytes PT INR APTT pO2 ABG Carboxyhemoglobin POC ABG HHb (Measured) ABG Methemoglobin VBG pH VBG pCO2 VBG HCO3 VBG Total CO2 VBG O2 Sat (Calc) VBG Base Excess VBG Hgb O2 Saturation VBG Potassium Hemoglobin Glucose Lactate FiO2 Crit Value Called To Crit Value Called By Crit Value Read Back Blood Gas Notified Time Sodium Potassium Chloride Carbon Dioxide Anion Gap BUN Creatinine Est GFR ( Amer) Est GFR (Non-Af Amer) Random Glucose Lactic Acid Calcium Phosphorus Magnesium Total Bilirubin AST ALT Alkaline Phosphatase NT-Pro-B Natriuret Pep Total Protein Albumin Globulin Albumin/Globulin Ratio Venous Blood Potassium reviewed J.P. - EKG Data EKG comments: reviewed J.P. - Imaging and Cardiology Chest x-ray Status: Report reviewed by me (Andrae) Assessment & Plan (1) Respiratory failure Status: Acute Priority: High (2) Lung metastasis Status: Acute Priority: High (3) Pneumonia Status: Acute Priority: High (4) Sepsis Status: Acute - Assessment and Plan (Free Text) Plan: Continue NC 3L/m, Vanco, Zosyn , Norepinephrine and rest of Tx, ID consult, CT Chest when Pt stable Critical care time: 40 min. - Date & Time Date: 09/10/18 Time: 12:30
--- NOTE | 2018-09-10 13:35 | CP.PCM.PN ---
Subjective - Date & Time of Evaluation Date of Evaluation: 09/10/18 Time of Evaluation: 10:30 - Subjective Subjective: 73 y/o M was seen and examined by bedside. Pt was awake and alert, minimally verbal, responsive to verbal and tactile stimulation. Pt afebrile, saturating 99-100% on O2 by NC at 4L/min. Objective - Vital Signs/Intake and Output Vital Signs (last 24 hours): Temp Pulse Resp BP Pulse Ox 98.9 F 99 H 19 95/63 L 100 09/10/18 12:00 09/10/18 12:00 09/10/18 12:00 09/10/18 12:00 09/10/18 12:00 Intake and Output: 09/10/18 09/10/18 06:59 18:59 Intake Total 250 Balance 250 - Medications Medications: Current Medications Apixaban (Eliquis) 10 mg PO BID [facility] Last Admin: 09/10/18 08:54 Dose: 10 mg Vancomycin HCl 1 gm/ Sodium (Chloride) 250 mls @ 166.667 mls/hr IVPB DAILY [facility]; Protocol Last Admin: 09/10/18 08:56 Dose: 166.667 mls/hr Piperacillin Sod/Tazobactam (Sod 3.375 gm/ Sodium Chloride) 100 mls @ 100 mls/hr IVPB Q6 [facility]; Protocol Last Admin: 09/10/18 09:05 Dose: 100 mls/hr Norepinephrine Bitartrate 8 mg (/ Dextrose) 258 mls @ 4.84 mls/hr IV .Q24H [facility]; Protocol Stop: 09/11/18 01:52 Last Admin: 09/10/18 02:07 Dose: 2.5 mcg/min, 4.84 mls/hr Sodium Chloride (Sodium Chloride 0.9%) 1,000 mls @ 100 mls/hr IV .Q10H [facility] Stop: 09/11/18 07:34 Magnesium Sulfate/Dextrose (Magnesium Sulfate 1 Gm/100 Ml D5w) 1 gm in 100 mls @ 200 mls/hr IVPB ONCE [facility] Megestrol Acetate (Megace) 800 mg PO DAILY [facility] Pantoprazole Sodium (Protonix Inj) 40 mg IVP DAILY [facility] Last Admin: 09/10/18 08:56 Dose: 40 mg - Labs Labs: 09/10/18 10:18 09/10/18 04:35 PT 20.3 Seconds (9.8-13.1) H 09/09/18 22:02 INR 1.8 09/09/18 22:02 APTT 167.0 Seconds (25.6-37.1) H 09/09/18 22:02 - Constitutional Appears: No Acute Distress - Head Exam Head Exam: ATRAUMATIC, NORMAL INSPECTION - Eye Exam Eye Exam: EOMI - ENT Exam ENT Exam: Mucous Membranes Moist - Neck Exam Neck Exam: Full ROM. absent: Meningismus - Respiratory Exam Respiratory Exam: Decreased Breath Sounds (b/l bases), Rales (b/l bases. ), NORMAL BREATHING PATTERN. absent: Rhonchi, Wheezes - Cardiovascular Exam Cardiovascular Exam: REGULAR RHYTHM, +S1 - GI/Abdominal Exam GI & Abdominal Exam: Soft, Normal Bowel Sounds. absent: Distended, Rigid, Tenderness - Extremities Exam Extremities Exam: Full ROM Additional comments: Presence of edema on LUE around elbow. - Neurological Exam Neurological Exam: Awake Assessment and Plan - Assessment and Plan (Free Text) Assessment: 73 y/o male with hx of Colon Cancer Stage IV and DVT of Upper Extremity on Eliquis presenting to ED by family due progressive weakness and poor po intake admitted for Severe Sepsis and Pneumonia. -Chest Xray - bilateral infiltrates suggestive of pulmonary edema vs pneumonia vs metastatic ca PLAN: #Sepsis due to pneumonia -Afebrile, still tachycardic and some hypotensive measurements. -Lactic acid decreased to 5.0 -WBC 44-elevated -ID consult, Dr Jackson. -C/w IV Vanco and Zosyn. -C/w Levophed for BP support -F/U Pulmonology recommendations, Dr Pollock #Acute Respiratory Failure -Improved, now O2 sat at 100% with NC at 4L/min/ -BiPAP overnight -Hypoxemia and hypocapnia on presentation. #Metabolic Acidosis -HCO3 16-decreased. -Likely compensating respiratory acidosis/hypocapnia. #CHF Exacerbation -Acute decompensated -On exam, pt appears fluid overloaded and CXR consistent with pulmonary edema -ProBNP 1660-high -Hx of CHF reduced EF, Echo in 09/2016 EF 35-40%, LV function mild to moderately impaired -Non invasive ventilation/BIPAP -EKG: Sinus tachycardia, non specific ST changes -Daily weights, Monitor I&O's #Hyponatremia -Na 128 on admission -Dehydration -Received 3 L of Normal Saline in ED -F/U am labs #Acute Left Upper Extremity DVT -C/w home dosage Eliquis PPX measures -DVT: on Eliquis -GI: Protonix IV daily DNR/DNI
--- NOTE | 2018-09-10 14:36 | CP.PCM.PN ---
Subjective - Date & Time of Evaluation Date of Evaluation: 09/10/18 Time of Evaluation: 14:23 - Subjective Subjective: I D NOTE ANTIBIOTICS ORDERED( FLAGYL/MEROPENEM/ZOSYN) PROCALCITONIN LEVELS ORDERED. POSSIBLY MAY NEED CT SCAN WHEN STABLE WILL SEE AMISHA Objective - Vital Signs/Intake and Output Vital Signs (last 24 hours): Temp Pulse Resp BP Pulse Ox 98.9 F 99 H 19 95/63 L 100 09/10/18 12:00 09/10/18 12:00 09/10/18 12:00 09/10/18 12:00 09/10/18 12:00 Intake and Output: 09/10/18 09/10/18 06:59 18:59 Intake Total 250 Balance 250 - Medications Medications: Current Medications Apixaban (Eliquis) 10 mg PO BID [facility] Last Admin: 09/10/18 08:54 Dose: 10 mg Vancomycin HCl 1 gm/ Sodium (Chloride) 250 mls @ 166.667 mls/hr IVPB DAILY [facility]; Protocol Last Admin: 09/10/18 08:56 Dose: 166.667 mls/hr Piperacillin Sod/Tazobactam (Sod 3.375 gm/ Sodium Chloride) 100 mls @ 100 m ls/hr IVPB Q6 [facility]; Protocol Last Admin: 09/10/18 09:05 Dose: 100 mls/hr Norepinephrine Bitartrate 8 mg (/ Dextrose) 258 mls @ 4.84 mls/hr IV .Q24H ONE; Protocol Stop: 09/11/18 01:52 Last Admin: 09/10/18 02:07 Dose: 2.5 mcg/min, 4.84 mls/hr Sodium Chloride (Sodium Chloride 0.9%) 1,000 mls @ 100 mls/hr IV .Q10H [facility] Stop: 09/11/18 07:34 Magnesium Sulfate/Dextrose (Magnesium Sulfate 1 Gm/100 Ml D5w) 1 gm in 100 mls @ 200 mls/hr IVPB ONCE [facility] Meropenem 1 gm/ Sodium (Chloride) 100 mls @ 100 mls/hr IVPB Q8 [facility]; Protocol Metronidazole (Flagyl 500mg/100ml Ns) 100 mls @ 100 mls/hr IVPB Q8 [facility] Megestrol Acetate (Megace) 800 mg PO DAILY [facility] Pantoprazole Sodium (Protonix Inj) 40 mg IVP DAILY [facility] Last Admin: 09/10/18 08:56 Dose: 40 mg - Labs Labs: 09/10/18 10:18 09/10/18 04:35 PT 20.3 Seconds (9.8-13.1) H 09/09/18 22:02 INR 1.8 09/09/18 22:02 APTT 167.0 Seconds (25.6-37.1) H 09/09/18 22:02
[2018-09-10] MEDS ORDERED: metroNIDAZOLE 500mg/100ml NS IVPB SCH (17:00)
[2018-09-10] MEDS: metroNIDAZOLE 500mg/100ml NS 100 ML IVPB SCH (17:22)
[2018-09-10] MEDS: Megestrol Acetate 40 mg/ml Cup PO SCH (17:23)
[2018-09-10] MEDS: Meropenem 1 GM in Sodium Chloride 0.9% 100 ML IVPB SCH (17:24)
[2018-09-10] MEDS: Sodium Chloride 0.9% 1,000 ML IV SCH (17:25)
[2018-09-10 18:43] LABS: URINE BACTERIA RARE (<OCC); URINE BILIRUBIN NEGATIVE (NEGATIVE); URINE CLARITY CLOUDY (Clear); URINE GLUCOSE (UA) NEG (NEGATIVE); URINE HYALINE CAST 0-2 /hpf (0-2); URINE LEUKOCYTE ESTERASE NEG Leu/uL (Negative); URINE PROTEIN 30 mg/dL (NEGATIVE)
[2018-09-10 19:54] LABS: URINE BLOOD MODERATE (NEGATIVE); URINE COLOR YELLOW (YELLOW)
--- NOTE | 2018-09-10 21:34 | CP.PCM.CON ---
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 The patient was seen in the office yesterday for poor po intake and dehydration. He was given 1L NS and went home. Per his son, he started to have chills and couldnt get warm at home, and came to the hospital. He is currently antibiotics and norepinephrine. Of note, he has been off chemotherapy for about 1 month as he requested a chemotherapy holiday. Past medical history: HTN, colon cancer, DVT Past surgical history: Inguinal hernia repair, portacath Past family history: Denies hematologic and oncologic problems Social history: Denies tobacco, alcohol, and illicit drug use. Allergies: NKA Review of systems: All remaining review of systems including HEENT, cardiovascular, respiratory, gastrointestinal, genitourinary, musculoskeletal, dermatologic, neurologic, and psychiatric are negative unless mentioned in the HPI. Past Patient History - Infectious Disease Hx of Infectious Diseases: None - Past Medical History & Family History Past Medical History?: Yes - Past Social History Smoking Status: Former Smoker Alcohol: None Drugs: Denies Home Situation {Lives}: With Family - CARDIAC Hx Cardiac Disorders: Yes Hx Hypertension: Yes - PULMONARY Hx Respiratory Disorders: Yes Hx Lung Cancer: Yes (Metastasis) - NEUROLOGICAL Hx Neurological Disorder: No - HEENT Hx HEENT Problems: Yes Other/Comment: Use Eyeglasses. Uses hearing aid both ears - RENAL Hx Chronic Kidney Disease: No - ENDOCRINE/METABOLIC Hx Endocrine Disorders: No - HEMATOLOGICAL/ONCOLOGICAL Hx Blood Disorders: Yes Hx Cancer: Yes Hx Human Immunodeficiency Virus (HIV): No - INTEGUMENTARY Hx Dermatological Problems: No - MUSCULOSKELETAL/RHEUMATOLOGICAL Hx Musculoskeletal Disorders: Yes Hx Falls: No Other/Comment: General body pain 2nd to ca. - GASTROINTESTINAL Hx Gastrointestinal Disorders: Yes Hx Gall Bladder Disease: Yes - GENITOURINARY/GYNECOLOGICAL Hx Genitourinary Disorders: Yes Hx Urinary Tract Infection: Yes - PSYCHIATRIC Hx Psychophysiologic Disorder: No Hx Substance Use: No - SURGICAL HISTORY Hx Surgeries: Yes Hx Herniorrhaphy: Yes (Bilateral inguinal) Other/Comment: colon cancer, gallbladder stents - ANESTHESIA Hx Anesthesia: Yes Hx Anesthesia Reactions: No Hx Malignant Hyperthermia: No Meds Allergies/Adverse Reactions: Allergies Allergy/AdvReac Type Severity Reaction Status Date / Time No Known Allergies Allergy Verified 07/19/18 15:58 - Medications Medications: Current Medications Apixaban (Eliquis) 10 mg PO BID [facility] Last Admin: 09/10/18 17:23 Dose: 10 mg Vancomycin HCl 1 gm/ Sodium (Chloride) 250 mls @ 166.667 mls/hr IVPB DAILY [facility]; Protocol Last Admin: 09/10/18 08:56 Dose: 166.667 mls/hr Piperacillin Sod/Tazobactam (Sod 3.375 gm/ Sodium Chloride) 100 mls @ 100 ml s/hr IVPB Q6 [facility]; Protocol Last Admin: 09/10/18 17:26 Dose: 100 mls/hr Norepinephrine Bitartrate 8 mg (/ Dextrose) 258 mls @ 4.84 mls/hr IV .Q24H [facility]; Protocol Stop: 09/11/18 01:52 Last Admin: 09/10/18 02:07 Dose: 2.5 mcg/min, 4.84 mls/hr Sodium Chloride (Sodium Chloride 0.9%) 1,000 mls @ 100 mls/hr IV .Q10H [facility] Stop: 09/11/18 07:34 Last Admin: 09/10/18 17:25 Dose: 100 mls/hr Magnesium Sulfate/Dextrose (Magnesium Sulfate 1 Gm/100 Ml D5w) 1 gm in 100 mls @ 200 mls/hr IVPB ONCE [facility] Meropenem 1 gm/ Sodium (Chloride) 100 mls @ 100 mls/hr IVPB Q8 [facility]; Protocol Last Admin: 09/10/18 17:24 Dose: 100 mls/hr Metronidazole (Flagyl 500mg/100ml Ns) 100 mls @ 100 mls/hr IVPB Q8 [facility] Last Admin: 09/10/18 17:22 Dose: 100 mls/hr Megestrol Acetate (Megace) 800 mg PO DAILY [facility] Last Admin: 09/10/18 17:23 Dose: 800 mg Pantoprazole Sodium (Protonix Inj) 40 mg IVP DAILY [facility] Last Admin: 09/10/18 08:56 Dose: 40 mg Physical Exam - Constitutional Appears: Cachectic - Head Exam Head Exam: ATRAUMATIC - Eye Exam Eye Exam: Normal appearance - ENT Exam ENT Exam: Mucous Membranes Dry - Respiratory Exam Respiratory Exam: Decreased Breath Sounds - Cardiovascular Exam Cardiovascular Exam: +S1, +S2 - GI/Abdominal Exam GI & Abdominal Exam: Normal Bowel Sounds - Extremities Exam Extremities exam: Positive for: normal inspection Results - Vital Signs Recent Vital Signs: Last Vital Signs Temp 97.8 F 09/10/18 16:00 Pulse 107 H 09/10/18 18:00 Resp 15 09/10/18 18:00 BP 101/66 09/10/18 18:00 Pulse Ox 97 09/10/18 18:00 - Labs Result Diagrams: 09/10/18 10:18 09/10/18 04:35 Labs: Laboratory Results - last 24 hr 09/09/18 09/09/18 09/09/18 20:36 21:02 21:02 WBC RBC Hgb Hct MCV MCH MCHC RDW Plt Count MPV Neut % (Auto) Lymph % (Auto) [place] % (Auto) Eos % (Auto) Baso % (Auto) Neut # (Auto) Lymph # (Auto) [place] # (Auto) Eos # (Auto) Baso # (Auto) Neutrophils % (Manual) 86 H Band Neutrophils % 7 H Lymphocytes % (Manual) 4 L Monocytes % (Manual) 3 Metamyelocytes % Toxic Granulation Platelet Estimate Normal Plt Clumps, EDTA Present Hypochromasia (manual) Anisocytosis (manual) Slight Macrocytosis (manual) Slight Ovalocytes Schistocytes PT INR APTT pO2 ABG Carboxyhemoglobin POC ABG HHb (Measured) ABG Methemoglobin VBG pH VBG pCO2 VBG HCO3 VBG O2 Sat (Calc) VBG Base Excess VBG Hgb O2 Saturation Hemoglobin Sodium 128 L Potassium 4.8 Chloride 99 Carbon Dioxide 13 L Anion Gap 21 H BUN 13 Creatinine 0.8 Est GFR ( Amer) > 60 Est GFR (Non-Af Amer) > 60 Random Glucose 145 H Lactic Acid Calcium 8.3 L Phosphorus 3.6 Magnesium 1.5 L Total Bilirubin 3.8 H AST 93 H D ALT 66 Alkaline Phosphatase 339 H D NT-Pro-B Natriuret Pep 1660 H Total Protein 5.5 L Albumin 2.5 L Globulin 3.0 Albumin/Globulin Ratio 0.8 L Procalcitonin Urine Color Urine Clarity Urine pH Ur Specific [place] Urine Protein Urine Glucose (UA) Urine Ketones Urine Blood Urine Nitrate Urine Bilirubin Urine Urobilinogen Ur Leukocyte Esterase Urine RBC (Auto) Urine Microscopic WBC Urine Bacteria Hyaline Casts 09/09/18 09/10/18 09/10/18 22:02 04:00 04:35 WBC 39.2 H* D RBC 3.78 L Hgb 11.1 L Hct 35.1 MCV 92.8 MCH 29.4 MCHC 31.7 L RDW 22.0 H Plt Count 286 D MPV 7.7 Neut % (Auto) 97.9 H Lymph % (Auto) 0.6 L [place] % (Auto) 1.4 Eos % (Auto) 0.0 Baso % (Auto) 0.1 Neut # (Auto) 38.3 H Lymph # (Auto) 0.2 L [place] # (Auto) 0.6 Eos # (Auto) 0.0 Baso # (Auto) 0.0 Neutrophils % (Manual) 86 H Band Neutrophils % 8 H Lymphocytes % (Manual) 1 L Monocytes % (Manual) 4 Metamyelocytes % 1 H Toxic Granulation Present Platelet Estimate Normal Plt Clumps, EDTA Hypochromasia (manual) Slight Anisocytosis (manual) Moderate Macrocytosis (manual) Ovalocytes Slight Schistocytes Slight PT 20.3 H INR 1.8 APTT 167.0 H pO2 24 L ABG Carboxyhemoglobin 0 L POC ABG HHb (Measured) 66.1 H ABG Methemoglobin 0.7 VBG pH 7.25 L VBG pCO2 34 L VBG HCO3 14.6 VBG O2 Sat (Calc) 33.4 L VBG Base Excess -11.3 L VBG Hgb O2 Saturation 33.2 L Hemoglobin 11.9 Sodium Potassium Chloride Carbon Dioxide Anion Gap BUN Creatinine Est GFR ( Amer) Est GFR (Non-Af Amer) Random Glucose Lactic Acid Calcium Phosphorus Magnesium Total Bilirubin AST ALT Alkaline Phosphatase NT-Pro-B Natriuret Pep Total Protein Albumin Globulin Albumin/Globulin Ratio Procalcitonin Urine Color Urine Clarity Urine pH Ur Specific [place] Urine Protein Urine Glucose (UA) Urine Ketones Urine Blood Urine Nitrate Urine Bilirubin Urine Urobilinogen Ur Leukocyte Esterase Urine RBC (Auto) Urine Microscopic WBC Urine Bacteria Hyaline Casts 09/10/18 09/10/18 09/10/18 04:35 04:35 10:18 WBC 44.6 H* RBC 3.91 L Hgb 11.5 L Hct 36.9 MCV 94.3 H MCH 29.5 MCHC 31.3 L RDW 22.4 H Plt Count 287 MPV Neut % (Auto) Lymph % (Auto) [place] % (Auto) Eos % (Auto) Baso % (Auto) Neut # (Auto) Lymph # (Auto) [place] # (Auto) Eos # (Auto) Baso # (Auto) Neutrophils % (Manual) Band Neutrophils % Lymphocytes % (Manual) Monocytes % (Manual) Metamyelocytes % Toxic Granulation Platelet Estimate Plt Clumps, EDTA Hypochromasia (manual) Anisocytosis (manual) Macrocytosis (manual) Ovalocytes Schistocytes PT INR APTT pO2 ABG Carboxyhemoglobin POC ABG HHb (Measured) ABG Methemoglobin VBG pH VBG pCO2 VBG HCO3 VBG O2 Sat (Calc) VBG Base Excess VBG Hgb O2 Saturation Hemoglobin Sodium 130 L Potassium 4.6 Chloride 103 Carbon Dioxide 16 L Anion Gap 16 BUN 15 Creatinine 0.8 Est GFR ( Amer) > 60 Est GFR (Non-Af Amer) > 60 Random Glucose 95 Lactic Acid 5.3 H* Calcium 7.4 L Phosphorus 4.0 Magnesium 1.5 L Total Bilirubin 3.2 H AST 126 H D ALT 78 H Alkaline Phosphatase 293 H NT-Pro-B Natriuret Pep Total Protein 4.4 L Albumin 2.0 L Globulin 2.5 Albumin/Globulin Ratio 0.8 L Procalcitonin Urine Color Urine Clarity Urine pH Ur Specific [place] Urine Protein Urine Glucose (UA) Urine Ketones Urine Blood Urine Nitrate Urine Bilirubin Urine Urobilinogen Ur Leukocyte Esterase Urine RBC (Auto) Urine Microscopic WBC Urine Bacteria Hyaline Casts 09/10/18 09/10/18 14:55 18:18 WBC RBC Hgb Hct MCV MCH MCHC RDW Plt Count MPV Neut % (Auto) Lymph % (Auto) [place] % (Auto) Eos % (Auto) Baso % (Auto) Neut # (Auto) Lymph # (Auto) [place] # (Auto) Eos # (Auto) Baso # (Auto) Neutrophils % (Manual) Band Neutrophils % Lymphocytes % (Manual) Monocytes % (Manual) Metamyelocytes % Toxic Granulation Platelet Estimate Plt Clumps, EDTA Hypochromasia (manual) Anisocytosis (manual) Macrocytosis (manual) Ovalocytes Schistocytes PT INR APTT pO2 ABG Carboxyhemoglobin POC ABG HHb (Measured) ABG Methemoglobin VBG pH VBG pCO2 VBG HCO3 VBG O2 Sat (Calc) VBG Base Excess VBG Hgb O2 Saturation Hemoglobin Sodium Potassium Chloride Carbon Dioxide Anion Gap BUN Creatinine Est GFR ( Amer) Est GFR (Non-Af Amer) Random Glucose Lactic Acid Calcium Phosphorus Magnesium Total Bilirubin AST ALT Alkaline Phosphatase NT-Pro-B Natriuret Pep Total Protein Albumin Globulin Albumin/Globulin Ratio Procalcitonin 68.69 H Urine Color Yellow Urine Clarity Cloudy Urine pH 5.0 Ur Specific [place] 1.020 Urine Protein 30 Urine Glucose (UA) Neg Urine Ketones Negative Urine Blood Moderate Urine Nitrate Negative Urine Bilirubin Negative Urine Urobilinogen 2.0 Ur Leukocyte Esterase Neg Urine RBC (Auto) 12 H Urine Microscopic WBC 5 Urine Bacteria Rare Hyaline Casts 0-2 Assessment & Plan (1) Leukocytosis Assessment and Plan: on broad spectrum antibiotics ID following f/u cultures Status: Acute (2) Anemia Assessment and Plan: anemia of chronic disease from malignancy Status: Acute (3) Colon cancer Assessment and Plan: lung, lymph node and pancreas metastasis chemotherapy on hold for about 1 month DNR/DNI Thank you for this interesting consult. Status: Chronic
--- NOTE | 2018-09-10 22:18 | PN ---
DATE: 09/10/2018 CRITICAL CARE PROGRESS NOTE LOCATION: The patient in ICU, bed 422. Time spent 45 minutes. The patient is seen, evaluated at the bedside. Case discussed in multidisciplinary ICU rounds this morning. Past medical, surgical and family and social history reviewed. Events in the ER noted. SUBJECTIVE: A 73-year-old male with history significant for stage IV colon cancer, mets to pancreas, liver and to lung, status post stent into pancreatic duct, on chemotherapy by Dr. Sanchez. Has been off the chemotherapy for about a month as he was noted to deteriorate his health condition with a loss of weight and generalized weakness. Seen by Dr. Sanchez. Noted to be in dehydrated, given IV fluid, sent home. Returned to ER, noted to have tachycardia with leukocytosis, suspected dehydration/infection. Given IV fluid 3 L. Admitted to ICU. Overnight, less lethargic, able to communicate. Telemetry, borderline sinus tachycardia, blood pressure systolic in the low 100s, on Levophed. This morning, alert, awake, follows commands appropriate. Denies shortness of breath, chest pain or palpitation. No abdominal discomfort. No diarrhea. No dysuria. PHYSICAL EXAMINATION: VITAL SIGNS: Temperature 98, T-max 100.3, heart rate , respiratory rate 20, thoracoabdominal blood pressure 95/58, mean arterial pressure 70, oxygen saturation 96% on 2 L nasal cannula. HEAD, EYES, EARS, NOSE AND THROAT: Pupils are reactive. Sclerae muddy. NECK: Supple. Trachea central. CHEST: Bilateral breath sounds. No audible wheezing and no crepitations. HEART: Rhythm regular. S1 and S2 are normal. No audible murmur. ABDOMEN: Bowel sounds present. Soft. Scar from the previous surgery. No palpable mass. EXTREMITIES: Trace edema. DP palpable. Capillary refill less than 2 seconds. NEUROLOGIC: Alert and oriented to name, place and time. No cranial nerve deficit. No motor deficit. Sensory impairment both lower extremities. CURRENT MEDICATIONS: Include vancomycin 1 g IV daily, Zosyn 3.375 g IV every 6 hours, sodium chloride 500 mL x1 bolus, sodium chloride at 100 mL per hour, Protonix 40 mg daily, norepinephrine 8 mg in dextrose at 2.5 mcg/kg per minute, Megace 800 mg p.o. daily, and Eliquis 10 mg p.o. twice daily. LABORATORY DATA: WBC 39.2, hemoglobin 11.1, hematocrit 35.1, platelet count of 286, neutrophils 97.9, lymphocytes 0.6, eosinophils 0. PT 20.3, INR 1.8, PTT 167. Lactate repeat 5.3. SMA-7: Sodium 130, potassium 4.6, chloride 103, CO2 of 16, blood urea nitrogen 15, creatinine 0.8, calcium 7.4, phosphorus 4, magnesium 1.5. Total bilirubin 3.2, AST 126, ALT 78, alkaline phosphatase 293, total protein 4.4, albumin 2. Urinalysis: Rbc's 3, wbc 1, urine bacteria rare. Serology: Hepatitis A IgM antibody negative. Hepatitis B surface antigen negative. Core antibody negative. Hepatitis C antibody negative. Microbiology: None reported. Chest x-ray done this morning: No interval change in medial right basilar infiltrate bilaterally with scattered pulmonary metastasis. No significant pleural effusion, pneumothorax, calcific atherosclerotic changes, normal cardiac size, no pulmonary vascular congestion. IMPRESSION AND PLAN: 1. Neuro: Alert and awake. Follows commands appropriate. 2. Pulmonary: No distress noted. Bilateral pulmonary metastasis, stable. 3. Cardiac: Hypotension, likely related to hypovolemia, possible superimposed infection and related hypotension and history of hypertension. Antihypertensive medication on hold. 4. Infectious Disease: Leukocytosis. Source of infection unclear, could be related to tumor necrosis; however, septic workup in progress. On vancomycin empirically. Lactate trending down could be related to infection, but more likely due to the production by the underlying cancer especially in the pancreas and liver and related defect in a clearing lactate. 5. Renal: Normal blood urea nitrogen and creatinine. Adequate urine output. 6. Endocrine: No acute issues noted. Keep the head of bed 30 degrees up. Increased oral intake. Started on Megace 800 mg by mouth daily. History of deep venous thrombosis in the upper extremities, on Eliquis. We will continue the same. Venodyne boots in place. Coagulopathy related to liver dysfunction with elevated liver enzymes likely secondary to metastasis in the liver. Prognosis guarded. The patient is currently Do Not Resuscitate and Do Not Intubate. We will continue with treatment for infection and for dehydration and supportive care. Melchor Montgomery MD
[2018-09-11] MEDS: metroNIDAZOLE 500mg/100ml NS 100 ML IVPB SCH ×2 (00:49→08:48)
[2018-09-11] MEDS: Meropenem 1 GM in Sodium Chloride 0.9% 100 ML IVPB SCH ×2 (02:05→08:49)
[2018-09-11] MEDS: Sodium Chloride 0.9% 1,000 ML IV SCH ×2 (04:45→23:22)
[2018-09-11] MEDS: Piperacillin/Tazobact 3.375 GM in Sodium Chloride 0.9% 100 ML IVPB SCH ×3 (04:45→21:21)
[2018-09-11 06:01] LABS: HEMOGLOBIN 11.2 g/dL (12.0-18.0); MEAN CELL VOLUME 94.5 fl (80.0-94.0); MEAN CORPUSCULAR HEMOGLOBIN 29.6 pg (27.0-31.0); MEAN CORPUSCULAR HGB CONC 31.3 g/dL (33.0-37.0); RBC 3.78 Mil/uL (4.40-5.90); RED CELL DISTRIBUTION WIDTH 23.2 % (11.5-14.5); WHITE BLOOD COUNT 23.5 K/uL (4.8-10.8)
[2018-09-11 06:48] LABS: ALB/GLOB RATIO 0.8 (1.0-2.1); ALBUMIN 2.1 g/dL (3.5-5.0); ALT/SGPT 100 U/L (21-72); AST/SGOT 132 U/L (17-59); BLOOD UREA NITROGEN 16 mg/dl (9-20); CALCIUM 7.4 mg/dL (8.4-10.2); GFR NON-AFRICAN AMERICAN > 60
[2018-09-11] MEDS: Megestrol Acetate 40 mg/ml Cup PO SCH (08:48)
--- NOTE | 2018-09-11 09:53 | CP.PCM.PN ---
Subjective - Date & Time of Evaluation Date of Evaluation: 09/11/18 Time of Evaluation: 09:30 - Subjective Subjective: I D NOTE(CONSULT) BLOOD CULTURES ARE POSITIVE FOR GRAM NEGATIVE RODS (IDENTIFICATION & SENSITIVITY IS PENDING) .WOULD CONSIDER CT SCAN OF ABDOMEN/PELVIS PATIENT IS ALERT ,RESPONSIVE,AFEBRILE. LACTIC ACID IS 3.5 WHICH IS DOWN FROM 5.3 WBC is DOWN TO 23.5,NO DIFF TODAY,PLATELETS ARE 110 WOULD REPEAT PROCALCITONIN IS 68,AWAIT FOLLOWUP RESULTS DISCUSSED c Objective - Vital Signs/Intake and Output Vital Signs (last 24 hours): Temp Pulse Resp BP Pulse Ox 98.2 F 112 H 20 99/61 L 99 09/11/18 08:00 09/11/18 09:00 09/11/18 09:00 09/11/18 09:00 09/11/18 09:00 Intake and Output: 09/11/18 09/11/18 06:59 18:59 Intake Total 3145 200 Output Total 1250 Balance 1895 200 - Medications Medications: Current Medications Apixaban (Eliquis) 10 mg PO BID [facility] Last Admin: 09/11/18 08:47 Dose: 10 mg Piperacillin Sod/Tazobactam (Sod 3.375 gm/ Sodium Chloride) 100 mls @ 100 mls/hr IVPB Q6 [facility]; Protocol Last Admin: 09/11/18 09:07 Dose: 100 mls/hr Magnesium Sulfate/Dextrose (Magnesium Sulfate 1 Gm/100 Ml D5w) 1 gm in 100 mls @ 200 mls/hr IVPB ONCE [facility] Meropenem 1 gm/ Sodium (Chloride) 100 mls @ 100 mls/hr IVPB Q8 [facility]; Protocol Last Admin: 09/11/18 08:49 Dose: 100 mls/hr Metronidazole (Flagyl 500mg/100ml Ns) 100 mls @ 100 mls/hr IVPB Q8 [facility] Last Admin: 09/11/18 08:48 Dose: 100 mls/hr Norepinephrine Bitartrate 8 mg (/ Dextrose) 258 mls @ 4.84 mls/hr IV .Q24H [facility]; Protocol Stop: 09/12/18 01:35 Last Admin: 09/11/18 02:11 Dose: 5 mcg/min, 9.68 mls/hr Megestrol Acetate (Megace) 800 mg PO DAILY [facility] Last Admin: 09/11/18 08:48 Dose: 800 mg Pantoprazole Sodium (Protonix Inj) 40 mg IVP DAILY [facility] Last Admin: 09/11/18 08:50 Dose: 40 mg - Labs Labs: 09/11/18 04:40 09/11/18 04:40 PT 20.3 Seconds (9.8-13.1) H 09/09/18 22:02 INR 1.8 09/09/18 22:02 APTT 167.0 Seconds (25.6-37.1) H 09/09/18 22:02
--- NOTE | 2018-09-11 10:23 | CP.PCM.CON ---
History of Present Illness - History of Present Illness History of Present Illness: NO CHEST PAIN OR SOB FEELS A LITTLE BETTER Past Patient History - Infectious Disease Hx of Infectious Diseases: None - Past Medical History & Family History Past Medical History?: Yes - Past Social History Smoking Status: Former Smoker Alcohol: None Drugs: Denies Home Situation {Lives}: With Family - CARDIAC Hx Cardiac Disorders: Yes Hx Hypertension: Yes - PULMONARY Hx Respiratory Disorders: Yes Hx Lung Cancer: Yes (Metastasis) - NEUROLOGICAL Hx Neurological Disorder: No - HEENT Hx HEENT Problems: Yes Other/Comment: Use Eyeglasses. Uses hearing aid both ears - RENAL Hx Chronic Kidney Disease: No - ENDOCRINE/METABOLIC Hx Endocrine Disorders: No - HEMATOLOGICAL/ONCOLOGICAL Hx Blood Disorders: Yes Hx Cancer: Yes Hx Human Immunodeficiency Virus (HIV): No - INTEGUMENTARY Hx Dermatological Problems: No - MUSCULOSKELETAL/RHEUMATOLOGICAL Hx Musculoskeletal Disorders: Yes Hx Falls: No Other/Comment: General body pain 2nd to ca. - GASTROINTESTINAL Hx Gastrointestinal Disorders: Yes Hx Gall Bladder Disease: Yes - GENITOURINARY/GYNECOLOGICAL Hx Genitourinary Disorders: Yes Hx Urinary Tract Infection: Yes - PSYCHIATRIC Hx Psychophysiologic Disorder: No Hx Substance Use: No - SURGICAL HISTORY Hx Surgeries: Yes Hx Herniorrhaphy: Yes (Bilateral inguinal) Other/Comment: colon cancer surgery 2017, biliary stent - ANESTHESIA Hx Anesthesia: Yes Hx Anesthesia Reactions: No Hx Malignant Hyperthermia: No Meds Allergies/Adverse Reactions: Allergies Allergy/AdvReac Type Severity Reaction Status Date / Time No Known Allergies Allergy Verified 07/19/18 15:58 - Medications Medications: Current Medications Apixaban (Eliquis) 10 mg PO BID [facility] Last Admin: 09/11/18 08:47 Dose: 10 mg Piperacillin Sod/Tazobactam (Sod 3.375 gm/ Sodium Chloride) 100 mls @ 100 mls/hr IVPB Q6 [facility]; Protocol Last Admin: 09/11/18 09:07 Dose: 100 mls/hr Magnesium Sulfate/Dextrose (Magnesium Sulfate 1 Gm/100 Ml D5w) 1 gm in 100 mls @ 200 mls/hr IVPB ONCE [facility] Meropenem 1 gm/ Sodium (Chloride) 100 mls @ 100 mls/hr IVPB Q8 [facility]; Protocol Last Admin: 09/11/18 08:49 Dose: 100 mls/hr Metronidazole (Flagyl 500mg/100ml Ns) 100 mls @ 100 mls/hr IVPB Q8 [facility] Last Admin: 09/11/18 08:48 Dose: 100 mls/hr Norepinephrine Bitartrate 8 mg (/ Dextrose) 258 mls @ 4.84 mls/hr IV .Q24H [facility]; Protocol Stop: 09/12/18 01:35 Last Admin: 09/11/18 02:11 Dose: 5 mcg/min, 9.68 mls/hr Megestrol Acetate (Megace) 800 mg PO DAILY [facility] Last Admin: 09/11/18 08:48 Dose: 800 mg Pantoprazole Sodium (Protonix Inj) 40 mg IVP DAILY [facility] Last Admin: 09/11/18 08:50 Dose: 40 mg Physical Exam - Respiratory Exam Respiratory Exam: Decreased Breath Sounds - Cardiovascular Exam Cardiovascular Exam: REGULAR RHYTHM, +S1, +S2 - Extremities Exam Additional comments: NO LE EDEMA - Additional Findings Additional findings: [employer] SHOWS SINUS RHYTHM, R 110 WBC DECREASED TO 23.5 Results - Vital Signs Recent Vital Signs: Last Vital Signs Temp 98.2 F 09/11/18 08:00 Pulse 114 H 09/11/18 10:00 Resp 19 09/11/18 10:00 BP 107/66 09/11/18 10:00 Pulse Ox 98 09/11/18 10:00 - Labs Result Diagrams: 09/11/18 04:40 09/11/18 04:40 Labs: Laboratory Results - last 24 hr 09/10/18 09/10/18 09/10/18 04:35 10:18 14:55 WBC 44.6 H* RBC 3.91 L Hgb 11.5 L Hct 36.9 MCV 94.3 H MCH 29.5 MCHC 31.3 L RDW 22.4 H Plt Count 287 Neutrophils % (Manual) 86 H Band Neutrophils % 8 H Lymphocytes % (Manual) 1 L Monocytes % (Manual) 4 Metamyelocytes % 1 H Toxic Granulation Present Platelet Estimate Normal Hypochromasia (manual) Slight Anisocytosis (manual) Moderate Ovalocytes Slight Schistocytes Slight Sodium Potassium Chloride Carbon Dioxide Anion Gap BUN Creatinine Est GFR ( Amer) Est GFR (Non-Af Amer) Random Glucose Lactic Acid Calcium Phosphorus Magnesium Total Bilirubin AST ALT Alkaline Phosphatase Total Protein Albumin Globulin Albumin/Globulin Ratio Procalcitonin 68.69 H Urine Color Urine Clarity Urine pH Ur Specific Strum Urine Protein Urine Glucose (UA) Urine Ketones Urine Blood Urine Nitrate Urine Bilirubin Urine Urobilinogen Ur Leukocyte Esterase Urine RBC (Auto) Urine Microscopic WBC Urine Bacteria Hyaline Casts 09/10/18 09/11/18 09/11/18 18:18 04:40 04:40 WBC 23.5 H RBC 3.78 L Hgb 11.2 L Hct 35.7 MCV 94.5 H MCH 29.6 MCHC 31.3 L RDW 23.2 H Plt Count 110 L D Neutrophils % (Manual) Band Neutrophils % Lymphocytes % (Manual) Monocytes % (Manual) Metamyelocytes % Toxic Granulation Platelet Estimate Hypochromasia (manual) Anisocytosis (manual) Ovalocytes Schistocytes Sodium Potassium Chloride Carbon Dioxide Anion Gap BUN Creatinine Est GFR ( Amer) Est GFR (Non-Af Amer) Random Glucose Lactic Acid 3.5 H Calcium Phosphorus Magnesium Total Bilirubin AST ALT Alkaline Phosphatase Total Protein Albumin Globulin Albumin/Globulin Ratio Procalcitonin Urine Color Yellow Urine Clarity Cloudy Urine pH 5.0 Ur Specific Strum 1.020 Urine Protein 30 Urine Glucose (UA) Neg Urine Ketones Negative Urine Blood Moderate Urine Nitrate Negative Urine Bilirubin Negative Urine Urobilinogen 2.0 Ur Leukocyte Esterase Neg Urine RBC (Auto) 12 H Urine Microscopic WBC 5 Urine Bacteria Rare Hyaline Casts 0-2 09/11/18 04:40 WBC RBC Hgb Hct MCV MCH MCHC RDW Plt Count Neutrophils % (Manual) Band Neutrophils % Lymphocytes % (Manual) Monocytes % (Manual) Metamyelocytes % Toxic Granulation Platelet Estimate Hypochromasia (manual) Anisocytosis (manual) Ovalocytes Schistocytes Sodium 131 L Potassium 3.8 Chloride 101 Carbon Dioxide 18 L Anion Gap 16 BUN 16 Creatinine 0.6 L Est GFR ( Amer) > 60 Est GFR (Non-Af Amer) > 60 Random Glucose 75 Lactic Acid Calcium 7.4 L Phosphorus 4.0 Magnesium 2.2 Total Bilirubin 3.7 H AST 132 H ALT 100 H D Alkaline Phosphatase 300 H Total Protein 4.5 L Albumin 2.1 L Globulin 2.4 Albumin/Globulin Ratio 0.8 L Procalcitonin Urine Color Urine Clarity Urine pH Ur Specific Strum Urine Protein Urine Glucose (UA) Urine Ketones Urine Blood Urine Nitrate Urine Bilirubin Urine Urobilinogen Ur Leukocyte Esterase Urine RBC (Auto) Urine Microscopic WBC Urine Bacteria Hyaline Casts Assessment & Plan - Assessment and Plan (Free Text) Assessment: STAGE 4 COLON CA WITH LUNG METASTASIS SEPSIS WITH PNEUMONIA Plan: CONTINUE ANTIBIOTICS AND NOREPINEPHRINE PATIENT DISCUSSED WITH ID AND HOSPITALIST
--- NOTE | 2018-09-11 11:12 | RAD ---
Date of service: 09/09/2018 HISTORY: Sepsis Patient COMPARISON: Portable chest 08/20/2018. FINDINGS: LUNGS: Left MediPort unchanged in position. Widespread pulmonary metastasis are increased in density bilaterally taking differences in exposure into account. Further, patchy airspace disease seen at the bilateral mid inferior lung zones bilaterally, particularly medially, suspicious for interval pneumonia. Underlying cephalization is difficult to completely exclude and CHF may be present as well. Further clinical correlation is recommended. PLEURA: No pneumothorax bilaterally or right pleural effusion. Trace left pleural effusion not excluded. CARDIOVASCULAR: No aortic atherosclerotic calcification present. Normal cardiac size. Borderline pulmonary vascular congestion. OSSEOUS STRUCTURES: No significant abnormalities. VISUALIZED UPPER ABDOMEN: Normal. OTHER FINDINGS: None. IMPRESSION: Bilateral pulmonary infiltrates are suggested at the mid and inferior lung zones medially bilaterally. Pulmonary vascular congestion is questioned as well. Continued clinical and radiographic monitor advised.
--- NOTE | 2018-09-11 11:13 | CP.PCM.PN ---
Subjective - Date & Time of Evaluation Date of Evaluation: 09/11/18 Time of Evaluation: 09:15 - Subjective Subjective: 73 y/o M was seen and examined by bedside. Pt was awake and alert, able to respond questions. Pt reports feeling well, denies any pain, SOB, nausea, vomiting, abdominal pain or dysuria. Pt has been able to urinate freely. --Pt urinated while examination. Objective - Vital Signs/Intake and Output Vital Signs (last 24 hours): Temp Pulse Resp BP Pulse Ox 98.2 F 109 H 22 97/66 L 98 09/11/18 08:00 09/11/18 11:00 09/11/18 11:00 09/11/18 11:00 09/11/18 11:00 Intake and Output: 09/11/18 09/11/18 06:59 18:59 Intake Total 3145 1000 Output Total 1250 400 Balance 1895 600 - Medications Medications: Current Medications Apixaban (Eliquis) 10 mg PO BID [facility] Last Admin: 09/11/18 08:47 Dose: 10 mg Piperacillin Sod/Tazobactam (Sod 3.375 gm/ Sodium Chloride) 100 mls @ 100 mls/hr IVPB Q6 [facility]; Protocol Last Admin: 09/11/18 09:07 Dose: 100 mls/hr Magnesium Sulfate/Dextrose (Magnesium Sulfate 1 Gm/100 Ml D5w) 1 gm in 100 mls @ 200 mls/hr IVPB ONCE [facility] Meropenem 1 gm/ Sodium (Chloride) 100 mls @ 100 mls/hr IVPB Q8 [facility]; Protocol Last Admin: 09/11/18 08:49 Dose: 100 mls/hr Metronidazole (Flagyl 500mg/100ml Ns) 100 mls @ 100 mls/hr IVPB Q8 [facility] Last Admin: 09/11/18 08:48 Dose: 100 mls/hr Norepinephrine Bitartrate 8 mg (/ Dextrose) 258 mls @ 4.84 mls/hr IV .Q24H [facility]; Protocol Stop: 09/12/18 01:35 Last Admin: 09/11/18 02:11 Dose: 5 mcg/min, 9.68 mls/hr Megestrol Acetate (Megace) 800 mg PO DAILY [facility] Last Admin: 09/11/18 08:48 Dose: 800 mg Pantoprazole Sodium (Protonix Inj) 40 mg IVP DAILY [facility] Last Admin: 09/11/18 08:50 Dose: 40 mg - Labs Labs: 09/11/18 04:40 09/11/18 04:40 PT 20.3 Seconds (9.8-13.1) H 09/09/18 22:02 INR 1.8 09/09/18 22:02 APTT 167.0 Seconds (25.6-37.1) H 09/09/18 22:02 - Constitutional Appears: No Acute Distress, Cachectic, Chronically Ill - Head Exam Head Exam: ATRAUMATIC, NORMAL INSPECTION - Eye Exam Eye Exam: EOMI - ENT Exam ENT Exam: Mucous Membranes Moist - Neck Exam Neck Exam: Full ROM, Normal Inspection. absent: Meningismus - Respiratory Exam Respiratory Exam: Decreased Breath Sounds (b/l bases), NORMAL BREATHING PATTERN. absent: Rhonchi, Wheezes, Respiratory Distress - Cardiovascular Exam Cardiovascular Exam: Tachycardia, +S1, +S2 - GI/Abdominal Exam GI & Abdominal Exam: Distended, Soft, Hernia, Normal Bowel Sounds. absent: Guarding, Rigid, Tenderness - Extremities Exam Extremities Exam: Full ROM, Pedal Edema (+2 bilateral ). absent: Calf Tenderness Additional comments: cold on palpation, PT and DP pulses are present faintly. - Neurological Exam Neurological Exam: Alert, Awake Assessment and Plan - Assessment and Plan (Free Text) Assessment: 73 y/o male with hx of Colon Cancer Stage IV and DVT of Upper Extremity on Eliquis presenting to ED by family due progressive weakness and poor po intake admitted for Severe Sepsis and Pneumonia. -Chest Xray - bilateral infiltrates suggestive of pulmonary edema vs pneumonia vs metastatic ca -Echo in 09/2016 EF 35-40%, LV function mild to moderately impaired PLAN: #Septic shock due to pneumonia -Afebrile, still tachycardic and hypotensive measurements. -Lactic acid decreased to 3.5 -WBC trending down to 15.8 from 44.6. -C/w IV Meropenem, Zosyn and Metronidazole -Will attempt to trend down Levophed for BP support. -Pulmonology on board, Dr Pollock. -ID on board, Dr Jackson. -Pro-calcitonin 43.45 decreased from 68.69. -Blood Culture: Gram neg prema. #Acute Respiratory Failure -O2 sat at 95-100% with NC at 4L/min -Off BIPAP and doing well #Metabolic Acidosis -Clinically improving -Likely compensating respiratory acidosis/hypocapnia. #Abdominal distension --Pt has not had BM for at least 2 days --Dulcolax per rectum. #Thromocytopenia --Possibly caused by medication --Evaluating Meropenem as the cause, may discontinue. --Will f/u plt count. #Anemia, normocytic --Likely anemia of chronic disease #Acute exacerbation of reduced EF-CHF (systolic dysfunction) -Acute decompensated -Daily weights, Monitor I&O's #Hyponatremia -Improving #Acute Left Upper Extremity DVT -C/w home dosage Eliquis PPX measures -DVT: on Eliquis -GI: Protonix IV daily DNR/DNI
[2018-09-11 12:02] LABS: BASO % 0.2 % (0.0-2.0); EOS # 1.1 K/uL (0.0-0.7); EOS % 6.8 % (0.0-4.0); HEMOGLOBIN 10.4 g/dL (12.0-18.0); LYMPH # 0.1 K/uL (1.0-4.3); LYMPH % 0.9 % (20.0-40.0); MEAN CORPUSCULAR HEMOGLOBIN 29.7 pg (27.0-31.0); MEAN CORPUSCULAR HGB CONC 32.6 g/dL (33.0-37.0); MEAN PLATELET VOLUME 7.8 fl (7.2-11.7); MONO # 0.4 K/uL (0.0-0.8); MONO % 2.3 % (0.0-10.0); NEUT # 14.2 K/uL (1.8-7.0); NEUT % 89.8 % (50.0-75.0); RBC 3.51 Mil/uL (4.40-5.90); RED CELL DISTRIBUTION WIDTH 22.1 % (11.5-14.5); WHITE BLOOD COUNT 15.8 K/uL (4.8-10.8)
--- NOTE | 2018-09-11 14:12 | CP.PCM.PN ---
Subjective - Date & Time of Evaluation Date of Evaluation: 09/11/18 Time of Evaluation: 11:50 - Subjective Subjective: F/U Pulmonary consult. Pt awake, confused, no SOB, no A/D. Objective - Vital Signs/Intake and Output Vital Signs (last 24 hours): Temp Pulse Resp BP Pulse Ox 973 F H 101 H 16 101/63 99 09/11/18 12:00 09/11/18 14:00 09/11/18 14:00 09/11/18 14:00 09/11/18 14:00 Intake and Output: 09/11/18 09/11/18 06:59 18:59 Intake Total 3145 1000 Output Total 1250 400 Balance 1895 600 - Medications Medications: Current Medications Apixaban (Eliquis) 10 mg PO BID [facility] Last Admin: 09/11/18 08:47 Dose: 10 mg Piperacillin Sod/Tazobactam (Sod 3.375 gm/ Sodium Chloride) 100 mls @ 100 mls/hr IVPB Q6 [facility]; Protocol Last Admin: 09/11/18 09:07 Dose: 100 mls/hr Magnesium Sulfate/Dextrose (Magnesium Sulfate 1 Gm/100 Ml D5w) 1 gm in 100 mls @ 200 mls/hr IVPB ONCE [facility] Meropenem 1 gm/ Sodium (Chloride) 100 mls @ 100 mls/hr IVPB Q8 [facility]; Protocol Last Admin: 09/11/18 08:49 Dose: 100 mls/hr Metronidazole (Flagyl 500mg/100ml Ns) 100 mls @ 100 mls/hr IVPB Q8 [facility] Last Admin: 09/11/18 08:48 Dose: 100 mls/hr Norepinephrine Bitartrate 8 mg (/ Dextrose) 258 mls @ 4.84 mls/hr IV .Q24H [facility]; Protocol Stop: 09/12/18 01:35 Last Admin: 09/11/18 02:11 Dose: 5 mcg/min, 9.68 mls/hr Megestrol Acetate (Megace) 800 mg PO DAILY [facility] Last Admin: 09/11/18 08:48 Dose: 800 mg Pantoprazole Sodium (Protonix Inj) 40 mg IVP DAILY [facility] Last Admin: 09/11/18 08:50 Dose: 40 mg - Labs Labs: 09/11/18 11:55 09/11/18 04:40 PT 20.3 Seconds (9.8-13.1) H 09/09/18 22:02 INR 1.8 09/09/18 22:02 APTT 167.0 Seconds (25.6-37.1) H 09/09/18 22:02 - Constitutional Appears: Chronically Ill - Head Exam Head Exam: NORMAL INSPECTION - Eye Exam Eye Exam: PERRL - ENT Exam Additional comments: Hard of hearing - Neck Exam Neck Exam: Normal Inspection - Respiratory Exam Respiratory Exam: Decreased Breath Sounds (b/l), Rhonchi (scatered) - Cardiovascular Exam Cardiovascular Exam: REGULAR RHYTHM - GI/Abdominal Exam GI & Abdominal Exam: Soft, Normal Bowel Sounds - Extremities Exam Additional comments: Edema LUE, around elbow. Edema BLE - Back Exam Back Exam: NORMAL INSPECTION - Neurological Exam Neurological Exam: Awake Additional comments: Lethargic, confused, minimal response to verbal stimuli. - Skin Skin Exam: Warm Assessment and Plan (1) Respiratory failure Status: Acute (2) Lung metastasis Status: Acute (3) Pneumonia Status: Acute (4) Sepsis Status: Acute - Assessment and Plan (Free Text) Plan: Continue NC 3 L/M, Zosyn and rest of Tx. Critical care time: 32 min.
[2018-09-11] MEDS ORDERED: Amikacin Sulfate 500 MG in Sodium Chloride 0.9% 250 ML IVPB SCH (15:00)
--- NOTE | 2018-09-11 15:56 | CP.CCUPN ---
CCU Subjective - Physician Review Subjective (Free Text): Events over the past 36 H since admission reviewed: awake and alert, but disoriented to time and place, no obvious distress, no SOB, nor chest discomfort noted, mild non-specific epigastric / cassy-umbilical discomfort noted, but denies any Nausea or need to vomit. Afebrile Temps mostly 98F with no fever spikes, SBPs 90-100s, on Levophed at 5 mcg dose, HR 100s, 20s, 99% SPO2 on $LPM NC; fluid balance last 24H= positive 1.89L. No other distress noted. ROS: Other 12 system ROS without new pertinent negatives or positives. Other PMSFH: All other Nursing and physician documentation reviewed to date; no new pertinent info noted relevant to current medical problems. EXAM- HEENT: no icterus, pupils equal, 3 mm and reactive, no nystagmus NECK: no visible JVD, supple, carotids equal upstroke bilat/no bruits CHEST: decreased BS bases, no wheezes audible; Left chest port intact, no tenderness or erythema. HEART: regular, distant, tachy S1S2, no murmur audible, no rubs. ABD: soft, no increased distention, no focal tenderness, BS hypoactive, EXT: +edema, no peripheral/ digital cyanosis, no mottling, no calf tenderness or palpable cords, distal pulses intact and symmetrical. NEURO: withdraws all extremities to pain, tone decreased. SKIN: no rashes LABS: WBC= 23.5 HGB= 11.2 PLTs = 110K Na= 131 K= 3.8 Cl= 101 HCO3= 18 BUN/Cr= 16/0.6 BS=75 Blood Cx= +GNR ( organism ID pending) CXR: (my interp)- yesterdays film shows scattered bilat interstitial changes, some appearing as possible metastatic disease lesions. IMPRESSION / MAJOR PROBLEMS NOW: 1. Severe Sepsis with Shock 2 GNR Bacteremia; unclear GI versus source 2. Hyponatremia 3. Thrombocytopenia 4. Metastatic Colon CA Disease 5. s/p DVT LUE on Eliquis PLAN: 1. Ongoing empiric abx coverage as directed by ID: Fátima / FLagyl / Vanco 2. CT AP as suggested by ID. 3. Wean Levophed as BP tolerates, follow serial Lactates. 4. INR up to 1.8 on day of admission, check repeat coags, would hold Eliquis as coagulopathy worsens. 5. New Advance directives noted.
--- NOTE | 2018-09-11 18:25 | CP.PCM.PN ---
Subjective - Date & Time of Evaluation Date of Evaluation: 09/11/18 Time of Evaluation: 18:25 - Subjective Subjective: I D NOTE MEROPENEM D/Jennifer DROP IN PLATELET COUNT AMIKACIN SUBSTITUTED AWAIT C & S OF GNR Objective - Vital Signs/Intake and Output Vital Signs (last 24 hours): Temp Pulse Resp BP Pulse Ox 97.0 F L 94 H 12 106/72 99 09/11/18 16:00 09/11/18 17:00 09/11/18 17:00 09/11/18 17:00 09/11/18 17:00 Intake and Output: 09/11/18 09/11/18 06:59 18:59 Intake Total 3145 1000 Output Total 1250 400 Balance 1895 600 - Medications Medications: Current Medications Apixaban (Eliquis) 10 mg PO BID [facility] Last Admin: 09/11/18 08:47 Dose: 10 mg Piperacillin Sod/Tazobactam (Sod 3.375 gm/ Sodium Chloride) 100 mls @ 100 mls/hr IVPB Q6 [facility]; Protocol Last Admin: 09/11/18 09:07 Dose: 100 mls/hr Magnesium Sulfate/Dextrose (Magnesium Sulfate 1 Gm/100 Ml D5w) 1 gm in 100 mls @ 200 mls/hr IVPB ONCE [facility] Metronidazole (Flagyl 500mg/100ml Ns) 100 mls @ 100 mls/hr IVPB Q8 [facility] Last Admin: 09/11/18 08:48 Dose: 100 mls/hr Norepinephrine Bitartrate 8 mg (/ Dextrose) 258 mls @ 4.84 mls/hr IV .Q24H [facility]; Protocol Stop: 09/12/18 01:35 Last Admin: 09/11/18 02:11 Dose: 5 mcg/min, 9.68 mls/hr Amikacin Sulfate 500 mg/ (Sodium Chloride) 252 mls @ 250 mls/hr IVPB Q24H [facility]; Protocol Megestrol Acetate (Megace) 800 mg PO DAILY [facility] Last Admin: 09/11/18 08:48 Dose: 800 mg Pantoprazole Sodium (Protonix Inj) 40 mg IVP DAILY [facility] Last Admin: 09/11/18 08:50 Dose: 40 mg - Labs Labs: 09/11/18 11:55 09/11/18 04:40 PT 20.3 Seconds (9.8-13.1) H 09/09/18 22:02 INR 1.8 09/09/18 22:02 APTT 167.0 Seconds (25.6-37.1) H 09/09/18 22:02
[2018-09-12] MEDS: metroNIDAZOLE 500mg/100ml NS 100 ML IVPB SCH ×3 (00:20→16:42)
[2018-09-12] MEDS: Piperacillin/Tazobact 3.375 GM in Sodium Chloride 0.9% 100 ML IVPB SCH ×4 (03:52→21:16)
[2018-09-12 05:29] LABS: HEMOGLOBIN 10.5 g/dL (12.0-18.0); MEAN CELL VOLUME 90.3 fl (80.0-94.0); MEAN CORPUSCULAR HEMOGLOBIN 29.5 pg (27.0-31.0); MEAN CORPUSCULAR HGB CONC 32.7 g/dL (33.0-37.0); RBC 3.55 Mil/uL (4.40-5.90); RED CELL DISTRIBUTION WIDTH 21.8 % (11.5-14.5); WHITE BLOOD COUNT 14.2 K/uL (4.8-10.8)
[2018-09-12 05:42] LABS: ALB/GLOB RATIO 0.7 (1.0-2.1); ALBUMIN 1.8 g/dL (3.5-5.0); ALT/SGPT 80 U/L (21-72); AST/SGOT 61 U/L (17-59); BLOOD UREA NITROGEN 14 mg/dl (9-20); CALCIUM 7.3 mg/dL (8.4-10.2); GFR NON-AFRICAN AMERICAN > 60
[2018-09-12] MEDS ORDERED: Magnesium Sulfate 1 gm in D5W 1 GM/100 ML BAG IVPB ONE (07:14)
[2018-09-12] MEDS ORDERED: Potassium Chloride 20 mEq/15 ml LIQ UD PO ONE (07:48)
[2018-09-12] MEDS ORDERED: Iohexol 240 (50 ml) PO ONE ×2 (07:54→08:25)
[2018-09-12] MEDS: Megestrol Acetate 40 mg/ml Cup PO SCH (08:47)
[2018-09-12] MEDS: Potassium Chloride 20 mEq/15 ml LIQ UD PO SCH ×2 (08:52→16:45)
--- NOTE | 2018-09-12 10:31 | CP.PCM.PN ---
Subjective - Date & Time of Evaluation Date of Evaluation: 09/12/18 Time of Evaluation: 09:30 - Subjective Subjective: NO CHEST PAIN OR SOB Objective - Vital Signs/Intake and Output Vital Signs (last 24 hours): Temp Pulse Resp BP Pulse Ox 97.2 F L 98 H 18 101/67 99 09/12/18 08:00 09/12/18 09:00 09/12/18 09:00 09/12/18 09:00 09/12/18 09:00 Intake and Output: 09/12/18 09/12/18 06:59 18:59 Intake Total 2179 320 Output Total 300 Balance 2179 20 - Medications Medications: Current Medications Apixaban (Eliquis) 5 mg PO BID [facility] Last Admin: 09/12/18 08:46 Dose: 5 mg Piperacillin Sod/Tazobactam (Sod 3.375 gm/ Sodium Chloride) 100 mls @ 100 mls/hr IVPB Q6 [facility]; Protocol Last Admin: 09/12/18 09:03 Dose: 100 mls/hr Metronidazole (Flagyl 500mg/100ml Ns) 100 mls @ 100 mls/hr IVPB Q8 [facility] Last Admin: 09/12/18 08:46 Dose: 100 mls/hr Amikacin Sulfate 500 mg/ (Sodium Chloride) 252 mls @ 250 mls/hr IVPB Q24H [facility]; Protocol Last Admin: 09/11/18 19:55 Dose: 250 mls/hr Potassium Chloride (Potassium Chloride 10 Meq/100 Ml) 100 mls @ 100 mls/hr IVPB Q1 [facility] Stop: 09/12/18 11:59 Megestrol Acetate (Megace) 800 mg PO DAILY [facility] Last Admin: 09/12/18 08:47 Dose: 800 mg Pantoprazole Sodium (Protonix Inj) 40 mg IVP DAILY [facility] Last Admin: 09/12/18 08:48 Dose: 40 mg Potassium Chloride (Potassium Chloride Oral Soln) 20 meq PO BID [facility] Stop: 09/12/18 17:01 Last Admin: 09/12/18 08:52 Dose: 20 meq - Labs Labs: 09/12/18 04:50 09/12/18 04:50 PT 20.3 Seconds (9.8-13.1) H 09/09/18 22:02 INR 1.8 09/09/18 22:02 APTT 167.0 Seconds (25.6-37.1) H 09/09/18 22:02 - Respiratory Exam Respiratory Exam: Decreased Breath Sounds - Cardiovascular Exam Cardiovascular Exam: REGULAR RHYTHM, +S1, +S2 - Extremities Exam Additional comments: NO LE EDEMA - Additional Findings Additional findings: RESPONDER NSR WBC 14 H/H K+ 2.6 Assessment and Plan - Assessment and Plan (Free Text) Assessment: STAGE 4 COLON CA WITH METS TO THE LUNGS AND PANCREAS PNEUMONIA WITH SEPSIS-TREATED HYPOKALEMIA PROGNOSIS VERY GUARDED Plan: IV AND ORAL KCL CONTINUE IV ANTIBIOTICS PER ID AND ELIQUIS
[2018-09-12] MEDS: Potassium CL 10mEq/100ml 100 ML IVPB SCH ×4 (10:43→16:39)
--- NOTE | 2018-09-12 12:54 | CP.CCUPN ---
CCU Subjective - Physician Review Subjective (Free Text): Awake and alert, still has poor appetite, but denies any new abdominal discomfort. Afebrile Temps mostly 98F with no fever spikes, SBPs 90-100s, on lower Levophed at 2.5 mcg dose, HR 100s, 20s, 99% SPO2 on 3LPM NC; fluid balance last 24H= positive 2.7L. No other distress noted. ROS: Other 12 system ROS without new pertinent negatives or positives. Other PMSFH: All other Nursing and physician documentation reviewed to date; no new pertinent info noted relevant to current medical problems. EXAM- HEENT: no icterus, pupils equal, 3 mm and reactive, no nystagmus NECK: no visible JVD, supple, carotids equal upstroke bilat/no bruits CHEST: decreased BS bases, no wheezes audible; Left chest port intact, no tenderness or erythema. HEART: regular, distant, tachy S1S2, no murmur audible, no rubs. ABD: soft, no increased distention, no focal tenderness, BS hypoactive, EXT: +edema, no peripheral/ digital cyanosis, no mottling, no calf tenderness or palpable cords, distal pulses intact and symmetrical. NEURO: withdraws all extremities to pain, tone decreased. SKIN: no rashes LABS: WBC= 14.2 HGB= 10.5 PLTs = 69K Na= 132 K= 2.6 Cl= 102 HCO3= 20 BUN/Cr= 14/0.5 BS=99 Blood Cx= +GNR ( organism= Kleb Pneu) IMPRESSION / MAJOR PROBLEMS NOW: 1. Severe Sepsis with Shock 2 GNR Bacteremiar/o vs GI source 2. Hyponatremia 3. Thrombocytopenia 4. Metastatic Colon CA Disease 5. s/p DVT LUE on Eliquis PLAN: 1. Ongoing empiric abx coverage as directed by ID: Fátima / FLagyl / Vanco. WBC and Procalcitonin levels improving. 2. CT AP as suggested by ID. 3. Weaning Levophed as BP tolerates, serial Lactates improving. 4. INR up to 1.8 on day of admission, check repeat coags, would hold Eliquis as coagulopathy worsens. 5. K supplements and Magnesium ordered. 6. Re-confirmed Advance directives noted.
--- NOTE | 2018-09-12 13:22 | PQF ---
PROVIDER RESPONSE TEXT: Provider was unable to determine a response for this query. REVIEWER QUERY TEXT: Pneumonia Specificity CAP Pneumonia is documented in the Medical Record. Please specify the type of pneumonia and the causa tive organism (includes probable or suspected) Such as: Type: -- Aspiration pneumonia (please also specify the aspirate) -- Bacterial (please document suspected or probable organism) -- Bronchopneumonia (please document suspected or probable organism) -- Interstitial pneumonia -- Organizing pneumonia / BOOP -- Tuberculosis, pulmonary -- Viral -- Other, please specify The patient's Clinical Indicators include: Admitted with Sepsis and Pneumonia. Has stage IV Colon cancer with lymph node, lung, pancreas metasta sis. BLOOD CS Klebsiella Pneumoniae CXR: mid to inferior right pulmonary infiltrates and left perihilar infiltrate with left basilar air space disease slightly increased. Widespread pulmonary metastases reiterated. Rx: IVAB Query created by: Deepa Covarrubias on 09/12/2018 8:29 AM Electronically signed by: Stanley Pollock MD 09/12/2018 1:18 PM
[2018-09-12] MEDS ORDERED: Iohexol 300 100 ML IJ ONE (13:34)
[2018-09-12] MEDS ORDERED: Sodium Chloride 0.9% 50 ML IV ONE (13:35)
--- NOTE | 2018-09-12 14:01 | CP.PCM.PN ---
<Yan Pearce - Last Filed: 09/12/18 13:59> Subjective - Date & Time of Evaluation Date of Evaluation: 09/12/18 Time of Evaluation: 10:00 - Subjective Subjective: 73 y/o M was seen and examined by bedside. Pt was awake and alert, able to speak and responds questions clearly. Pt reports feeling well, denies any pain, SOB, n ausea, vomiting, abdominal pain or dysuria. Pt has been able to urinate freely. Pt had a bowel movement early today. Objective - Vital Signs/Intake and Output Vital Signs (last 24 hours): Temp Pulse Resp BP Pulse Ox 97.2 F L 99 H 14 89/58 L 99 09/12/18 12:00 09/12/18 12:00 09/12/18 12:00 09/12/18 12:00 09/12/18 12:00 Intake and Output: 09/12/18 09/12/18 06:59 18:59 Intake Total 2179 1638 Output Total 300 Balance 2179 1338 - Medications Medications: Current Medications Apixaban (Eliquis) 5 mg PO BID [facility] Last Admin: 09/12/18 08:46 Dose: 5 mg Piperacillin Sod/Tazobactam (Sod 3.375 gm/ Sodium Chloride) 100 mls @ 100 mls/hr IVPB Q6 [facility]; Protocol Last Admin: 09/12/18 09:03 Dose: 100 mls/hr Metronidazole (Flagyl 500mg/100ml Ns) 100 mls @ 100 mls/hr IVPB Q8 [facility] Last Admin: 09/12/18 08:46 Dose: 100 mls/hr Amikacin Sulfate 500 mg/ (Sodium Chloride) 252 mls @ 250 mls/hr IVPB Q24H [facility]; Protocol Last Admin: 09/11/18 19:55 Dose: 250 mls/hr Megestrol Acetate (Megace) 800 mg PO DAILY [facility] Last Admin: 09/12/18 08:47 Dose: 800 mg Pantoprazole Sodium (Protonix Inj) 40 mg IVP DAILY [facility] Last Admin: 09/12/18 08:48 Dose: 40 mg Potassium Chloride (Potassium Chloride Oral Soln) 20 meq PO BID [facility] Stop: 09/12/18 17:01 Last Admin: 09/12/18 08:52 Dose: 20 meq - Labs Labs: 09/12/18 04:50 09/12/18 04:50 PT 20.3 Seconds (9.8-13.1) H 09/09/18 22:02 INR 1.8 09/09/18 22:02 APTT 167.0 Seconds (25.6-37.1) H 09/09/18 22:02 - Constitutional Appears: No Acute Distress, Cachectic - Head Exam Head Exam: ATRAUMATIC, NORMAL INSPECTION - Eye Exam Eye Exam: EOMI, Normal appearance - ENT Exam ENT Exam: Mucous Membranes Moist - Neck Exam Neck Exam: Full ROM, Normal Inspection. absent: Meningismus - Respiratory Exam Respiratory Exam: NORMAL BREATHING PATTERN. absent: Rales, Rhonchi, Wheezes - Cardiovascular Exam Cardiovascular Exam: REGULAR RHYTHM, +S1, +S2 - GI/Abdominal Exam GI & Abdominal Exam: Distended (improved from yesterday.), Soft, Normal Bowel Sounds. absent: Guarding, Rigid, Tenderness Assessment and Plan - Assessment and Plan (Free Text) Assessment: 73 y/o male with hx of Colon Cancer Stage IV and DVT of Upper Extremity on Eliquis presenting to ED by family due progressive weakness and poor po intake admitted for Severe Sepsis and Pneumonia. -Chest Xray - bilateral infiltrates suggestive of pulmonary edema vs pneumonia vs metastatic ca -Echo in 09/2016 EF 35-40%, LV function mild to moderately impaired -Blood Culture: Klebsiella pneumo PLAN: #Septic shock, bacteremia -Afebrile, still tachycardic. BP becoming WNL. -Lactic acid decreased to 3.5 -WBC trending down to 15.8 from 44.6. -C/w IV Meropenem, Zosyn and Metronidazole -Will attempt to trend down Levophed and stop asministration. -Pulmonology on board, Dr Pollock. -ID on board, Dr Jackson. -Infectious agent source unknown. Blood Culture: Klebsiella pneumo -Suspecting GI or source of infection, CT Abdomen ordered. -F/U repeated blood cultures. #Hypokalemia -Serum K+ 2.6-low -IV KCl and PO KCl supplementation ordered. #Acute Respiratory Failure -O2 sat at 95-100% with NC at 4L/min #Metabolic Acidosis -Clinically improving -Likely compensating respiratory acidosis/hypocapnia. #Abdominal distension --Improved. --Had a BM today. #Thromocytopenia --Possibly caused by medication --Evaluating Meropenem as the cause, may discontinue. --Will f/u plt count. #Anemia, normocytic --Likely anemia of chronic disease #Acute exacerbation of reduced EF-CHF (systolic dysfunction) -Acute decompensated -Daily weights, Monitor I&O's #Hyponatremia -Improving #Acute Left Upper Extremity DVT -C/w home dosage Eliquis #PPX measures -DVT: on Eliquis -GI: Protonix IV daily >DNR/DNI <Bonita Fischer - Last Filed: 09/12/18 17:54> Objective - Vital Signs/Intake and Output Vital Signs (last 24 hours): Temp Pulse Resp BP Pulse Ox 98.1 F 108 H 13 94/64 L 99 09/12/18 16:00 09/12/18 16:00 09/12/18 16:00 09/12/18 16:00 09/12/18 16:00 Intake and Output: 09/12/18 09/12/18 06:59 18:59 Intake Total 2179 3038 Output Total 300 Balance 2179 2738 - Medications Medications: Current Medications Apixaban (Eliquis) 5 mg PO BID [facility] Last Admin: 09/12/18 16:42 Dose: 5 mg Piperacillin Sod/Tazobactam (Sod 3.375 gm/ Sodium Chloride) 100 mls @ 100 mls/hr IVPB Q6 [facility]; Protocol Last Admin: 09/12/18 16:45 Dose: 100 mls/hr Metronidazole (Flagyl 500mg/100ml Ns) 100 mls @ 100 mls/hr IVPB Q8 [facility] Last Admin: 09/12/18 16:42 Dose: 100 mls/hr Sodium Chloride (Sodium Chloride 0.9%) 1,000 mls @ 100 mls/hr IV .Q10H [facility] Stop: 09/13/18 15:17 Amikacin Sulfate 500 mg/ (Sodium Chloride) 252 mls @ 250 mls/hr IVPB DAILY@1999 [facility]; Protocol Megestrol Acetate (Megace) 800 mg PO DAILY [facility] Last Admin: 09/12/18 08:47 Dose: 800 mg Pantoprazole Sodium (Protonix Inj) 40 mg IVP DAILY [facility] Last Admin: 09/12/18 08:48 Dose: 40 mg - Labs Labs: 09/12/18 04:50 09/12/18 04:50 PT 20.3 Seconds (9.8-13.1) H 09/09/18 22:02 INR 1.8 09/09/18 22:02 APTT 167.0 Seconds (25.6-37.1) H 09/09/18 22:02 Attending/Attestation - Attestation I have personally seen and examined this patient.: Yes I have fully participated in the care of the patient.: Yes I have reviewed all pertinent clinical information, including history, physical exam and plan: Yes Notes (Text): Septic Shock due to Klebsiella Bacteremia Metastatic Colon Cancer CBD/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 Findings are concerning for 2 metastatic lesions in the right posterior hepatic lobe measuring 1.5 cm each. 2. Moderate intrahepatic biliary dilatation and moderate dilatation of the proximal common bile duct. A metallic stent remains in place in the distal common bile duct. Apparent high attenuation soft tissue in the distal metallic stent which likely obstructs the stent. 3. Sigmoid diverticulosis. Apparent mild circumferential mural thickening and enhancement in the mid and distal descending colon and the sigmoid colon with mild pericolonic inflammatory changes concerning for acute nonspecific infectious/inflammatory colitis. No evidence for micro perforation or abscess. 4. Mild dilatation of the small bowel loops and fluid in the ascending and transverse colon. 5. Moderate bilateral pleural effusions. Small abdominal ascites. 6. Multiple pulmonary metastasis in the visualized lungs.
[2018-09-12] MEDS: Sodium Chloride 0.9% 1,000 ML IV SCH ×2 (14:36→21:16)
--- NOTE | 2018-09-12 15:11 | CT ---
Date of service: 2018-09-12 13:35:15 PROCEDURE: CT Abdomen and Pelvis with contrast HISTORY: Sepsis, possible GI source of infection COMPARISON: 06/21/2018. TECHNIQUE: FINDINGS: LOWER THORAX: There are moderate pleural effusions and compressive atelectasis in the lungs. There is redemonstration of multiple metastatic deposits in the visualized lungs. LIVER: The liver is normal in size. There is moderate intrahepatic biliary ductal dilatation. There are 2 new well-circumscribed round hypoenhancing lesions in the posterior right hepatic lobe measuring 1.5 cm each GALLBLADDER AND BILE DUCTS: The gallbladder is distended. No calcified gallstones. There is moderate dilatation of the proximal common bile duct. A metallic stent remains in place in the distal common bile duct. There is high attenuation soft tissue in the distal stent. PANCREAS: Mild diffuse atrophy of the pancreas. SPLEEN: Normal in size with homogeneous enhancement. ADRENALS: No discrete nodule. KIDNEYS AND URETERS: Normal in size with homogeneous enhancement. There is redemonstration of a 2.1 x 1.7 cm indeterminate nodule in the right interpolar region posteriorly. There is a small simple cyst in the left upper pole. VASCULATURE: The aorta is normal in caliber. No aortic aneurysm. There are mild aortic atherosclerotic calcifications. BOWEL: There is mild dilatation of the small bowel loops. There is fluid in the ascending and transverse colon. There is mild circumferential mural thickening in fluid-filled mid and distal descending colon and the sigmoid colon. There is fluid-filled mildly distended rectum. There is extensive sigmoid diverticulosis. There is mild circumferential mural thickening in the mid and distal descending and sigmoid colon with mild pericolonic inflammatory changes. No micro perforation or abscess. APPENDIX: No inflammatory changes in the right lower quadrant. PERITONEUM: There is small abdominal and pelvic ascites. No free air. LYMPH NODES: No enlarged lymph nodes. BLADDER: Well distended and normal in appearance. REPRODUCTIVE: The prostate gland is normal in size. BONES: No acute fracture. There is diffuse bone demineralization and multilevel degenerative changes in the spine. OTHER FINDINGS: There is severe diffuse anasarca. IMPRESSION: 1. Findings are concerning for 2 metastatic lesions in the right posterior hepatic lobe measuring 1.5 cm each. 2. Moderate intrahepatic biliary dilatation and moderate dilatation of the proximal common bile duct. A metallic stent remains in place in the distal common bile duct. Apparent high attenuation soft tissue in the distal metallic stent which likely obstructs the stent. 3. Sigmoid diverticulosis. Apparent mild circumferential mural thickening and enhancement in the mid and distal descending colon and the sigmoid colon with mild pericolonic inflammatory changes concerning for acute nonspecific infectious/inflammatory colitis. No evidence for micro perforation or abscess. 4. Mild dilatation of the small bowel loops and fluid in the ascending and transverse colon. 5. Moderate bilateral pleural effusions. Small abdominal ascites. 6. Multiple pulmonary metastasis in the visualized lungs.
--- NOTE | 2018-09-12 17:09 | CP.PCM.PN ---
Subjective - Date & Time of Evaluation Date of Evaluation: 09/12/18 Time of Evaluation: 10:50 - Subjective Subjective: F/U Pulmonary consult Awake, no SOB, no A/D. Objective - Vital Signs/Intake and Output Vital Signs (last 24 hours): Temp Pulse Resp BP Pulse Ox 98.1 F 108 H 13 94/64 L 99 09/12/18 16:00 09/12/18 16:00 09/12/18 16:00 09/12/18 16:00 09/12/18 16:00 Intake and Output: 09/12/18 09/12/18 06:59 18:59 Intake Total 2179 3038 Output Total 300 Balance 2179 5758 - Medications Medications: Current Medications Apixaban (Eliquis) 5 mg PO BID [facility] Last Admin: 09/12/18 16:42 Dose: 5 mg Piperacillin Sod/Tazobactam (Sod 3.375 gm/ Sodium Chloride) 100 mls @ 100 mls/hr IVPB Q6 [facility]; Protocol Last Admin: 09/12/18 16:45 Dose: 100 mls/hr Metronidazole (Flagyl 500mg/100ml Ns) 100 mls @ 100 mls/hr IVPB Q8 [facility] Last Admin: 09/12/18 16:42 Dose: 100 mls/hr Sodium Chloride (Sodium Chloride 0.9%) 1,000 mls @ 100 mls/hr IV .Q10H [facility] Stop: 09/13/18 15:17 Amikacin Sulfate 500 mg/ (Sodium Chloride) 252 mls @ 250 mls/hr IVPB DAILY@2000 [facility]; Protocol Megestrol Acetate (Megace) 800 mg PO DAILY [facility] Last Admin: 09/12/18 08:47 Dose: 800 mg Pantoprazole Sodium (Protonix Inj) 40 mg IVP DAILY [facility] Last Admin: 09/12/18 08:48 Dose: 40 mg - Labs Labs: 09/12/18 04:50 09/12/18 04:50 PT 20.3 Seconds (9.8-13.1) H 09/09/18 22:02 INR 1.8 09/09/18 22:02 APTT 167.0 Seconds (25.6-37.1) H 09/09/18 22:02 - Constitutional Appears: Cachectic, Chronically Ill - Head Exam Head Exam: NORMAL INSPECTION - Eye Exam Eye Exam: PERRL - ENT Exam Additional comments: Hard of hearing - Neck Exam Neck Exam: Normal Inspection - Respiratory Exam Respiratory Exam: Decreased Breath Sounds (b/l), Rhonchi (scattered) - Cardiovascular Exam Cardiovascular Exam: REGULAR RHYTHM - GI/Abdominal Exam GI & Abdominal Exam: Soft, Normal Bowel Sounds - Extremities Exam Additional comments: Edema LUE and elbow - Neurological Exam Neurological Exam: Awake Additional comments: Confused, minimal response to tactile stimuli - Skin Skin Exam: Warm Assessment and Plan (1) Respiratory failure Status: Acute (2) Lung metastasis Status: Acute (3) Pneumonia Status: Acute (4) Sepsis Status: Acute - Assessment and Plan (Free Text) Plan: F/U CT Chest, continue O2 NC, Zosyn and rest of Tx. Critical care time: 33 min.
[2018-09-12] MEDS: Amikacin Sulfate 500 MG in Sodium Chloride 0.9% 250 ML IVPB SCH (21:15)
[2018-09-13] MEDS: metroNIDAZOLE 500mg/100ml NS 100 ML IVPB SCH ×3 (00:22→16:27)
--- NOTE | 2018-09-13 00:35 | CP.PCM.PN ---
Subjective - Date & Time of Evaluation Date of Evaluation: 09/11/18 Time of Evaluation: 19:00 - Subjective Subjective: Weak, family at bedside. Objective - Vital Signs/Intake and Output Vital Signs (last 24 hours): Temp Pulse Resp BP Pulse Ox 98.1 F 109 H 16 78/54 L 95 09/12/18 16:00 09/12/18 22:00 09/12/18 22:00 09/12/18 22:00 09/12/18 22:00 Intake and Output: 09/12/18 09/13/18 18:59 06:59 Intake Total 3038 499.51 Output Total 300 Balance 2738 499.51 - Medications Medications: Current Medications Apixaban (Eliquis) 5 mg PO BID [facility] Last Admin: 09/12/18 16:42 Dose: 5 mg Piperacillin Sod/Tazobactam (Sod 3.375 gm/ Sodium Chloride) 100 mls @ 100 mls/hr IVPB Q6 [facility]; Protocol Last Admin: 09/12/18 21:16 Dose: 100 mls/hr Metronidazole (Flagyl 500mg/100ml Ns) 100 mls @ 100 mls/hr IVPB Q8 [facility] Last Admin: 09/13/18 00:22 Dose: 100 mls/hr Sodium Chloride (Sodium Chloride 0.9%) 1,000 mls @ 100 mls/hr IV .Q10H [facility] Stop: 09/13/18 15:17 Last Admin: 09/12/18 21:16 Dose: Not Given Amikacin Sulfate 500 mg/ (Sodium Chloride) 252 mls @ 250 mls/hr IVPB DAILY@2000 [facility]; Protocol Last Admin: 09/12/18 21:15 Dose: 250 mls/hr Norepinephrine Bitartrate 8 mg (/ Dextrose) 258 mls @ 4.84 mls/hr IV .Q24H [facility]; Protocol Stop: 09/13/18 22:08 Last Titration: 09/12/18 23:09 Dose: 17.5 mcg/min, 33.86 mls/hr Megestrol Acetate (Megace) 800 mg PO DAILY [facility] Last Admin: 09/12/18 08:47 Dose: 800 mg Pantoprazole Sodium (Protonix Inj) 40 mg IVP DAILY [facility] Last Admin: 09/12/18 08:48 Dose: 40 mg - Labs Labs: 09/12/18 04:50 09/12/18 04:50 PT 20.3 Seconds (9.8-13.1) H 09/09/18 22:02 INR 1.8 09/09/18 22:02 APTT 167.0 Seconds (25.6-37.1) H 09/09/18 22:02 - Constitutional Appears: Cachectic - Head Exam Head Exam: ATRAUMATIC - Eye Exam Eye Exam: Normal appearance - ENT Exam ENT Exam: Mucous Membranes Dry - Respiratory Exam Respiratory Exam: Decreased Breath Sounds - Cardiovascular Exam Cardiovascular Exam: +S1, +S2 - GI/Abdominal Exam GI & Abdominal Exam: Normal Bowel Sounds - Extremities Exam Extremities Exam: Pedal Edema Assessment and Plan (1) Leukocytosis Assessment & Plan: secondary to infection on antibiotics Status: Acute (2) Anemia Assessment & Plan: chronic disease Status: Acute (3) Colon cancer Assessment & Plan: stage IV lung, LN, pancreatic metastasis off chemotherapy for about 1 month Status: Chronic
--- NOTE | 2018-09-13 00:38 | CP.PCM.PN ---
Subjective - Date & Time of Evaluation Date of Evaluation: 09/12/18 Time of Evaluation: 11:00 - Subjective Subjective: Mental status improved For CT A/P today. Objective - Vital Signs/Intake and Output Vital Signs (last 24 hours): Temp Pulse Resp BP Pulse Ox 98.1 F 109 H 16 78/54 L 95 09/12/18 16:00 09/12/18 22:00 09/12/18 22:00 09/12/18 22:00 09/12/18 22:00 Intake and Output: 09/12/18 09/13/18 18:59 06:59 Intake Total 3038 499.51 Output Total 300 Balance 2738 499.51 - Medications Medications: Current Medications Apixaban (Eliquis) 5 mg PO BID [facility] Last Admin: 09/12/18 16:42 Dose: 5 mg Piperacillin Sod/Tazobactam (Sod 3.375 gm/ Sodium Chloride) 100 mls @ 100 mls/hr IVPB Q6 [facility]; Protocol Last Admin: 09/12/18 21:16 Dose: 100 mls/hr Metronidazole (Flagyl 500mg/100ml Ns) 100 mls @ 100 mls/hr IVPB Q8 [facility] Last Admin: 09/13/18 00:22 Dose: 100 mls/hr Sodium Chloride (Sodium Chloride 0.9%) 1,000 mls @ 100 mls/hr IV .Q10H [facility] Stop: 09/13/18 15:17 Last Admin: 09/12/18 21:16 Dose: Not Given Amikacin Sulfate 500 mg/ (Sodium Chloride) 252 mls @ 250 mls/hr IVPB DAILY@2000 [facility]; Protocol Last Admin: 09/12/18 21:15 Dose: 250 mls/hr Norepinephrine Bitartrate 8 mg (/ Dextrose) 258 mls @ 4.84 mls/hr IV .Q24H [facility]; Protocol Stop: 09/13/18 22:08 Last Titration: 09/12/18 23:09 Dose: 17.5 mcg/min, 33.86 mls/hr Megestrol Acetate (Megace) 800 mg PO DAILY [facility] Last Admin: 09/12/18 08:47 Dose: 800 mg Pantoprazole Sodium (Protonix Inj) 40 mg IVP DAILY [facility] Last Admin: 09/12/18 08:48 Dose: 40 mg - Labs Labs: 09/12/18 04:50 09/12/18 04:50 PT 20.3 Seconds (9.8-13.1) H 09/09/18 22:02 INR 1.8 09/09/18 22:02 APTT 167.0 Seconds (25.6-37.1) H 09/09/18 22:02 - Constitutional Appears: Cachectic - Eye Exam Eye Exam: Normal appearance - ENT Exam ENT Exam: Mucous Membranes Dry - Respiratory Exam Respiratory Exam: Decreased Breath Sounds - Cardiovascular Exam Cardiovascular Exam: +S1, +S2 - GI/Abdominal Exam GI & Abdominal Exam: Normal Bowel Sounds - Extremities Exam Extremities Exam: Pedal Edema Assessment and Plan (1) Leukocytosis Assessment & Plan: improving with antibiotics Status: Acute (2) Anemia Assessment & Plan: chronic disease Status: Acute (3) DVT (deep venous thrombosis) Assessment & Plan: LUE DVT on Eliquis hold if plt < 50,000 Status: Acute (4) Colon cancer Assessment & Plan: stage IV lung, lymph node, pancreatic metastasis has been off chemotherapy for about 1 month DNR/DNI Status: Chronic
[2018-09-13] MEDS: Sodium Chloride 0.9% 1,000 ML IV SCH (03:59)
[2018-09-13] MEDS: Piperacillin/Tazobact 3.375 GM in Sodium Chloride 0.9% 100 ML IVPB SCH ×2 (03:59→16:27)
[2018-09-13 05:21] LABS: PROTHROMBIN TIME 35.5 Seconds (9.8-13.1)
[2018-09-13 05:22] LABS: MEAN CORPUSCULAR HEMOGLOBIN 29.3 pg (27.0-31.0); MEAN CORPUSCULAR HGB CONC 32.9 g/dL (33.0-37.0); RBC 3.76 Mil/uL (4.40-5.90); RED CELL DISTRIBUTION WIDTH 21.2 % (11.5-14.5); WHITE BLOOD COUNT 15.3 K/uL (4.8-10.8)
[2018-09-13 05:23] LABS: PARTIAL THROMBOPLASTIN TIME 40.3 Seconds (25.6-37.1)
[2018-09-13 05:42] LABS: ALB/GLOB RATIO 0.7 (1.0-2.1); ALBUMIN 1.7 g/dL (3.5-5.0); ALT/SGPT 65 U/L (21-72); AST/SGOT 30 U/L (17-59); BLOOD UREA NITROGEN 12 mg/dl (9-20); CALCIUM 7.4 mg/dL (8.4-10.2); GFR NON-AFRICAN AMERICAN > 60
[2018-09-13 07:03] LABS: INR 3.1
--- NOTE | 2018-09-13 07:25 | CP.PCM.PN ---
<Leonid Kerr - Last Filed: 09/13/18 11:34> Subjective - Date & Time of Evaluation Date of Evaluation: 09/13/18 Time of Evaluation: 07:25 - Subjective Subjective: Pt seen and examined at bedside. Was hypotensive overnight. Restarted Levofed. Pt awake and alert. Objective - Vital Signs/Intake and Output Vital Signs (last 24 hours): Temp Pulse Resp BP Pulse Ox 99.7 F H 99 H 17 123/83 100 09/13/18 00:00 09/13/18 06:00 09/13/18 06:00 09/13/18 06:00 09/13/18 06:00 Intake and Output: 09/13/18 09/13/18 06:59 18:59 Intake Total 1416.10 Balance 1416.10 - Medications Medications: Current Medications Apixaban (Eliquis) 5 mg PO BID [facility] Last Admin: 09/12/18 16:42 Dose: 5 mg Metronidazole (Flagyl 500mg/100ml Ns) 100 mls @ 100 mls/hr IVPB Q8 [facility] Last Admin: 09/13/18 00:22 Dose: 100 mls/hr Sodium Chloride (Sodium Chloride 0.9%) 1,000 mls @ 100 mls/hr IV .Q10H [facility] Stop: 09/13/18 15:17 Last Admin: 09/13/18 03:59 Dose: 100 mls/hr Amikacin Sulfate 500 mg/ (Sodium Chloride) 252 mls @ 250 mls/hr IVPB DAILY@2000 [facility]; Protocol Last Admin: 09/12/18 21:15 Dose: 250 mls/hr Norepinephrine Bitartrate 8 mg (/ Dextrose) 258 mls @ 4.84 mls/hr IV .Q24H [facility]; Protocol Stop: 09/13/18 22:08 Last Titration: 09/13/18 06:40 Dose: 12.5 mcg/min, 24.19 mls/hr Megestrol Acetate (Megace) 800 mg PO DAILY [facility] Last Admin: 09/12/18 08:47 Dose: 800 mg Pantoprazole Sodium (Protonix Inj) 40 mg IVP DAILY [facility] Last Admin: 09/12/18 08:48 Dose: 40 mg - Labs Labs: 09/13/18 04:30 09/13/18 04:30 PT 35.5 Seconds (9.8-13.1) H 09/13/18 04:30 INR 3.1 09/13/18 04:30 APTT 40.3 Seconds (25.6-37.1) H 09/13/18 04:30 - Constitutional Appears: Well - Eye Exam Eye Exam: EOMI - ENT Exam ENT Exam: Mucous Membranes Moist - Respiratory Exam Respiratory Exam: NORMAL BREATHING PATTERN. absent: Rales, Rhonchi, Wheezes - Cardiovascular Exam Cardiovascular Exam: +S1, +S2 - GI/Abdominal Exam GI & Abdominal Exam: Soft, Hernia (incisional), Normal Bowel Sounds. absent: Tenderness - Neurological Exam Neurological Exam: Alert, Awake - Psychiatric Exam Psychiatric exam: Normal Affect Assessment and Plan - Assessment and Plan (Free Text) Assessment: 73 y/o male with hx of Stage IV Colon Cancer and DVT of Upper Extremity previously on Eliquis presenting to ED by family due progressive weakness and poor po intake admitted for Severe Sepsis and Pneumonia. Plan: -CXR - bilateral infiltrates suggestive of pulmonary edema vs pneumonia vs metastatic ca -Echo in 09/2016 EF 35-40%, LV function mild to moderately impaired -Blood Culture: 09/09/2018: Klebsiella pneumo; 09/10 and 09/11: NG X 48 hrs -UCX: NG -CT abdo: 09/12: 1. Findings are concerning for 2 metastatic lesions in the right posterior hepatic lobe measuring 1.5 cm each. 2. Moderate intrahepatic biliary dilatation and moderate dilatation of the proximal common bile duct. A metallic stent remains in place in the distal common bile duct. Apparent high attenuation soft tissue in the distal metallic stent which likely obstructs the stent. 3. Sigmoid diverticulosis. Apparent mild circumferential mural thickening and enhancement in the mid and distal descending colon and the sigmoid colon with mild pericolonic inflammatory changes concerning for acute nonspecific infectious/inflammatory colitis. No evidence for micro perforation or abscess. 4. Mild dilatation of the small bowel loops and fluid in the ascending and transverse colon. 5. Moderate bilateral pleural effusions. Small abdominal ascites. 6. Multiple pulmonary metastasis in the visualized lungs. Septic shock, bacteremia -Afebrile, still tachycardic. BP WNL. -Lactic acid: 3.5 from 5.3 -WBC: 15.3 from 44.6. -C/w IV Amikacin, Zosyn and Metronidazole -Levophed restarted -Pulmonology on board, Dr Pollock -ID on board, Dr Jackson -Blood Culture: Klebsiella pneumo (09/09) -Suspecting GI or source of infection: CT Abdomen -F/U repeated blood cultures Occluded stent: -Distal common bile duct -GI consult: Dr. Thompson: recs appreciated Hypophosphatemia: -1.3 -Kphos PO -f/u levels Hypokalemia -resolved -Serum K+: 2.6 > 3.6 -IV KCl and PO KCl Acute Respiratory Failure -O2 sat at 100% with NC at 3L/min Metabolic Acidosis -Clinically improving -Likely compensating respiratory acidosis/hypocapnia Abdominal distension -Improved -BM Thrombocytopenia -Possibly caused by medication -discontinued Meropenem -Will f/u plt count. Anemia, normocytic -Likely anemia of chronic disease Acute exacerbation of reduced EF-CHF (systolic dysfunction) -Acute decompensated -Daily weights, Monitor I&O's Hyponatremia -Improving Acute Left Upper Extremity DVT -Was on Eliquis; d/c d/t thrombocytopenia PPX measures -DVT: scd -GI: Protonix IV daily >DNR/DNI: Surrogate decision maker: Kathryn, spouse <Chiquis FischerBonitachristy Rios - Last Filed: 09/13/18 16:26> Objective - Vital Signs/Intake and Output Vital Signs (last 24 hours): Temp Pulse Resp BP Pulse Ox 98 F 132 H 21 90/65 L 97 09/13/18 12:00 09/13/18 14:00 09/13/18 14:00 09/13/18 14:00 09/13/18 14:00 Intake and Output: 09/13/18 09/13/18 06:59 18:59 Intake Total 1416.10 1068.9 Balance 1416.10 1068.9 - Medications Medications: Current Medications Fentanyl (Duragesic) 1 patch TD Q3D [facility]; Protocol Last Admin: 09/13/18 13:38 Dose: 1 patch Metronidazole (Flagyl 500mg/100ml Ns) 100 mls @ 100 mls/hr IVPB Q8 [facility] Last Admin: 09/13/18 09:13 Dose: 100 mls/hr Amikacin Sulfate 500 mg/ (Sodium Chloride) 252 mls @ 250 mls/hr IVPB DAILY@1999 [facility]; Protocol Last Admin: 09/12/18 21:15 Dose: 250 mls/hr Norepinephrine Bitartrate 8 mg (/ Dextrose) 258 mls @ 4.84 mls/hr IV .Q24H [facility]; Protocol Stop: 09/13/18 22:08 Last Admin: 09/13/18 07:30 Dose: 12.5 mcg/min, 24.19 mls/hr Piperacillin Sod/Tazobactam (Sod 3.375 gm/ Sodium Chloride) 100 mls @ 100 mls/hr IVPB Q8 [facility]; Protocol Lactated Ringer's (Lactated Ringer's) 1,000 mls @ 125 mls/hr IV .Q8H [facility] Last Admin: 09/13/18 13:39 Dose: 125 mls/hr Megestrol Acetate (Megace) 800 mg PO DAILY [facility] Last Admin: 09/13/18 13:39 Dose: 800 mg Pantoprazole Sodium (Protonix Inj) 40 mg IVP DAILY [facility] Last Admin: 09/13/18 09:13 Dose: 40 mg Sodium Phosphate (Potassium/Sodium Phosphate) 250 mg PO DAILY [facility] Last Admin: 09/13/18 13:34 Dose: 250 mg - Labs Labs: 09/13/18 04:30 09/13/18 04:30 PT 35.5 Seconds (9.8-13.1) H 09/13/18 04:30 INR 3.1 09/13/18 04:30 APTT 40.3 Seconds (25.6-37.1) H 09/13/18 04:30 Attending/Attestation - Attestation I have personally seen and examined this patient.: Yes I have fully participated in the care of the patient.: Yes I have reviewed all pertinent clinical information, including history, physical exam and plan: Yes Notes (Text): Septic Shock due to Klebsiella Bacteremia Metastatic Colon Cancer Hx CBD/Intrahepatic biliary Ductal Dilatation due to Mets - Hx of Stent Pancreatic Mass Obstructing Biliary Stent Respiratory Insufficiency Thrombocytopenia Hypokalemia LUE DVT cont Amikacin, Flagyl, Zosyn as rec by Dr Jackson d/c Mark due to low Platelets Levophed restarted GI consulted - per Dr Thompson - no plans for ERCP/Stent
[2018-09-13] MEDS ORDERED: Potassium Phosphate 30 MMOLE in Dextrose 5% In Water 250 ML IV ONE (12:14)
--- NOTE | 2018-09-13 12:18 | CP.CCUPN ---
CCU Subjective - Physician Review Subjective (Free Text): No essential changes in overall status, remains vasopressor dependent. Awake and alert, still has poor appetite, but denies any new abdominal discomfort. Afebrile Temps mostly 98F with no fever spikes, SBPs 90-100s, on lower Levophed at 2.5 mcg dose, HR 100s, 20s, 99% SPO2 on 3LPM NC; fluid balance last 24H= positive 2.7L. No other distress noted. ROS: Other 12 system ROS without new pertinent negatives or positives. Other PMSFH: All other Nursing and physician documentation reviewed to date; no new pertinent info noted relevant to current medical problems. EXAM- HEENT: no icterus, pupils equal, 3 mm and reactive, no nystagmus NECK: no visible JVD, supple, carotids equal upstroke bilat/no bruits CHEST: decreased BS bases, no wheezes audible; Left chest port intact, no tenderness or erythema. HEART: regular, distant, tachy S1S2, no murmur audible, no rubs. ABD: soft, no increased distention, no focal tenderness, BS hypoactive, EXT: +edema, no peripheral/ digital cyanosis, no mottling, no calf tenderness or palpable cords, distal pulses intact and symmetrical. NEURO: withdraws all extremities to pain, tone decreased. SKIN: no rashes LABS: WBC= 15.3 HGB= 11.0 PLTs = 35K Na= 132 K= 3.6 Cl= 104 HCO3= 18 BUN/Cr= 12/0.5 BS= 107 Blood Cx= +GNR ( organism= Kleb Pneu) Phosphate= 1.1 Mag = 2.1. Alk Phos = 556 with other LFTs normal. CT AP results reviewed. IMPRESSION / MAJOR PROBLEMS NOW: 1. Severe Sepsis with Shock 2 GNR Bacteremia r/o vs GI source 2. Hyponatremia 3. Thrombocytopenia 4. Metastatic Colon CA Disease 5. s/p DVT LUE on Eliquis PLAN: 1. Ongoing empiric abx coverage as directed by ID: Fátima / FLagyl / Vanco. WBC and Procalcitonin levels improving. 2. CT AP as suggested by ID. 3. Weaning Levophed as BP tolerates, serial Lactates improving. Continue hydration with LR. 4. INR remains elevated, holding Eliquis as coagulopathy worsens. 5. K levels improved from a low of 2.6 yesterday. Phosphate to be repleted today. 6. Consider Duragesic patch for pain syndrome from metastatic disease.
--- NOTE | 2018-09-13 12:23 | CP.PCM.PN ---
Subjective - Date & Time of Evaluation Date of Evaluation: 09/13/18 Time of Evaluation: 10:00 - Subjective Subjective: NO CHEST PAIN OR SOB Objective - Vital Signs/Intake and Output Vital Signs (last 24 hours): Temp Pulse Resp BP Pulse Ox 98 F 100 H 14 113/81 100 09/13/18 12:00 09/13/18 12:00 09/13/18 12:00 09/13/18 12:00 09/13/18 12:00 Intake and Output: 09/13/18 09/13/18 06:59 18:59 Intake Total 1416.10 693.9 Balance 1416.10 693.9 - Medications Medications: Current Medications Fentanyl (Duragesic) 1 patch TD Q3D [facility]; Protocol Metronidazole (Flagyl 500mg/100ml Ns) 100 mls @ 100 mls/hr IVPB Q8 [facility] Last Admin: 09/13/18 09:13 Dose: 100 mls/hr Amikacin Sulfate 500 mg/ (Sodium Chloride) 252 mls @ 250 mls/hr IVPB DAILY@2000 [facility]; Protocol Last Admin: 09/12/18 21:15 Dose: 250 mls/hr Norepinephrine Bitartrate 8 mg (/ Dextrose) 258 mls @ 4.84 mls/hr IV .Q24H [facility]; Protocol Stop: 09/13/18 22:08 Last Admin: 09/13/18 07:30 Dose: 12.5 mcg/min, 24.19 mls/hr Piperacillin Sod/Tazobactam (Sod 3.375 gm/ Sodium Chloride) 100 mls @ 100 mls/hr IVPB Q8 [facility]; Protocol Lactated Ringer's (Lactated Ringer's) 1,000 mls @ 125 mls/hr IV .Q8H [facility] Potassium Phosphate 30 mmole/ (Dextrose) 260 mls @ 84 mls/hr IV .Q3H6M [facility] Stop: 09/13/18 15:19 Megestrol Acetate (Megace) 800 mg PO DAILY [facility] Last Admin: 09/12/18 08:47 Dose: 800 mg Pantoprazole Sodium (Protonix Inj) 40 mg IVP DAILY [facility] Last Admin: 09/13/18 09:13 Dose: 40 mg Sodium Phosphate (Potassium/Sodium Phosphate) 250 mg PO DAILY [facility] - Labs Labs: 09/13/18 04:30 09/13/18 04:30 PT 35.5 Seconds (9.8-13.1) H 09/13/18 04:30 INR 3.1 09/13/18 04:30 APTT 40.3 Seconds (25.6-37.1) H 09/13/18 04:30 - Respiratory Exam Respiratory Exam: Decreased Breath Sounds - Cardiovascular Exam Cardiovascular Exam: REGULAR RHYTHM, +S1, +S2 - Extremities Exam Additional comments: NO LE EDEMA - Additional Findings Additional findings: 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
[2018-09-13] MEDS: Megestrol Acetate 40 mg/ml Cup PO SCH (13:39)
[2018-09-13] MEDS: Lactated Ringer's 1,000 ML IV SCH ×2 (13:39→20:03)
[2018-09-13] MEDS ORDERED: Digoxin 500 mcg/2ml (0.5 mg/2ml) Inj IVP ONE (15:49)
--- NOTE | 2018-09-13 15:50 | CP.PCM.CON ---
History of Present Illness - History of Present Illness History of Present Illness: 73 yo male with stage 4 colon cancer and biliary obstruction treated with metal stent admitted with septicemia. He is currently pressor dependent. Review of Systems - Review of Systems Systems not reviewed;Unavailable: Acuity of Condition - Constitutional Constitutional: Chills Past Patient History - Infectious Disease Hx of Infectious Diseases: None - Past Medical History & Family History Past Medical History?: Yes - Past Social History Smoking Status: Former Smoker Alcohol: None Drugs: Denies Home Situation {Lives}: With Family - CARDIAC Hx Cardiac Disorders: Yes Hx Hypertension: Yes - PULMONARY Hx Respiratory Disorders: Yes Hx Lung Cancer: Yes (Metastasis) - NEUROLOGICAL Hx Neurological Disorder: No - HEENT Hx HEENT Problems: Yes Other/Comment: Use Eyeglasses. Uses hearing aid both ears - RENAL Hx Chronic Kidney Disease: No - ENDOCRINE/METABOLIC Hx Endocrine Disorders: No - HEMATOLOGICAL/ONCOLOGICAL Hx Blood Disorders: Yes Hx Cancer: Yes Hx Human Immunodeficiency Virus (HIV): No - INTEGUMENTARY Hx Dermatological Problems: No - MUSCULOSKELETAL/RHEUMATOLOGICAL Hx Musculoskeletal Disorders: Yes Hx Falls: No Other/Comment: General body pain 2nd to ca. - GASTROINTESTINAL Hx Gastrointestinal Disorders: Yes Hx Gall Bladder Disease: Yes - GENITOURINARY/GYNECOLOGICAL Hx Genitourinary Disorders: Yes Hx Urinary Tract Infection: Yes - PSYCHIATRIC Hx Psychophysiologic Disorder: No Hx Substance Use: No - SURGICAL HISTORY Hx Surgeries: Yes Hx Herniorrhaphy: Yes (Bilateral inguinal) Other/Comment: colon cancer surgery 2017, biliary stent - ANESTHESIA Hx Anesthesia: Yes Hx Anesthesia Reactions: No Hx Malignant Hyperthermia: No Meds Allergies/Adverse Reactions: Allergies Allergy/AdvReac Type Severity Reaction Status Date / Time No Known Allergies Allergy Verified 07/19/18 15:58 - Medications Medications: Current Medications Fentanyl (Duragesic) 1 patch TD Q3D [facility]; Protocol Last Admin: 09/13/18 13:38 Dose: 1 patch Metronidazole (Flagyl 500mg/100ml Ns) 100 mls @ 100 mls/hr IVPB Q8 [facility] Last Admin: 09/13/18 09:13 Dose: 100 mls/hr Amikacin Sulfate 500 mg/ (Sodium Chloride) 252 mls @ 250 mls/hr IVPB DAILY@2000 [facility]; Protocol Last Admin: 09/12/18 21:15 Dose: 250 mls/hr Norepinephrine Bitartrate 8 mg (/ Dextrose) 258 mls @ 4.84 mls/hr IV .Q24H [facility]; Protocol Stop: 09/13/18 22:08 Last Admin: 09/13/18 07:30 Dose: 12.5 mcg/min, 24.19 mls/hr Piperacillin Sod/Tazobactam (Sod 3.375 gm/ Sodium Chloride) 100 mls @ 100 mls/hr IVPB Q8 [facility]; Protocol Lactated Ringer's (Lactated Ringer's) 1,000 mls @ 125 mls/hr IV .Q8H [facility] Last Admin: 09/13/18 13:39 Dose: 125 mls/hr Megestrol Acetate (Megace) 800 mg PO DAILY [facility] Last Admin: 09/13/18 13:39 Dose: 800 mg Pantoprazole Sodium (Protonix Inj) 40 mg IVP DAILY [facility] Last Admin: 09/13/18 09:13 Dose: 40 mg Sodium Phosphate (Potassium/Sodium Phosphate) 250 mg PO DAILY [facility] Last Admin: 09/13/18 13:34 Dose: 250 mg Physical Exam - Head Exam Head Exam: NORMAL INSPECTION - Eye Exam Eye Exam: PERRL - ENT Exam ENT Exam: Normal Exam - Neck Exam Neck exam: Positive for: Normal Inspection - Respiratory Exam Respiratory Exam: Clear to Auscultation Bilateral - Cardiovascular Exam Cardiovascular Exam: REGULAR RHYTHM, +S1, +S2 - GI/Abdominal Exam GI & Abdominal Exam: Normal Bowel Sounds, Soft. absent: Tenderness Results - Vital Signs Recent Vital Signs: Last Vital Signs Temp 98 F 09/13/18 12:00 Pulse 132 H 09/13/18 14:00 Resp 21 09/13/18 14:00 BP 90/65 L 09/13/18 14:00 Pulse Ox 97 09/13/18 14:00 - Labs Result Diagrams: 09/13/18 04:30 09/13/18 04:30 Labs: Laboratory Results - last 24 hr 09/13/18 09/13/18 09/13/18 04:30 04:30 04:30 WBC 15.3 H RBC 3.76 L Hgb 11.0 L Hct 33.5 L MCV 89.0 MCH 29.3 MCHC 32.9 L RDW 21.2 H Plt Count 35 L D Manual Plt Count PT 35.5 H INR 3.1 APTT 40.3 H Sodium 132 Potassium 3.6 Chloride 104 Carbon Dioxide 18 L Anion Gap 14 BUN 12 Creatinine 0.5 L Est GFR ( Amer) > 60 Est GFR (Non-Af Amer) > 60 Random Glucose 107 Calcium 7.4 L Phosphorus 1.3 L Magnesium 2.1 Total Bilirubin 5.1 H AST 30 ALT 65 Alkaline Phosphatase 556 H D Total Protein 4.1 L Albumin 1.7 L Globulin 2.3 Albumin/Globulin Ratio 0.7 L 09/13/18 08:34 WBC RBC Hgb Hct MCV MCH MCHC RDW Plt Count Manual Plt Count 36 L* PT INR APTT Sodium Potassium Chloride Carbon Dioxide Anion Gap BUN Creatinine Est GFR ( Amer) Est GFR (Non-Af Amer) Random Glucose Calcium Phosphorus Magnesium Total Bilirubin AST ALT Alkaline Phosphatase Total Protein Albumin Globulin Albumin/Globulin Ratio Assessment & Plan (1) Biliary disease Assessment and Plan: Continue IV antibiotics. Likely partial biliary obstruction due to tumor growth into stent. No plans for ERCP at this time. Status: Acute
--- NOTE | 2018-09-13 16:09 | CP.PCM.PN ---
Subjective - Date & Time of Evaluation Date of Evaluation: 09/13/18 Time of Evaluation: 13:00 - Subjective Subjective: F/U Pulmonary Consult. Pt No A/D, appears weak, on O2 NC. Objective - Vital Signs/Intake and Output Vital Signs (last 24 hours): Temp Pulse Resp BP Pulse Ox 98 F 132 H 21 90/65 L 97 09/13/18 12:00 09/13/18 14:00 09/13/18 14:00 09/13/18 14:00 09/13/18 14:00 Intake and Output: 09/13/18 09/13/18 06:59 18:59 Intake Total 1416.10 1068.9 Balance 1416.10 1068.9 - Medications Medications: Current Medications Fentanyl (Duragesic) 1 patch TD Q3D [facility]; Protocol Last Admin: 09/13/18 13:38 Dose: 1 patch Metronidazole (Flagyl 500mg/100ml Ns) 100 mls @ 100 mls/hr IVPB Q8 [facility] Last Admin: 09/13/18 09:13 Dose: 100 mls/hr Amikacin Sulfate 500 mg/ (Sodium Chloride) 252 mls @ 250 mls/hr IVPB DAILY@2000 [facility]; Protocol Last Admin: 09/12/18 21:15 Dose: 250 mls/hr Norepinephrine Bitartrate 8 mg (/ Dextrose) 258 mls @ 4.84 mls/hr IV .Q24H [facility]; Protocol Stop: 09/13/18 22:08 Last Admin: 09/13/18 07:30 Dose: 12.5 mcg/min, 24.19 mls/hr Piperacillin Sod/Tazobactam (Sod 3.375 gm/ Sodium Chloride) 100 mls @ 100 mls/hr IVPB Q8 [facility]; Protocol Lactated Ringer's (Lactated Ringer's) 1,000 mls @ 125 mls/hr IV .Q8H [facility] Last Admin: 09/13/18 13:39 Dose: 125 mls/hr Megestrol Acetate (Megace) 800 mg PO DAILY [facility] Last Admin: 09/13/18 13:39 Dose: 800 mg Pantoprazole Sodium (Protonix Inj) 40 mg IVP DAILY [facility] Last Admin: 09/13/18 09:13 Dose: 40 mg Sodium Phosphate (Potassium/Sodium Phosphate) 250 mg PO DAILY [facility] Last Admin: 09/13/18 13:34 Dose: 250 mg - Labs Labs: 09/13/18 04:30 09/13/18 04:30 PT 35.5 Seconds (9.8-13.1) H 09/13/18 04:30 INR 3.1 09/13/18 04:30 APTT 40.3 Seconds (25.6-37.1) H 09/13/18 04:30 - Constitutional Appears: Chronically Ill - Head Exam Head Exam: NORMAL INSPECTION - Eye Exam Eye Exam: PERRL - ENT Exam Additional comments: Hard of hearing - Neck Exam Neck Exam: Normal Inspection - Respiratory Exam Respiratory Exam: Decreased Breath Sounds (b/l), Rhonchi (scattered) - Cardiovascular Exam Cardiovascular Exam: REGULAR RHYTHM - GI/Abdominal Exam GI & Abdominal Exam: Soft, Normal Bowel Sounds - Extremities Exam Additional comments: Edema LUE, BLE - Neurological Exam Neurological Exam: Awake Additional comments: Confused, minimal response to tactile stimuli - Skin Skin Exam: Warm Assessment and Plan (1) Respiratory failure Status: Acute (2) Lung metastasis Status: Acute (3) Pneumonia Status: Acute (4) Sepsis Status: Acute - Assessment and Plan (Free Text) Plan: Continue O2 NC, Zosyn and rest of Tx. Critical care time: 31 min.
[2018-09-13 16:28] VITALS: PULSE 128
[2018-09-13] MEDS: Amikacin Sulfate 500 MG in Sodium Chloride 0.9% 250 ML IVPB SCH (19:58)
[2018-09-14] MEDS: metroNIDAZOLE 500mg/100ml NS 100 ML IVPB SCH ×3 (00:56→16:19)
[2018-09-14] MEDS: Lactated Ringer's 1,000 ML IV SCH ×4 (01:00→20:05)
[2018-09-14] MEDS: Piperacillin/Tazobact 3.375 GM in Sodium Chloride 0.9% 100 ML IVPB SCH ×3 (01:14→16:20)
[2018-09-14 05:18] LABS: BASO % 0.1 % (0.0-2.0); EOS # 0.1 K/uL (0.0-0.7); EOS % 0.8 % (0.0-4.0); LYMPH # 0.4 K/uL (1.0-4.3); LYMPH % 3.4 % (20.0-40.0); MEAN CELL VOLUME 88.4 fl (80.0-94.0); MEAN CORPUSCULAR HEMOGLOBIN 29.1 pg (27.0-31.0); MEAN PLATELET VOLUME 11.7 fl (7.2-11.7); MONO # 1.5 K/uL (0.0-0.8); NEUT # 9.4 K/uL (1.8-7.0); NEUT % 82.7 % (50.0-75.0); PLATELET COUNT 45 K/uL (130-400); RBC 4.11 Mil/uL (4.40-5.90); RED CELL DISTRIBUTION WIDTH 21.4 % (11.5-14.5); WHITE BLOOD COUNT 11.4 K/uL (4.8-10.8)
[2018-09-14 05:59] LABS: ALBUMIN 1.7 g/dL (3.5-5.0); BLOOD UREA NITROGEN 13 mg/dl (9-20); CALCIUM 8.1 mg/dL (8.4-10.2); GFR NON-AFRICAN AMERICAN > 60
[2018-09-14 06:00] LABS: ALB/GLOB RATIO 0.7 (1.0-2.1); ALT/SGPT 49 U/L (21-72); AST/SGOT 21 U/L (17-59)
[2018-09-14] MEDS ORDERED: Phenylephrine 60 MG in Sodium Chloride 0.9% 250 ML IV SCH (07:45)
[2018-09-14] MEDS: Megestrol Acetate 40 mg/ml Cup PO SCH (09:01)
--- NOTE | 2018-09-14 10:25 | CP.PCM.PN ---
<Leonid Kerr - Last Filed: 09/14/18 11:09> Subjective - Date & Time of Evaluation Date of Evaluation: 09/14/18 Time of Evaluation: 07:30 - Subjective Subjective: Pt seen and examined at bedside this am. Denies acute overnight events. Breakfast at bedside. Currently on NC 3L. On phenylephrine. Objective - Vital Signs/Intake and Output Vital Signs (last 24 hours): Temp Pulse Resp BP Pulse Ox 96.8 F L 134 H 17 106/72 97 09/14/18 08:00 09/14/18 08:00 09/14/18 08:00 09/14/18 08:00 09/14/18 08:00 Intake and Output: 09/14/18 09/14/18 06:59 18:59 Intake Total 1325 150 Balance 1325 150 - Medications Medications: Current Medications Fentanyl (Duragesic) 1 patch TD Q3D [facility]; Protocol Last Admin: 09/13/18 13:38 Dose: 1 patch Metronidazole (Flagyl 500mg/100ml Ns) 100 mls @ 100 mls/hr IVPB Q8 [facility] Last Admin: 09/14/18 09:00 Dose: 100 mls/hr Amikacin Sulfate 500 mg/ (Sodium Chloride) 252 mls @ 250 mls/hr IVPB DAILY@2000 [facility]; Protocol Last Admin: 09/13/18 19:58 Dose: 250 mls/hr Piperacillin Sod/Tazobactam (Sod 3.375 gm/ Sodium Chloride) 100 mls @ 100 mls/hr IVPB Q8 [facility]; Protocol Last Admin: 09/14/18 09:01 Dose: 100 mls/hr Lactated Ringer's (Lactated Ringer's) 1,000 mls @ 125 mls/hr IV .Q8H [facility] Last Admin: 09/14/18 04:32 Dose: Not Given Phenylephrine HCl 60 mg/ (Sodium Chloride) 256 mls @ 5.12 mls/hr IV .Q24H [facility]; Protocol Stop: 09/15/18 07:37 Megestrol Acetate (Megace) 800 mg PO DAILY [facility] Last Admin: 09/14/18 09:01 Dose: 800 mg Morphine Sulfate (Morphine) 2 mg IVP Q4 PRN PRN Reason: Pain, moderate (4-7) Pantoprazole Sodium (Protonix Inj) 40 mg IVP DAILY [facility] Last Admin: 09/14/18 09:01 Dose: 40 mg Sodium Phosphate (Potassium/Sodium Phosphate) 250 mg PO DAILY [facility] Last Admin: 09/14/18 09:01 Dose: 250 mg - Labs Labs: 09/14/18 04:40 09/14/18 04:40 PT 35.5 Seconds (9.8-13.1) H 09/13/18 04:30 INR 3.1 09/13/18 04:30 APTT 40.3 Seconds (25.6-37.1) H 09/13/18 04:30 - Eye Exam Eye Exam: EOMI - ENT Exam ENT Exam: Mucous Membranes Moist - Respiratory Exam Respiratory Exam: absent: Rales, Rhonchi, Wheezes - Cardiovascular Exam Cardiovascular Exam: Tachycardia, +S1, +S2 - GI/Abdominal Exam GI & Abdominal Exam: Soft. absent: Tenderness - Extremities Exam Extremities Exam: Pedal Edema - Neurological Exam Neurological Exam: Alert, Awake Assessment and Plan - Assessment and Plan (Free Text) Assessment: 73 y/o male with hx of Stage IV Colon Cancer and DVT of Upper Extremity previously on Eliquis presenting to ED by family due progressive weakness and poor po intake admitted for Severe Sepsis and Pneumonia. Plan: -CXR - bilateral infiltrates suggestive of pulmonary edema vs pneumonia vs metastatic ca -Echo in 09/2016 EF 35-40%, LV function mild to moderately impaired -Blood Culture: 09/09/2018: Klebsiella pneumo; 09/10: GNR and 09/11: NG X 3D -UCX: NG -CT abdo: 09/12: 1. Findings are concerning for 2 metastatic lesions in the right posterior hepatic lobe measuring 1.5 cm each. 2. Moderate intrahepatic biliary dilatation and moderate dilatation of the proximal common bile duct. A metallic stent remains in place in the distal common bile duct. Apparent high attenuation soft tissue in the distal metallic stent which likely obstructs the stent. 3. Sigmoid diverticulosis. Apparent mild circumferential mural thickening and enhancement in the mid and distal descending colon and the sigmoid colon with mild pericolonic inflammatory changes concerning for acute nonspecific infectious/inflammatory colitis. No evidence for micro perforation or abscess. 4. Mild dilatation of the small bowel loops and fluid in the ascending and transverse colon. 5. Moderate bilateral pleural effusions. Small abdominal ascites. 6. Multiple pulmonary metastasis in the visualized lungs. Septic shock, bacteremia -Afebrile, still tachycardic. BP WNL. -Lactic acid: 3.5 from 5.3 -WBC: 44.6 > 11.4 -C/w IV Amikacin, Zosyn and Metronidazole as per Dr. Rivera recs: f/u bcx X 2 -Levophed discontinued; on Phenylephrine per Dr. Kelly -Pulmonology on board, Dr Pollock: cont tx -Blood Cultures -Suspecting GI or source of infection: CT Abdomen -F/U repeated blood cultures Occluded stent: -Distal common bile duct -GI consult: Dr. Thompson: No plan for ERCP or stent Hypophosphatemia: -1.3 > 2.8 -s/p Kphos PO Hypokalemia -resolved -Serum K+: 2.6 > 3.6 > 4.1 -IV KCl and PO KCl Acute Respiratory Failure -O2 sat at 97-100% with NC at 3L/min Metabolic Acidosis -Clinically improving -Likely compensating respiratory acidosis/hypocapnia Abdominal distension -Improved -BMs Thrombocytopenia -improved: -Possibly caused by medication -discontinued Meropenem Anemia, normocytic -Improved: 12.0/36.3 -Possibly anemia of chronic disease Acute exacerbation of reduced EF-CHF (systolic dysfunction) -Acute decompensated -Daily weights, Monitor I&O's Hyponatremia -131 Acute Left Upper Extremity DVT -Was on Eliquis; d/c d/t low plt PPX measures -DVT: scd -GI: Protonix IV daily >DNR/DNI: Surrogate decision maker: Kathryn, spouse Case and plan d/w Dr. Amado Kerr MD PGY2 <Bonita Fischer - Last Filed: 09/14/18 16:32> Objective - Vital Signs/Intake and Output Vital Signs (last 24 hours): Temp Pulse Resp BP Pulse Ox 97 F L 127 H 17 97/71 L 98 09/14/18 12:00 09/14/18 15:00 09/14/18 15:00 09/14/18 15:00 09/14/18 15:00 Intake and Output: 09/14/18 09/14/18 06:59 18:59 Intake Total 1325 780 Balance 1325 780 - Medications Medications: Current Medications Fentanyl (Duragesic) 1 patch TD Q3D [facility]; Protocol Last Admin: 09/13/18 13:38 Dose: 1 patch Metronidazole (Flagyl 500mg/100ml Ns) 100 mls @ 100 mls/hr IVPB Q8 [facility] Last Admin: 09/14/18 16:19 Dose: 100 mls/hr Amikacin Sulfate 500 mg/ (Sodium Chloride) 252 mls @ 250 mls/hr IVPB DAILY@2000 [facility]; Protocol Last Admin: 09/13/18 19:58 Dose: 250 mls/hr Piperacillin Sod/Tazobactam (Sod 3.375 gm/ Sodium Chloride) 100 mls @ 100 mls/hr IVPB Q8 [facility]; Protocol Last Admin: 09/14/18 16:20 Dose: 100 mls/hr Lactated Ringer's (Lactated Ringer's) 1,000 mls @ 125 mls/hr IV .Q8H [facility] Last Admin: 09/14/18 12:24 Dose: 125 mls/hr Phenylephrine HCl 60 mg/ (Sodium Chloride) 256 mls @ 5.12 mls/hr IV .Q24H [facility]; Protocol Stop: 09/15/18 07:37 Last Admin: 09/14/18 10:44 Dose: 20 mcg/min, 5.12 mls/hr Megestrol Acetate (Megace) 800 mg PO DAILY [facility] Last Admin: 09/14/18 09:01 Dose: 800 mg Morphine Sulfate (Morphine) 2 mg IVP Q4 PRN PRN Reason: Pain, moderate (4-7) Last Admin: 09/14/18 10:45 Dose: 2 mg Pantoprazole Sodium (Protonix Inj) 40 mg IVP DAILY [facility] Last Admin: 09/14/18 09:01 Dose: 40 mg - Labs Labs: 09/14/18 04:40 09/14/18 04:40 PT 35.5 Seconds (9.8-13.1) H 09/13/18 04:30 INR 3.1 09/13/18 04:30 APTT 40.3 Seconds (25.6-37.1) H 09/13/18 04:30 Attending/Attestation - Attestation I have personally seen and examined this patient.: Yes I have fully participated in the care of the patient.: Yes I have reviewed all pertinent clinical information, including history, physical exam and plan: Yes Notes (Text): Septic Shock due to Klebsiella Bacteremia Metastatic Colon Cancer to lungs, liver, panreas Hx CBD/Intrahepatic biliary Ductal Dilatation due to Mets - Hx of Stent Pancreatic Mass Obstructing Biliary Stent Respiratory Insufficiency Thrombocytopenia LUE DVT cont Amikacin, Flagyl, Zosyn as rec by Dr Jackson off Eliquis due to low Platelets Levophed changed to Phenylephrine due to tachycardia GI consulted - per Dr Thompson - no plans for ERCP/Stent
--- NOTE | 2018-09-14 10:25 | CP.PCM.PN ---
Subjective - Date & Time of Evaluation Date of Evaluation: 09/14/18 Time of Evaluation: 10:04 - Subjective Subjective: I D NOTE PATIENT HAS F/U BLOOD CULTURE c GRAM NEGATIVE RODS(09/10/18) FOLLOWUP TO THAT CULTURE WAS NEGATIVE HAVE ORDERED F/U CULTURES TODAY X2 CONTINUE AMIKACIN,ZOSYN/FLAGYL STILL c THROMBOCYTOPENIA WILL NOT USE MEROPENEM AT THIS TIME WBC IS DOWN,AFEBRILE Objective - Vital Signs/Intake and Output Vital Signs (last 24 hours): Temp Pulse Resp BP Pulse Ox 96.8 F L 134 H 17 106/72 97 09/14/18 08:00 09/14/18 08:00 09/14/18 08:00 09/14/18 08:00 09/14/18 08:00 Intake and Output: 09/14/18 09/14/18 06:59 18:59 Intake Total 1325 150 Balance 1325 150 - Medications Medications: Current Medications Fentanyl (Duragesic) 1 patch TD Q3D [facility]; Protocol Last Admin: 09/13/18 13:38 Dose: 1 patch Metronidazole (Flagyl 500mg/100ml Ns) 100 mls @ 100 mls/hr IVPB Q8 [facility] Last Admin: 09/14/18 09:00 Dose: 100 mls/hr Amikacin Sulfate 500 mg/ (Sodium Chloride) 252 mls @ 250 mls/hr IVPB DAILY@2000 [facility]; Protocol Last Admin: 09/13/18 19:58 Dose: 250 mls/hr Piperacillin Sod/Tazobactam (Sod 3.375 gm/ Sodium Chloride) 100 mls @ 100 mls/hr IVPB Q8 [facility]; Protocol Last Admin: 09/14/18 09:01 Dose: 100 mls/hr Lactated Ringer's (Lactated Ringer's) 1,000 mls @ 125 mls/hr IV .Q8H [facility] Last Admin: 09/14/18 04:32 Dose: Not Given Phenylephrine HCl 60 mg/ (Sodium Chloride) 256 mls @ 5.12 mls/hr IV .Q24H [facility]; Protocol Stop: 09/15/18 07:37 Megestrol Acetate (Megace) 800 mg PO DAILY [facility] Last Admin: 09/14/18 09:01 Dose: 800 mg Pantoprazole Sodium (Protonix Inj) 40 mg IVP DAILY [facility] Last Admin: 09/14/18 09:01 Dose: 40 mg Sodium Phosphate (Potassium/Sodium Phosphate) 250 mg PO DAILY [facility] Last Admin: 09/14/18 09:01 Dose: 250 mg - Labs Labs: 09/14/18 04:40 09/14/18 04:40 PT 35.5 Seconds (9.8-13.1) H 09/13/18 04:30 INR 3.1 09/13/18 04:30 APTT 40.3 Seconds (25.6-37.1) H 09/13/18 04:30
[2018-09-14 10:27] LABS: LYMPHOCYTE 6 % (20-50); MONOCYTE 14 % (0-10); NEUTROPHIL 80 % (42-75); PLATELET ESTIMATE DECREASED (NORMAL); TOTAL CELLS COUNTED 100
[2018-09-14 10:28] LABS: ANISOCYTOSIS MODERATE; BURR CELLS MODERATE; LARGE PLATELETS PRESENT; OVALOCYTES SLIGHT; SCHISTOCYTES SLIGHT
[2018-09-14] MEDS ORDERED: Phenylephrine 10 mg/ml Inj ONE (10:38)
--- NOTE | 2018-09-14 11:33 | CP.CCUPN ---
CCU Subjective - Physician Review Subjective (Free Text): No essential changes in overall status, remains vasopressor dependent. Awake and alert, still has poor appetite, but denies any new abdominal discomfort. Afebrile Temps mostly 98F with no fever spikes, SBPs 90-100s, on Levophed up to 7 mcg dose, HR 120s, 20s, 99% SPO2 on 3LPM NC; fluid balance last 24H= positive 2.1L. No other distress noted. ROS: Other 12 system ROS without new pertinent negatives or positives. Other PMSFH: All other Nursing and physician documentation reviewed to date; no new pertinent info noted relevant to current medical problems. EXAM- HEENT: no icterus, pupils equal, 3 mm and reactive, no nystagmus NECK: no visible JVD, supple, carotids equal upstroke bilat/no bruits CHEST: decreased BS bases, no wheezes audible; Left chest port intact, no tenderness or erythema. HEART: regular, distant, tachy S1S2, no murmur audible, no rubs. ABD: soft, no increased distention, no focal tenderness, BS hypoactive, EXT: +edema, no peripheral/ digital cyanosis, no mottling, no calf tenderness or palpable cords, distal pulses intact and symmetrical. NEURO: withdraws all extremities to pain, tone decreased. SKIN: no rashes LABS: WBC= 11.4 HGB= 12.0 PLTs = 45K Na= 131 K= 4.1 Cl= 105 HCO3= 17 BUN/Cr= 13/0.5 BS= 132 Blood Cx= +GNR (Kleb Pneu) Phosphate= 2.8 Mag = 1.8 Alk Phos = 682 with other LFTs normal. IMPRESSION / MAJOR PROBLEMS NOW: 1. Severe Sepsis with Shock 2 GNR Bacteremia r/o vs GI source 2. Hyponatremia 3. Thrombocytopenia 4. Metastatic Colon CA Disease 5. s/p DVT LUE on Eliquis PLAN: 1. Tachycardia noted and EKG shows sinus tachy at 130, with lower voltage noted as compared to previous study on 09/09/18. 2. Ongoing empiric abx coverage as directed by ID: Fátima / FLagyl / Vanco. WBC levels improving. 3. Duragesic patch added for now persistent pain with any movement. Morphine p rn as well for breakthrough pain. 4. Still vasopressor dependent, changed to Phenylephrine to limit any further tachycardia. 5. Consider Palliative / Hospice care eval.
--- NOTE | 2018-09-14 14:41 | CP.PCM.PN ---
Subjective - Date & Time of Evaluation Date of Evaluation: 09/14/18 Time of Evaluation: 11:00 - Subjective Subjective: F/U Pulmonary consult Pt very weak, response to verbal stimuli, generalized pain as per nurses, he is on Fentanyl path and Morphine IV. Objective - Vital Signs/Intake and Output Vital Signs (last 24 hours): Temp Pulse Resp BP Pulse Ox 97 F L 133 H 17 96/73 L 98 09/14/18 12:00 09/14/18 13:00 09/14/18 13:00 09/14/18 13:00 09/14/18 13:00 Intake and Output: 09/14/18 09/14/18 06:59 18:59 Intake Total 1325 480 Balance 1325 480 - Medications Medications: Current Medications Fentanyl (Duragesic) 1 patch TD Q3D [facility]; Protocol Last Admin: 09/13/18 13:38 Dose: 1 patch Metronidazole (Flagyl 500mg/100ml Ns) 100 mls @ 100 mls/hr IVPB Q8 [facility] Last Admin: 09/14/18 09:00 Dose: 100 mls/hr Amikacin Sulfate 500 mg/ (Sodium Chloride) 252 mls @ 250 mls/hr IVPB DAILY@2000 [facility]; Protocol Last Admin: 09/13/18 19:58 Dose: 250 mls/hr Piperacillin Sod/Tazobactam (Sod 3.375 gm/ Sodium Chloride) 100 mls @ 100 mls/hr IVPB Q8 [facility]; Protocol Last Admin: 09/14/18 09:01 Dose: 100 mls/hr Lactated Ringer's (Lactated Ringer's) 1,000 mls @ 125 mls/hr IV .Q8H [facility] Last Admin: 09/14/18 12:24 Dose: 125 mls/hr Phenylephrine HCl 60 mg/ (Sodium Chloride) 256 mls @ 5.12 mls/hr IV .Q24H [facility]; Protocol Stop: 09/15/18 07:37 Last Admin: 09/14/18 10:44 Dose: 20 mcg/min, 5.12 mls/hr Megestrol Acetate (Megace) 800 mg PO DAILY [facility] Last Admin: 09/14/18 09:01 Dose: 800 mg Morphine Sulfate (Morphine) 2 mg IVP Q4 PRN PRN Reason: Pain, moderate (4-7) Last Admin: 09/14/18 10:45 Dose: 2 mg Pantoprazole Sodium (Protonix Inj) 40 mg IVP DAILY [facility] Last Admin: 09/14/18 09:01 Dose: 40 mg - Labs Labs: 09/14/18 04:40 09/14/18 04:40 PT 35.5 Seconds (9.8-13.1) H 09/13/18 04:30 INR 3.1 09/13/18 04:30 APTT 40.3 Seconds (25.6-37.1) H 09/13/18 04:30 - Constitutional Appears: Chronically Ill - Head Exam Head Exam: NORMAL INSPECTION - Eye Exam Eye Exam: PERRL - ENT Exam ENT Exam: Normal Exam - Neck Exam Additional comments: Hard of hearing - Respiratory Exam Respiratory Exam: Decreased Breath Sounds (b/l), Rhonchi (scattered) - Cardiovascular Exam Cardiovascular Exam: REGULAR RHYTHM - GI/Abdominal Exam GI & Abdominal Exam: Soft, Normal Bowel Sounds - Extremities Exam Extremities Exam: Pedal Edema Additional comments: Edema LUE and elbow - Neurological Exam Neurological Exam: Awake Additional comments: Confused, minimal response to tactile stimuli - Skin Skin Exam: Warm Assessment and Plan (1) Respiratory failure Status: Acute (2) Lung metastasis Status: Acute (3) Pneumonia Status: Acute (4) Sepsis Status: Acute - Assessment and Plan (Free Text) Plan: Pt on Levophed change to Phenylephine by ID due to tachycardia. Continue O2 NC 3 L/M, Amikasin, Zosyn and rest of Tx. Critical care time: 32 min.
[2018-09-14] MEDS: Amikacin Sulfate 500 MG in Sodium Chloride 0.9% 250 ML IVPB SCH (20:04)
[2018-09-15] MEDS: metroNIDAZOLE 500mg/100ml NS 100 ML IVPB SCH ×3 (01:30→16:14)
[2018-09-15] MEDS: Piperacillin/Tazobact 3.375 GM in Sodium Chloride 0.9% 100 ML IVPB SCH ×3 (01:30→16:40)
[2018-09-15 05:54] LABS: BASO % 0.1 % (0.0-2.0); EOS # 0.1 K/uL (0.0-0.7); EOS % 0.7 % (0.0-4.0); HEMOGLOBIN 11.9 g/dL (12.0-18.0); LYMPH # 0.4 K/uL (1.0-4.3); LYMPH % 3.6 % (20.0-40.0); MEAN CELL VOLUME 88.3 fl (80.0-94.0); MEAN CORPUSCULAR HEMOGLOBIN 29.2 pg (27.0-31.0); MEAN CORPUSCULAR HGB CONC 33.1 g/dL (33.0-37.0); MEAN PLATELET VOLUME 10.7 fl (7.2-11.7); MONO # 1.6 K/uL (0.0-0.8); MONO % 13.7 % (0.0-10.0); NEUT # 9.6 K/uL (1.8-7.0); NEUT % 81.9 % (50.0-75.0); RBC 4.06 Mil/uL (4.40-5.90); RED CELL DISTRIBUTION WIDTH 21.9 % (11.5-14.5); WHITE BLOOD COUNT 11.7 K/uL (4.8-10.8)
[2018-09-15 06:07] LABS: ALB/GLOB RATIO 0.8 (1.0-2.1); ALBUMIN 1.8 g/dL (3.5-5.0); ALT/SGPT 43 U/L (21-72); AST/SGOT 23 U/L (17-59); BLOOD UREA NITROGEN 15 mg/dl (9-20); CALCIUM 8.4 mg/dL (8.4-10.2); GFR NON-AFRICAN AMERICAN > 60
[2018-09-15] MEDS: Lactated Ringer's 1,000 ML IV SCH ×2 (07:30→15:36)
[2018-09-15] MEDS: Megestrol Acetate 40 mg/ml Cup PO SCH (08:22)
--- NOTE | 2018-09-15 08:37 | CP.CCUPN ---
CCU Subjective - Physician Review Subjective (Free Text): No essential changes in overall status, remains vasopressor dependent, Neosynephrine increased from 20 to 50 mcg dose overnight, on LR 125 ml/hr. Opens eyes to verbal; stimuli, states he feels weak, wants to go home. Afebrile Temps mostly 98F with no fever spikes, SBPs 110-120s, HR 110s, 20s, 99% SPO2 on 3LPM NC; fluid balance last 24H= positive 2.3L. No other distress noted. ROS: Other 12 system ROS without new pertinent negatives or positives. Other PMSFH: All other Nursing and physician documentation reviewed to date; no new pertinent info noted relevant to current medical problems. EXAM- HEENT: no icterus, pupils equal, 3 mm and reactive, no nystagmus NECK: no visible JVD, supple, carotids equal upstroke bilat/no bruits CHEST: decreased BS bases, no wheezes audible; Left chest port intact, no tenderness or erythema. HEART: regular, distant, tachy S1S2, no murmur audible, no rubs. ABD: soft, +distention, no focal tenderness, BS hypoactive, EXT: +edema, no peripheral/ digital cyanosis, no mottling, no calf tenderness or palpable cords, distal pulses intact and symmetrical. NEURO: withdraws all extremities to pain, tone decreased. SKIN: no rashes LABS: WBC= 11.7 HGB= 11.9 PLTs = 55K Na= 134 K= 4.0 Cl= 106 HCO3= 18 BUN/Cr= 15/0.5 BS= 89 Blood Cx= +GNR (Kleb Pneu) IMPRESSION / MAJOR PROBLEMS NOW: 1. Severe Sepsis with Shock 2 GNR Bacteremia r/o vs GI source 2. Hyponatremia 3. Thrombocytopenia 4. Metastatic Colon CA Disease 5. s/p DVT LUE on Eliquis PLAN: 1. Pain control: Morphine added prn to Duragesis patch. 2. Ongoing empiric abx coverage as directed by ID: Keishan / Sonya / Amik. WBC levels improving. 3. Changed to Phenylephrine to limit any further tachycardia. 4. Consider Palliative / Hospice care eval.
--- NOTE | 2018-09-15 10:32 | CP.PCM.PN ---
<Wilbert Ordaz - Last Filed: 09/15/18 11:54> Subjective - Date & Time of Evaluation Date of Evaluation: 09/15/18 Time of Evaluation: 10:32 - Subjective Subjective: pt seen and evaluated at bedside. No acute events overnight. Lying in bed, HOB elevated, NAD. On phenlyephrine drip with 3L NC. Tachycardia with mild improvement. BP is stable. Afebrile. No complaints. Objective - Vital Signs/Intake and Output Vital Signs (last 24 hours): Temp Pulse Resp BP Pulse Ox 98.0 F 122 H 14 103/67 98 09/15/18 08:00 09/15/18 10:00 09/15/18 10:00 09/15/18 10:00 09/15/18 10:00 Intake and Output: 09/15/18 09/15/18 06:59 18:59 Intake Total 1450 350 Balance 1450 350 - Medications Medications: Current Medications Fentanyl (Duragesic) 1 patch TD Q3D [facility]; Protocol Last Admin: 09/13/18 13:38 Dose: 1 patch Metronidazole (Flagyl 500mg/100ml Ns) 100 mls @ 100 mls/hr IVPB Q8 [facility] Last Admin: 09/15/18 08:21 Dose: 100 mls/hr Amikacin Sulfate 500 mg/ (Sodium Chloride) 252 mls @ 250 mls/hr IVPB DAILY@1999 [facility]; Protocol Last Admin: 09/14/18 20:04 Dose: 250 mls/hr Piperacillin Sod/Tazobactam (Sod 3.375 gm/ Sodium Chloride) 100 mls @ 100 mls/hr IVPB Q8 [facility]; Protocol Last Admin: 09/15/18 09:09 Dose: 100 mls/hr Lactated Ringer's (Lactated Ringer's) 1,000 mls @ 125 mls/hr IV .Q8H [facility] Last Admin: 09/15/18 07:30 Dose: 125 mls/hr Megestrol Acetate (Megace) 800 mg PO DAILY [facility] Last Admin: 09/15/18 08:22 Dose: 800 mg Morphine Sulfate (Morphine) 2 mg IVP Q4 PRN PRN Reason: Pain, moderate (4-7) Last Admin: 09/14/18 10:45 Dose: 2 mg Pantoprazole Sodium (Protonix Inj) 40 mg IVP DAILY [facility] Last Admin: 09/15/18 08:20 Dose: 40 mg - Labs Labs: 09/15/18 05:40 09/15/18 05:40 PT 35.5 Seconds (9.8-13.1) H 09/13/18 04:30 INR 3.1 09/13/18 04:30 APTT 40.3 Seconds (25.6-37.1) H 09/13/18 04:30 - Constitutional Appears: Non-toxic, No Acute Distress, Cachectic - Eye Exam Eye Exam: EOMI, Scleral icterus Pupil Exam: PERRL - ENT Exam ENT Exam: Mucous Membranes Moist - Respiratory Exam Respiratory Exam: Clear to Ausculation Bilateral, NORMAL BREATHING PATTERN. absent: Rales, Rhonchi, Wheezes - Cardiovascular Exam Cardiovascular Exam: REGULAR RHYTHM, RRR, +S1, +S2. absent: Gallop, JVD, Rubs, Murmur - GI/Abdominal Exam GI & Abdominal Exam: Soft, Tenderness, Normal Bowel Sounds. absent: Distended, Firm, Guarding, Rigid - Extremities Exam Extremities Exam: Normal Capillary Refill Additional comments: pitting edema in upper and lower extremities - Neurological Exam Neurological Exam: Alert, Awake Assessment and Plan - Assessment and Plan (Free Text) Assessment: 73 y/o male with hx of Stage IV Colon Cancer and DVT of Upper Extremity previously on Eliquis presenting to ED by family due progressive weakness and poor po intake admitted for Severe Sepsis and Pneumonia. Plan: -CXR - bilateral infiltrates suggestive of pulmonary edema vs pneumonia vs metastatic ca -Echo in 09/2016 EF 35-40%, LV function mild to moderately impaired -Blood Culture: 09/09/2018: Klebsiella pneumo; 09/10: GNR and 09/11: NG X 3D -UCX: NG -CT abdo: 09/12: 1. Findings are concerning for 2 metastatic lesions in the right posterior hepatic lobe measuring 1.5 cm each. 2. Moderate intrahepatic biliary dilatation and moderate dilatation of the proximal common bile duct. A metallic stent remains in place in the distal common bile duct. Apparent high attenuation soft tissue in the distal metallic stent which likely obstructs the stent. 3. Sigmoid diverticulosis. Apparent mild circumferential mural thickening and enhancement in the mid and distal descending colon and the sigmoid colon with mild pericolonic inflammatory changes concerning for acute nonspecific infectious/inflammatory colitis. No evidence for micro perforation or abscess. 4. Mild dilatation of the small bowel loops and fluid in the ascending and transverse colon. 5. Moderate bilateral pleural effusions. Small abdominal ascites. 6. Multiple pulmonary metastasis in the visualized lungs. Septic shock, bacteremia -Afebrile, still tachycardic. BP WNL. -WBC: wnl -C/w IV Amikacin, Zosyn and Metronidazole as per Dr. Rivera -Levophed discontinued; on Phenylephrine per Dr. Kelly -Pulmonology on board, Dr Pollock: cont tx -F/U repeated blood cultures Anasarca -likely from fluid retention -albumin 1.8 Occluded stent: -Distal common bile duct -GI consult: Dr. Thompson: No plan for ERCP or stent -alk phos trending up 760 -t bili trending up 6.2 Hypophosphatemia: -resolved Hypokalemia -resolved Acute Respiratory Failure -O2 sat at 97-100% with NC at 3L/min Metabolic Acidosis -Clinically improving Thrombocytopenia -improved: -Possibly caused by medication -discontinued Meropenem Anemia, normocytic -Improved: 11.9/35.8 Acute exacerbation of reduced EF-CHF (systolic dysfunction) -Acute decompensated -Daily weights, Monitor I&O's Hyponatremia -131 Acute Left Upper Extremity DVT -Was on Eliquis; d/c d/t low plt PPX measures -DVT: scd -GI: Protonix IV daily >DNR/DNI: Surrogate decision maker: Kathryn, spouse <Bonita Fischer - Last Filed: 09/15/18 14:47> Objective - Vital Signs/Intake and Output Vital Signs (last 24 hours): Temp Pulse Resp BP Pulse Ox 98.0 F 130 H 22 111/82 98 09/15/18 12:00 09/15/18 14:00 09/15/18 14:00 09/15/18 14:00 09/15/18 14:00 Intake and Output: 09/15/18 09/15/18 06:59 18:59 Intake Total 1450 900 Balance 1450 900 - Medications Medications: Current Medications Fentanyl (Duragesic) 1 patch TD Q3D [facility]; Protocol Last Admin: 09/13/18 13:38 Dose: 1 patch Metronidazole (Flagyl 500mg/100ml Ns) 100 mls @ 100 mls/hr IVPB Q8 [facility] Last Admin: 09/15/18 08:21 Dose: 100 mls/hr Amikacin Sulfate 500 mg/ (Sodium Chloride) 252 mls @ 250 mls/hr IVPB DAILY@2000 [facility]; Protocol Last Admin: 09/14/18 20:04 Dose: 250 mls/hr Piperacillin Sod/Tazobactam (Sod 3.375 gm/ Sodium Chloride) 100 mls @ 100 mls/hr IVPB Q8 [facility]; Protocol Last Admin: 09/15/18 09:09 Dose: 100 mls/hr Lactated Ringer's (Lactated Ringer's) 1,000 mls @ 125 mls/hr IV .Q8H [facility] Last Admin: 09/15/18 07:30 Dose: 125 mls/hr Megestrol Acetate (Megace) 800 mg PO DAILY [facility] Last Admin: 09/15/18 08:22 Dose: 800 mg Morphine Sulfate (Morphine) 2 mg IVP Q4 PRN PRN Reason: Pain, moderate (4-7) Last Admin: 09/14/18 10:45 Dose: 2 mg Pantoprazole Sodium (Protonix Inj) 40 mg IVP DAILY [facility] Last Admin: 09/15/18 08:20 Dose: 40 mg - Labs Labs: 09/15/18 05:40 09/15/18 05:40 PT 35.5 Seconds (9.8-13.1) H 09/13/18 04:30 INR 3.1 09/13/18 04:30 APTT 40.3 Seconds (25.6-37.1) H 09/13/18 04:30 Attending/Attestation - Attestation I have personally seen and examined this patient.: Yes I have fully participated in the care of the patient.: Yes I have reviewed all pertinent clinical information, including history, physical exam and plan: Yes Notes (Text): Septic Shock due to Klebsiella Bacteremia Metastatic Colon Cancer to lungs, liver, panreas Hx CBD/Intrahepatic biliary Ductal Dilatation due to Mets - Hx of Stent Pancreatic Mass Obstructing Biliary Stent Respiratory Insufficiency Thrombocytopenia LUE DVT cont Amikacin, Flagyl, Zosyn as rec by Dr Jackson off Eliquis due to low Platelets Levophed changed to Phenylephrine due to tachycardia GI consulted - per Dr Thompson - no plans for ERCP/Stent Pt is DNR/DNI
--- NOTE | 2018-09-15 14:53 | CP.PCM.PN ---
Subjective - Date & Time of Evaluation Date of Evaluation: 09/15/18 Time of Evaluation: 15:30 - Subjective Subjective: F/U Respiratory Failure Pt very weak, open eyes to verbal stimuli, no specific c/o, as per nurse, with pain when moving/change positions, no appetite, refusing food. Objective - Vital Signs/Intake and Output Vital Signs (last 24 hours): Temp Pulse Resp BP Pulse Ox 98.0 F 130 H 22 111/82 98 09/15/18 12:00 09/15/18 14:00 09/15/18 14:00 09/15/18 14:00 09/15/18 14:00 Intake and Output: 09/15/18 09/15/18 06:59 18:59 Intake Total 1450 900 Balance 1450 900 - Medications Medications: Current Medications Fentanyl (Duragesic) 1 patch TD Q3D [facility]; Protocol Last Admin: 09/13/18 13:38 Dose: 1 patch Metronidazole (Flagyl 500mg/100ml Ns) 100 mls @ 100 mls/hr IVPB Q8 [facility] Last Admin: 09/15/18 08:21 Dose: 100 mls/hr Amikacin Sulfate 500 mg/ (Sodium Chloride) 252 mls @ 250 mls/hr IVPB DAILY@2000 [facility]; Protocol Last Admin: 09/14/18 20:04 Dose: 250 mls/hr Piperacillin Sod/Tazobactam (Sod 3.375 gm/ Sodium Chloride) 100 mls @ 100 mls/hr IVPB Q8 [facility]; Protocol Last Admin: 09/15/18 09:09 Dose: 100 mls/hr Lactated Ringer's (Lactated Ringer's) 1,000 mls @ 125 mls/hr IV .Q8H [facility] Last Admin: 09/15/18 07:30 Dose: 125 mls/hr Megestrol Acetate (Megace) 800 mg PO DAILY [facility] Last Admin: 09/15/18 08:22 Dose: 800 mg Morphine Sulfate (Morphine) 2 mg IVP Q4 PRN PRN Reason: Pain, moderate (4-7) Last Admin: 09/14/18 10:45 Dose: 2 mg Pantoprazole Sodium (Protonix Inj) 40 mg IVP DAILY [facility] Last Admin: 09/15/18 08:20 Dose: 40 mg - Labs Labs: 09/15/18 05:40 09/15/18 05:40 PT 35.5 Seconds (9.8-13.1) H 09/13/18 04:30 INR 3.1 09/13/18 04:30 APTT 40.3 Seconds (25.6-37.1) H 09/13/18 04:30 - Constitutional Appears: Chronically Ill - Head Exam Head Exam: NORMAL INSPECTION - Eye Exam Eye Exam: PERRL - ENT Exam Additional comments: Hard of hearing - Neck Exam Neck Exam: Normal Inspection - Respiratory Exam Respiratory Exam: Decreased Breath Sounds (b/l), Rhonchi (scattered) - Cardiovascular Exam Cardiovascular Exam: REGULAR RHYTHM - GI/Abdominal Exam GI & Abdominal Exam: Soft, Normal Bowel Sounds - Extremities Exam Extremities Exam: Pedal Edema Additional comments: Edema LUE - Neurological Exam Neurological Exam: Awake Additional comments: Lethargic, minimal response to tactile stimuli, minimal movements extremities. - Skin Skin Exam: Warm Assessment and Plan (1) Respiratory failure Status: Acute (2) Lung metastasis Status: Acute (3) Pneumonia Status: Acute (4) Sepsis Status: Acute - Assessment and Plan (Free Text) Plan: Tolerating well O2 NC 3 L/M, marked generalized weakness, not eating or drinki ng, generalized pain, continue Morphine, Fentanyl and rest of Tx, prognosis poor. Critical care time: 30 min.
[2018-09-15] MEDS: Amikacin Sulfate 500 MG in Sodium Chloride 0.9% 250 ML IVPB SCH (20:26)
[2018-09-15] MEDS ORDERED: Lactated Ringer's 1,000 ML IV SCH (20:46)
[2018-09-16] MEDS: metroNIDAZOLE 500mg/100ml NS 100 ML IVPB SCH ×3 (00:01→17:15)
[2018-09-16] MEDS: Piperacillin/Tazobact 3.375 GM in Sodium Chloride 0.9% 100 ML IVPB SCH ×3 (00:02→17:16)
[2018-09-16 04:43] LABS: ALB/GLOB RATIO 0.7 (1.0-2.1); ALBUMIN 1.4 g/dL (3.5-5.0); ALT/SGPT 35 U/L (21-72); AST/SGOT 21 U/L (17-59); BLOOD UREA NITROGEN 16 mg/dl (9-20); CALCIUM 7.6 mg/dL (8.4-10.2); GFR NON-AFRICAN AMERICAN > 60
[2018-09-16 04:52] LABS: HEMOGLOBIN 9.2 g/dL (12.0-18.0); MEAN CELL VOLUME 89.6 fl (80.0-94.0); MEAN CORPUSCULAR HEMOGLOBIN 29.4 pg (27.0-31.0); MEAN CORPUSCULAR HGB CONC 32.9 g/dL (33.0-37.0); RBC 3.13 Mil/uL (4.40-5.90); RED CELL DISTRIBUTION WIDTH 21.7 % (11.5-14.5); WHITE BLOOD COUNT 10.1 K/uL (4.8-10.8)
--- NOTE | 2018-09-16 08:02 | CARD ---
APPROVED REPORT Date of service: 09/14/2018 EKG Measurement Heart [id number] <Conclusion> Sinus tachycardia Low voltage QRS Septal infarct, age undetermined Abnormal ECG
[2018-09-16] MEDS: Albumin Human 25% (12.5 gm/50 ml) IV SCH ×2 (08:44→17:15)
[2018-09-16] MEDS: Megestrol Acetate 40 mg/ml Cup PO SCH (08:53)
--- NOTE | 2018-09-16 09:07 | CP.CCUPN ---
CCU Subjective - Physician Review Events Since Last Encounter (Free Text): 09/16/18 14:58 The patient was Seen/interviewed and examined by me at the bedside during ICU round, Medical records reviewed and Management issues were discussed and formulated with the house staff. Events reviewed Patient is laying comfortable in bed he is awake and responsive Hemodynamically improved phenylephrine drip was discontinued this morning and he remains with good blood pressure Afebrile over the last 24 hours Saturation 98% on 3 L nasal cannula Pain control with Duragesis patch plus PRN Morphine This morning labs revealed Leucocytosis trending down, Plat count of 76K, stable renal function and improving hyponatremia CCU Objective - Vital Signs / Intake & Output Vital Signs (Last 4 hours): Vital Signs Temp Pulse Resp BP Pulse Ox 09/16/18 08:00 98 F 127 H 15 122/81 97 09/16/18 06:00 123 H 13 112/79 100 Intake and Output (Last 8hrs): Intake & Output 09/15/18 09/16/18 09/16/18 22:59 06:59 14:59 Intake Total 850 800 125 Balance 850 800 125 Weight 126 lb Intake: IV 650 600 75 Intake, Piggyback 200 200 Oral 50 - Physical Exam Physical Exam Limitations: Positive for: Clinical Condition Head: Positive for: Atraumatic, Normocephalic Pupils: Positive for: PERRL Extroacular Muscles: Positive for: EOMI Conjunctiva: Positive for: Normal Ears: Positive for: Normal Mouth: Positive for: Moist Mucous Membranes Nose (Internal): Positive for: Normal Inspection Neck: Positive for: Normal Range of Motion, Trachea Midline. Negative for: Meningeal Signs, MIDLINE TENDERNESS, Paraspinal Tenderness, JVD, Lymphadenopathy, Bruit, Other Respiratory/Chest: Positive for: Clear to Auscultation, Good Air Exchange. Negative for: Respiratory Distress, Accessory Muscle Use Abdomen: Positive for: Normal Bowel Sounds. Negative for: Tenderness, Distention Upper Extremity: Positive for: Edema Lower Extremity: Positive for: Edema. Negative for: CALF TENDERNESS - Medications Active Medications: Active Medications Generic Name Dose Route Start Last Admin Trade Name Freq PRN Reason Stop Dose Admin Albumin Human 50 gm 09/16/18 09:00 09/16/18 08:44 Albumin Human 25% (12.5 Gm/50 Ml) IV 50 gm Q8 [facility] Administration Fentanyl 1 patch 09/13/18 12:15 09/13/18 13:38 Duragesic TD 1 patch Q3D [facility] Administration Protocol Metronidazole 100 mls @ 100 mls/hr 09/10/18 17:00 09/16/18 08:52 Flagyl 500mg/100ml Ns IVPB 100 mls/hr Q8 [facility] Administration Amikacin Sulfate 500 mg/ 252 mls @ 250 mls/hr 09/12/18 20:00 09/15/18 20:26 Sodium Chloride IVPB 250 mls/hr DAILY@2000 [facility] Administration Protocol Piperacillin Sod/Tazobactam 100 mls @ 100 mls/hr 09/13/18 17:00 09/16/18 08:53 Sod 3.375 gm/ Sodium Chloride IVPB 100 mls/hr Q8 [facility] Administration Protocol Lactated Ringer's 1,000 mls @ 75 mls/hr 09/15/18 20:46 09/15/18 20:50 Lactated Ringer's IV 09/16/18 10:05 75 mls/hr .[id number] [facility] Administration Megestrol Acetate 800 mg 09/10/18 10:30 09/16/18 08:53 Megace PO 800 mg DAILY [facility] Administration Morphine Sulfate 2 mg 09/14/18 10:19 09/14/18 10:45 Morphine IVP 2 mg Q4 PRN Administration Pain, moderate (4-7) Pantoprazole Sodium 40 mg 09/10/18 09:00 09/16/18 08:53 Protonix Inj IVP 40 mg DAILY [facility] Administration - Patient Studies Lab Studies: Microbiology Studies 09/11/18 05:00 Blood Culture - Final Blood NO GROWTH AFTER 5 DAYS Gram Stain - Final TEST NOT PERFORMED 09/10/18 20:30 Blood Culture - Final Blood Klebsiella Pneumoniae Gram Stain - Final Lab Studies 09/16/18 09/16/18 Range/Units 04:10 04:10 WBC 10.1 (4.8-10.8) K/uL RBC 3.13 L (4.40-5.90) Mil/uL Hgb 9.2 L D (12.0-18.0) g/dL Hct 28.0 L (35.0-51.0) % MCV 89.6 (80.0-94.0) fl MCH 29.4 (27.0-31.0) pg MCHC 32.9 L (33.0-37.0) g/dL RDW 21.7 H (11.5-14.5) % Plt Count 76 L D (130-400) K/uL Sodium 135 (132-148) mmol/l Potassium 3.7 (3.6-5.0) MMOL/L Chloride 110 H (98-107) mmol/L Carbon Dioxide 15 L (22-30) mmol/L Anion Gap 14 (10-20) BUN 16 (9-20) mg/dl Creatinine 0.5 L (0.8-1.5) mg/dl Est GFR ( Amer) > 60 Est GFR (Non-Af Amer) > 60 Random Glucose 64 L (75-110) mg/dL Calcium 7.6 L (8.4-10.2) mg/dL Total Bilirubin 5.1 H (0.2-1.3) mg/dl AST 21 (17-59) U/L ALT 35 (21-72) U/L Alkaline Phosphatase 620 H (38-126) U/L Total Protein 3.4 L (6.3-8.2) G/DL Albumin 1.4 L D (3.5-5.0) g/dL Globulin 2.0 L (2.2-3.9) gm/dL Albumin/Globulin Ratio 0.7 L (1.0-2.1) Laboratory Results - last 24 hr 09/16/18 09/16/18 04:10 04:10 WBC 10.1 RBC 3.13 L Hgb 9.2 L D Hct 28.0 L MCV 89.6 MCH 29.4 MCHC 32.9 L RDW 21.7 H Plt Count 76 L D Sodium 135 Potassium 3.7 Chloride 110 H Carbon Dioxide 15 L Anion Gap 14 BUN 16 Creatinine 0.5 L Est GFR ( Amer) > 60 Est GFR (Non-Af Amer) > 60 Random Glucose 64 L Calcium 7.6 L Total Bilirubin 5.1 H AST 21 ALT 35 Alkaline Phosphatase 620 H Total Protein 3.4 L Albumin 1.4 L D Globulin 2.0 L Albumin/Globulin Ratio 0.7 L Review of Systems - Review of Systems Systems not reviewed;Unavailable: Altered Mental Status Critical Care Progress Note - Extremities/Vascular Does the Patient have a Central Venous Catheter?: Yes Does the Patient need a Central Venous Catheter?: Yes Does the Patient have a Tom Catheter?: No Does the Patient need a Tom Catheter?: No - Nutrition Nutrition: Nutrition Category Date Time Status Regular Diet [DIET] Diets 09/13/18 Dinner Active Assessment/Plan (1) Septic shock Current Visit: Yes Status: Acute Priority: High (2) Acute respiratory failure with hypoxia Current Visit: Yes Status: Acute Priority: High (3) Deep vein thrombosis (DVT) of left upper extremity Current Visit: Yes Status: Acute Priority: High (4) Metabolic acidosis Current Visit: Yes Status: Acute Priority: High (5) History of colon cancer, stage IV Current Visit: Yes Status: Acute Priority: High (6) Hyponatremia Current Visit: Yes Status: Resolved Priority: Medium (7) Thrombocytopenia Current Visit: Yes Status: Suspected Priority: Medium
--- NOTE | 2018-09-16 10:56 | CP.PCM.PN ---
Subjective - Date & Time of Evaluation Date of Evaluation: 09/16/18 Time of Evaluation: 10:56 - Subjective Subjective: pt seen and evaluated at bedside this morning. No acute events overnight. During examination, pt is noted to be off pressor therapy with a stable BP but remains tachycardic in the 110s. Lying in bed, HOB elevated, NAD. No complaints or concerns. Afebrile overnight. All pertinent lab data and nursing documentation reviewed. Objective - Vital Signs/Intake and Output Vital Signs (last 24 hours): Temp Pulse Resp BP Pulse Ox 98 F 117 H 18 114/72 97 09/16/18 08:00 09/16/18 10:00 09/16/18 10:00 09/16/18 10:00 09/16/18 10:00 Intake and Output: 09/16/18 09/16/18 06:59 18:59 Intake Total 1300 375 Balance 1300 375 - Medications Medications: Current Medications Albumin Human (Albumin Human 25% (12.5 Gm/50 Ml)) 50 gm IV Q8 [facility] Last Admin: 09/16/18 08:44 Dose: 50 gm Fentanyl (Duragesic) 1 patch TD Q3D [facility]; Protocol Last Admin: 09/13/18 13:38 Dose: 1 patch Metronidazole (Flagyl 500mg/100ml Ns) 100 mls @ 100 mls/hr IVPB Q8 [facility] Last Admin: 09/16/18 08:52 Dose: 100 mls/hr Amikacin Sulfate 500 mg/ (Sodium Chloride) 252 mls @ 250 mls/hr IVPB DAILY@2000 [facility]; Protocol Last Admin: 09/15/18 20:26 Dose: 250 mls/hr Piperacillin Sod/Tazobactam (Sod 3.375 gm/ Sodium Chloride) 100 mls @ 100 mls/hr IVPB Q8 [facility]; Protocol Last Admin: 09/16/18 08:53 Dose: 100 mls/hr Megestrol Acetate (Megace) 800 mg PO DAILY [facility] Last Admin: 09/16/18 08:53 Dose: 800 mg Morphine Sulfate (Morphine) 2 mg IVP Q4 PRN PRN Reason: Pain, moderate (4-7) Last Admin: 09/14/18 10:45 Dose: 2 mg Pantoprazole Sodium (Protonix Inj) 40 mg IVP DAILY [facility] Last Admin: 09/16/18 08:53 Dose: 40 mg - Labs Labs: 09/16/18 04:10 09/16/18 04:10 PT 35.5 Seconds (9.8-13.1) H 09/13/18 04:30 INR 3.1 09/13/18 04:30 APTT 40.3 Seconds (25.6-37.1) H 09/13/18 04:30 - Constitutional Appears: Non-toxic, No Acute Distress, Cachectic, Chronically Ill - Head Exam Head Exam: ATRAUMATIC, NORMOCEPHALIC - Eye Exam Eye Exam: EOMI, Scleral icterus Pupil Exam: PERRL - ENT Exam ENT Exam: Mucous Membranes Dry - Respiratory Exam Respiratory Exam: Clear to Ausculation Bilateral, NORMAL BREATHING PATTERN. absent: Rales, Rhonchi, Wheezes, Respiratory Distress - Cardiovascular Exam Cardiovascular Exam: Tachycardia, REGULAR RHYTHM, RRR, +S1, +S2. absent: Diastolic murmur, JVD, Rubs - GI/Abdominal Exam GI & Abdominal Exam: Soft, Normal Bowel Sounds. absent: Tenderness - Extremities Exam Extremities Exam: Pedal Edema. absent: Calf Tenderness, Tenderness Additional comments: upper and lower extremity edema, 3+ pitting, weeping from RUE. - Neurological Exam Neurological Exam: Awake, CN II-XII Intact - Skin Skin Exam: Dry, Warm Assessment and Plan - Assessment and Plan (Free Text) Assessment: 73 y/o male with hx of Stage IV Colon Cancer and DVT of Upper Extremity previously on Eliquis presented to ED by family due progressive weakness and poor po intake. Was admitted for Severe Sepsis and Pneumonia found to have Klebsiellla bacteremia, pulmonary/liver metastasis, and occluded CBD stent. Plan: Septic shock, Klebsiella bacteremia -improving -Afebrile, still tachycardic. BP WNL. -WBC: wnl today -monitor CBC -Blood Culture: 09/09/2018: Klebsiella pneumo; 09/10: GNR and 09/11: NG X 3D -C/w IV Amikacin, Zosyn and Metronidazole as per Dr. Rivera -off pressors today -Pulmonology on board, Dr Pollock: cont tx -CXR - bilateral infiltrates suggestive of pulmonary edema vs pneumonia vs metastatic ca -Echo in 09/2016 EF 35-40%, LV function mild to moderately impaired Anasarca -likely from fluid retention -albumin 1.8 -3 units albumin -IV lasix -monitor I/Os -daily weight checks Thrombocytopenia: -improving -monitor -Elquis held 2/2 to thrombocytopenia -was on Meropenem, discontinued Occluded stent: -Distal common bile duct -GI consult: Dr. Thompson: No plan for ERCP or stent -alk phos trending improved today -t bili trending up 6.2 -CT abdo: 09/12: 1. Findings are concerning for 2 metastatic lesions in the right posterior hepatic lobe measuring 1.5 cm each. 2. Moderate intrahepatic biliary dilatation and moderate dilatation of the proximal common bile duct. A metallic stent remains in place in the distal common bile duct. Apparent high attenuation soft tissue in the distal metallic stent which likely obstructs the stent. 3. Sigmoid diverticulosis. Apparent mild circumferential mural thickening and enhancement in the mid and distal descending colon and the sigmoid colon with mild pericolonic inflammatory changes concerning for acute nonspecific infectious/inflammatory colitis. No evidence for micro perforation or abscess. 4. Mild dilatation of the small bowel loops and fluid in the ascending and tr ansverse colon. 5. Moderate bilateral pleural effusions. Small abdominal ascites. 6. Multiple pulmonary metastasis in the visualized lungs. Anemia, normocytic -9.2/28.0 -monitor CBC Acute exacerbation of reduced EF-CHF (systolic dysfunction) -Acute decompensated -Daily weights, Monitor I&O's Hypophosphatemia: -resolved Hypokalemia -resolved Metabolic Acidosis -resolved Hyponatremia -resolved Acute Left Upper Extremity DVT -Was on Eliquis; d/c d/t low plt PPX measures -DVT: scd -GI: Protonix IV daily >DNR/DNI: Surrogate decision maker: vivek Peralta
--- NOTE | 2018-09-16 15:43 | CP.PCM.PN ---
Subjective - Date & Time of Evaluation Date of Evaluation: 09/16/18 Time of Evaluation: 11:20 - Subjective Subjective: F/U Respiratory failure Pt lethargic, arousable, not eating, refused breakfast. Objective - Vital Signs/Intake and Output Vital Signs (last 24 hours): Temp Pulse Resp BP Pulse Ox 97.4 F L 95 H 12 113/70 96 09/16/18 12:00 09/16/18 14:00 09/16/18 14:00 09/16/18 14:00 09/16/18 14:00 Intake and Output: 09/16/18 09/16/18 06:59 18:59 Intake Total 1300 825 Balance 1300 825 - Medications Medications: Current Medications Albumin Human (Albumin Human 25% (12.5 Gm/50 Ml)) 50 gm IV Q8 [facility] Last Admin: 09/16/18 08:44 Dose: 50 gm Fentanyl (Duragesic) 1 patch TD Q3D [facility]; Protocol Last Admin: 09/16/18 12:10 Dose: 1 patch Metronidazole (Flagyl 500mg/100ml Ns) 100 mls @ 100 mls/hr IVPB Q8 [facility] Last Admin: 09/16/18 08:52 Dose: 100 mls/hr Amikacin Sulfate 500 mg/ (Sodium Chloride) 252 mls @ 250 mls/hr IVPB DAILY@1999 [facility]; Protocol Last Admin: 09/15/18 20:26 Dose: 250 mls/hr Piperacillin Sod/Tazobactam (Sod 3.375 gm/ Sodium Chloride) 100 mls @ 100 mls/hr IVPB Q8 [facility]; Protocol Last Admin: 09/16/18 08:53 Dose: 100 mls/hr Megestrol Acetate (Megace) 800 mg PO DAILY [facility] Last Admin: 09/16/18 08:53 Dose: 800 mg Morphine Sulfate (Morphine) 2 mg IVP Q4 PRN PRN Reason: Pain, moderate (4-7) Last Admin: 09/14/18 10:45 Dose: 2 mg Pantoprazole Sodium (Protonix Inj) 40 mg IVP DAILY [facility] Last Admin: 09/16/18 08:53 Dose: 40 mg - Labs Labs: 09/16/18 04:10 09/16/18 04:10 PT 35.5 Seconds (9.8-13.1) H 09/13/18 04:30 INR 3.1 09/13/18 04:30 APTT 40.3 Seconds (25.6-37.1) H 09/13/18 04:30 - Constitutional Appears: Chronically Ill - Head Exam Head Exam: NORMAL INSPECTION - Eye Exam Eye Exam: PERRL - ENT Exam Additional comments: Hard of hearing - Neck Exam Neck Exam: Normal Inspection - Respiratory Exam Respiratory Exam: Decreased Breath Sounds (b/l), Rhonchi (scattered) - Cardiovascular Exam Cardiovascular Exam: REGULAR RHYTHM - GI/Abdominal Exam GI & Abdominal Exam: Soft, Normal Bowel Sounds - Extremities Exam Extremities Exam: Pedal Edema Additional comments: Edema BUE - Neurological Exam Additional comments: Lethargic, arousable, minimal response to tactile stimuli - Skin Skin Exam: Warm Assessment and Plan (1) Respiratory failure Status: Acute (2) Lung metastasis Status: Acute (3) Pneumonia Status: Acute (4) Sepsis Status: Acute - Assessment and Plan (Free Text) Plan: Continue O2 NC 3 L/M, Zosyn, Amikacin and rest of Tx.
[2018-09-16] MEDS: Amikacin Sulfate 500 MG in Sodium Chloride 0.9% 250 ML IVPB SCH (21:09)
[2018-09-16] MEDS ORDERED: Lactated Ringer's 1,000 ML IV SCH (22:00)
--- NOTE | 2018-09-16 22:15 | CP.PCM.PN ---
Subjective - Date & Time of Evaluation Date of Evaluation: 09/13/18 Time of Evaluation: 19:00 - Subjective Subjective: More alert, family at bedside. Objective - Vital Signs/Intake and Output Vital Signs (last 24 hours): Temp Pulse Resp BP Pulse Ox 97.9 F 95 H 23 119/74 96 09/16/18 16:00 09/16/18 18:00 09/16/18 18:00 09/16/18 18:00 09/16/18 18:00 Intake and Output: 09/16/18 09/17/18 18:59 06:59 Intake Total 1525 Balance 1525 - Medications Medications: Current Medications Albumin Human (Albumin Human 25% (12.5 Gm/50 Ml)) 50 gm IV Q8 [facility] Last Admin: 09/16/18 17:15 Dose: 50 gm Fentanyl (Duragesic) 1 patch TD Q3D [facility]; Protocol Last Admin: 09/16/18 12:10 Dose: 1 patch Metronidazole (Flagyl 500mg/100ml Ns) 100 mls @ 100 mls/hr IVPB Q8 [facility] Last Admin: 09/16/18 17:15 Dose: 100 mls/hr Amikacin Sulfate 500 mg/ (Sodium Chloride) 252 mls @ 250 mls/hr IVPB DAILY@2000 [facility]; Protocol Last Admin: 09/16/18 21:09 Dose: 250 mls/hr Piperacillin Sod/Tazobactam (Sod 3.375 gm/ Sodium Chloride) 100 mls @ 100 mls/hr IVPB Q8 [facility]; Protocol Last Admin: 09/16/18 17:16 Dose: 100 mls/hr Lactated Ringer's (Lactated Ringer's) 1,000 mls @ 75 mls/hr IV .[id number] [facility] Stop: 09/17/18 11:19 Megestrol Acetate (Megace) 800 mg PO DAILY [facility] Last Admin: 09/16/18 08:53 Dose: 800 mg Morphine Sulfate (Morphine) 2 mg IVP Q4 PRN PRN Reason: Pain, moderate (4-7) Last Admin: 09/14/18 10:45 Dose: 2 mg Pantoprazole Sodium (Protonix Inj) 40 mg IVP DAILY [facility] Last Admin: 09/16/18 08:53 Dose: 40 mg - Labs Labs: 09/16/18 04:10 09/16/18 04:10 PT 35.5 Seconds (9.8-13.1) H 09/13/18 04:30 INR 3.1 09/13/18 04:30 APTT 40.3 Seconds (25.6-37.1) H 09/13/18 04:30 - Constitutional Appears: Cachectic - Head Exam Head Exam: ATRAUMATIC - ENT Exam ENT Exam: Mucous Membranes Dry - Respiratory Exam Respiratory Exam: NORMAL BREATHING PATTERN - Cardiovascular Exam Cardiovascular Exam: +S1, +S2 - GI/Abdominal Exam GI & Abdominal Exam: Normal Bowel Sounds Assessment and Plan (1) Leukocytosis Assessment & Plan: on antibiotics Status: Acute (2) Anemia Assessment & Plan: chronic disease Status: Acute (3) DVT (deep venous thrombosis) Assessment & Plan: provoked from malignancy anticoagulation held for thrombocytopenia Status: Acute (4) Colon cancer Assessment & Plan: stage IV lung, LN, pancreatic, liver metastasis has not been on chemotherapy for about 4 weeks DNR/DNI family considering home hospice Status: Chronic
--- NOTE | 2018-09-16 22:17 | CP.PCM.PN ---
Subjective - Date & Time of Evaluation Date of Evaluation: 09/14/18 Time of Evaluation: 18:00 - Subjective Subjective: Appears comfortable, at bedside. discussed home hospice; they are awaiting the patients sister who is traveling from out of state Objective - Vital Signs/Intake and Output Vital Signs (last 24 hours): Temp Pulse Resp BP Pulse Ox 97.9 F 95 H 23 119/74 96 09/16/18 16:00 09/16/18 18:00 09/16/18 18:00 09/16/18 18:00 09/16/18 18:00 Intake and Output: 09/16/18 09/17/18 18:59 06:59 Intake Total 1525 Balance 1525 - Medications Medications: Current Medications Albumin Human (Albumin Human 25% (12.5 Gm/50 Ml)) 50 gm IV Q8 [facility] Last Admin: 09/16/18 17:15 Dose: 50 gm Fentanyl (Duragesic) 1 patch TD Q3D [facility]; Protocol Last Admin: 09/16/18 12:10 Dose: 1 patch Metronidazole (Flagyl 500mg/100ml Ns) 100 mls @ 100 mls/hr IVPB Q8 [facility] Last Admin: 09/16/18 17:15 Dose: 100 mls/hr Amikacin Sulfate 500 mg/ (Sodium Chloride) 252 mls @ 250 mls/hr IVPB DAILY@2000 [facility]; Protocol Last Admin: 09/16/18 21:09 Dose: 250 mls/hr Piperacillin Sod/Tazobactam (Sod 3.375 gm/ Sodium Chloride) 100 mls @ 100 mls/hr IVPB Q8 [facility]; Protocol Last Admin: 09/16/18 17:16 Dose: 100 mls/hr Lactated Ringer's (Lactated Ringer's) 1,000 mls @ 75 mls/hr IV .[id number] [facility] Stop: 09/17/18 11:19 Megestrol Acetate (Megace) 800 mg PO DAILY [facility] Last Admin: 09/16/18 08:53 Dose: 800 mg Morphine Sulfate (Morphine) 2 mg IVP Q4 PRN PRN Reason: Pain, moderate (4-7) Last Admin: 09/14/18 10:45 Dose: 2 mg Pantoprazole Sodium (Protonix Inj) 40 mg IVP DAILY [facility] Last Admin: 09/16/18 08:53 Dose: 40 mg - Labs Labs: 09/16/18 04:10 09/16/18 04:10 PT 35.5 Seconds (9.8-13.1) H 09/13/18 04:30 INR 3.1 09/13/18 04:30 APTT 40.3 Seconds (25.6-37.1) H 09/13/18 04:30 - Constitutional Appears: Cachectic - Head Exam Head Exam: ATRAUMATIC - ENT Exam ENT Exam: Mucous Membranes Dry - Respiratory Exam Respiratory Exam: NORMAL BREATHING PATTERN - Cardiovascular Exam Cardiovascular Exam: +S1, +S2 - GI/Abdominal Exam GI & Abdominal Exam: Normal Bowel Sounds Assessment and Plan (1) Leukocytosis Assessment & Plan: on antibiotics Status: Acute (2) Anemia Assessment & Plan: chronic disease Status: Acute (3) DVT (deep venous thrombosis) Assessment & Plan: anticoagulation on hold for thrombocytopenia Status: Acute (4) Colon cancer Assessment & Plan: stage IV DNR/DNI family considering home hospice Status: Chronic
--- NOTE | 2018-09-16 22:19 | CP.PCM.PN ---
Subjective - Date & Time of Evaluation Date of Evaluation: 09/16/18 Time of Evaluation: 19:00 - Subjective Subjective: Fatigued, weak Objective - Vital Signs/Intake and Output Vital Signs (last 24 hours): Temp Pulse Resp BP Pulse Ox 97.9 F 95 H 23 119/74 96 09/16/18 16:00 09/16/18 18:00 09/16/18 18:00 09/16/18 18:00 09/16/18 18:00 Intake and Output: 09/16/18 09/17/18 18:59 06:59 Intake Total 1525 Balance 1525 - Medications Medications: Current Medications Albumin Human (Albumin Human 25% (12.5 Gm/50 Ml)) 50 gm IV Q8 [facility] Last Admin: 09/16/18 17:15 Dose: 50 gm Fentanyl (Duragesic) 1 patch TD Q3D [facility]; Protocol Last Admin: 09/16/18 12:10 Dose: 1 patch Metronidazole (Flagyl 500mg/100ml Ns) 100 mls @ 100 mls/hr IVPB Q8 [facility] Last Admin: 09/16/18 17:15 Dose: 100 mls/hr Amikacin Sulfate 500 mg/ (Sodium Chloride) 252 mls @ 250 mls/hr IVPB DAILY@2000 [facility]; Protocol Last Admin: 09/16/18 21:09 Dose: 250 mls/hr Piperacillin Sod/Tazobactam (Sod 3.375 gm/ Sodium Chloride) 100 mls @ 100 mls/hr IVPB Q8 [facility]; Protocol Last Admin: 09/16/18 17:16 Dose: 100 mls/hr Lactated Ringer's (Lactated Ringer's) 1,000 mls @ 75 mls/hr IV .[id number] [facility] Stop: 09/17/18 11:19 Megestrol Acetate (Megace) 800 mg PO DAILY [facility] Last Admin: 09/16/18 08:53 Dose: 800 mg Morphine Sulfate (Morphine) 2 mg IVP Q4 PRN PRN Reason: Pain, moderate (4-7) Last Admin: 09/14/18 10:45 Dose: 2 mg Pantoprazole Sodium (Protonix Inj) 40 mg IVP DAILY [facility] Last Admin: 09/16/18 08:53 Dose: 40 mg - Labs Labs: 09/16/18 04:10 09/16/18 04:10 PT 35.5 Seconds (9.8-13.1) H 09/13/18 04:30 INR 3.1 09/13/18 04:30 APTT 40.3 Seconds (25.6-37.1) H 09/13/18 04:30 - Head Exam Head Exam: ATRAUMATIC - Eye Exam Eye Exam: Normal appearance - ENT Exam ENT Exam: Mucous Membranes Dry - Respiratory Exam Respiratory Exam: NORMAL BREATHING PATTERN - Cardiovascular Exam Cardiovascular Exam: +S1, +S2 - GI/Abdominal Exam GI & Abdominal Exam: Normal Bowel Sounds Assessment and Plan (1) Anemia Assessment & Plan: anemia of chronic disease Status: Acute (2) DVT (deep venous thrombosis) Assessment & Plan: provoked from immobility anticoagulation on hold for thrombocytopenia Status: Acute (3) Colon cancer Assessment & Plan: stage IV DNR/DNI Status: Chronic
[2018-09-17] MEDS: metroNIDAZOLE 500mg/100ml NS 100 ML IVPB SCH ×4 (00:26→17:00)
[2018-09-17] MEDS: Piperacillin/Tazobact 3.375 GM in Sodium Chloride 0.9% 100 ML IVPB SCH ×3 (00:27→17:46)
[2018-09-17] MEDS: Albumin Human 25% (12.5 gm/50 ml) IV SCH ×2 (00:53→10:01)
[2018-09-17] MEDS ORDERED: Albuterol-Ipratrop 3 mg / 0.5 (3 ml) UD INH PRN (04:50)
[2018-09-17 05:43] LABS: BASO % 0.1 % (0.0-2.0); EOS # 0.3 K/uL (0.0-0.7); EOS % 2.5 % (0.0-4.0); HEMOGLOBIN 7.9 g/dL (12.0-18.0); LYMPH # 0.4 K/uL (1.0-4.3); LYMPH % 4.2 % (20.0-40.0); MEAN CELL VOLUME 88.9 fl (80.0-94.0); MEAN CORPUSCULAR HEMOGLOBIN 29.6 pg (27.0-31.0); MEAN CORPUSCULAR HGB CONC 33.3 g/dL (33.0-37.0); MEAN PLATELET VOLUME 9.5 fl (7.2-11.7); MONO # 0.7 K/uL (0.0-0.8); MONO % 6.5 % (0.0-10.0); NEUT # 9.3 K/uL (1.8-7.0); NEUT % 86.7 % (50.0-75.0); RBC 2.68 Mil/uL (4.40-5.90); RED CELL DISTRIBUTION WIDTH 21.4 % (11.5-14.5); WHITE BLOOD COUNT 10.7 K/uL (4.8-10.8)
[2018-09-17 05:45] LABS: PLATELET COUNT 105 K/uL (130-400)
[2018-09-17 06:00] LABS: B-TYPE NATRIURETIC PEPTIDE 7610 pg/ml (0-900)
[2018-09-17 06:53] LABS: ALB/GLOB RATIO 1.6 (1.0-2.1); ALBUMIN 3.3 g/dL (3.5-5.0); ALT/SGPT 32 U/L (21-72); AST/SGOT 27 U/L (17-59); BLOOD UREA NITROGEN 17 mg/dl (9-20); CALCIUM 9.4 mg/dL (8.4-10.2); GFR NON-AFRICAN AMERICAN > 60
--- NOTE | 2018-09-17 07:11 | CP.PCM.PN ---
Subjective - Date & Time of Evaluation Date of Evaluation: 09/17/18 Time of Evaluation: 07:11 - Subjective Subjective: pt seen and evaluated at bedside. Had episodes of tachypnea overnight requiring addition Lasix therapy. BP stable, remains tachycardic at 110s. POX 100% on 2L NC. Afebrile. Pt is awake, speaking in full sentences and responding to commands but remains weak with low energy and soft voice. Refuses to eat. Has been urinating frequently after Lasix administration. No other complaints/concerns. Objective - Vital Signs/Intake and Output Vital Signs (last 24 hours): Temp Pulse Resp BP Pulse Ox 97.6 F 125 H 35 H 144/91 H 97 09/17/18 00:00 09/17/18 06:00 09/17/18 06:00 09/17/18 06:00 09/17/18 06:00 Intake and Output: 09/17/18 09/17/18 06:59 18:59 Intake Total 1027 Output Total 1 Balance 1026 - Medications Medications: Current Medications Albumin Human (Albumin Human 25% (12.5 Gm/50 Ml)) 50 gm IV Q8 [facility] Last Admin: 09/17/18 00:53 Dose: 50 gm Albuterol/Ipratropium (Duoneb 3 Mg/0.5 Mg (3 Ml) Ud) 3 ml INH RQ6 PRN PRN Reason: Shortness of Breath Last Admin: 09/17/18 05:11 Dose: 3 ml Fentanyl (Duragesic) 1 patch TD Q3D [facility]; Protocol Last Admin: 09/16/18 12:10 Dose: 1 patch Metronidazole (Flagyl 500mg/100ml Ns) 100 mls @ 100 mls/hr IVPB Q8 [facility] Last Admin: 09/17/18 00:26 Dose: 100 mls/hr Amikacin Sulfate 500 mg/ (Sodium Chloride) 252 mls @ 250 mls/hr IVPB DAILY@2000 [facility]; Protocol Last Admin: 09/16/18 21:09 Dose: 250 mls/hr Piperacillin Sod/Tazobactam (Sod 3.375 gm/ Sodium Chloride) 100 mls @ 100 mls/hr IVPB Q8 [facility]; Protocol Last Admin: 09/17/18 00:27 Dose: 100 mls/hr Megestrol Acetate (Megace) 800 mg PO DAILY [facility] Last Admin: 09/16/18 08:53 Dose: 800 mg Morphine Sulfate (Morphine) 2 mg IVP Q4 PRN PRN Reason: Pain, moderate (4-7) Last Admin: 09/14/18 10:45 Dose: 2 mg Pantoprazole Sodium (Protonix Inj) 40 mg IVP DAILY [facility] Last Admin: 09/16/18 08:53 Dose: 40 mg - Labs Labs: 09/17/18 05:00 09/17/18 05:00 PT 35.5 Seconds (9.8-13.1) H 09/13/18 04:30 INR 3.1 09/13/18 04:30 APTT 40.3 Seconds (25.6-37.1) H 09/13/18 04:30 - Constitutional Appears: Non-toxic, No Acute Distress, Cachectic, Chronically Ill - Eye Exam Eye Exam: EOMI, Scleral icterus Pupil Exam: NORMAL ACCOMODATION, PERRL - ENT Exam ENT Exam: Mucous Membranes Moist, Normal Exam - Neck Exam Neck Exam: Full ROM. absent: Lymphadenopathy - Respiratory Exam Respiratory Exam: Clear to Ausculation Bilateral, NORMAL BREATHING PATTERN. absent: Rales, Rhonchi, Wheezes - Cardiovascular Exam Cardiovascular Exam: Tachycardia, REGULAR RHYTHM, RRR, +S1, +S2. absent: JVD, Rubs - GI/Abdominal Exam GI & Abdominal Exam: Soft, Normal Bowel Sounds. absent: Tenderness - Extremities Exam Extremities Exam: Pedal Edema (2+ pitting edema b/l) Additional comments: improving generalized edema - Neurological Exam Neurological Exam: Alert, Awake, CN II-XII Intact - Psychiatric Exam Psychiatric exam: Normal Affect, Normal Mood - Skin Skin Exam: absent: Normal Color (jaundiced ) Assessment and Plan - Assessment and Plan (Free Text) Assessment: 73 y/o male with hx of Stage IV Colon Cancer and DVT of Upper Extremity previously on Eliquis presented to ED by family due progressive weakness and poor po intake. Was admitted for Severe Sepsis and Pneumonia found to have Klebsiellla bacteremia, pulmonary/liver metastasis, and occluded CBD stent. Has been treated with Amikaycin, Flagyl and Zosyn with improvement. Pt remains weak, refuses to eat, and is still tachycardic despite stable BP. Plan: Septic shock, Klebsiella bacteremia -resolved -Afebrile, still tachycardic. BP WNL. -WBC: stable -monitor CBC -Blood Culture: 09/09/2018: Klebsiella pneumo; 09/10: GNR and 09/11: NG X 3D -C/w IV Amikacin, Zosyn and Metronidazole as per Dr. Rivera -off pressors x2days -Pulmonology on board, Dr Pollock: cont tx -CXR - bilateral infiltrates suggestive of pulmonary edema vs pneumonia vs metastatic ca -Echo in 09/2016 EF 35-40%, LV function mild to moderately impaired -transfer to med/surg Anasarca -improving -s/p 3 doses Albumin -albumin 3.3 -IV lasix -monitor I/Os -daily weight checks Thrombocytopenia: -improving, 106 today -monitor -Elquis held 08/17 to thrombocytopenia -was on Meropenem, discontinued Occluded stent: -Distal common bile duct -GI consult: Dr. Thompson: No plan for ERCP or stent -alk phos trending up today -t bili trending up 7.4 -CT abdo: 09/12: 1. Findings are concerning for 2 metastatic lesions in the right posterior hepatic lobe measuring 1.5 cm each. 2. Moderate intrahepatic biliary dilatation and moderate dilatation of the proximal common bile duct. A metallic stent remains in place in the distal common bile duct. Apparent high attenuation soft tissue in the distal metallic stent which likely obstructs the stent. 3. Sigmoid diverticulosis. Apparent mild circumferential mural thickening and enhancement in the mid and distal descending colon and the sigmoid colon with mild pericolonic inflammatory changes concerning for acute nonspecific infectious/inflammatory colitis. No evidence for micro perforation or abscess. 4. Mild dilatation of the small bowel loops and fluid in the ascending and transverse colon. 5. Moderate bilateral pleural effusions. Small abdominal ascites. 6. Multiple pulmonary metastasis in the visualized lungs. Anemia, normocytic -worsened today -7.9/23.8 -no evidence of bleeding -monitor CBC Acute exacerbation of reduced EF-CHF (systolic dysfunction) -Acute decompensated -Daily weights, Monitor I&O's -IV lasix Hypophosphatemia: -resolved Hypokalemia -resolved Metabolic Acidosis -resolved Hyponatremia -resolved Acute Left Upper Extremity DVT -Was on Eliquis; d/c d/t low plt PPX measures -DVT: scd -GI: Protonix IV daily >DNR/DNI: Surrogate decision maker: Kathryn, spouse -overall, pt has had guarded/poor prognosis
[2018-09-17] MEDS ORDERED: Potassium Chloride 20 mEq/15 ml LIQ UD PO ONE ×2 (07:29→21:46)
--- NOTE | 2018-09-17 08:07 | RAD ---
Date of service: 09/17/2018 HISTORY: SOB COMPARISON: Portable chest 09/10/2018. FINDINGS: LUNGS: MediPort placement unchanged. Diminished inspiratory volume may be crowding the bronchovascular markings at the bilateral bases contributing to appearance of slight increase patchy density at the right base with left base unchanged. Widespread pulmonary metastases are reiterated. PLEURA: Trace bilateral pleural effusions are not excluded. No pneumothorax bilaterally. CARDIOVASCULAR: No aortic atherosclerotic calcification present. Normal cardiac size. No pulmonary vascular congestion. OSSEOUS STRUCTURES: No significant abnormalities. VISUALIZED UPPER ABDOMEN: Normal. OTHER FINDINGS: None. IMPRESSION: Diminished history volume. Increase in basilar infiltrates is not excluded though the likely stable in the interval. Widespread pulmonary metastases reiterated. Trace bilateral pleural effusions questioned.
[2018-09-17 09:02] LABS: ABG ALLEN TEST YES; ARTERIAL BLOOD GAS HCO3 23.8 mmol/L (21-28); ARTERIAL BLOOD GAS O2 SAT 98.3 % (95-98); ARTERIAL BLOOD GAS PCO2 28 mm/Hg (35-45); ARTERIAL BLOOD GAS PH 7.49 (7.35-7.45); ARTERIAL BLOOD GAS PO2 113 mm/Hg (80-100); ARTERIAL BLOOD GAS TCO2 22.2 mmol/L (22-28)
[2018-09-17 09:48] LABS: BANDS 1 % (0-2); LYMPHOCYTE 2 % (20-50); NEUTROPHIL 94 % (42-75); TOTAL CELLS COUNTED 100
[2018-09-17 09:49] LABS: ANISOCYTOSIS MODERATE; HYPOCHROMIC MODERATE; LARGE PLATELETS PRESENT; OVALOCYTES SLIGHT; PLATELET ESTIMATE DECREASED (NORMAL); SCHISTOCYTES SLIGHT; TOXIC GRANULATION PRESENT
[2018-09-17] MEDS: Megestrol Acetate 40 mg/ml Cup PO SCH (10:02)
[2018-09-17 10:24] LABS: MONOCYTE 3 % (0-10)
[2018-09-17 10:25] LABS: EOSINOPHIL 0 % (0-7)
--- NOTE | 2018-09-17 11:42 | CP.CCUPN ---
CCU Subjective - Physician Review Events Since Last Encounter (Free Text): 09/17/18 16:28 The patient was Seen/interviewed and examined by me at the bedside during ICU round, Medical records reviewed and Management issues were discussed and formulated with the house staff. Events reviewed This morning is doing well Patient is laying comfortable in bed he is awake and responsive Hemodynamically improved phenylephrine drip was discontinued yesterday morning and he remains with good blood pressure Afebrile over the last 24 hours Saturation 98% on 3 L nasal cannula Pain control with Duragesis patch plus PRN Morphine He will be evaluated today by swallow speech therapy Patient is hemodynamically stable for transfer out of the ICU Patient is DNR/DNI CCU Objective - Vital Signs / Intake & Output Vital Signs (Last 4 hours): Vital Signs Temp Pulse Resp BP Pulse Ox 09/17/18 10:24 108/59 L 09/17/18 08:00 97.6 F 106 H 22 128/87 95 Intake and Output (Last 8hrs): Intake & Output 09/16/18 09/17/18 09/17/18 22:59 06:59 14:59 Intake Total 1177 550 Output Total 1 Balance 1176 550 Weight 125 lb Intake: IV 525 150 Intake, Piggyback 652 400 Output: Urine/Stool Mix 1 - Physical Exam Head: Positive for: Atraumatic, Normocephalic Pupils: Positive for: PERRL Extroacular Muscles: Positive for: EOMI Conjunctiva: Positive for: Normal Ears: Positive for: Normal Mouth: Positive for: Moist Mucous Membranes Nose (Internal): Positive for: Normal Inspection Neck: Positive for: Normal Range of Motion, Trachea Midline. Negative for: Meningeal Signs, MIDLINE TENDERNESS, Paraspinal Tenderness, JVD, Lymphadenopathy, Bruit, Other Respiratory/Chest: Positive for: Clear to Auscultation, Good Air Exchange. Negative for: Respiratory Distress, Accessory Muscle Use Abdomen: Positive for: Normal Bowel Sounds. Negative for: Tenderness, Distention Upper Extremity: Positive for: Edema Lower Extremity: Positive for: Edema. Negative for: CALF TENDERNESS - Medications Active Medications: Active Medications Generic Name Dose Route Start Last Admin Trade Name Freq PRN Reason Stop Dose Admin Albuterol/Ipratropium 3 ml 09/17/18 04:50 09/17/18 05:11 Duoneb 3 Mg/0.5 Mg (3 Ml) Ud INH 3 ml RQ6 PRN Administration Shortness of Breath Fentanyl 1 patch 09/13/18 12:15 09/16/18 12:10 Duragesic TD 1 patch Q3D [facility] Administration Protocol Metronidazole 100 mls @ 100 mls/hr 09/10/18 17:00 09/17/18 10:01 Flagyl 500mg/100ml Ns IVPB 100 mls/hr Q8 [facility] Administration Amikacin Sulfate 500 mg/ 252 mls @ 250 mls/hr 09/12/18 20:00 09/16/18 21:09 Sodium Chloride IVPB 250 mls/hr DAILY@2000 [facility] Administration Protocol Piperacillin Sod/Tazobactam 100 mls @ 100 mls/hr 09/13/18 17:00 09/17/18 10:02 Sod 3.375 gm/ Sodium Chloride IVPB 100 mls/hr Q8 [facility] Administration Protocol Megestrol Acetate 800 mg 09/10/18 10:30 09/17/18 10:02 Megace PO Not Given DAILY [facility] Morphine Sulfate 2 mg 09/14/18 10:19 09/14/18 10:45 Morphine IVP 2 mg Q4 PRN Administration Pain, moderate (4-7) Pantoprazole Sodium 40 mg 09/10/18 09:00 09/17/18 10:02 Protonix Inj IVP 40 mg DAILY [facility] Administration - Patient Studies Lab Studies: Microbiology Studies 09/15/18 10:07 Blood Culture - Preliminary Blood NO GROWTH AFTER 48 HOURS 09/16/18 08:50 Blood Culture - Preliminary Blood NO GROWTH AFTER 24 HOURS Lab Studies 09/17/18 09/17/18 09/17/18 Range/Units 08:50 05:00 05:00 WBC 10.7 (4.8-10.8) K/uL RBC 2.68 L (4.40-5.90) Mil/uL Hgb 7.9 L (12.0-18.0) g/dL Hct 23.8 L (35.0-51.0) % MCV 88.9 (80.0-94.0) fl MCH 29.6 (27.0-31.0) pg MCHC 33.3 (33.0-37.0) g/dL RDW 21.4 H (11.5-14.5) % Plt Count 105 L D (130-400) K/uL MPV 9.5 (7.2-11.7) fl Neut % (Auto) 86.7 H (50.0-75.0) % Lymph % (Auto) 4.2 L (20.0-40.0) % [place] % (Auto) 6.5 (0.0-10.0) % Eos % (Auto) 2.5 (0.0-4.0) % Baso % (Auto) 0.1 (0.0-2.0) % Neut # (Auto) 9.3 H (1.8-7.0) K/uL Lymph # (Auto) 0.4 L (1.0-4.3) K/uL [place] # (Auto) 0.7 (0.0-0.8) K/uL Eos # (Auto) 0.3 (0.0-0.7) K/uL Baso # (Auto) 0.0 (0.0-0.2) K/uL Neutrophils % (Manual) 94 H (42-75) % Band Neutrophils % 1 (0-2) % Lymphocytes % (Manual) 2 L (20-50) % Monocytes % (Manual) 3 (0-10) % Eosinophils % (Manual) 0 (0-7) % Toxic Granulation Present Platelet Estimate Decreased L (NORMAL) Large Platelets Present Hypochromasia (manual) Moderate Anisocytosis (manual) Moderate Ovalocytes Slight Schistocytes Slight pCO2 28 L (35-45) mm/Hg pO2 113 H (80-100) mm/Hg HCO3 23.8 (21-28) mmol/L ABG pH 7.49 H (7.35-7.45) ABG Total CO2 22.2 (22-28) mmol/L ABG O2 Saturation 98.3 H (95-98) % ABG Base Excess -1.5 (-2.0-3.0) mmol/L Alberto Test Yes ABG Potassium 2.8 L (3.6-5.2) mmol/L A-a O2 Difference 109.0 mm/Hg Glucose 96 (75-110) mg/dL Lactate 1.0 (0.7-2.1) mmol/L FiO2 36.0 % Sodium 137.0 138 (132-148) mmol/l Potassium 3.2 L (3.6-5.0) MMOL/L Chloride 108.0 H 108 H (98-107) mmol/L Carbon Dioxide 18 L (22-30) mmol/L Anion Gap 15 (10-20) BUN 17 (9-20) mg/dl Creatinine 0.6 L (0.8-1.5) mg/dl Est GFR ( Amer) > 60 Est GFR (Non-Af Amer) > 60 Random Glucose 70 L (75-110) mg/dL Calcium 9.4 (8.4-10.2) mg/dL Total Bilirubin 7.4 H (0.2-1.3) mg/dl AST 27 (17-59) U/L ALT 32 (21-72) U/L Alkaline Phosphatase 695 H (38-126) U/L NT-Pro-B Natriuret Pep 7610 H (0-900) pg/ml Total Protein 5.4 L (6.3-8.2) G/DL Albumin 3.3 L D (3.5-5.0) g/dL Globulin 2.1 L (2.2-3.9) gm/dL Albumin/Globulin Ratio 1.6 (1.0-2.1) Arterial Blood Potassium 2.8 L (3.6-5.2) mmol/L Laboratory Results - last 24 hr 09/17/18 09/17/18 09/17/18 05:00 05:00 08:50 WBC 10.7 RBC 2.68 L Hgb 7.9 L Hct 23.8 L MCV 88.9 MCH 29.6 MCHC 33.3 RDW 21.4 H Plt Count 105 L D MPV 9.5 Neut % (Auto) 86.7 H Lymph % (Auto) 4.2 L [place] % (Auto) 6.5 Eos % (Auto) 2.5 Baso % (Auto) 0.1 Neut # (Auto) 9.3 H Lymph # (Auto) 0.4 L [place] # (Auto) 0.7 Eos # (Auto) 0.3 Baso # (Auto) 0.0 Neutrophils % (Manual) 94 H Band Neutrophils % 1 Lymphocytes % (Manual) 2 L Monocytes % (Manual) 3 Eosinophils % (Manual) 0 Toxic Granulation Present Platelet Estimate Decreased L Large Platelets Present Hypochromasia (manual) Moderate Anisocytosis (manual) Moderate Ovalocytes Slight Schistocytes Slight pCO2 28 L pO2 113 H HCO3 23.8 ABG pH 7.49 H ABG Total CO2 22.2 ABG O2 Saturation 98.3 H ABG Base Excess -1.5 Alberto Test Yes ABG Potassium 2.8 L A-a O2 Difference 109.0 Glucose 96 Lactate 1.0 FiO2 36.0 Sodium 138 137.0 Potassium 3.2 L Chloride 108 H 108.0 H Carbon Dioxide 18 L Anion Gap 15 BUN 17 Creatinine 0.6 L Est GFR ( Amer) > 60 Est GFR (Non-Af Amer) > 60 Random Glucose 70 L Calcium 9.4 Total Bilirubin 7.4 H AST 27 ALT 32 Alkaline Phosphatase 695 H NT-Pro-B Natriuret Pep 7610 H Total Protein 5.4 L Albumin 3.3 L D Globulin 2.1 L Albumin/Globulin Ratio 1.6 Arterial Blood Potassium 2.8 L Radiology Impressions: Radiology Impressions Chest X-Ray 09/17/18 04:50 IMPRESSION: Diminished history volume. Increase in basilar infiltrates is not excluded though the likely stable in the interval. Widespread pulmonary metastases reiterated. Trace bilateral pleural effusions questioned. Review of Systems - Constitutional Constitutional: Weakness. absent: Fever, Chills, Sweats, Malaise - Cardiovascular Cardiovascular: absent: Chest Pain, Chest Pain at Rest, Chest Pain with Activity, Claudication - Respiratory Respiratory: absent: Cough, Dyspnea, Hemoptysis, Dyspnea on Exertion Critical Care Progress Note - Extremities/Vascular Does the Patient have a Central Venous Catheter?: No Does the Patient need a Central Venous Catheter?: No Does the Patient have a Tom Catheter?: No Does the Patient need a Tom Catheter?: No - Nutrition Nutrition: Nutrition Category Date Time Status Regular Diet [DIET] Diets 09/13/18 Dinner Active Assessment/Plan (1) Septic shock Current Visit: Yes Status: Resolved Priority: Medium (2) Acute respiratory failure with hypoxia Current Visit: Yes Status: Resolved Priority: Medium (3) Deep vein thrombosis (DVT) of left upper extremity Current Visit: Yes Status: Chronic Priority: Medium (4) History of colon cancer, stage IV Current Visit: Yes Status: Acute Priority: High (5) Hyponatremia Current Visit: Yes Status: Resolved Priority: Medium (6) Thrombocytopenia Current Visit: Yes Status: Suspected Priority: Medium
[2018-09-17] MEDS: Amikacin Sulfate 500 MG in Sodium Chloride 0.9% 250 ML IVPB SCH (20:57)
--- NOTE | 2018-09-17 22:14 | CP.PCM.PN ---
Subjective - Date & Time of Evaluation Date of Evaluation: 09/17/18 Time of Evaluation: 20:00 - Subjective Subjective: Weak, family at bedside agreeable to rehab Objective - Vital Signs/Intake and Output Vital Signs (last 24 hours): Temp Pulse Resp BP Pulse Ox 97.6 F 106 H 22 108/59 L 95 09/17/18 08:00 09/17/18 08:00 09/17/18 08:00 09/17/18 10:24 09/17/18 08:00 - Medications Medications: Current Medications Albuterol/Ipratropium (Duoneb 3 Mg/0.5 Mg (3 Ml) Ud) 3 ml INH RQ6 PRN PRN Reason: Shortness of Breath Last Admin: 09/17/18 05:11 Dose: 3 ml Fentanyl (Duragesic) 1 patch TD Q3D [facility]; Protocol Last Admin: 09/16/18 12:10 Dose: 1 patch Metronidazole (Flagyl 500mg/100ml Ns) 100 mls @ 100 mls/hr IVPB Q8 [facility] Last Admin: 09/17/18 17:00 Dose: 100 mls/hr Amikacin Sulfate 500 mg/ (Sodium Chloride) 252 mls @ 250 mls/hr IVPB DAILY@2000 [facility]; Protocol Last Admin: 09/17/18 20:57 Dose: 250 mls/hr Piperacillin Sod/Tazobactam (Sod 3.375 gm/ Sodium Chloride) 100 mls @ 100 mls/hr IVPB Q8 [facility]; Protocol Last Admin: 09/17/18 17:46 Dose: 100 mls/hr Megestrol Acetate (Megace) 800 mg PO DAILY [facility] Last Admin: 09/17/18 10:02 Dose: Not Given Morphine Sulfate (Morphine) 2 mg IVP Q4 PRN PRN Reason: Pain, moderate (4-7) Last Admin: 09/14/18 10:45 Dose: 2 mg Pantoprazole Sodium (Protonix Inj) 40 mg IVP DAILY [facility] Last Admin: 09/17/18 10:02 Dose: 40 mg - Labs Labs: 09/17/18 05:00 09/17/18 05:00 PT 35.5 Seconds (9.8-13.1) H 09/13/18 04:30 INR 3.1 09/13/18 04:30 APTT 40.3 Seconds (25.6-37.1) H 09/13/18 04:30 - Constitutional Appears: Cachectic - Head Exam Head Exam: ATRAUMATIC - Eye Exam Eye Exam: Normal appearance - ENT Exam ENT Exam: Mucous Membranes Dry - Respiratory Exam Respiratory Exam: NORMAL BREATHING PATTERN - Cardiovascular Exam Cardiovascular Exam: +S1, +S2 - GI/Abdominal Exam GI & Abdominal Exam: Normal Bowel Sounds - Extremities Exam Extremities Exam: Pedal Edema Assessment and Plan (1) Anemia Assessment & Plan: chronic disease transfusion support PRN Status: Acute (2) DVT (deep venous thrombosis) Assessment & Plan: on Eliquis Status: Acute (3) Colon cancer Assessment & Plan: stage IV chemotherapy stopped DNR/DNI for [facility] Status: Chronic
[2018-09-18] MEDS: metroNIDAZOLE 500mg/100ml NS 100 ML IVPB SCH ×2 (01:16→10:32)
[2018-09-18] MEDS: Piperacillin/Tazobact 3.375 GM in Sodium Chloride 0.9% 100 ML IVPB SCH ×3 (02:00→17:09)
[2018-09-18 06:30] LABS: HEMOGLOBIN 8.4 g/dL (12.0-18.0); MEAN CELL VOLUME 88.5 fl (80.0-94.0); MEAN CORPUSCULAR HEMOGLOBIN 29.9 pg (27.0-31.0); MEAN CORPUSCULAR HGB CONC 33.8 g/dL (33.0-37.0); RBC 2.8 Mil/uL (4.40-5.90); WHITE BLOOD COUNT 10.9 K/uL (4.8-10.8)
[2018-09-18 06:44] LABS: ALB/GLOB RATIO 1.3 (1.0-2.1); ALBUMIN 2.7 g/dL (3.5-5.0); ALT/SGPT 35 U/L (21-72); AST/SGOT 31 U/L (17-59); BLOOD UREA NITROGEN 12 mg/dl (9-20); GFR NON-AFRICAN AMERICAN > 60
[2018-09-18] MEDS ORDERED: Potassium Chloride 20 mEq 100 ML IVPB ONE (08:48)
[2018-09-18] MEDS ORDERED: Potassium Chloride 20 mEq/15 ml LIQ UD PO ONE (08:48)
[2018-09-18] MEDS: Megestrol Acetate 40 mg/ml Cup PO SCH (10:31)
--- NOTE | 2018-09-18 11:08 | CP.PCM.PN ---
Subjective - Date & Time of Evaluation Date of Evaluation: 09/18/18 Time of Evaluation: 08:30 Objective - Vital Signs/Intake and Output Vital Signs (last 24 hours): Temp Pulse Resp BP Pulse Ox 97.9 F 76 21 136/76 94 L 09/18/18 08:16 09/18/18 08:16 09/18/18 08:16 09/18/18 08:16 09/18/18 08:16 - Medications Medications: Current Medications Albuterol/Ipratropium (Duoneb 3 Mg/0.5 Mg (3 Ml) Ud) 3 ml INH RQ6 PRN PRN Reason: Shortness of Breath Last Admin: 09/17/18 05:11 Dose: 3 ml Fentanyl (Duragesic) 1 patch TD Q3D [facility]; Protocol Last Admin: 09/16/18 12:10 Dose: 1 patch Metronidazole (Flagyl 500mg/100ml Ns) 100 mls @ 100 mls/hr IVPB Q8 [facility] Last Admin: 09/18/18 10:32 Dose: 100 mls/hr Amikacin Sulfate 500 mg/ (Sodium Chloride) 252 mls @ 250 mls/hr IVPB DAILY@2000 [facility]; Protocol Last Admin: 09/17/18 20:57 Dose: 250 mls/hr Piperacillin Sod/Tazobactam (Sod 3.375 gm/ Sodium Chloride) 100 mls @ 100 mls/hr IVPB Q8 [facility]; Protocol Last Admin: 09/18/18 10:31 Dose: 100 mls/hr Megestrol Acetate (Megace) 800 mg PO DAILY [facility] Last Admin: 09/18/18 10:31 Dose: 800 mg Morphine Sulfate (Morphine) 2 mg IVP Q4 PRN PRN Reason: Pain, moderate (4-7) Last Admin: 09/14/18 10:45 Dose: 2 mg Pantoprazole Sodium (Protonix Inj) 40 mg IVP DAILY [facility] Last Admin: 09/18/18 10:34 Dose: 40 mg - Labs Labs: 09/18/18 06:00 09/18/18 06:00 PT 35.5 Seconds (9.8-13.1) H 09/13/18 04:30 INR 3.1 09/13/18 04:30 APTT 40.3 Seconds (25.6-37.1) H 09/13/18 04:30
[2018-09-18] MEDS ORDERED: Albumin Human 25% (12.5 gm/50 ml) IV ONE (13:33)
--- NOTE | 2018-09-18 15:13 | CP.PCM.PN ---
Subjective - Date & Time of Evaluation Date of Evaluation: 09/18/18 - Subjective Subjective: F/U Pulmonary consult. Pt with eyes open, no pain, no SOB Objective - Vital Signs/Intake and Output Vital Signs (last 24 hours): Temp Pulse Resp BP Pulse Ox 97.9 F 90 21 136/76 96 09/18/18 08:16 09/18/18 14:26 09/18/18 08:16 09/18/18 08:16 09/18/18 14:26 - Medications Medications: Current Medications Albuterol/Ipratropium (Duoneb 3 Mg/0.5 Mg (3 Ml) Ud) 3 ml INH RQ6 PRN PRN Reason: Shortness of Breath Last Admin: 09/17/18 05:11 Dose: 3 ml Fentanyl (Duragesic) 1 patch TD Q3D [facility]; Protocol Last Admin: 09/16/18 12:10 Dose: 1 patch Metronidazole (Flagyl 500mg/100ml Ns) 100 mls @ 100 mls/hr IVPB Q8 [facility] Last Admin: 09/18/18 10:32 Dose: 100 mls/hr Amikacin Sulfate 500 mg/ (Sodium Chloride) 252 mls @ 250 mls/hr IVPB DAILY@2000 [facility]; Protocol Last Admin: 09/17/18 20:57 Dose: 250 mls/hr Piperacillin Sod/Tazobactam (Sod 3.375 gm/ Sodium Chloride) 100 mls @ 100 mls/hr IVPB Q8 [facility]; Protocol Last Admin: 09/18/18 10:31 Dose: 100 mls/hr Megestrol Acetate (Megace) 800 mg PO DAILY [facility] Last Admin: 09/18/18 10:31 Dose: 800 mg Morphine Sulfate (Morphine) 2 mg IVP Q4 PRN PRN Reason: Pain, moderate (4-7) Last Admin: 09/14/18 10:45 Dose: 2 mg Pantoprazole Sodium (Protonix Inj) 40 mg IVP DAILY [facility] Last Admin: 09/18/18 10:34 Dose: 40 mg - Labs Labs: 09/18/18 06:00 09/18/18 06:00 PT 35.5 Seconds (9.8-13.1) H 09/13/18 04:30 INR 3.1 09/13/18 04:30 APTT 40.3 Seconds (25.6-37.1) H 09/13/18 04:30 - Constitutional Appears: Chronically Ill, Other (Generalized edema.) - Head Exam Head Exam: NORMAL INSPECTION - Eye Exam Eye Exam: PERRL - ENT Exam Additional comments: Hard of hearing - Neck Exam Neck Exam: Normal Inspection - Respiratory Exam Respiratory Exam: Decreased Breath Sounds (b/l), Rhonchi (scattered) - Cardiovascular Exam Cardiovascular Exam: REGULAR RHYTHM - Extremities Exam Additional comments: edema all extremities. - Neurological Exam Neurological Exam: Alert, Awake, CN II-XII Intact - Skin Skin Exam: Warm Assessment and Plan (1) Respiratory failure Status: Acute (2) Lung metastasis Status: Acute (3) Pneumonia Status: Acute (4) Sepsis Status: Acute - Assessment and Plan (Free Text) Plan: Continue Duoneb, Zosyn, Amikacin, Zosyn, Morphine and rest of Tx.
--- NOTE | 2018-09-18 15:53 | CP.PCM.DIS ---
Provider - Provider Date of Admission: 09/09/18 21:28 Attending physician: Ti Myers MD Consults: 09/10/18 03:54 Physician Consult Routine Comment: Consulting Provider: Davi Leggett Consulting Physician: Davi Leggett Reason for Consult: pt with colon ca Stage IV, septic shock Pulmonology Consult Routine Comment: Consulting Provider: Stanley Pollock Consulting Physician: Stanley Pollock Reason for Consult: pt with metastatic cancer to lungs 09/10/18 13:04 Hematology Oncology Consult Routine Comment: Consulting Provider: Reyes Sanchez Consulting Physician: Reyes Sanchez Reason for Consult: [place] Infectious Disease Consult Routine Comment: Consulting Provider: Nino Jackson Consulting Physician: Nino Jackson Reason for Consult: HIGH WBCS 09/11/18 05:24 Wound Care [Nursing Referral for Wound Care] Routine Comment: Physician Instructions: Reason For Exam: please evaluate sacral area 09/13/18 08:06 Gastroenterology Consult Routine Comment: Consulting Provider: August Thompson Consulting Physician: August Thompson Reason for Consult: occluded distal common bile ductal stent 09/17/18 12:20 Social Work Referral Routine Comment: referral for sub-acute Physician Instructions: Reason For Exam: referral for sub-acute Time Spent in preparation of Discharge (in minutes): 30 Hospital Course - Lab Results Lab Results: Micro Results 09/15/18 10:07 Blood Blood Culture - Preliminary NO GROWTH AFTER 3 DAYS 09/16/18 08:50 Blood Blood Culture - Preliminary NO GROWTH AFTER 48 HOURS 09/11/18 05:00 Blood Blood Culture - Final NO GROWTH AFTER 5 DAYS 09/11/18 05:00 Blood Gram Stain - Final TEST NOT PERFORMED 09/10/18 20:30 Blood Blood Culture - Final Klebsiella Pneumoniae 09/10/18 20:30 Blood Gram Stain - Final 09/10/18 18:18 Urine,Clean Catch Urine Culture - Final No Growth (<1,000 CFU/ML) 09/09/18 21:02 Blood Blood Culture - Final Klebsiella Pneumoniae Ssp Pneu 09/09/18 21:02 Blood Gram Stain - Final 09/09/18 06:00 Nose MRSA Culture (Admit) - Final MRSA NOT DETECTED Most Recent Lab Values WBC 10.9 K/uL (4.8-10.8) H 09/18/18 06:00 RBC 2.80 Mil/uL (4.40-5.90) L 09/18/18 06:00 Hgb 8.4 g/dL (12.0-18.0) L 09/18/18 06:00 Hct 24.8 % (35.0-51.0) L 09/18/18 06:00 MCV 88.5 fl (80.0-94.0) 09/18/18 06:00 MCH 29.9 pg (27.0-31.0) 09/18/18 06:00 MCHC 33.8 g/dL (33.0-37.0) 09/18/18 06:00 RDW 21.0 % (11.5-14.5) H 09/18/18 06:00 Plt Count 139 K/uL (130-400) 09/18/18 06:00 Manual Plt Count 36 K/uL (130-400) L* 09/13/18 08:34 MPV 9.5 fl (7.2-11.7) 09/17/18 05:00 Neut % (Auto) 86.7 % (50.0-75.0) H 09/17/18 05:00 Lymph % (Auto) 4.2 % (20.0-40.0) L 09/17/18 05:00 [place] % (Auto) 6.5 % (0.0-10.0) 09/17/18 05:00 Eos % (Auto) 2.5 % (0.0-4.0) 09/17/18 05:00 Baso % (Auto) 0.1 % (0.0-2.0) 09/17/18 05:00 Neut # (Auto) 9.3 K/uL (1.8-7.0) H 09/17/18 05:00 Lymph # (Auto) 0.4 K/uL (1.0-4.3) L 09/17/18 05:00 [place] # (Auto) 0.7 K/uL (0.0-0.8) 09/17/18 05:00 Eos # (Auto) 0.3 K/uL (0.0-0.7) 09/17/18 05:00 Baso # (Auto) 0.0 K/uL (0.0-0.2) 09/17/18 05:00 Neutrophils % (Manual) 94 % (42-75) H 09/17/18 05:00 Band Neutrophils % 1 % (0-2) 09/17/18 05:00 Lymphocytes % (Manual) 2 % (20-50) L 09/17/18 05:00 Monocytes % (Manual) 3 % (0-10) 09/17/18 05:00 Eosinophils % (Manual) 0 % (0-7) 09/17/18 05:00 Metamyelocytes % 1 % (0-0) H 09/10/18 04:35 Toxic Granulation Present 09/17/18 05:00 Platelet Estimate Decreased (NORMAL) L 09/17/18 05:00 Plt Clumps, EDTA Present 09/09/18 21:02 Large Platelets Present 09/17/18 05:00 Hypochromasia (manual) Moderate 09/17/18 05:00 Anisocytosis (manual) Moderate 09/17/18 05:00 Macrocytosis (manual) Slight 09/09/18 21:02 Ovalocytes Slight 09/17/18 05:00 [place] Cells Moderate 09/14/18 04:40 Schistocytes Slight 09/17/18 05:00 PT 35.5 Seconds (9.8-13.1) H 09/13/18 04:30 INR 3.1 09/13/18 04:30 APTT 40.3 Seconds (25.6-37.1) H 09/13/18 04:30 pCO2 28 mm/Hg (35-45) L 09/17/18 08:50 pO2 113 mm/Hg (80-100) H 09/17/18 08:50 HCO3 23.8 mmol/L (21-28) 09/17/18 08:50 ABG pH 7.49 (7.35-7.45) H 09/17/18 08:50 ABG Total CO2 22.2 mmol/L (22-28) 09/17/18 08:50 ABG O2 Saturation 98.3 % (95-98) H 09/17/18 08:50 ABG Base Excess -1.5 mmol/L (-2.0-3.0) 09/17/18 08:50 ABG Carboxyhemoglobin 0 % (0.5-1.5) L 09/10/18 04:00 POC ABG HHb (Measured) 66.1 % (0.0-5.0) H 09/10/18 04:00 ABG Methemoglobin 0.7 % (0.0-3.0) 09/10/18 04:00 Alberto Test Yes 09/17/18 08:50 ABG Potassium 2.8 mmol/L (3.6-5.2) L 09/17/18 08:50 VBG pH 7.25 (7.32-7.43) L 09/10/18 04:00 VBG pCO2 34 mmHg (40-60) L 09/10/18 04:00 VBG HCO3 14.6 mmol/L 09/10/18 04:00 VBG Total CO2 13.2 mmol/L (22-28) L 09/09/18 21:15 VBG O2 Sat (Calc) 33.4 % (40-65) L 09/10/18 04:00 VBG Base Excess -11.3 mmol/L (0.0-2.0) L 09/10/18 04:00 VBG Hgb O2 Saturation 33.2 % (95.0-98.0) L 09/10/18 04:00 VBG Potassium 4.9 mmol/L (3.6-5.2) 09/09/18 21:15 A-a O2 Difference 109.0 mm/Hg 09/17/18 08:50 Hemoglobin 11.9 g/dL (11.7-17.4) 09/10/18 04:00 Sodium 137.0 mmol/L (132-148) 09/17/18 08:50 Chloride 108.0 mmol/L (98-107) H 09/17/18 08:50 Glucose 96 mg/dL (75-110) 09/17/18 08:50 Lactate 1.0 mmol/L (0.7-2.1) 09/17/18 08:50 FiO2 36.0 % 09/17/18 08:50 Crit Value Called To Angela joel 09/09/18 21:15 Crit Value Called By 09/09/18 21:15 Crit Value Read Back Y 09/09/18 21:15 Blood Gas Notified Time 212009/09/18 21:15 Sodium 141 mmol/l (132-148) 09/18/18 06:00 Potassium 2.9 MMOL/L (3.6-5.0) L 09/18/18 06:00 Chloride 102 mmol/L (98-107) 09/18/18 06:00 Carbon Dioxide 24 mmol/L (22-30) 09/18/18 06:00 Anion Gap 18 (10-20) 09/18/18 06:00 BUN 12 mg/dl (9-20) 09/18/18 06:00 Creatinine 0.5 mg/dl (0.8-1.5) L 09/18/18 06:00 Est GFR ( Amer) > 60 09/18/18 06:00 Est GFR (Non-Af Amer) > 60 09/18/18 06:00 Random Glucose 105 mg/dL (75-110) 09/18/18 06:00 Lactic Acid 3.5 mmol/L (0.7-2.1) H 09/11/18 04:40 Calcium 9.0 mg/dL (8.4-10.2) 09/18/18 06:00 Phosphorus 3.0 mg/dl (2.5-4.5) 09/15/18 05:40 Magnesium 1.7 MG/DL (1.6-2.3) 09/15/18 05:40 Total Bilirubin 9.9 mg/dl (0.2-1.3) H 09/18/18 06:00 AST 31 U/L (17-59) 09/18/18 06:00 ALT 35 U/L (21-72) 09/18/18 06:00 Alkaline Phosphatase 680 U/L (38-126) H 09/18/18 06:00 NT-Pro-B Natriuret Pep 7610 pg/ml (0-900) H 09/17/18 05:00 Total Protein 4.8 G/DL (6.3-8.2) L 09/18/18 06:00 Albumin 2.7 g/dL (3.5-5.0) L 09/18/18 06:00 Globulin 2.1 gm/dL (2.2-3.9) L 09/18/18 06:00 Albumin/Globulin Ratio 1.3 (1.0-2.1) 09/18/18 06:00 Procalcitonin 43.45 NG/ML (0.19-0.49) H 09/11/18 04:40 Arterial Blood Potassium 2.8 mmol/L (3.6-5.2) L 09/17/18 08:50 Venous Blood Potassium 4.9 mmol/L (3.6-5.2) 09/09/18 21:15 Urine Color Yellow (YELLOW) 09/10/18 18:18 Urine Clarity Cloudy (Clear) 09/10/18 18:18 Urine pH 5.0 (5.0-8.0) 09/10/18 18:18 Ur Specific [place] 1.020 (1.003-1.030) 09/10/18 18:18 Urine Protein 30 mg/dL (NEGATIVE) 09/10/18 18:18 Urine Glucose (UA) Neg mg/dL (NEGATIVE) 09/10/18 18:18 Urine Ketones Negative mg/dL (NEGATIVE) 09/10/18 18:18 Urine Blood Moderate (NEGATIVE) 09/10/18 18:18 Urine Nitrate Negative (NEGATIVE) 09/10/18 18:18 Urine Bilirubin Negative (NEGATIVE) 09/10/18 18:18 Urine Urobilinogen 2.0 mg/dL (0.2-1.0) 09/10/18 18:18 Ur Leukocyte Esterase Neg Rayna/uL (Negative) 09/10/18 18:18 Urine RBC (Auto) 12 /hpf (0-3) H 09/10/18 18:18 Urine Microscopic WBC 5 /hpf (0-5) 09/10/18 18:18 Urine Bacteria Rare (<OCC) 09/10/18 18:18 Hyaline Casts 0-2 /hpf (0-2) 09/10/18 18:18 C. difficile Ag & Toxin Negative (NEGATIVE) 09/11/18 13:30 - Hospital Course Hospital Course: 73 y/o male with hx of Stage IV Colon Cancer and DVT of Upper Extremity previously on Eliquis presented to ED by family due progressive weakness and poor po intake. Was admitted for Severe Sepsis and Pneumonia found to have Klebsiellla bacteremia, pulmonary/liver metastasis, and occluded CBD stent. Has been treated with Amikaycin, Flagyl and Zosyn with improvement. Pt remains weak, refuses to eat, and is still tachycardic despite stable BP. Septic shock, Klebsiella bacteremia -resolved -Afebrile, still tachycardic. BP WNL. -WBC: stable -monitor CBC -Blood Culture: 09/09/2018: Klebsiella pneumo; 09/10: GNR and 09/11: NG X 3D -IV Amikacin, Zosyn and Metronidazole as per Dr. Rivera -off pressors x3 days -Pulmonology: Dr Pollock -CXR - bilateral infiltrates suggestive of pulmonary edema vs pneumonia vs metastatic ca -Echo in 09/2016 EF 35-40%, LV function mild to moderately impaired Anasarca -improved -s/p 4 doses Albumin -albumin 2.7 -IV lasix Thrombocytopenia: -improved 139 today -Elquis held 08/17 to thrombocytopenia -was on Meropenem, discontinued Occluded stent: -Distal common bile duct -GI consult: Dr. Thompson: No plan for ERCP or stent -t bili trending up 9.9 -CT abdo: 09/12: 1. Findings are concerning for 2 metastatic lesions in the right posterior hepatic lobe measuring 1.5 cm each. 2. Moderate intrahepatic biliary dilatation and moderate dilatation of the proximal common bile duct. A metallic stent remains in place in the distal common bile duct. Apparent high attenuation soft tissue in the distal metallic stent which likely obstructs the stent. 3. Sigmoid diverticulosis. Apparent mild circumferential mural thickening and enhancement in the mid and distal descending colon and the sigmoid colon with mild pericolonic inflammatory changes concerning for acute nonspecific infectious/inflammatory colitis. No evidence for micro perforation or abscess. 4. Mild dilatation of the small bowel loops and fluid in the ascending and transverse colon. 5. Moderate bilateral pleural effusions. Small abdominal ascites. 6. Multiple pulmonary metastasis in the visualized lungs. Anemia, normocytic -worsened today -8.4/24.8 -no evidence of bleeding Acute exacerbation of reduced EF-CHF (systolic dysfunction) -Acute decompensated -IV lasix Hypophosphatemia: -resolved Hypokalemia -resolved Metabolic Acidosis -resolved Hyponatremia -resolved Acute Left Upper Extremity DVT -Was on Eliquis; d/c d/t hx of low plt Discharge to [facility]: [place] for PT and continuation of 7 days of abx: Amikacin, Zosyn and Metronidazole Case and plan d/w Dr. Nabila Kerr MD PGY2 Discharge Exam - Head Exam Head Exam: ATRAUMATIC - Eye Exam Eye Exam: EOMI - Respiratory Exam Respiratory Exam: Clear to PA & Lateral. absent: Wheezes - Cardiovascular Exam Cardiovascular Exam: REGULAR RHYTHM, +S1, +S2 - GI/Abdominal Exam GI & Abdominal Exam: Normal Bowel Sounds, Soft. absent: Tenderness - Neurological Exam Neurological exam: Alert - Psychiatric Exam Psychiatric exam: Normal Affect, Normal Mood Discharge Plan - Follow Up Plan Condition: GUARDED Disposition: HOME/ ROUTINE Instructions: Pneumonia, Adult (DC), Sepsis, Adult (DC), Pulmonary Embolism (DC), Pulmonary Embolism (GEN), Hyponatremia (DC), Deep Venous Thrombosis (DC), Deep Venous Thrombosis (GEN), Sepsis (DC), Sepsis (GEN), Leukocytosis (DC), Leukocytosis (GEN) Additional Instructions: Pt d/c to [facility] Continue IV antibiotics for 7 days.
--- NOTE | 2018-09-18 19:30 | CP.PCM.PN ---
Subjective - Date & Time of Evaluation Date of Evaluation: 09/18/18 Time of Evaluation: 11:30 - Subjective Subjective: Patient was seen and examined bedside . Chronically ill, male lying in bed in NAD. Denies any pain or discomfort . No acute issues overnight . Poor PO intake Afebrile, BP stable , off pressors With anasarca K 2.9 today Objective - Vital Signs/Intake and Output Vital Signs (last 24 hours): Temp Pulse Resp BP Pulse Ox 97.9 F 116 H 20 122/80 96 09/18/18 16:16 09/18/18 16:16 09/18/18 16:16 09/18/18 17:07 09/18/18 16:16 - Medications Medications: Current Medications Albuterol/Ipratropium (Duoneb 3 Mg/0.5 Mg (3 Ml) Ud) 3 ml INH RQ6 PRN PRN Reason: Shortness of Breath Last Admin: 09/17/18 05:11 Dose: 3 ml Fentanyl (Duragesic) 1 patch TD Q3D [facility]; Protocol Last Admin: 09/16/18 12:10 Dose: 1 patch Metronidazole (Flagyl 500mg/100ml Ns) 100 mls @ 100 mls/hr IVPB Q8 [facility] Last Admin: 09/18/18 10:32 Dose: 100 mls/hr Amikacin Sulfate 500 mg/ (Sodium Chloride) 252 mls @ 250 mls/hr IVPB DAILY@2000 [facility]; Protocol Last Admin: 09/17/18 20:57 Dose: 250 mls/hr Piperacillin Sod/Tazobactam (Sod 3.375 gm/ Sodium Chloride) 100 mls @ 100 mls/hr IVPB Q8 [facility]; Protocol Last Admin: 09/18/18 17:09 Dose: 100 mls/hr Megestrol Acetate (Megace) 800 mg PO DAILY [facility] Last Admin: 09/18/18 10:31 Dose: 800 mg Morphine Sulfate (Morphine) 2 mg IVP Q4 PRN PRN Reason: Pain, moderate (4-7) Last Admin: 09/14/18 10:45 Dose: 2 mg Pantoprazole Sodium (Protonix Inj) 40 mg IVP DAILY [facility] Last Admin: 09/18/18 10:34 Dose: 40 mg - Labs Labs: 09/18/18 06:00 09/18/18 06:00 PT 35.5 Seconds (9.8-13.1) H 09/13/18 04:30 INR 3.1 09/13/18 04:30 APTT 40.3 Seconds (25.6-37.1) H 09/13/18 04:30 - Constitutional Appears: Cachectic, Chronically Ill - Head Exam Head Exam: ATRAUMATIC, NORMOCEPHALIC - Eye Exam Eye Exam: EOMI, PERRL, Scleral icterus Pupil Exam: NORMAL ACCOMODATION - ENT Exam ENT Exam: Mucous Membranes Dry, Normal Exam - Neck Exam Neck Exam: Normal Inspection - Respiratory Exam Respiratory Exam: Decreased Breath Sounds (bibasilar ). absent: Wheezes, Respiratory Distress - Cardiovascular Exam Cardiovascular Exam: REGULAR RHYTHM, +S1, +S2. absent: JVD - GI/Abdominal Exam GI & Abdominal Exam: Normal Bowel Sounds. absent: Guarding, Tenderness, Rebound - Rectal Exam Rectal Exam: Deferred - Extremities Exam Extremities Exam: Pedal Edema Additional comments: 3 + bilateral LE and upper extremities - Neurological Exam Neurological Exam: Alert, Awake, CN II-XII Intact, Oriented x3 - Psychiatric Exam Psychiatric exam: Flat Affect - Skin Skin Exam: Dry, Pallor, Warm Assessment and Plan - Assessment and Plan (Free Text) Assessment: 73 y/o cachetic male, chronically ill with diagnosis stage IV colon cancer with metastasis to lungs, LN and pancreas ( stopped Chemo recently) was brought to ER for evaluation for generalized weakness and poor PO intake In ER found to be dehydrated , febrile , tachycardic with elevated lactic acid and WBC count He was admitted with sepsis , metabolic acidosis, acute hypoxemic respiratory failure Blood cx positive for Klebsiella Pneumonia.He was started on On amikacin, Flagyl and Zosyn IV was admitted in ICU and started on levophed and phenylephrine drip Patient clinically showed improvement . He is off pressors , remaining afebrile and responding to IV antibiotics,. He was downgraded to med/surg Diuresed well with Albumin IV and Lasix . Patient has very guarded and poor prognosis due to his Stage IV colon cancer . He is DNR and DNI . PT consulted and planned to discharge patient to [facility] for physical therapy and continuation of IV antibiotics for 1 more week. Today will be given more Albumin IV and Lasix for more diuresis Will replace K 1.Sepsis with septic shock-improved. off Phenylephrine drip . Continue IV antibiotics 1 more week 2.Sepsis secondary to Klebsiella Pneumonia - on IV antibiotics, Zosyn, Flagyl and Amikacin 3.Bilateral CAP-on 3L O2 via NC saturating well . Continue Duones and IV a ntibiotics 4.Metabolic acidosis with respiratory alkalosis-- improved 5.Acute hypoxemic respiratory failure -improved . Continue 3 L O2 via [place] 5. Anasarca--secondary to Fluid overload and hypoalbuminemia .Will give more albumoin IV today and Lasix . Replace low K with KCL and repeta in AM 6.Stage IV colon cancer with Metastasis to LN, Lung and Pancreas with CBD stent and tumor invasion of the stent-- poor prognosis. No intervention indicated . Patient is DNR./DNI . 7.Cachetic BMI 18 8.Anemia of chronic disease 9.Thrombocytopenia -- most likely secondary to medication side effect or related to acute illness. Improving 10 .h/o LUE DVT - eliquist discontinued due to low Plt. Will resume it today since Plt 132 K 11.Constipation -- dulcolax [place] 12.Hyponatremia- most likely fluid overload .Resolved
[2018-09-18] MEDS: Amikacin Sulfate 500 MG in Sodium Chloride 0.9% 250 ML IVPB SCH (20:35)
--- NOTE | 2018-09-18 22:12 | CP.PCM.PN ---
Subjective - Date & Time of Evaluation Date of Evaluation: 09/18/18 Time of Evaluation: 17:00 - Subjective Subjective: Weak but appears comfortable Objective - Vital Signs/Intake and Output Vital Signs (last 24 hours): Temp Pulse Resp BP Pulse Ox 97.9 F 116 H 20 122/80 96 09/18/18 16:16 09/18/18 16:16 09/18/18 16:16 09/18/18 17:07 09/18/18 16:16 - Medications Medications: Current Medications Albuterol/Ipratropium (Duoneb 3 Mg/0.5 Mg (3 Ml) Ud) 3 ml INH RQ6 PRN PRN Reason: Shortness of Breath Last Admin: 09/17/18 05:11 Dose: 3 ml Apixaban (Eliquis) 2.5 mg PO BID [facility]; Protocol Fentanyl (Duragesic) 1 patch TD Q3D [facility]; Protocol Last Admin: 09/16/18 12:10 Dose: 1 patch Metronidazole (Flagyl 500mg/100ml Ns) 100 mls @ 100 mls/hr IVPB Q8 [facility] Last Admin: 09/18/18 10:32 Dose: 100 mls/hr Amikacin Sulfate 500 mg/ (Sodium Chloride) 252 mls @ 250 mls/hr IVPB DAILY@2000 [facility]; Protocol Last Admin: 09/18/18 20:35 Dose: 250 mls/hr Piperacillin Sod/Tazobactam (Sod 3.375 gm/ Sodium Chloride) 100 mls @ 100 mls/hr IVPB Q8 [facility]; Protocol Last Admin: 09/18/18 17:09 Dose: 100 mls/hr Megestrol Acetate (Megace) 800 mg PO DAILY [facility] Last Admin: 09/18/18 10:31 Dose: 800 mg Morphine Sulfate (Morphine) 2 mg IVP Q4 PRN PRN Reason: Pain, moderate (4-7) Last Admin: 09/14/18 10:45 Dose: 2 mg Pantoprazole Sodium (Protonix Inj) 40 mg IVP DAILY [facility] Last Admin: 09/18/18 10:34 Dose: 40 mg - Labs Labs: 09/18/18 06:00 09/18/18 06:00 PT 35.5 Seconds (9.8-13.1) H 09/13/18 04:30 INR 3.1 09/13/18 04:30 APTT 40.3 Seconds (25.6-37.1) H 09/13/18 04:30 - Constitutional Appears: Cachectic - Head Exam Head Exam: ATRAUMATIC - ENT Exam ENT Exam: Mucous Membranes Dry - Respiratory Exam Respiratory Exam: NORMAL BREATHING PATTERN - Cardiovascular Exam Cardiovascular Exam: +S1, +S2 - GI/Abdominal Exam GI & Abdominal Exam: Normal Bowel Sounds - Extremities Exam Extremities Exam: Pedal Edema Assessment and Plan (1) Anemia Assessment & Plan: chronic disease Status: Acute (2) DVT (deep venous thrombosis) Assessment & Plan: on Eliquis Status: Acute (3) Colon cancer Assessment & Plan: stage IV off chemotherapy DNR/DNI for EMILEE Status: Chronic
[2018-09-19] MEDS: metroNIDAZOLE 500mg/100ml NS 100 ML IVPB SCH ×3 (00:02→13:48)
[2018-09-19] MEDS: Piperacillin/Tazobact 3.375 GM in Sodium Chloride 0.9% 100 ML IVPB SCH ×2 (01:09→09:15)
[2018-09-19 07:29] LABS: BLOOD UREA NITROGEN 8 mg/dl (9-20); CALCIUM 9.1 mg/dL (8.4-10.2); GFR NON-AFRICAN AMERICAN > 60
[2018-09-19] MEDS ORDERED: Potassium Chloride 20 mEq ER Tab PO ONE (08:04)
[2018-09-19] MEDS ORDERED: Magnesium Sulfate 1 gm in D5W 1 GM/100 ML BAG IVPB ONE (08:06)
[2018-09-19] MEDS: Megestrol Acetate 40 mg/ml Cup PO SCH (09:17)
[2018-09-19] MEDS: Potassium Chloride 20 mEq 100 ML IVPB SCH ×2 (10:44→13:48)
[2018-09-19] MEDS ORDERED: Atropine-Diphenoxylate 0.025-2.5 mg Tab PO ONE (13:11)
[2018-09-19 16:33] VITALS: BP 119/82; PULSE 114; RESP 20; TEMP 97.2; O2SAT 100
[2018-09-19 16:48] LABS: BLOOD UREA NITROGEN 7 mg/dl (9-20); CALCIUM 9.2 mg/dL (8.4-10.2); GFR NON-AFRICAN AMERICAN > 60
[2018-09-19] MEDS ORDERED: Morphine 4 MG/ML VIAL IVP PRN (17:30)
== END 2018-09-19 17:20 | DRG 871 ==
LOC: H.ER 19:55 → H.ERHOLD 21:28 → H.ICU/CCU 23:01 → H.MEDSURG1 09-17 11:26
PROVIDERS: ADMIT Internal Medicine; ATTEND Internal Medicine
PROC: 5A09357 Assistance with Respiratory Ventilation, Less than 24 Consecutive Hours, Continuous Positive Airway Pressure (ICD-10-PCS; principal; 2018-09-10)
DX: A41.59 Other Gram-negative sepsis (principal); R65.21 Severe sepsis with septic shock; I50.23 Acute on chronic systolic (congestive) heart failure; J18.9 Pneumonia, unspecified organism; G93.41 Metabolic encephalopathy; J96.01 Acute respiratory failure with hypoxia; K83.1 Obstruction of bile duct; I82.622 Acute embolism and thrombosis of deep veins of left upper extremity; E87.1 Hypo-osmolality and hyponatremia; C78.02 Secondary malignant neoplasm of left lung; C78.01 Secondary malignant neoplasm of right lung; C78.7 Secondary malignant neoplasm of liver and intrahepatic bile duct; C78.89 Secondary malignant neoplasm of other digestive organs; C77.9 Secondary and unspecified malignant neoplasm of lymph node, unspecified; D68.8 Other specified coagulation defects; E87.4 Mixed disorder of acid-base balance; R64 Cachexia; Z68.1 Body mass index [BMI] 19.9 or less, adult; R18.8 Other ascites; D63.0 Anemia in neoplastic disease; D69.59 Other secondary thrombocytopenia; E86.0 Dehydration; E87.6 Hypokalemia; I11.0 Hypertensive heart disease with heart failure; I95.89 Other hypotension; E83.39 Other disorders of phosphorus metabolism; K59.00 Constipation, unspecified; R00.0 Tachycardia, unspecified; K57.30 Diverticulosis of large intestine without perforation or abscess without bleeding; Z66 Do not resuscitate; Z85.038 Personal history of other malignant neoplasm of large intestine; Z92.21 Personal history of antineoplastic chemotherapy; Z86.718 Personal history of other venous thrombosis and embolism; Z87.440 Personal history of urinary (tract) infections; Z79.01 Long term (current) use of anticoagulants; Z87.891 Personal history of nicotine dependence